=== PATIENT | female | born 1945 | race Caucasian/White ===

== ENCOUNTER → 2021-04-12 09:18 | Outpatient (ROUT) | payer OTHER, MEDICAID, SELFPAY ==
[2021-04-12 09:34] LABS: Add Manual Diff / Slide Review NO; Basophils Absolute Auto 0 /uL (0-100); Basophils Percent Auto 0.5 % (0-2); Eosinophils Absolute Auto 100 /uL (0-450); Eosinophils Percent Auto 0.8 % (2-4); Hematocrit 39.8 % (36-46); Hemoglobin 13.6 g/dL (12.0-16.0); Lymphocytes Absolute Auto 2600 /uL (1100-4500); Lymphocytes Percent Auto 31.7 % (25-40); Mean Corpuscular HGB Conc 34.3 % (30-36); Mean Corpuscular Hemoglobin 31.7 PG (26-34); Mean Corpuscular Volume 92.4 fL (80-100); Monocytes Absolute Auto 400 /uL (0-900); Monocytes Percent Auto 5.1 % (3-14); Neutrophils Absolute Auto 5200 /uL (1500-7000); Neutrophils Percent Auto 61.9 % (50-75); Platelet Count 275 X10^3/uL (150-400); Red Blood Cell Count 4.31 X10^6/uL (4.0-5.2); Red Cell Distribution Width 12.3 % (11.6-14.8); White Blood Cell Count 8.3 X10^3/uL (4.5-11.0)
[2021-04-12 09:45] LABS: Hemoglobin A1C% w Est Avg Glu 7.4 % (4.0-6.0)
[2021-04-12 09:50] LABS: Alanine Aminotransferase 14 IU/L (<35); Albumin 4.1 g/dL (3.5-5.0); Albumin Globulin Ratio 1.6 (1.0-2.8); Alkaline Phosphatase 66 U/L (38-126); Aspartate Aminotransferase 21 IU/L (14-36); BUN Creatinine Ratio 15.8 (6-22); Bilirubin Total 0.6 mg/dL (0.2-1.3); Blood Urea Nitrogen 9 mg/dL (7-17); Calcium 9.2 mg/dL (8.4-10.2); Carbon Dioxide 25 mmol/L (22-32); Chloride 98 mmol/L (98-107); Estimated Glomerular Filt Rate > 60.0 mL/min (>60); Globulin 2.6 g/dL (1.7-4.1); Glucose 235 mg/dL (80-110); HEMOLYSIS 49 (0-50); Potassium 4.3 mmol/L (3.4-5.1); Sodium 136 mmol/L (137-145); Total Protein 6.7 g/dL (6.3-8.2)
[2021-04-12 10:10] LABS: Vitamin D 25 Hydroxy (D3) 26.7 ng/mL (30.0-100.0)
[2021-04-12 10:38] LABS: Vitamin B12 221 pg/mL (239-931)
== END ==
PROVIDERS: Visit Provider Internal Medicine
DX: E11.9 Type 2 diabetes mellitus without complications (principal); D51.9 Vitamin B12 deficiency anemia, unspecified; E55.9 Vitamin D deficiency, unspecified
CPT/HCPCS: 36415; 80053; 82306; 82607; 83036; 85025

== ENCOUNTER → 2021-05-11 15:50 | Outpatient (ROUT) | payer OTHER, MEDICAID, SELFPAY ==
[2021-05-11 16:04] LABS: Appearance Urine UA CLEAR; Bilirubin Urine UA NEGATIVE (NEGATIVE); Color Urine UA YELLOW; Glucose Urine UA NEGATIVE (Negative); Ketones Urine UA NEGATIVE (NEGATIVE); Leukocyte Esterase Urine UA NEGATIVE (NEGATIVE); Nitrite Urine UA NEGATIVE (Negative); Occult Blood Urine UA NEGATIVE (Negative); Protein Urine UA NEGATIVE (Negative); Urobilinogen Urine UA 0.2 E.U./dL (0.2)
[2021-05-11 16:12] LABS: pH Urine UA 6.5 (4.5-8.0)
[2021-05-11 16:13] LABS: Bacteria Urine None Seen; Culture Indicated Urine Cult Not Indicated; RBC Urine None Seen (0-5/HPF); Squamous Epithelial Cell Urine 0-1 /HPF (0-5/HPF); WBC Urine 0-1/HPF (0-5/HPF)
== END ==
PROVIDERS: Visit Provider Nurse Practitioner Gerontology
DX: R11.0 Nausea (principal); R32 Unspecified urinary incontinence; R10.2 Pelvic and perineal pain
CPT/HCPCS: 81001

== ENCOUNTER → 2021-10-04 08:24 | Outpatient (ROUT) | payer OTHER, MEDICAID, SELFPAY ==
[2021-10-04 08:58] LABS: Add Manual Diff / Slide Review NO; Basophils Absolute Auto 0 /uL (0-100); Basophils Percent Auto 0.5 % (0-2); Eosinophils Absolute Auto 200 /uL (0-450); Eosinophils Percent Auto 1.8 % (2-4); Hematocrit 41.8 % (36-46); Hemoglobin 14.7 g/dL (12.0-16.0); Lymphocytes Absolute Auto 3800 /uL (1100-4500); Mean Corpuscular HGB Conc 35.2 % (30-36); Mean Corpuscular Hemoglobin 31.9 PG (26-34); Mean Corpuscular Volume 90.7 fL (80-100); Monocytes Absolute Auto 700 /uL (0-900); Monocytes Percent Auto 7.5 % (3-14); Neutrophils Absolute Auto 4400 /uL (1500-7000); Neutrophils Percent Auto 48.2 % (50-75); Platelet Count 256 X10^3/uL (150-400); Red Blood Cell Count 4.61 X10^6/uL (4.0-5.2); Red Cell Distribution Width 12.6 % (11.6-14.8); White Blood Cell Count 9.1 X10^3/uL (4.5-11.0)
[2021-10-04 09:05] LABS: Hemoglobin A1C% w Est Avg Glu 8.8 % (4.0-6.0)
[2021-10-04 09:11] LABS: BUN Creatinine Ratio 10.9 (6-22); Blood Urea Nitrogen 6 mg/dL (7-17); Calcium 9.1 mg/dL (8.4-10.2); Carbon Dioxide 26 mmol/L (22-32); Chloride 103 mmol/L (98-107); Cholesterol 180 mg/dL (140-199); Estimated Glomerular Filt Rate > 60 mL/min (>60); Glucose 175 mg/dL (80-110); HDL Cholesterol 50 mg/dL (40-60); HEMOLYSIS < 15 (0-50); LDL Cholesterol Calculated 90 mg/dL (<100); Potassium 4.2 mmol/L (3.4-5.1); Sodium 139 mmol/L (137-145); Triglycerides 201 mg/dL (35-150)
[2021-10-04 09:29] LABS: Vitamin D 25 Hydroxy (D3) 49.8 ng/mL (30.0-100.0)
[2021-10-04 09:59] LABS: Vitamin B12 882 pg/mL (239-931)
== END ==
PROVIDERS: Visit Provider Nurse Practitioner Family
DX: B37.3 Candidiasis of vulva and vagina (principal); D37.09 Neoplasm of uncertain behavior of other specified sites of the oral cavity; E11.9 Type 2 diabetes mellitus without complications; F17.210 Nicotine dependence, cigarettes, uncomplicated; F20.9 Schizophrenia, unspecified; G62.9 Polyneuropathy, unspecified
CPT/HCPCS: 36415; 80048; 80061; 82306; 82607; 83036; 85025

== ENCOUNTER 2021-11-12 11:50 | Emergency (ER) | payer OTHER, MEDICAID, SELFPAY ==
[2021-11-12 11:55] VITALS: BP 164/73; PULSE 123; RESP 20; TEMP 37.1; O2SAT 95; BMI 24.0
--- NOTE | 2021-11-12 13:01 | ED_ITS ---
HPI - Abdominal Pain <Edouard Echevarria PA-C - Last Filed: 11/12/21 19:37> General Chief Complaint: Abdominal Pain Stated Complaint: stomach issues shaky lightheaded Time Seen by Provider: 11/12/21 12:53 Source: patient Mode of arrival: Ambulatory History of Present Illness HPI narrative: Patient is a 76-year-old female who presents to the emergency department today for evaluation of abdominal pain. Patient states that she has been experiencing some ?stomach issues? with tremors. She states that she began to experience abdominal pain today after drinking ?[employer] cold brew coffee?. She does note that she has sensitivity to caffeine and it often causes her to have diarrhea. She states she has been experiencing nonbloody diarrhea for the past week and is concerned that she may be experiencing ?Parkinson's out of the blue?. She also explains that she may need something for anxiety a she has been experiencing symptoms of shortness of breath, lightheadedness, and dizziness. She denies any fever, chest pain, cough, shortness of breath, nausea, vomiting, constipation, dysuria, hematuria, or any other concerning symptoms. No further concerns were voiced at this time. Related Data Allergies Allergy/AdvReac Type Severity Reaction Status Date / Time No Known Drug Allergies Allergy Verified 11/12/21 11:54 Review of Systems <Edouard Echevarria PA-C - Last Filed: 11/12/21 19:37> Constitutional Constitutional: Denies chills, Denies fatigue, Denies fever(s), Denies frequent falls, Denies lethargy and Denies weakness ENT Ears, Nose, Mouth, and Throat: Denies neck pain Cardiovascular Cardiovascular: Denies chest pain, Denies irregular heart rhythm, Denies lightheadedness, Denies palpitations, Denies dyspnea, Denies dyspnea on exertion and Denies orthopnea Respiratory Respiratory: Denies dyspnea and Denies dyspnea on exertion Gastrointestinal Gastrointestinal: Reports abdominal pain, Denies change in bowel habits, Reports diarrhea, Denies nausea and Denies vomiting Genitourinary Genitourinary: Denies hematuria, Denies flank pain, Denies urinary incontinence and Denies urinary urgency Musculoskeletal Musculoskeletal: Denies back pain, Denies muscle weakness, Denies neck pain, Denies numbness and Denies tingling Integumentary/Breasts Skin/Breast: Denies pruritus, Denies erythema, Denies rash and Denies wounds Neurologic Neurologic: Denies frequent falls, Denies numbness, Denies tingling, Reports tremor(s) and Denies weakness Psychiatric Psychiatric: Reports anxiety Endocrine Endocrine: Denies fatigue and Denies palpitations Patient History <Edouard Echevarria PA-C - Last Filed: 11/12/21 19:37> Social History Smoking Status: Never smoker Smoking Status: Never smoker Substance Use Type: does not use Exam <Edouard Echevarria PA-C - Last Filed: 11/12/21 19:37> Narrative Exam Narrative: GENERAL: 76 year old patient appears stated age. Well-developed patient, in no acute distress. HEAD: Atraumatic. Normocephalic. EYES: Pupils equal round and reactive. Extraocular motions intact. No scleral icterus. No injection or drainage. ENT: Nose without bleeding, purulent drainage. Throat without erythema, tonsillar hypertrophy or exudate. Airway patent. NECK: Trachea midline. Non tender CARDIOVASCULAR: Regular rate and rhythm without murmurs, gallops, or rubs. RESPIRATORY: Clear to auscultation. Breath sounds equal bilaterally. No wheezes, rales, or rhonchi. GASTROINTESTINAL: Abdomen soft. Mild tenderness to palpation appreciated generally throughout all 4 quadrants of the abdomen. No significant rebound or guarding. Bowel sounds hyperactive to auscultation throughout all 4 quadrants of the abdomen. EXTREMITIES: No edema or joint tenderness. BACK: Nontender without deformity or crepitance. No flank tenderness. NEURO: AOx3. SKIN: No rash or erythema of visible areas Initial Vital Signs Initial Vital Signs: Vital Signs Temperature 98.8 F 11/12/21 11:55 Pulse Rate 123 H 11/12/21 11:55 Respiratory Rate 20 11/12/21 11:55 Blood Pressure 164/73 H 11/12/21 11:55 Pulse Oximetry 95 11/12/21 11:55 Oxygen Delivery Method 11/12/21 11:55 <Cliff Vázquez MD - Last Filed: 11/12/21 21:21> Initial Vital Signs Initial Vital Signs: Vital Signs Temperature 98.8 F 11/12/21 11:55 Pulse Rate 123 H 11/12/21 11:55 Respiratory Rate 20 11/12/21 11:55 Blood Pressure 164/73 H 11/12/21 11:55 Pulse Oximetry 95 11/12/21 11:55 Oxygen Delivery Method 11/12/21 11:55 Course <Edouard Echevarria PA-C - Last Filed: 11/12/21 19:37> Course Course Narrative: CBC, CMP, lipase, urine dip ordered. CT of the abdomen pelvis obtained. Discussed results of CT with Dr. Romero and he believes it is less likely the hugh campbell is experiencing small-bowel obstruction or ileus. Orders Ordered: ED Orders 11/12/21 14:00 CBC Auto Diff [Complete Blood Count AUTO DIFF] Stat CMP [Comprehensive Metabolic Panel] Stat Lipase Stat 11/12/21 14:49 CT abdomen pelvis w con Stat Discontinued Medications Dicyclomine HCl (Dicyclomine 10 Mg Capsule) 20 mg PO NOW ONE Stop: 11/12/21 16:48 Last Admin: 11/12/21 17:02 Dose: 20 mg Documented By: NILA Hydroxyzine Pamoate (Hydroxyzine Pamoate 25 Mg Capsule) 25 mg PO NOW ONE Stop: 11/12/21 13:13 Last Admin: 11/12/21 13:53 Dose: 25 mg Documented By: TUCKER Vital Signs Vital signs: Vital Signs - 8 hr 11/12/21 11:55 Temperature 98.8 F Pulse Rate 123 H Respiratory Rate 20 Blood Pressure 164/73 H Pulse Oximetry 95 Oxygen Delivery Method Room Air <Cliff Vázquez MD - Last Filed: 11/12/21 21:21> Orders Ordered: ED Orders 11/12/21 14:00 CBC Auto Diff [Complete Blood Count AUTO DIFF] Stat CMP [Comprehensive Metabolic Panel] Stat Lipase Stat 11/12/21 14:49 CT abdomen pelvis w con Stat Discontinued Medications Dicyclomine HCl (Dicyclomine 10 Mg Capsule) 20 mg PO NOW ONE Stop: 11/12/21 16:48 Last Admin: 11/12/21 17:02 Dose: 20 mg Documented By: NR Hydroxyzine Pamoate (Hydroxyzine Pamoate 25 Mg Capsule) 25 mg PO NOW ONE Stop: 11/12/21 13:13 Last Admin: 11/12/21 13:53 Dose: 25 mg Documented By: TUCKER Vital Signs Vital signs: Vital Signs - 8 hr 11/12/21 11:55 Temperature 98.8 F Pulse Rate 123 H Respiratory Rate 20 Blood Pressure 164/73 H Pulse Oximetry 95 Oxygen Delivery Method Room Air MDM - Abdominal Pain <Edouard Echevarria PA-C - Last Filed: 11/12/21 19:37> Lab Data Result diagrams: 11/12/21 14:00 11/12/21 14:00 Labs: Lab Results 11/12/21 11/12/21 Range/Units 14:00 14:00 WBC 11.6 H (4.5-11.0) X10^3/uL RBC 4.39 (4.0-5.2) X10^6/uL Hgb 13.6 (12.0-16.0) g/dL Hct 39.9 (36-46) % MCV 90.9 (80-100) fL MCH 31.0 (26-34) PG MCHC 34.1 (30-36) % RDW 12.8 (11.6-14.8) % Plt Count 271 (150-400) X10^3/uL Neut % (Auto) 68.2 (50-75) % Lymph % (Auto) 24.4 L (25-40) % Liberty % (Auto) 6.3 (3-14) % Eos % (Auto) 0.6 L (2-4) % Baso % (Auto) 0.5 (0-2) % Neut # (Auto) 7900 H (2788-5244) /uL Lymph # (Auto) 2800 (3856-5068) /uL Liberty # (Auto) 700 (0-900) /uL Eos # (Auto) 100 (0-450) /uL Baso # (Auto) 100 (0-100) /uL Sodium 138 (137-145) mmol/L Potassium 3.9 (3.4-5.1) mmol/L Chloride 102 (98-107) mmol/L Carbon Dioxide 29 (22-32) mmol/L BUN 7 (7-17) mg/dL Creatinine 0.54 (0.52-1.04) mg/dL Estimated GFR > 60 (>60) mL/min BUN/Creatinine Ratio 13.0 (6-22) Glucose 152 H (80-110) mg/dL Calcium 9.0 (8.4-10.2) mg/dL Total Bilirubin 0.5 (0.2-1.3) mg/dL AST 21 (14-36) IU/L ALT 15 (<35) IU/L Alkaline Phosphatase 72 (38-126) U/L Total Protein 7.3 (6.3-8.2) g/dL Albumin 4.2 (3.5-5.0) g/dL Globulin 3.1 (1.7-4.1) g/dL Albumin/Globulin Ratio 1.4 (1.0-2.8) Lipase 76 (23-300) U/L Imaging Data CT scan - abdomen/pelvis: Radiologist's Impression: PROCEDURE:? CT ABDOMEN PELVIS W CON ? INDICATIONS:? Abdominal pain, diarrhea ? TECHNIQUE:? After the administration of intravenous contrast, axial sections acquired from the lung bases to the pubic symphysis.? Coronal and sagittal reformats were performed.? For radiation dose reduction, the following was used:? automated exposure control, adjustment of mA and/or kV according to patient size.? ? COMPARISON:? None. ? FINDINGS:? Image quality:? Excellent.? ? Lung bases:? Bibasilar atelectasis.? Lung bases are otherwise clear. Heart:? No significant findings. ? ABDOMEN: Liver:? Unremarkable.? ? Gallbladder:? Large level aided gallstone.? No wall thickening or surrounding inflammation.? Six Biliary ducts:? Unremarkable.? ? Pancreas:? Unremarkable.? ? Spleen:? Unremarkable.? ? Adrenal Glands:? Unremarkable.? ? Kidneys and Ureters:? Unremarkable.? ? ? Stomach and Bowel:? Small hiatal hernia.? Stomach is otherwise unremarkable.? There are a few loops of prominent yet nondilated small bowel noted within the left hemiabdomen with gradual transition.? There is left colon diverticulosis.? No evidence of diverticulitis. Peritoneum:? No abnormal intraperitoneal fluid.? No free air.? ? Ventral Wall: ? No hernias.? Abdominal Nodes:? No retroperitoneal or mesenteric adenopathy by size criteria.? Vessels:? Aorta and inferior vena cava are normal in size.? ? PELVIS: Pelvic Organs:? Unremarkable.? ? Bladder:? Unremarkable.? ? Pelvic Nodes: No enlarged lymph nodes.? Miscellaneous: No hernias are seen. ? ? ? Bones:? Degenerative changes of the spine did hips.? Age-indeterminate shallow compression deformity of the superior endplate of T11. ? ? IMPRESSION:? ? Prominent yet nondilated loops of air-filled small bowel within the left mid abdomen did. ?This is nonspecific but may represent cycle of the dried is versus ileus.? Early small bowel obstruction not completely excluded although not favored. ? Diverticulosis.? No evidence of diverticulitis. ? Cholelithiasis with large level weighted gallstone.? No current CT evidence of cholecystitis. ? Age-indeterminate shallow compression deformity of the superior endplate of T11.? ? Dictated by: Kenn Romero D.O. on 11/12/2021 at 14:28 ? ? Approved by: Kenn Romero D.O. on 11/12/2021 at 14:36 ? MDM Narrative Medical decision making narrative: Differential diagnosis to consider but not limited to colitis versus constipation versus infectious diarrhea. Discussed results of CT with patient and informed her that lab studies were within normal limits. I encouraged patient to begin taking Bentyl to help alleviate discomfort and to follow up with primary care for further evaluation. She expresses understanding and agrees to plan. Urged the patient to return to the emergency department if she experiences worsening symptoms, such as persistent diarrhea, fever, worsening abdominal pain, or any other concerning symptoms. <Cliff Vázquez MD - Last Filed: 11/12/21 21:21> Lab Data Labs: Lab Results 11/12/21 11/12/21 Range/Units 14:00 14:00 WBC 11.6 H (4.5-11.0) X10^3/uL RBC 4.39 (4.0-5.2) X10^6/uL Hgb 13.6 (12.0-16.0) g/dL Hct 39.9 (36-46) % MCV 90.9 (80-100) fL MCH 31.0 (26-34) PG MCHC 34.1 (30-36) % RDW 12.8 (11.6-14.8) % Plt Count 271 (150-400) X10^3/uL Neut % (Auto) 68.2 (50-75) % Lymph % (Auto) 24.4 L (25-40) % Liberty % (Auto) 6.3 (3-14) % Eos % (Auto) 0.6 L (2-4) % Baso % (Auto) 0.5 (0-2) % Neut # (Auto) 7900 H (7540-0293) /uL Lymph # (Auto) 2800 (5188-3276) /uL Liberty # (Auto) 700 (0-900) /uL Eos # (Auto) 100 (0-450) /uL Baso # (Auto) 100 (0-100) /uL Sodium 138 (137-145) mmol/L Potassium 3.9 (3.4-5.1) mmol/L Chloride 102 (98-107) mmol/L Carbon Dioxide 29 (22-32) mmol/L BUN 7 (7-17) mg/dL Creatinine 0.54 (0.52-1.04) mg/dL Estimated GFR > 60 (>60) mL/min BUN/Creatinine Ratio 13.0 (6-22) Glucose 152 H (80-110) mg/dL Calcium 9.0 (8.4-10.2) mg/dL Total Bilirubin 0.5 (0.2-1.3) mg/dL AST 21 (14-36) IU/L ALT 15 (<35) IU/L Alkaline Phosphatase 72 (38-126) U/L Total Protein 7.3 (6.3-8.2) g/dL Albumin 4.2 (3.5-5.0) g/dL Globulin 3.1 (1.7-4.1) g/dL Albumin/Globulin Ratio 1.4 (1.0-2.8) Lipase 76 (23-300) U/L Discharge Plan Departure Patient Disposition: Home Clinical Impression: Abdominal pain, Diarrhea Instructions: DI for Abdominal Pain-Adult Activity Restrictions/Additional Instructions: *You have been diagnosed with abdominal pain, diarrhea *What to do: *Please continue to take your regular medications as directed. [X] New medication prescriptions sent to your pharmacy: [Bentyl] [ ] New medication written as a paper prescription [ ] No new medications given You were evaluated in the emergency department today for abdominal pain and diarrhea. CT imaging obtained in the emergency department today did not show signs of significant abnormality. I recommend staying well hydrated throughout the day. I have prescribed you a course of medications to help alleviate your abdominal discomfort. Please follow-up with primary care for further evaluation and management. Do not hesitate to return to the emergency department if you experience fever, worsening abdominal pain, blood in your stool, frequent episodes of diarrhea, or any other concerning symptoms. Recommended if that the patient take Bentyl 20 mg b.i.d. for 5 days for a total of 10 tablets. *Please follow up with your primary care provider in 2-3 days, call for an appointment. Let them know you were seen in the Emergency Department and that we ask that you be seen in follow up. We will electronically transmit a record of today's note if your PCP is in our system *If you do not have a primary care provider please contact the [facility] Resource line at [phone]. They will ask some questions about your medical history and help get you set up with a doctor in the community. *Return to Emergency Department if you should have any new, worsening or concerning symptoms, such as fever greater than 101 F, shaking chills, worsening pain, persistent vomiting or other bothersome symptoms. Visit Report Forms: Patient Portal/API <Cliff Vázquez MD - Last Filed: 11/12/21 21:21> Cosign ED Attending Lupillo Attestation: I was immediately available for consultation of this patient was seen and evaluated by the APC in the department.
[2021-11-12] MEDS: hydrOXYzine pamoate 25 MG CAPSULE PO (13:53)
[2021-11-12 14:12] LABS: Add Manual Diff / Slide Review NO; Basophils Absolute Auto 100 /uL (0-100); Basophils Percent Auto 0.5 % (0-2); Eosinophils Absolute Auto 100 /uL (0-450); Eosinophils Percent Auto 0.6 % (2-4); Hematocrit 39.9 % (36-46); Hemoglobin 13.6 g/dL (12.0-16.0); Lymphocytes Absolute Auto 2800 /uL (1100-4500); Lymphocytes Percent Auto 24.4 % (25-40); Mean Corpuscular HGB Conc 34.1 % (30-36); Mean Corpuscular Volume 90.9 fL (80-100); Monocytes Absolute Auto 700 /uL (0-900); Monocytes Percent Auto 6.3 % (3-14); Neutrophils Absolute Auto 7900 /uL (1500-7000); Neutrophils Percent Auto 68.2 % (50-75); Platelet Count 271 X10^3/uL (150-400); Red Blood Cell Count 4.39 X10^6/uL (4.0-5.2); Red Cell Distribution Width 12.8 % (11.6-14.8); White Blood Cell Count 11.6 X10^3/uL (4.5-11.0)
[2021-11-12 14:25] LABS: Alanine Aminotransferase 15 IU/L (<35); Albumin 4.2 g/dL (3.5-5.0); Albumin Globulin Ratio 1.4 (1.0-2.8); Alkaline Phosphatase 72 U/L (38-126); Aspartate Aminotransferase 21 IU/L (14-36); Bilirubin Total 0.5 mg/dL (0.2-1.3); Blood Urea Nitrogen 7 mg/dL (7-17); Carbon Dioxide 29 mmol/L (22-32); Chloride 102 mmol/L (98-107); Estimated Glomerular Filt Rate > 60 mL/min (>60); Globulin 3.1 g/dL (1.7-4.1); Glucose 152 mg/dL (80-110); HEMOLYSIS < 15 (0-50); Lipase 76 U/L (23-300); Potassium 3.9 mmol/L (3.4-5.1); Sodium 138 mmol/L (137-145); Total Protein 7.3 g/dL (6.3-8.2)
--- NOTE | 2021-11-12 14:49 | DI.CT.S_ITS ---
PROCEDURE: CT ABDOMEN PELVIS W CON INDICATIONS: Abdominal pain, diarrhea TECHNIQUE: After the administration of intravenous contrast, axial sections acquired from the lung bases to the pubic symphysis. Coronal and sagittal reformats were performed. For radiation dose reduction, the following was used: automated exposure control, adjustment of mA and/or kV according to patient size. COMPARISON: None. FINDINGS: Image quality: Excellent. Lung bases: Bibasilar atelectasis. Lung bases are otherwise clear. Heart: No significant findings. ABDOMEN: Liver: Unremarkable. Gallbladder: Large level aided gallstone. No wall thickening or surrounding inflammation. Six Biliary ducts: Unremarkable. Pancreas: Unremarkable. Spleen: Unremarkable. Adrenal Glands: Unremarkable. Kidneys and Ureters: Unremarkable. Stomach and Bowel: Small hiatal hernia. Stomach is otherwise unremarkable. There are a few loops of prominent yet nondilated small bowel noted within the left hemiabdomen with gradual transition. There is left colon diverticulosis. No evidence of diverticulitis. Peritoneum: No abnormal intraperitoneal fluid. No free air. Ventral Wall: No hernias. Abdominal Nodes: No retroperitoneal or mesenteric adenopathy by size criteria. Vessels: Aorta and inferior vena cava are normal in size. PELVIS: Pelvic Organs: Unremarkable. Bladder: Unremarkable. Pelvic Nodes: No enlarged lymph nodes. Miscellaneous: No hernias are seen. Bones: Degenerative changes of the spine did hips. Age-indeterminate shallow compression deformity of the superior endplate of T11. IMPRESSION: Prominent yet nondilated loops of air-filled small bowel within the left mid abdomen did. This is nonspecific but may represent cycle of the dried is versus ileus. Early small bowel obstruction not completely excluded although not favored. Diverticulosis. No evidence of diverticulitis. Cholelithiasis with large level weighted gallstone. No current CT evidence of cholecystitis. Age-indeterminate shallow compression deformity of the superior endplate of T11. Dictated by: Kenn Romero D.O. on 11/12/2021 at 14:28 Approved by: Kenn Romero D.O. on 11/12/2021 at 14:36
[2021-11-12] MEDS: DICYCLOMINE 10 MG CAPSULE 20 MG PO (17:02)
== END 2021-11-12 17:21 | disposition home or self-care (01) ==
PROVIDERS: Emergency Provider Physician Assistant
DX: R10.9 Unspecified abdominal pain (principal); R19.7 Diarrhea, unspecified
CPT/HCPCS: 36415; 74177; 80053; 83690; 85025; 99284; Q9967

== ENCOUNTER 2021-11-18 09:44 | Emergency (ER) | payer OTHER, MEDICAID, SELFPAY ==
[2021-11-18 10:10] VITALS: BP 142/76; PULSE 96; RESP 20; TEMP 36.1; O2SAT 99; BMI 23.3
--- NOTE | 2021-11-18 10:23 | ED.ABDPAIN ---
HPI - Abdominal Pain General Chief Complaint: Abdominal Pain Stated Complaint: Stomach issues again Time Seen by Provider: 11/18/21 10:22 History of Present Illness HPI narrative: Patient is a 76-year-old who presents with abdominal pain.? She was seen evaluated here on 11/12/2021 for the same.? She had blood work and CT.? CT showed possible early small-bowel obstruction.? Today she wandered off from [facility] assisted living for ongoing abdominal pain.? She is currently drinking a bottle of water.? She brings with her her remote for her TV and her portable telephone.? Staff did not know she was leaving.? She is not vomiting.? He just wanted to be evaluated.? She overall appears well.? She apparently is going into memory care sometime soon. Related Data Allergies Allergy/AdvReac Type Severity Reaction Status Date / Time No Known Drug Allergies Allergy Verified 11/12/21 11:54 Review of Systems Review of Systems Narrative: GENERAL: Denies chills, fatigue, malaise, fever, sweats, travel HEENT: Denies sinus pain, ear pain, sore throat, difficulty swallowing, neck pain RESPIRATORY: Denies dyspnea, cough, wheezing, hemoptysis, sputum. CARDIOVASCULAR: Denies chest pain, palpitations, orthopnea, edema GASTROINTESTINAL:? See HPI : Denies dysuria, frequency, incontinence, hematuria, urinary retention, flank pain. MUSCULOSKELETAL: Denies weakness, joint pain, or bony pain SKIN: No rash, no erythema, no pruritus NEUROLOGIC: Denies weakness, dizziness, headache, numbness, change in speech, confusion PSYCHIATRIC: No concerning psychosocial issues. 12 point review of systems is negative except for those stated above and HPI Patient History Social History Smoking Status: Never smoker Smoking Status: Never smoker Substance Use Type: does not use Exam Initial Vital Signs Initial Vital Signs: Vital Signs Temperature 97 F L 11/18/21 10:10 Pulse Rate 96 H 11/18/21 10:10 Respiratory Rate 20 11/18/21 10:10 Blood Pressure 142/76 H 11/18/21 10:10 Pulse Oximetry 99 11/18/21 10:10 Oxygen Delivery Method 11/18/21 10:10 GENERAL:? Alert pleasantly confused 76-year-old female and in no acute distress. HEENT: Head atraumatic,EOMI, pupils reactive, face symmetric, moist mucous membranes? CARDIOVASCULAR: Regular rate and rhythm without murmurs, rubs or gallops. RESPIRATORY: Breath sounds equal bilaterally, no wheezes rales or rhonchi. ABDOMEN: Soft, slightly distended but soft minimally tender no guarding no rebound EXTREMITIES: Normal range of motion, no clubbing or edema.? Neurovascularly intact NEUROLOGICAL: Alert and oriented x3.? No deficit SKIN: Warm, dry, no laceration, no petechiae, no rashes or lesions. Course Orders Ordered: ED Orders 11/18/21 10:25 XR acute abdomen series Stat Vital Signs Vital signs: Vital Signs - 8 hr 11/18/21 10:10 Temperature 97 F L Pulse Rate 96 H Respiratory Rate 20 Blood Pressure 142/76 H Pulse Oximetry 99 Oxygen Delivery Method Room Air MDM - Abdominal Pain Imaging Data Abdominal x-ray: Radiologist's Impression: MR#: [id number] : 1945 Acct:[id number] Age/Sex: 76 / F Date of Service: 11/18/21 Loc: ED Accession Number: [id number] ?? Procedure: XR acute abdomen series Ordering Provider: Yumiko Benavides D.O. PROCEDURE:? XR ACUTE ABDOMEN SERIES ? INDICATIONS:? pain ? TECHNIQUE:? One view chest and two views of the abdomen were acquired.? ? COMPARISON:? None. ? FINDINGS:? ? Surgical changes and devices:? None.? ? Chest:? Lungs are clear.? Heart size is normal.? No pleural effusions.? No pneumoperitoneum.? ? Abdomen:? There are prominent gas-filled loops of small bowel but no evidence of small-bowel obstruction.? Stool in the large bowel appears increased consistent with constipation.? No suspicious calcifications.? Visualized solid organ contours appear normal.? ? Bones:? No suspicious bony lesions.? ? IMPRESSION:? 1. No acute plain film abnormality of the abdomen. 2. Prominent gas-filled loops of small bowel with no evidence of small-bowel obstruction. 3. Stool in the small bowel is increased consistent with constipation.? ? ? Dictated by: William Fortune M.D. on 11/18/2021 at 10:31 ? ? Approved by: William Fortune M.D. on 11/18/2021 at 10:37 ? MDM Narrative Medical decision making narrative: The patient overall appears well. She is drinking water she is eating food. At this time no need for any further workup. She had complete workup just a few days ago with a CT. She easily walks herself over here and staff is here to return her. Discharge Plan Departure Patient Disposition: Home Clinical Impression: Abdominal pain Instructions: DI for Abdominal Pain-Adult Activity Restrictions/Additional Instructions: *You have been diagnosed with abdominal pain *What to do: At this time x-ray is negative no cause of abdominal pain. Continue to eat and drink *Continue to take medications as directed *Follow up with your primary care provider in 2-3 days or call [phone] *Return to ER if you should have increasing pain persistent vomiting or any new, worsening or concerning symptoms Referrals: Ivanna Samuel ARNP [Primary Care Provider] - Visit Report Forms: Patient Portal/API
--- NOTE | 2021-11-18 10:25 | DI.RAD.S_ITS ---
PROCEDURE: XR ACUTE ABDOMEN SERIES INDICATIONS: pain TECHNIQUE: One view chest and two views of the abdomen were acquired. COMPARISON: None. FINDINGS: Surgical changes and devices: None. Chest: Lungs are clear. Heart size is normal. No pleural effusions. No pneumoperitoneum. Abdomen: There are prominent gas-filled loops of small bowel but no evidence of small-bowel obstruction. Stool in the large bowel appears increased consistent with constipation. No suspicious calcifications. Visualized solid organ contours appear normal. Bones: No suspicious bony lesions. IMPRESSION: 1. No acute plain film abnormality of the abdomen. 2. Prominent gas-filled loops of small bowel with no evidence of small-bowel obstruction. 3. Stool in the small bowel is increased consistent with constipation. Dictated by: William Fortune M.D. on 11/18/2021 at 10:31 Approved by: William Fortune M.D. on 11/18/2021 at 10:37
--- NOTE | 2021-11-18 10:28 | ED_ITS ---
HPI - CPR General Chief Complaint: Abdominal Pain Stated Complaint: Stomach issues again Time Seen by Provider: 11/18/21 10:22 History of Present Illness HPI narrative: Patient is a 76-year-old who presents with abdominal pain. She was seen evaluated here on 11/12/2021 for the same. She had blood work and CT. CT showed possible early small-bowel obstruction. Today she wandered off from [facility] living for ongoing abdominal pain. She is currently drinking a bottle of water. She brings with her her remote for her TV and her portable telephone. Staff did not know she was leaving. She is not vomiting. He just wanted to be evaluated. She overall appears well. She apparently is going into memory care sometime soon Related Data Allergies Allergy/AdvReac Type Severity Reaction Status Date / Time No Known Drug Allergies Allergy Verified 11/12/21 11:54 Review of Systems Review of Systems Narrative: GENERAL: Denies chills, fatigue, malaise, fever, sweats, travel HEENT: Denies sinus pain, ear pain, sore throat, difficulty swallowing, neck pain RESPIRATORY: Denies dyspnea, cough, wheezing, hemoptysis, sputum. CARDIOVASCULAR: Denies chest pain, palpitations, orthopnea, edema GASTROINTESTINAL: See HPI : Denies dysuria, frequency, incontinence, hematuria, urinary retention, flank pain. MUSCULOSKELETAL: Denies weakness, joint pain, or bony pain SKIN: No rash, no erythema, no pruritus NEUROLOGIC: Denies weakness, dizziness, headache, numbness, change in speech, confusion PSYCHIATRIC: No concerning psychosocial issues. 12 point review of systems is negative except for those stated above and HPI Patient History Social History Smoking Status: Never smoker Smoking Status: Never smoker Substance Use Type: does not use Exam Initial Vital Signs Initial Vital Signs: Vital Signs Temperature 97 F L 11/18/21 10:10 Pulse Rate 96 H 11/18/21 10:10 Respiratory Rate 20 11/18/21 10:10 Blood Pressure 142/76 H 11/18/21 10:10 Pulse Oximetry 99 11/18/21 10:10 Oxygen Delivery Method 11/18/21 10:10 GENERAL: Alert pleasantly confused 76-year-old female and in no acute distress. HEENT: Head atraumatic,EOMI, pupils reactive, face symmetric, moist mucous membranes CARDIOVASCULAR: Regular rate and rhythm without murmurs, rubs or gallops. RESPIRATORY: Breath sounds equal bilaterally, no wheezes rales or rhonchi. ABDOMEN: Soft, slightly distended but soft minimally tender no guarding no rebound EXTREMITIES: Normal range of motion, no clubbing or edema. Neurovascularly intact NEUROLOGICAL: Alert and oriented x3. No deficit SKIN: Warm, dry, no laceration, no petechiae, no rashes or lesions. Course Orders Ordered: ED Orders 11/18/21 10:25 XR acute abdomen series Stat Vital Signs Vital signs: Vital Signs - 8 hr 11/18/21 10:10 Temperature 97 F L Pulse Rate 96 H Respiratory Rate 20 Blood Pressure 142/76 H Pulse Oximetry 99 Oxygen Delivery Method Room Air Discharge Plan Departure Patient Disposition: Home Clinical Impression: Abdominal pain Instructions: DI for Abdominal Pain-Adult Activity Restrictions/Additional Instructions: *You have been diagnosed with abdominal pain *What to do: At this time x-ray is negative no cause of abdominal pain. Continue to eat and drink *Continue to take medications as directed *Follow up with your primary care provider in 2-3 days or call [phone] *Return to ER if you should have increasing pain persistent vomiting or any new, worsening or concerning symptoms Referrals: Ivanna Samuel ARNP [Primary Care Provider] - Visit Report Forms: Patient Portal/API
== END 2021-11-18 12:00 | disposition home or self-care (01) ==
PROVIDERS: Emergency Provider Emergency Medicine; PCP Nurse Practitioner Family
DX: R10.9 Unspecified abdominal pain (principal)
CPT/HCPCS: 74022; 99283

== ENCOUNTER 2021-11-24 09:00 | Emergency (ER) | payer OTHER, MEDICAID, SELFPAY ==
[2021-11-24 09:13] VITALS: BP 149/74; PULSE 107; RESP 15; TEMP 35.9; O2SAT 95; BMI 22.4
--- NOTE | 2021-11-24 10:15 | ED_ITS ---
HPI - Eye Problem General Chief complaint: Eye Problems Stated complaint: both eyes: blurred visions and white light Time Seen by Provider: 11/24/21 09:56 Source: patient Mode of arrival: Ambulatory History of Present Illness HPI Narrative: Patient is a 76-year-old female who has escaped again from [facility] living. She was seen evaluated by myself a few days ago for some abdominal pain. Today she says she is having ongoing white light some blurry vision it has been like this for a number of months. She says she cannot get in eye appointment for another year because of her insurance. It is not any worse today. She does have a lazy eye on the left. She is worried she might have glaucoma. He has no other complaints. She denies any double vision. Related Data Allergies Allergy/AdvReac Type Severity Reaction Status Date / Time Penicillins Allergy Verified 11/24/21 09:13 procaine [From Novocain] Allergy Verified 11/24/21 10:08 Review of Systems Review of Systems Narrative: GENERAL: Denies chills,fever EYES: See HPI HEENT: Denies throat pain RESPIRATORY: Denies dyspnea, cough, wheezing CARDIOVASCULAR: Denies chest pain, palpitations GASTROINTESTINAL: Denies nausea, vomiting MUSCULOSKELETAL: Denies extremity pain, injury SKIN: No rash, no laceration, no pruritus NEUROLOGIC: Denies weakness, dizziness, headache, numbness 8 point review of systems is negative except for those stated above and HPI Patient History Social History Smoking Status: Never smoker Smoking Status: Never smoker tobacco type: cigarettes alcohol intake frequency: holidays/special occasions only Substance Use Type: does not use Exam Initial Vital Signs Initial Vital Signs: Vital Signs Temperature 96.7 F L 11/24/21 09:13 Pulse Rate 107 H 11/24/21 09:13 Respiratory Rate 15 11/24/21 09:13 Blood Pressure 149/74 H 11/24/21 09:13 Pulse Oximetry 95 11/24/21 09:13 Oxygen Delivery Method 11/24/21 09:13 GENERAL: Alert 76-year-old pain EYE: Please GI noted on left extraocular muscles intact no injected conjunctiva Right eye pressure 32mmHg, left eye pressure 27mmHg CARDIOVASCULAR: peripheral pulses in tact, cap refill <2 sec RESPIRATORY: No respiratory distress, speaks in full sentences without difficulty EXTREMITIES: Normal range of motion, no clubbing or edema. Neurovascularly intact NEUROLOGICAL: Cranial nerves II through XII grossly intact. Normal gait and speech. SKIN: Warm, dry, no petechiae, no rashes or lesions. Course Vital Signs Vital signs: Vital Signs - 8 hr 11/24/21 09:13 11/24/21 10:26 Temperature 96.7 F L 97.2 F L Pulse Rate 107 H 90 Respiratory Rate 15 18 Blood Pressure 149/74 H 144/96 H Pulse Oximetry 95 95 Oxygen Delivery Method Room Air Room Air MDM - Eye Problem MDM Narrative Medical decision making narrative: Patient is concerned that she may have glaucoma she actually is found to have elevated ocular pressures. It has been going on for a year or more. Patient so symptoms do not seem to be any worse today. She has absolutely no pain. Prior history of cataract Discussion with Dr. Rosie canada ophthalmology who states that she does not take patient's insurance, no recommendations were given for eye pressure Dr. 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 Discharge Plan Departure Patient Disposition: Home Clinical Impression: Glaucoma (increased eye pressure) Instructions: Glaucoma (Alternative Therapy) Activity Restrictions/Additional Instructions: *You have been diagnosed with probable glaucoma *What to do: It is very important that you get seen as soon as possible by the eye doctor *Continue to take medications as directed *Follow up with your primary care provider in 2-3 days or call [phone] *Return to ER if you should have loss of vision halos pain in eye or any new, worsening or concerning symptoms Referrals: Ivanna Samuel ARNP [Primary Care Provider] - Visit Report Forms: Patient Portal/API
[2021-11-24 10:26] VITALS: BP 144/96; PULSE 90; RESP 18; TEMP 36.2; O2SAT 95
--- NOTE | 2021-11-24 10:33 | PC.NURSE ---
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 Pt states this is normal. Pt states she has had bilateral cataract surgery. Just been harder to read lately. Concerned for glaucoma.
== END 2021-11-24 13:10 | disposition home or self-care (01) ==
PROVIDERS: Emergency Provider Emergency Medicine; PCP Nurse Practitioner Family
DX: H40.9 Unspecified glaucoma (principal)
CPT/HCPCS: 99281

== ENCOUNTER 2021-12-03 11:12 | Emergency (ER) | payer OTHER, MEDICAID, SELFPAY ==
[2021-12-03 11:39] VITALS: BP 138/64; PULSE 108; RESP 20; TEMP 37.3; O2SAT 100; BMI 22.3
--- NOTE | 2021-12-03 11:54 | ED_ITS ---
HPI - Ear Problem <GILMAR Childers - Last Filed: 12/03/21 12:25> General Chief complaint: Ear Stated complaint: LUMP UNDER RIGHT EAR Time Seen by Provider: 12/03/21 11:51 Source: patient Mode of arrival: Family Vehicle History of Present Illness HPI Narrative: 76 year old female, former smoker, presents to the emergency department with concerns over lump underneath her right ear that is painful with palpation. Patient is concerned this could be cancerous. Patient also endorses a dry spot on her scalp that is itchy, even though she uses prescription shampoo from her family doctor. Patient is very friendly and just wants to make sure she does not cancer, due to previous history cigarette smoking. Related Data Allergies Allergy/AdvReac Type Severity Reaction Status Date / Time Penicillins Allergy Verified 12/03/21 11:28 procaine [From Novocain] Allergy Verified 11/24/21 10:08 Review of Systems <GILMAR Childers - Last Filed: 12/03/21 12:25> Review of Systems Narrative: Narrative: GENERAL: Denies chills, fatigue, fever, sweats. See HPI HEENT: Denies sinus pain, ear pain, sore throat, difficulty swallowing, dizziness. RESPIRATORY: Denies dyspnea, cough, wheezing, sputum. CARDIOVASCULAR: Denies chest pain, palpitations, edema. GASTROINTESTINAL: Denies nausea, vomiting, abdominal pain, diarrhea, constipation. : Denies dysuria, frequency, incontinence, hematuria, urinary retention, flank pain. MSK: Denies weakness, joint pain, or bony pain. SKIN: Endorses painful lump under right ear and itchy patch on top of scalp. NEUROLOGIC: Denies weakness, dizziness, headache, numbness, confusion. PSYCHIATRIC: No concerning psychosocial issues. Patient History <GILMAR Childers - Last Filed: 12/03/21 12:25> Social History Smoking Status: Former smoker Smoking Status: Never smoker tobacco type: cigarettes alcohol intake frequency: holidays/special occasions only Substance Use Type: does not use Exam <GILMAR Childers - Last Filed: 12/03/21 12:25> Narrative Exam Narrative: Exam Narrative: GENERAL: This is a well-nourished, well-developed patient, in no acute distress HEAD: Atraumatic. Normocephalic. 0.5 cm dry patch on top of scalp. No active bleeding or signs of infection. EYES: Pupils equal round and reactive. Left eye with vertical strabismus. No scleral icterus, injection or drainage. ENT: Nose without bleeding, purulent drainage. Throat with mild erythema, but no tonsillar hypertrophy or exudate. Airway patent. NECK: Trachea midline. No JVD. Pea-sized swollen lymph node below right earlobe that is painful with palpation. CARDIOVASCULAR: Regular rate and rhythm without murmurs, peripheral pulses intact, cap refill <2 sec. RESPIRATORY: Breath sounds equal and clear bilaterally. No wheezes, rales, or rhonchi. No cough. No increased respiratory effort. No accessory muscle use. GASTROINTESTINAL: Abdomen soft, non-tender, nondistended without guarding or rebound. No suprapubic pain. MSK: Moves all extremities. Normal range of motion, no clubbing or edema. N eurovascularly intact. NEURO: A&O x 3. SKIN: Warm, dry, no rashes or lesions noted. Initial Vital Signs Initial Vital Signs: Vital Signs Temperature 99.2 F 12/03/21 11:39 Pulse Rate 108 H 12/03/21 11:39 Respiratory Rate 20 12/03/21 11:39 Blood Pressure 138/64 12/03/21 11:39 Pulse Oximetry 100 12/03/21 11:39 Oxygen Delivery Method High Flow Nasal Cannula 12/03/21 11:39 Reviewed <Isra Brumfield MD - Last Filed: 12/16/21 12:22> Initial Vital Signs Initial Vital Signs: Vital Signs Temperature 99.2 F 12/03/21 11:39 Pulse Rate 108 H 12/03/21 11:39 Respiratory Rate 20 12/03/21 11:39 Blood Pressure 138/64 12/03/21 11:39 Pulse Oximetry 100 12/03/21 11:39 Oxygen Delivery Method High Flow Nasal Cannula 12/03/21 11:39 Course <GILMAR Childers - Last Filed: 12/03/21 12:25> Vital Signs Vital signs: Vital Signs - 8 hr 12/03/21 11:39 Temperature 99.2 F Pulse Rate 108 H Respiratory Rate 20 Blood Pressure 138/64 Pulse Oximetry 100 Oxygen Delivery Method Room Air High Flow Nasal Cannula <Isra Brumfield MD - Last Filed: 12/16/21 12:22> Vital Signs Vital signs: Vital Signs - 8 hr 12/03/21 11:39 Temperature 99.2 F Pulse Rate 108 H Respiratory Rate 20 Blood Pressure 138/64 Pulse Oximetry 100 Oxygen Delivery Method Room Air High Flow Nasal Cannula Medical Decision Making <GILMAR Childers - Last Filed: 12/03/21 12:25> Differential Diagnosis Differential Diagnosis: Lymphadenopathy MDM Narrative Medical decision making narrative: 76-year-old female presents to the emergency department with lump under right ear and itchy scalp. Single swollen lymph node below right ear lobe that should resolve on its own. No signs throat or ear infection. Itchy scalp is being treated with prescription shampoo by her family doctor. Recommended petroleum based ointment for the single flaky lesion on her scalp. Discussed return precautions and plan of care with patient, who was agreeable with course of action. Recheck of heart rate was 94 bpm. Discharge Plan Departure Patient Disposition: Home Clinical Impression: Lymphadenopathy Activity Restrictions/Additional Instructions: *You have been diagnosed with a single swollen lymph node underneath the right ear. This should resolve on its own, so please stop poking at it. The dry spot on your scalp should resolve with the ointment I provided you. Please apply that once daily for the next 2 days. If either of these conditions worsen, please follow-up with your family doctor. *What to do: *Please continue to take your regular medications as directed. [ ] New medication prescriptions sent to your pharmacy: [ ] [ ] New medication written as a paper prescription [ x] No new medications given *Please follow up with your primary care provider in 2-3 days, call for an appointment. Let them know you were seen in the Emergency Department and that we ask that you be seen in follow up. We will electronically transmit a record of today's note if your PCP is in our system *If you do not have a primary care provider please contact the [facility] Resource line at [phone]. They will ask some questions about your medical history and help get you set up with a doctor in the community. ? Return to ER if you should have any new, worsening or concerning symptoms, such as worsening pain, severe headache, confusion, chest pain, difficulty breathing, fever greater than 101 F, shaking chills, persistent vomiting to the point that you cannot drink fluids, or other new or worsening symptoms. Referrals: Ivanna Samuel ARNP [Primary Care Provider] - Visit Report Forms: Patient Portal/API <Isra Brumfield MD - Last Filed: 12/16/21 12:22> Cosign ED Attending Cosjohnature Attestation: I was immediately available in the department for consultation. This documentation has been reviewed and I agree with assessment and plan. Supervised by Isra Brumfield MD
--- NOTE | 2021-12-03 12:34 | PC.NURSE ---
small lymph adenopathy behind right ear.
[2021-12-03 12:35] VITALS: BP 136/73; PULSE 94; RESP 16; O2SAT 97
== END 2021-12-03 12:36 | disposition home or self-care (01) ==
PROVIDERS: Emergency Provider Registered Nurse; PCP Nurse Practitioner Family
DX: R59.1 Generalized enlarged lymph nodes (principal)
CPT/HCPCS: 99281; 99284

== ENCOUNTER 2021-12-10 11:21 | Emergency (ER) | payer OTHER, MEDICAID, SELFPAY ==
[2021-12-10 11:35] VITALS: BP 148/70; PULSE 104; RESP 18; TEMP 36.6; O2SAT 95
[2021-12-10] MEDS: ACETAMINOPHEN 325 MG TABLET 650 MG PO (13:47)
--- NOTE | 2021-12-10 14:02 | ED_ITS ---
HPI - Medical Clearance <GILMAR Almaraz - Last Filed: 12/10/21 16:48> General Chief complaint: Medical Clearance Stated complaint: shaking lt hand for days Time Seen by Provider: 12/10/21 13:14 Source: patient Mode of arrival: Ambulatory History of Present Illness HPI Narrative: This is a 76-year-old female who presents to the emergency department after she eloped from [facility] complaining of intermittent tremor in her bilateral upper extremities over the last five days. Patient reports that she does not know what it is from, she denies any dizziness, neck pain, back pain, headaches, altered mental status, weakness, changes to her balance, chest pain, shortness of breath, falls, or other. She denies any vision changes, denies any fever or other changes. She states that she is eating and drinking per her normal. Patient states she has a eye appointment coming up, denies any eye pain with eye movement, headache, lightheadedness, nausea, vomiting abdominal pain, or pain anywhere. Related Information Allergies Allergy/AdvReac Type Severity Reaction Status Date / Time Penicillins Allergy Verified 12/03/21 11:28 procaine [From Novocain] Allergy Verified 11/24/21 10:08 Review of Systems <GILMAR Almaraz - Last Filed: 12/10/21 16:48> Review of Systems Narrative: General: denies fever, chills, states intermittent tremor in her bilateral upper extremities without any pain or sensation changes Head/Neck: denies headache, neck pain Eyes: denies visual changes, eye pain Cardio: denies chest pain, palpitations Respiratory: denies shortness of breath, cough GI: denies abdominal pain, nausea, vomiting, or diarrhea : denies dysuria, hematuria or flank pain MSK: denies new joint pain, muscle weakness or swelling Skin: denies rash, itching or wound Neuro: denies numbness, tingling, dizziness Patient History <GILMAR Almaraz - Last Filed: 12/10/21 16:48> Social History Smoking Status: Former smoker Smoking Status: Former smoker tobacco type: cigarettes alcohol intake frequency: holidays/special occasions only Substance Use Type: does not use Exam <GILMAR Almaraz - Last Filed: 12/10/21 16:48> Narrative Exam Narrative: Independently reviewed vitals signs and nursing notes. General: cooperative, comfortable, in no acute distress, well groomed, elderly, Head: atraumatic, symmetrical facial expressions Neck: supple Eyes: Corrective lenses, left eye abnormality/blind, no vision changes on right, EOMI on left, conjunctiva normal Nose: nares patent, no rhinorrhea Mouth/Throat: moist mucus membranes Cardiovascular: regular rate and rhythm, no peripheral edema, warm extremities Respiratory: normal effort, able to speak in complete sentences, no audible whee zing, stridor, or rales. No retractions or tachypnea. GI: abdomen soft, nontender to palpation, nondistended, no masses, no exquisite tenderness with exam, without guarding or rebound. MSK: moves all extremities, neurovascularly intact, no weakness, normal tone Skin: brisk capillary refill, no rash, no erythema Neuro: normal speech and cognition, A&O x3 Psych: mental status is grossly normal, congruent mood, normal affect, pleasant and cooperative Initial Vital Signs Initial Vital Signs: Vital Signs Temperature 98 F 12/10/21 11:35 Pulse Rate 104 H 12/10/21 11:35 Respiratory Rate 18 12/10/21 11:35 Blood Pressure 148/70 H 12/10/21 11:35 Pulse Oximetry 95 12/10/21 11:35 Oxygen Delivery Method 12/10/21 11:35 <Yumiko Benavides DO - Last Filed: 12/11/21 08:34> Initial Vital Signs Initial Vital Signs: Vital Signs Temperature 98 F 12/10/21 11:35 Pulse Rate 104 H 12/10/21 11:35 Respiratory Rate 18 12/10/21 11:35 Blood Pressure 148/70 H 12/10/21 11:35 Pulse Oximetry 95 12/10/21 11:35 Oxygen Delivery Method 12/10/21 11:35 [facility] - Medical Clearance <GILMAR Almaraz - Last Filed: 12/10/21 16:48> Lab Data Result diagrams: 12/10/21 13:56 12/10/21 13:56 Labs: Lab Results 12/10/21 12/10/21 12/10/21 Range/Units 13:56 13:56 13:56 WBC 11.3 H (4.5-11.0) X10^3/uL RBC 4.71 (4.0-5.2) X10^6/uL Hgb 14.8 (12.0-16.0) g/dL Hct 42.4 (36-46) % MCV 90.0 (80-100) fL MCH 31.4 (26-34) PG MCHC 34.9 (30-36) % RDW 12.3 (11.6-14.8) % Plt Count 252 (150-400) X10^3/uL Neut % (Auto) 58.6 (50-75) % Lymph % (Auto) 33.5 (25-40) % [place] % (Auto) 5.9 (3-14) % Eos % (Auto) 1.1 L (2-4) % Baso % (Auto) 0.9 (0-2) % Neut # (Auto) 6600 (2239-8474) /uL Lymph # (Auto) 3800 (9740-1297) /uL [place] # (Auto) 700 (0-900) /uL Eos # (Auto) 100 (0-450) /uL Baso # (Auto) 100 (0-100) /uL Sodium 138 (137-145) mmol/L Potassium 4.0 (3.4-5.1) mmol/L Chloride 101 (98-107) mmol/L Carbon Dioxide 30 (22-32) mmol/L BUN 9 (7-17) mg/dL Creatinine 0.63 (0.52-1.04) mg/dL Estimated GFR > 60 (>60) mL/min BUN/Creatinine Ratio 14.3 (6-22) Glucose 180 H (80-110) mg/dL Lactate 1.2 (0.7-2.1) mmol/L Calcium 8.9 (8.4-10.2) mg/dL Magnesium 1.5 L (1.6-2.3) mg/dL Total Bilirubin 0.7 (0.2-1.3) mg/dL AST 30 (14-36) IU/L ALT 19 (<35) IU/L Alkaline Phosphatase 82 (38-126) U/L Total Creatine Kinase (30-135) U/L CK-MB (CK-2) CK-MB (CK-2) Rel Index Troponin I (0.01-0.034) ng/mL Total Protein 7.6 (6.3-8.2) g/dL Albumin 4.4 (3.5-5.0) g/dL Globulin 3.2 (1.7-4.1) g/dL Albumin/Globulin Ratio 1.4 (1.0-2.8) Lipase 59 (23-300) U/L Procalcitonin 0.06 (<0.5) ng/mL 12/10/21 Range/Units 13:56 WBC (4.5-11.0) X10^3/uL RBC (4.0-5.2) X10^6/uL Hgb (12.0-16.0) g/dL Hct (36-46) % MCV (80-100) fL MCH (26-34) PG MCHC (30-36) % RDW (11.6-14.8) % Plt Count (150-400) X10^3/uL Neut % (Auto) (50-75) % Lymph % (Auto) (25-40) % [place] % (Auto) (3-14) % Eos % (Auto) (2-4) % Baso % (Auto) (0-2) % Neut # (Auto) (7922-5372) /uL Lymph # (Auto) (5192-5959) /uL [place] # (Auto) (0-900) /uL Eos # (Auto) (0-450) /uL Baso # (Auto) (0-100) /uL Sodium (137-145) mmol/L Potassium (3.4-5.1) mmol/L Chloride (98-107) mmol/L Carbon Dioxide (22-32) mmol/L BUN (7-17) mg/dL Creatinine (0.52-1.04) mg/dL Estimated GFR (>60) mL/min BUN/Creatinine Ratio (6-22) Glucose (80-110) mg/dL Lactate (0.7-2.1) mmol/L Calcium (8.4-10.2) mg/dL Magnesium (1.6-2.3) mg/dL Total Bilirubin (0.2-1.3) mg/dL AST (14-36) IU/L ALT (<35) IU/L Alkaline Phosphatase (38-126) U/L Total Creatine Kinase 49 (30-135) U/L CK-MB (CK-2) TNP CK-MB (CK-2) Rel Index TNP Troponin I < 0.012 (0.01-0.034) ng/mL Total Protein (6.3-8.2) g/dL Albumin (3.5-5.0) g/dL Globulin (1.7-4.1) g/dL Albumin/Globulin Ratio (1.0-2.8) Lipase (23-300) U/L Procalcitonin (<0.5) ng/mL Urine Dip Bedside Urine Glucose Negative Bedside Urine Bilirubin - Negative Bedside Urine Ketone - Negative Urine Specific [place] 1.005 Bedside Urine Occult Blood - Negative Bedside Urine pH 6.0 Bedside Urine Protein - Negative Bedside Urine Urobilinogen - Negative Bedside Urine Nitrite - Negative Bedside Urine Leukocytes - Negative Esterase ECG Data Interpretation: EKG independently reviewed by Dr. Benavides and reveals normal sinus rhythm at 93 bpm with regular axis and intervals. No STEMI, ST segment changes, arrhythmia, or acute ischemic changes. MDM Narrative Medical decision making narrative: This is a 76-year-old female who presents to the emergency department today after she eloped from [facility] without their knowledge and came to the emergency department for reported tremor in her hands intermittently over the last five days. Patient reports that she has not had any changes to her health, she does feel unwell, she feels the same as baseline but states that occasionally she has this tremor and is concerned about Parkinson's disease. On chart review, it appears the patient has not had lab work for at least one month and has had four ER visits for various complaints. She was quite anxious, talkative, concerned about multiple various things without any red flag symptoms. Lab work was completed and shows a mild leukocytosis which is similar to her priors of 11.3, no anemia, hypomagnesemia at 1.5, troponin is negative, no elevation in liver enzymes or lipase, procalcitonin was 0.06, urine was negative for WBCs, bacteria, rbc's, leukocyte esterase. Patient appears to be in a good state of health without any concerning signs or symptoms of emergent basis. Her EKG is normal sinus rhythm without ST changes, ectopy, or arrhythmia. Patient was fed lunch because she was here without a meal and was complaining of hunger. Recommend patient eat a well-balanced diet, take a multivitamin, follow-up with her primary doctor if she is having concerns about this tremor and if it is persistent. On my exam today there was no tremor, tongue fasciculations, patient was anxious, and was easily reassured and calm afterwards. She was given Tylenol in the emergency department and stated that she was comfortable going back home. Patient is appropriate and amenable to discharge home. Vital signs are stable on repeat examination is unremarkable. Patient has been informed of results. Patient has been given strict return to ER precautions for any new or worsening symptoms. Patient understands to follow up closely with outpatient providers as instructed. Patient understands plan and agrees to discharge home. All questions and concerns answered at this time. <Yumiko Benavides, - Last Filed: 12/11/21 08:34> Lab Data Labs: Lab Results 12/10/21 12/10/21 12/10/21 Range/Units 13:56 13:56 13:56 WBC 11.3 H (4.5-11.0) X10^3/uL RBC 4.71 (4.0-5.2) X10^6/uL Hgb 14.8 (12.0-16.0) g/dL Hct 42.4 (36-46) % MCV 90.0 (80-100) fL MCH 31.4 (26-34) PG MCHC 34.9 (30-36) % RDW 12.3 (11.6-14.8) % Plt Count 252 (150-400) X10^3/uL Neut % (Auto) 58.6 (50-75) % Lymph % (Auto) 33.5 (25-40) % [place] % (Auto) 5.9 (3-14) % Eos % (Auto) 1.1 L (2-4) % Baso % (Auto) 0.9 (0-2) % Neut # (Auto) 6600 (7394-3356) /uL Lymph # (Auto) 3800 (1270-9578) /uL [place] # (Auto) 700 (0-900) /uL Eos # (Auto) 100 (0-450) /uL Baso # (Auto) 100 (0-100) /uL Sodium 138 (137-145) mmol/L Potassium 4.0 (3.4-5.1) mmol/L Chloride 101 (98-107) mmol/L Carbon Dioxide 30 (22-32) mmol/L BUN 9 (7-17) mg/dL Creatinine 0.63 (0.52-1.04) mg/dL Estimated GFR > 60 (>60) mL/min BUN/Creatinine Ratio 14.3 (6-22) Glucose 180 H (80-110) mg/dL Lactate 1.2 (0.7-2.1) mmol/L Calcium 8.9 (8.4-10.2) mg/dL Magnesium 1.5 L (1.6-2.3) mg/dL Total Bilirubin 0.7 (0.2-1.3) mg/dL AST 30 (14-36) IU/L ALT 19 (<35) IU/L Alkaline Phosphatase 82 (38-126) U/L Total Creatine Kinase (30-135) U/L CK-MB (CK-2) CK-MB (CK-2) Rel Index Troponin I (0.01-0.034) ng/mL Total Protein 7.6 (6.3-8.2) g/dL Albumin 4.4 (3.5-5.0) g/dL Globulin 3.2 (1.7-4.1) g/dL Albumin/Globulin Ratio 1.4 (1.0-2.8) Lipase 59 (23-300) U/L Procalcitonin 0.06 (<0.5) ng/mL 12/10/21 Range/Units 13:56 WBC (4.5-11.0) X10^3/uL RBC (4.0-5.2) X10^6/uL Hgb (12.0-16.0) g/dL Hct (36-46) % MCV (80-100) fL MCH (26-34) PG MCHC (30-36) % RDW (11.6-14.8) % Plt Count (150-400) X10^3/uL Neut % (Auto) (50-75) % Lymph % (Auto) (25-40) % [place] % (Auto) (3-14) % Eos % (Auto) (2-4) % Baso % (Auto) (0-2) % Neut # (Auto) (5939-6504) /uL Lymph # (Auto) (2727-1351) /uL [place] # (Auto) (0-900) /uL Eos # (Auto) (0-450) /uL Baso # (Auto) (0-100) /uL Sodium (137-145) mmol/L Potassium (3.4-5.1) mmol/L Chloride (98-107) mmol/L Carbon Dioxide (22-32) mmol/L BUN (7-17) mg/dL Creatinine (0.52-1.04) mg/dL Estimated GFR (>60) mL/min BUN/Creatinine Ratio (6-22) Glucose (80-110) mg/dL Lactate (0.7-2.1) mmol/L Calcium (8.4-10.2) mg/dL Magnesium (1.6-2.3) mg/dL Total Bilirubin (0.2-1.3) mg/dL AST (14-36) IU/L ALT (<35) IU/L Alkaline Phosphatase (38-126) U/L Total Creatine Kinase 49 (30-135) U/L CK-MB (CK-2) TNP CK-MB (CK-2) Rel Index TNP Troponin I < 0.012 (0.01-0.034) ng/mL Total Protein (6.3-8.2) g/dL Albumin (3.5-5.0) g/dL Globulin (1.7-4.1) g/dL Albumin/Globulin Ratio (1.0-2.8) Lipase (23-300) U/L Procalcitonin (<0.5) ng/mL Urine Dip Bedside Urine Glucose Negative Bedside Urine Bilirubin - Negative Bedside Urine Ketone - Negative Urine Specific [place] 1.005 Bedside Urine Occult Blood - Negative Bedside Urine pH 6.0 Bedside Urine Protein - Negative Bedside Urine Urobilinogen - Negative Bedside Urine Nitrite - Negative Bedside Urine Leukocytes - Negative Esterase ECG Data Interpretation: EKG independently reviewed by Dr. Benavides and reveals normal sinus rhythm at 93 bpm with regular axis and intervals. No STEMI, ST segment changes, arrhythmia, or acute ischemic changes. Kennedy: Normal sinus rhythm rate 93 ME interval 156 QRS 78 QTC 444 acute noted in lead [address] elevation but no other ST elevation no ST depression no T- wave inversions no priors to compare Discharge Plan Departure Patient Disposition: Home Clinical Impression: Tremor Instructions: Benign Essential Tremor Activity Restrictions/Additional Instructions: *You have been diagnosed with a hand tremor. Please ensure that you are well hydrated, your blood sugar is within normal range, you do not feel dizzy or lightheaded, and your symptoms seem to subside with rest. If this is bothersome to you or getting worse, please follow-up with your primary care physician about it. A tremor is normal for a lot of people as they get older, and this could be related to your peripheral neuropathy. Please keep your blood trigger under tight control, stay active, be safe, try not to move too quickly and I hope you feel better soon. *What to do: *Please continue to take your regular medications as directed. [ ] New medication prescriptions sent to your pharmacy: [ ] [ ] New medication written as a paper prescription [ x] No new medications given *Please follow up with your primary care provider in 2-3 days, call for an appointment. Let them know you were seen in the Emergency Department and that we asked that you be seen for follow-up. We will electronically transmit a record of today's note if your PCP is in our system *If you do not have a primary care provider please contact [phone] to establish care with one of [facility] primary care providers. *Return to Emergency Department if you should have any new, worsening or concerning symptoms, such as [fever greater than 101F, chills, worsening pain, persistent vomiting or other bothersome symptoms] Referrals: Ivanna Samuel ARNP [Primary Care Provider] - Visit Report Forms: Patient Portal/API <Yumiko Benavides DO - Last Filed: 12/11/21 08:34> [facility] [place] Attestation: I was immediately available in the department for consultation. Documentation has been reviewed. I agree with assessment and plan.
[2021-12-10 14:08] LABS: Add Manual Diff / Slide Review NO; Basophils Absolute Auto 100 /uL (0-100); Basophils Percent Auto 0.9 % (0-2); Eosinophils Absolute Auto 100 /uL (0-450); Eosinophils Percent Auto 1.1 % (2-4); Hematocrit 42.4 % (36-46); Hemoglobin 14.8 g/dL (12.0-16.0); Lymphocytes Absolute Auto 3800 /uL (1100-4500); Lymphocytes Percent Auto 33.5 % (25-40); Mean Corpuscular HGB Conc 34.9 % (30-36); Mean Corpuscular Hemoglobin 31.4 PG (26-34); Monocytes Absolute Auto 700 /uL (0-900); Monocytes Percent Auto 5.9 % (3-14); Neutrophils Absolute Auto 6600 /uL (1500-7000); Neutrophils Percent Auto 58.6 % (50-75); Platelet Count 252 X10^3/uL (150-400); Red Blood Cell Count 4.71 X10^6/uL (4.0-5.2); Red Cell Distribution Width 12.3 % (11.6-14.8); White Blood Cell Count 11.3 X10^3/uL (4.5-11.0)
[2021-12-10 14:15] VITALS: PULSE 98; RESP 16; O2SAT 99
[2021-12-10 14:19] LABS: Lactate (Lactic Acid) 1.2 mmol/L (0.7-2.1)
[2021-12-10 14:20] LABS: Alanine Aminotransferase 19 IU/L (<35); Albumin 4.4 g/dL (3.5-5.0); Albumin Globulin Ratio 1.4 (1.0-2.8); Alkaline Phosphatase 82 U/L (38-126); Aspartate Aminotransferase 30 IU/L (14-36); BUN Creatinine Ratio 14.3 (6-22); Bilirubin Total 0.7 mg/dL (0.2-1.3); Blood Urea Nitrogen 9 mg/dL (7-17); Calcium 8.9 mg/dL (8.4-10.2); Carbon Dioxide 30 mmol/L (22-32); Chloride 101 mmol/L (98-107); Estimated Glomerular Filt Rate > 60 mL/min (>60); Globulin 3.2 g/dL (1.7-4.1); Glucose 180 mg/dL (80-110); Lipase 59 U/L (23-300); Magnesium 1.5 mg/dL (1.6-2.3); Sodium 138 mmol/L (137-145); Total Protein 7.6 g/dL (6.3-8.2)
[2021-12-10 14:21] LABS: HEMOLYSIS 93 (0-50)
[2021-12-10 14:23] LABS: Creatine Kinase 49 U/L (30-135)
[2021-12-10 14:35] LABS: Procalcitonin 0.06 ng/mL (<0.5)
[2021-12-10 14:36] LABS: Troponin I < 0.012 ng/mL (0.01-0.034)
[2021-12-10 14:42] VITALS: BP 133/69
== END 2021-12-10 14:47 | disposition home or self-care (01) ==
PROVIDERS: Emergency Provider Nurse Practitioner Critical Care Medicine; PCP Nurse Practitioner Family
DX: R25.1 Tremor, unspecified (principal); R00.0 Tachycardia, unspecified
CPT/HCPCS: 36415; 80053; 81003; 82550; 83605; 83690; 83735; 84145; 84484; 85025; 93005; 99283; 99284

== ENCOUNTER → 2021-12-28 10:40 | Outpatient (CLI) | payer OTHER, MEDICAID, SELFPAY ==
--- NOTE | 2021-12-28 | DI.MG.S_ITS ---
BILATERAL DIGITAL SCREENING MAMMOGRAM 3D/2D WITH CAD: 12/28/2021 CLINICAL: Routine screening. Comparison is made to exams dated: 06/11/2018 mammogram and 11/01/2014 mammogram - out side. The tissue of both breasts is predominantly fatty. Current study was also evaluated with a Computer Aided Detection (CAD) system. There is architectural distortion in the left breast anterior depth central to the nipple seen on the craniocaudal view only. Benign-appearing calcifications are present in both breasts. No other significant masses, calcifications, or other findings are seen in either breast. IMPRESSION: INCOMPLETE: NEEDS ADDITIONAL IMAGING EVALUATION The architectural distortion in the left breast is indeterminate. Additional views with possible ultrasound are recommended. Based on the Tyrer Cuzick model (a risk assessment model) the patient's lifetime risk is 3.3% and her 10 year risk is 3.3%. According to the ACR, ACS, and NCCN guidelines, an annual breast MRI exam along with mammogram is recommended if the patient's lifetime risk is 20% or greater. This exam was interpreted at Station ID: [id number]. NOTE: For mammograms, a report in lay terms will be sent to the patient. Approximately 15% of breast malignancies will not be visualized mammographically. In the management of a palpable breast mass, a negative mammogram must not discourage biopsy of a clinically suspicious lesion. Electronically Signed By: William Fortune acr/:12/28/2021 13:26:02 letter sent: Normal Exam ACR BI-RADS Category 0: Incomplete [id number]
== END ==
PROVIDERS: PCP Nurse Practitioner Family; Referring Provider Nurse Practitioner Family; Visit Provider Nurse Practitioner Family
DX: Z12.31 Encounter for screening mammogram for malignant neoplasm of breast (principal)
CPT/HCPCS: 77063; 77067

== ENCOUNTER → 2022-01-08 11:55 | Outpatient (CLI) | payer OTHER, MEDICAID, SELFPAY ==
--- NOTE | 2022-01-08 11:57 | DI.MG.S_ITS ---
UNILATERAL LEFT DIGITAL DIAGNOSTIC MAMMOGRAM 3D/2D WITH ADDITIONAL VIEWS: 01/08/2022 CLINICAL: Additional evaluation requested from prior study. Comparison is made to exams dated: 12/28/2021 mammogram - [facility], 11/01/2014 mammogram, and 06/11/2018 mammogram - out side. The tissue of left breast is predominantly fatty. The previously seen architectural distortion in the left breast is no longer visualized, presumably secondary to superimposed fibroglandular breast tissue on the prior exam. No significant masses, calcifications, or other findings are seen in the breast. IMPRESSION: NEGATIVE There is no mammographic evidence of malignancy. Return to annual mammogram screening schedule is recommended. Based on the Tyrer Cuzick model (a risk assessment model) the patient's lifetime risk is 1.9% and her 10 year risk is 1.9%. According to the ACR, ACS, and NCCN guidelines, an annual breast MRI exam along with mammogram is recommended if the patient's lifetime risk is 20% or greater. This exam was interpreted at Station ID: [id number]. NOTE: For mammograms, a report in lay terms will be sent to the patient. Approximately 15% of breast malignancies will not be visualized mammographically. In the management of a palpable breast mass, a negative mammogram must not discourage biopsy of a clinically suspicious lesion. Electronically Signed By: Nilesh parikh/felipe:01/08/2022 13:35:53 letter sent: Normal Exam ACR BI-RADS Category 1: Negative [id number]
== END ==
PROVIDERS: PCP Nurse Practitioner Family; Referring Provider Registered Nurse; Visit Provider Registered Nurse
DX: R92.8 Other abnormal and inconclusive findings on diagnostic imaging of breast (principal)
CPT/HCPCS: 77065; G0279

== ENCOUNTER → 2022-01-25 12:54 | Outpatient (CLI) | payer OTHER, MEDICAID, SELFPAY ==
--- NOTE | 2022-01-25 | DI.RAD.S_ITS ---
PROCEDURE: FL BARIUM SWALLOW W SPEECH INDICATIONS: Dysphagia, unspecified COMPARISON: TECHNIQUE: Examination was conducted in conjunction with speech pathology per standard protocol. In the lateral projection, filming was performed of the patient swallowing. AP projection filming may also be performed with patient swallowing. COMPARISON: [facility], , MM SPECIAL VIEW LT, 01/08/2022, 12:18. None. FINDINGS: Function: The oral preparatory phase appears normal, with proper containment. The subsequent oral propulsive phase, pharyngeal phase, and esophageal phase of swallowing also appear normal with all proffered substances. No laryngotracheal penetration or aspiration. No pathologic vallecular pooling. Morphology: No cricopharyngeal bar is identified. No cervical esophageal webs. No Zenker's diverticulum. No strictures. At the end of the exam, and AP view of the esophagus was obtained. Node is made of severe esophageal dysmotility. There is no obstruction of the calibrated barium pill. IMPRESSION: 1. No laryngeal penetration or aspiration. Please see separate speech pathologist's report. 2. Severe esophageal dysmotility. Dictated by: Stephanie Sandoval M.D. on 01/25/2022 at 21:31 Approved by: Stephanie Sandoval M.D. on 01/25/2022 at 21:34
--- NOTE | 2022-01-25 15:12 | ST.SWALLOW ---
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 She was seen for a Modified Barium Swallow Study secondary to c/o pain when she swallows foods such as breads, and meats. She reported that she does not have difficulty with liquids or pills. Patient Positioning Position View Lat-A/P Imaging Lateral View Textures Administered Trials Presented Thin Liquid via Spoon,Thin Liquid via Cup,Pudding Thick Liquid via Spoon,Regular Textures,Barium Tablet Oral Phase Source: MBSIMP (TM) (C) Bolus Specific Scoring Grid Lip Closure Minimal Impairment Tongue Control During Bolus Hold WFL Bolus Prep/Mastication WFL Bolus Transport/Lingual Motion Minimal Impairment A/P Lingual Propulsion Delay Yes: Only for pudding thick trial - sticky Oral Residue No Impairment (WNL) Nasal Regurgitation No Additional Oral Phase Observations Pt's OME was WFL for form and function. Pt has many teeth that were missing, broken or decayed. DKS was WNL Pharyngeal Phase Source: MBSIMP (TM) (C) Bolus Specific Scoring Grid Delayed Initiation of Pharyngeal Swallow No Soft Palate Elevation No Impairment (WNL) Tongue Base Strength/Range of Motion Minimal Impairment Residue Along the Tongue Base trace to minimal dependent on texture Clearance of Residue Along Tongue Base WFL Laryngeal Elevation Minimal Impairment Anterior Hyoid Movement Minimal Impairment Epiglottic Range of Motion No Impairment (WNL) Vallecular Residue No Clearance of Vallecular Residue No Impairment (WNL) Laryngeal Vestibular Closure No Impairment (WNL) Pharyngeal Stripping Wave No Impairment (WNL) Posterior Pharyngeal Wall Residue No Clearance of Posterior Pharyngeal Wall No Impairment (WNL) Residue Upper Esophageal Sphincter Opening No Impairment (WNL) Residue in the Pyriform Sinuses No Esophageal Clearance Upright Position Severe Impairment Pharyngoesophageal Backflow Observed No Additional Pharyngeal Phase Observations Pt's oral and pharyngeal swallow phases were observed to be WFL. A minimal decrease in laryngeal elevation and hyolaryngeal movement was noted; however, there was no impact on the epiglottal inversion or the laryngeal seal. A/P View Textures Administered Trials Presented Barium Tablet A/P View Observations Pharyngeal Contraction Severe Impairment Vocal Fold Function Good Esophageal Function Slowed Clearing,Poor Motility, Stasis,Narrowing Esophageal Clearance Upright Position Severe Impairment Esophageal Observations Esophageal Function Esophageal screen of the pt's swallow noted a tortuous esophagus/esophageal spam that negatively affected esophageal motility. Likely the pt's pain with swallowing. The esophagus does eventually clear with minimal retention of bolus. Clinical Impressions Dysphagia Type esophageal Patient Appropriate for Therapy No Recommendations Diet Liquids Order Thin Diet Order Mechanical Soft Medication Recommendation As Tolerated Aspiration Precautions Recommended Precautions Upright at 90 Degrees,Small Bites/Sips Additional Precautions eat slowly, remain upright following meals ~30 minutes Treatment Plan Recommended Referrals GI Consult Compensatory Strategies Recommendations Small Bites and Sips,Alternate Liquids/Solids Placement Recommendation After Discharge [facility]
== END ==
PROVIDERS: PCP Nurse Practitioner Family; Referring Provider Nurse Practitioner Family; Visit Provider Nurse Practitioner Family
DX: R13.10 Dysphagia, unspecified (principal); K22.89 Other specified disease of esophagus
CPT/HCPCS: 74230; 92611

== ENCOUNTER 2022-02-18 09:52 | Emergency (ER) | payer OTHER, MEDICAID, SELFPAY ==
[2022-02-18 09:55] VITALS: BP 188/81; PULSE 90; RESP 18; TEMP 36.6; O2SAT 97; BMI 26.6
--- NOTE | 2022-02-18 10:12 | ED.MEDCLEAR ---
HPI - Medical Clearance General Chief complaint: Medical Clearance Stated complaint: feeling off x7days Time Seen by Provider: 02/18/22 10:07 Source: patient Mode of arrival: Ambulatory History of Present Illness HPI Narrative: 76-year-old woman who lives at [facility] was out for a walk this morning, unknown to [facility] staff, history of anxiety, hyperlipidemia, diabetes recently started on risperidone presents to the emergency department complaining that she has been ?messed up for a week?. She notes that she ?has a feeling every where I go?. She notes that she is slightly off balance and needs something to hold onto which is a chronic problem for her and she has a walker which she is appropriately and correctly using. She is unable to be more specific than that with her complaints but continues to repeat that she has ?never had any of this before ?, although prior ER notes indicate that this seems to be a common complaint for her. She is wondering if there is a ?long-term house that she might move into. She states she is also looking to move into her own apartment in [place]. She notes that she does have a mental health counselor that she sees via telemedicine. She states that she talked to him last week and she has an appointment on Saturday but typically sees him monthly. She does not complain of fevers or myalgias. She states that she has the mild intermittent cough that has not changed recently. She describes no headaches and is not describing overt audio or visual hallucinations. She describes intermittent diarrhea that is unchanged, no dysuria and no lower extremity edema. She has experienced no recent episodes of chest pain, shortness a breath or heart palpitations. Related Information Allergies Allergy/AdvReac Type Severity Reaction Status Date / Time Penicillins Allergy Verified 12/03/21 11:28 procaine [From Novocain] Allergy Verified 11/24/21 10:08 Review of Systems Review of Systems Narrative: Remainder of complete review of systems is otherwise unremarkable except for that included in the HPI. Patient History Medical History Anxiety Diabetes Hyperlipidemia Social History Smoking Status: Former smoker Smoking Status: Former smoker tobacco type: cigarettes alcohol intake frequency: holidays/special occasions only Substance Use Type: does not use Exam Initial Vital Signs Initial Vital Signs: Vital Signs Temperature 97.8 F 02/18/22 09:55 Pulse Rate 90 02/18/22 09:55 Respiratory Rate 18 02/18/22 09:55 Blood Pressure 188/81 H 02/18/22 09:55 Pulse Oximetry 97 02/18/22 09:55 Oxygen Delivery Method 02/18/22 09:55 General: Somewhat disheveled woman in no acute distress. Well-nourished well-developed HEENT: Moist mucous membranes, normal sclera with reactive pupils, Neck: No JVD, supple Respiratory: Lungs with minor rhonchi in the left axilla that cleared nicely with deep breathing. Full and symmetrical air movement Cardiac: Regular rate and rhythm no murmurs no bruits Abdomen: Soft, nontender, good bowel tones, no flank pain Skin: Warm and dry, no rashes Neurologic: Grossly neurologically intact with no obvious asymmetries or abnormalities. She is using a walker for gait stability. Extremities: No trauma, well perfused Psych: Tangential and perseverating with fluent speech otherwise. No response to internal stimuli is appreciated MDM - Medical Clearance Lab Data Labs: Urine Dip Bedside Urine Glucose 100 mg/dl Bedside Urine Ketone - Negative Urine Specific [place] 1.010 Bedside Urine Occult Blood - Negative Bedside Urine pH 6 Bedside Urine Protein - Negative Bedside Urine Urobilinogen - Negative Bedside Urine Nitrite - Negative Bedside Urine Leukocytes - Negative Esterase [facility] Narrative Medical decision making narrative: 76-year-old woman presents with vague complaints. In calling her assisted living facility at seems that there was a disagreement over breakfast this morning, she was outside for a walk and was noted to be relatively stable and doing well. She came into the hospital and noted that the cafeteria was not yet open and decided that an emergency room visit for her ?feeling everywhere was appropriate. Urine is unremarkable. There is no acute findings on clinical exam to suggest acute medical issues or acute psychiatric distress. More than anything she seems to be at her baseline and simply looking for reassurance and does not want to go back to her residence. At this time there are no acute medical findings and she is safe for discharge home. Discharge Plan Departure Patient Disposition: Home Clinical Impression: Acute situational disturbance, Anxiety Activity Restrictions/Additional Instructions: Thank you for coming in today Fortunately you do not have any acute or life-threatening emergency issues today. I am not able to fix the ?feeling everywhere, that you have. I would recommend you talk to your counselor as well as your primary care physician about this. Referrals: Ivanna Samuel ARNP [Primary Care Provider] -
--- NOTE | 2022-02-18 10:53 | PC.NURSE ---
ron rn notified pt came to visit and being dc back home. [phone]
[2022-02-18 11:07] LABS: Bacteria Urine Few (2-10); Culture Indicated Urine Specimen Cultured; RBC Urine 0-1/HPF (0-5/HPF); Squamous Epithelial Cell Urine 1-5 /HPF (0-5/HPF); WBC Urine 0-1/HPF (0-5/HPF)
== END 2022-02-18 10:25 | disposition home or self-care (01) ==
PROVIDERS: Emergency Provider Emergency Medicine; PCP Nurse Practitioner Family
DX: F43.0 Acute stress reaction (principal); F41.9 Anxiety disorder, unspecified
CPT/HCPCS: 81003; 81015; 87086; 99281; 99282

== ENCOUNTER → 2022-03-07 14:39 | Outpatient (CLI) | payer OTHER, MEDICAID, SELFPAY ==
[2022-03-07 15:33] LABS: INR 1.1 (0.9-1.3); Prothrombin Time 12.3 SECONDS (10.1-12.7)
== END ==
PROVIDERS: PCP Nurse Practitioner Family; Referring Provider Nurse Practitioner Family; Visit Provider Nurse Practitioner Family
DX: E11.9 Type 2 diabetes mellitus without complications (principal)
CPT/HCPCS: 36415; 85610

== ENCOUNTER → 2022-03-12 13:40 | Outpatient (CLI) | payer OTHER, MEDICAID, SELFPAY ==
[2022-03-12 16:12] LABS: Hemoglobin A1C% w Est Avg Glu 9.5 % (4.0-6.0)
== END ==
PROVIDERS: PCP Nurse Practitioner Family; Referring Provider Nurse Practitioner Family; Visit Provider Nurse Practitioner Family
DX: E11.311 Type 2 diabetes mellitus with unspecified diabetic retinopathy with macular edema (principal)
CPT/HCPCS: 36415; 83036

== ENCOUNTER 2022-03-13 23:41 | Observation (INO) | payer OTHER, MEDICAID, SELFPAY ==
[2022-03-13 23:47] VITALS: BP 166/75; PULSE 98; O2SAT 93
[2022-03-13 23:57] VITALS: BP 166/75; PULSE 100; RESP 30; O2SAT 95; BMI 24.0
[2022-03-14] VITALS (20 sets, daily range): BP systolic 116–177; BP diastolic 63–92; PULSE 68–99; RESP 11–37; TEMP 36.2–36.5; O2SAT 92–98; BMI 24.0
--- NOTE | 2022-03-14 00:02 | DI.RAD.S_ITS ---
PROCEDURE: XR CHEST 1V INDICATIONS: chest pain TECHNIQUE: One view of the chest was acquired. COMPARISON: [facility], CR, XR ACUTE ABDOMEN SERIES, 11/18/2021, 10:18. FINDINGS: Surgical changes and devices: None. Lungs and pleura: Lungs are clear. There is hyperinflation of the lungs with flattening of the hemidiaphragms compatible with COPD. No pleural effusions or pneumothorax. Mediastinum: Mediastinal contours appear normal. Heart size is normal. Bones and chest wall: No suspicious bony lesions. Overlying soft tissues appear unremarkable. IMPRESSION: 1. No acute cardiopulmonary disease. Dictated by: Donis Longoria M.D. on 03/14/2022 at 0:42 Approved by: Donis Longoria M.D. on 03/14/2022 at 0:43
--- NOTE | 2022-03-14 00:05 | ED.CHESTPAIN ---
HPI - Chest Pain General Chief Complaint: Chest Pain Stated Complaint: NECK AND CHEST PAIN Time Seen by Provider: 03/13/22 23:56 Source: patient Mode of arrival: Wheelchair Limitations: no limitations History of Present Illness HPI narrative: Patient here from [facility], was wheelchair over by staff. Complains of left-sided chest discomfort since 8:00 a.m. this morning, 16 hours ago has been persistent. It is sharp burning achy pressure. Does not radiate anywhere. Her neck pain is not related. She says she pops her neck all the time, that is not new. No recent illness. No cough cold congestion fever chills. No injury or fall. Patient states she has stress test many many years ago. Over 10 years ago. No history of heart attack. Related Data Home Medications Medication Instructions Recorded Confirmed acetaminophen 325 mg tablet 325 mg PO Q6HR PRN Pain (Scale 02/18/22 02/18/22 Score 1-3) aspirin 81 mg chewable tablet 81 mg PO DAILY 02/18/22 02/18/22 atorvastatin 40 mg tablet 40 mg PO DAILY 02/18/22 02/18/22 clonazepam 0.5 mg tablet 0.5 mg PO DAILY 02/18/22 02/18/22 cyanocobalamin (vitamin B-12) 1,000 mcg PO DAILY 02/18/22 02/18/22 1,000 mcg tablet insulin glargine 100 unit/mL (3 See Rx Instructions .Route .COMPLEX 02/18/22 02/18/22 mL) subcutaneous pen (Lantus Solostar U-100 Insulin) ketoconazole 2 % shampoo See Rx Instructions .Route .COMPLEX 02/18/22 02/18/22 loperamide 2 mg capsule 2 mg PO BID PRN Diarrhea 02/18/22 02/18/22 loratadine 10 mg tablet 10 mg PO DAILY 02/18/22 02/18/22 metformin 1,000 mg tablet 100 mg PO BID 02/18/22 02/18/22 risperidone 2 mg tablet 2 mg PO DAILY 02/18/22 02/18/22 Allergies Allergy/AdvReac Type Severity Reaction Status Date / Time influenza virus vaccine qs Allergy Verified 03/13/22 23:57 [id number] (65 years up) [From Fluad Quad 2021-(65y up)(PF)] Penicillins Allergy Verified 12/03/21 11:28 pollen extracts Allergy Verified 03/13/22 23:57 procaine [From Novocain] Allergy Verified 11/24/21 10:08 vaccine adjuvant emulsion Allergy Verified 03/13/22 23:57 [id number] [From Fluad Quad (65y up)(PF)] Review of Systems Review of Systems Narrative: GENERAL: Denies chills, fatigue, malaise, fever, sweats. HEENT: Denies sinus pain, ear pain, sore throat RESPIRATORY: Denies dyspnea, cough CARDIOVASCULAR: Positive chest pain, negative palpitations GASTROINTESTINAL: Denies nausea, vomiting, abdominal pain : Denies dysuria, frequency, hematuria MUSCULOSKELETAL: denies muscle or bony pain SKIN: Denies rash, skin lesions NEUROLOGIC: Denies weakness, numbness ROS Unobtainable: All systems reviewed & are unremarkable except as noted in HPI and below Patient History Medical History Anxiety Diabetes Hyperlipidemia Social History Smoking Status: Former smoker Smoking Status: Former smoker tobacco type: cigarettes alcohol intake frequency: holidays/special occasions only Substance Use Type: does not use Exam Narrative Exam Narrative: GENERAL: in no distress, not toxic not dyspneic HEAD: Normocephalic. EYES: Pupils equal round No scleral icterus. ENT: Mucous membranes moist. NECK: Trachea midline. CARDIOVASCULAR: Regular rate and rhythm without murmurs nontender chest wall. RESPIRATORY: Clear to auscultation. Breath sounds equal bilaterally. No wheezes, rales, or rhonchi. GASTROINTESTINAL: Abdomen soft, non-tender EXTREMITIES: No gross deformities. BACK: No flank tenderness. NEURO: AOx4. SKIN: Warm and dry PSYCH: Not anxious, is cooperative Initial Vital Signs Initial Vital Signs: Vital Signs Pulse Rate 98 H 03/13/22 23:47 Blood Pressure 166/75 H 03/13/22 23:47 Pulse Oximetry 93 03/13/22 23:47 Course Course Course Narrative: No new issues during course of stay Decision to Admit Date: 03/14/22 Decision to Admit time: 00:08 Orders Ordered: ED Orders 03/14/22 00:02 XR chest 1V Stat 03/14/22 00:15 Complete Blood Count AUTO DIFF Stat Comprehensive Metabolic Panel Stat Partial Thromboplastin Time Stat Prothrombin Time INR Stat Troponin & CK Cardiac Panel Stat 03/14/22 02:05 Troponin & CK Cardiac Panel Stat 03/14/22 03:30 COVID19 -Nasal RAPID/Pre-Proc Stat 03/14/22 23:49 EKG-12 Lead Routine Acetaminophen (Acetaminophen 325 Mg Tablet) 650 mg PO Q6H PRN PRN Reason: Fever/Mild Pain (1-3) Aspirin (Aspirin Ec 81 Mg Tablet) 81 mg PO DAILY TREVOR Dextrose (Dextrose 50 % In Water 25 Gm/50 Ml Syringe) 25 gm IV PRN PRN PRN Reason: Hypoglycemia Enoxaparin Sodium (Enoxaparin 40 Mg/0.4 Ml Syringe) 40 mg SUBCUT DAILY TREVOR Insulin Human Lispro (Insulin Lispro 100 Unit/Ml 3ml Vial) 0 unit SUBCUT ACHS TREVOR; Protocol Morphine Sulfate (Morphine 2 Mg/Ml Inj) 2 mg IV Q5MIN PRN PRN Reason: Chest Pain Naloxone HCl (Naloxone 0.4 Mg/Ml Vial) 0.2 mg IV Q2MIN PRN PRN Reason: Opiate Reversal Nitroglycerin (Nitroglycerin 0.4 Mg Sl Tab) 0.4 mg SL [id number] PRN PRN Reason: Chest Pain Ondansetron HCl (Ondansetron 4 Mg/2 Ml Inj) 4 mg IV Q8HR PRN PRN Reason: Nausea And Vomiting Discontinued Medications Aspirin (Aspirin 81 Mg Chew Tab) 324 mg PO NOW ONE Stop: 03/14/22 00:03 Last Admin: 03/14/22 00:24 Dose: 324 mg Documented By: NR Nitroglycerin (Nitroglycerin Oint 1 Inch/Gm Oint...G.) 0.5 inch TOP NOW ONE Stop: 03/14/22 00:03 Last Admin: 03/14/22 00:24 Dose: 0.5 inch Documented By: NR Reevaluation(s) Reevaluation #1: Patient chest pain-free after nitro paste. She does agree and understand for admission. Time: 03:00 Consultations Consultation #1: Spoke with hospitalist, Debra Guadalupe, will admit for chest pain Time: 03:25 Vital Signs Vital signs: Vital Signs - 8 hr 03/13/22 23:57 03/13/22 23:47 03/13/22 23:47 Pulse Rate 100 H 98 H Respiratory Rate 30 H Blood Pressure 166/75 H 166/75 H Pulse Oximetry 95 93 Oxygen Delivery Method Room Air 03/14/22 00:24 03/14/22 00:00 03/14/22 00:00 Pulse Rate 90 99 H Respiratory Rate 33 H Blood Pressure 177/86 H 176/78 H Pulse Oximetry 95 Oxygen Delivery Method 03/14/22 00:30 03/14/22 00:30 03/14/22 01:00 Pulse Rate 78 Respiratory Rate 33 H Blood Pressure 160/73 H 159/70 H Pulse Oximetry 97 Oxygen Delivery Method 03/14/22 01:00 03/14/22 01:30 03/14/22 01:30 Pulse Rate 68 71 Respiratory Rate 37 H 11 L Blood Pressure 161/77 H Pulse Oximetry 97 98 Oxygen Delivery Method 03/14/22 02:00 03/14/22 02:00 03/14/22 02:30 Pulse Rate 81 Respiratory Rate 30 H Blood Pressure 173/92 H 148/71 H Pulse Oximetry 96 Oxygen Delivery Method 03/14/22 02:30 03/14/22 03:00 03/14/22 03:00 Pulse Rate 72 76 Respiratory Rate 31 H 26 H Blood Pressure 147/69 H Pulse Oximetry 98 97 Oxygen Delivery Method MDM - Chest Pain Differential Diagnosis Differential diagnosis: Likely stable angina, unstable angina pectoris, atypical chest pain, st elevation myocardial infarction and chest pain Lab Data Result diagrams: 03/14/22 00:15 03/14/22 00:15 Labs: Lab Results 03/14/22 03/14/22 03/14/22 Range/Units 00:15 00:15 00:15 WBC 8.5 (4.5-11.0) X10^3/uL RBC 4.61 (4.0-5.2) X10^6/uL Hgb 14.4 (12.0-16.0) g/dL Hct 41.9 (36-46) % MCV 90.8 (80-100) fL MCH 31.2 (26-34) PG MCHC 34.3 (30-36) % RDW 12.5 (11.6-14.8) % Plt Count 257 (150-400) X10^3/uL Neut % (Auto) 42.5 L (50-75) % Lymph % (Auto) 46.3 H (25-40) % Stanton % (Auto) 7.5 (3-14) % Eos % (Auto) 2.6 (2-4) % Baso % (Auto) 1.1 (0-2) % Neut # (Auto) 3600 (1125-4872) /uL Lymph # (Auto) 3900 (3298-8669) /uL Stanton # (Auto) 600 (0-900) /uL Eos # (Auto) 200 (0-450) /uL Baso # (Auto) 100 (0-100) /uL PT 11.3 (10.1-12.7) SECONDS INR 1.0 (0.9-1.3) APTT 33 (26-36) SECONDS Sodium 138 (137-145) mmol/L Potassium 3.4 (3.4-5.1) mmol/L Chloride 100 (98-107) mmol/L Carbon Dioxide 30 (22-32) mmol/L BUN 6 L (7-17) mg/dL Creatinine 0.59 (0.52-1.04) mg/dL Estimated GFR > 60 (>60) mL/min BUN/Creatinine Ratio 10.2 (6-22) Glucose 216 H (80-110) mg/dL Calcium 8.8 (8.4-10.2) mg/dL Total Bilirubin 0.5 (0.2-1.3) mg/dL AST 24 (14-36) IU/L ALT 28 (<35) IU/L Alkaline Phosphatase 112 (38-126) U/L Total Creatine Kinase 96 (30-135) U/L CK-MB (CK-2) TNP CK-MB (CK-2) Rel Index TNP Troponin I < 0.012 (0.01-0.034) ng/mL Total Protein 7.4 (6.3-8.2) g/dL Albumin 4.3 (3.5-5.0) g/dL Globulin 3.1 (1.7-4.1) g/dL Albumin/Globulin Ratio 1.4 (1.0-2.8) 03/14/22 Range/Units 02:05 WBC (4.5-11.0) X10^3/uL RBC (4.0-5.2) X10^6/uL Hgb (12.0-16.0) g/dL Hct (36-46) % MCV (80-100) fL MCH (26-34) PG MCHC (30-36) % RDW (11.6-14.8) % Plt Count (150-400) X10^3/uL Neut % (Auto) (50-75) % Lymph % (Auto) (25-40) % Stanton % (Auto) (3-14) % Eos % (Auto) (2-4) % Baso % (Auto) (0-2) % Neut # (Auto) (1824-2080) /uL Lymph # (Auto) (6705-8399) /uL Stanton # (Auto) (0-900) /uL Eos # (Auto) (0-450) /uL Baso # (Auto) (0-100) /uL PT (10.1-12.7) SECONDS INR (0.9-1.3) APTT (26-36) SECONDS Sodium (137-145) mmol/L Potassium (3.4-5.1) mmol/L Chloride (98-107) mmol/L Carbon Dioxide (22-32) mmol/L BUN (7-17) mg/dL Creatinine (0.52-1.04) mg/dL Estimated GFR (>60) mL/min BUN/Creatinine Ratio (6-22) Glucose (80-110) mg/dL Calcium (8.4-10.2) mg/dL Total Bilirubin (0.2-1.3) mg/dL AST (14-36) IU/L ALT (<35) IU/L Alkaline Phosphatase (38-126) U/L Total Creatine Kinase 85 (30-135) U/L CK-MB (CK-2) TNP CK-MB (CK-2) Rel Index TNP Troponin I < 0.012 (0.01-0.034) ng/mL Total Protein (6.3-8.2) g/dL Albumin (3.5-5.0) g/dL Globulin (1.7-4.1) g/dL Albumin/Globulin Ratio (1.0-2.8) Imaging Data Chest x-ray: Radiologist's Impression: [address] [address] XRay Report Signed Patient: Marcie Diggs MR#: [id number] : 1945 Acct:[id number] Age/Sex: 76 / F Date of Service: 03/14/22 Loc: ED Accession Number: [id number] ?? Procedure: XR chest 1V Ordering Provider: Isra Brumfield MD PROCEDURE:? XR CHEST 1V ? INDICATIONS:? chest pain ? TECHNIQUE:? One view of the chest was acquired.? ? COMPARISON:? [facility], CR, XR ACUTE ABDOMEN SERIES, 11/18/2021, 10:18. ? FINDINGS:? ? Surgical changes and devices:? None.? ? Lungs and pleura:? Lungs are clear. There is hyperinflation of the lungs with flattening of the hemidiaphragms compatible with COPD. ? No pleural effusions or pneumothorax.? ? Mediastinum:? Mediastinal contours appear normal.? Heart size is normal.? ? Bones and chest wall:? No suspicious bony lesions.? Overlying soft tissues appear unremarkable.? ? IMPRESSION:? ? 1.? No acute cardiopulmonary disease. ? ? ? Dictated by: Donis Longoria M.D. on 03/14/2022 at 0:42 ? ? Approved by: Donis Longoria M.D. on 03/14/2022 at 0:43 ? ECG Data Interpretation: Normal sinus rhythm normal EKG rate 94 MDM Narrative Medical decision making narrative: Appropriate for admission. Will need stress test echocardiogram. Relief with nitro paste. Had aspirin here. Reviewed with hospitalist and agrees for admit. Patient desires admission. Discharge Plan Departure Patient Disposition: Admitted as Observation Clinical Impression: Chest pain Admit Date/Time: 03/14/22 03:25 Admit Provider: Nohelia Guadalupe
[2022-03-14] MEDS: NITROGLYCERIN OINT 1 INCH/GM OINT...G. 0.5 INCH TOP (00:24)
[2022-03-14] MEDS: ASPIRIN 81 MG CHEW TAB 324 MG PO (00:24)
[2022-03-14 00:27] LABS: Add Manual Diff / Slide Review NO; Basophils Absolute Auto 100 /uL (0-100); Basophils Percent Auto 1.1 % (0-2); Eosinophils Absolute Auto 200 /uL (0-450); Eosinophils Percent Auto 2.6 % (2-4); Hematocrit 41.9 % (36-46); Hemoglobin 14.4 g/dL (12.0-16.0); Lymphocytes Absolute Auto 3900 /uL (1100-4500); Lymphocytes Percent Auto 46.3 % (25-40); Mean Corpuscular HGB Conc 34.3 % (30-36); Mean Corpuscular Hemoglobin 31.2 PG (26-34); Mean Corpuscular Volume 90.8 fL (80-100); Monocytes Absolute Auto 600 /uL (0-900); Monocytes Percent Auto 7.5 % (3-14); Neutrophils Absolute Auto 3600 /uL (1500-7000); Neutrophils Percent Auto 42.5 % (50-75); Platelet Count 257 X10^3/uL (150-400); Red Blood Cell Count 4.61 X10^6/uL (4.0-5.2); Red Cell Distribution Width 12.5 % (11.6-14.8); White Blood Cell Count 8.5 X10^3/uL (4.5-11.0)
[2022-03-14 00:33] LABS: Prothrombin Time 11.3 SECONDS (10.1-12.7)
[2022-03-14 00:36] LABS: PTT Partial Thromboplastin Tim 33 SECONDS (26-36)
[2022-03-14 00:38] LABS: Alanine Aminotransferase 28 IU/L (<35); Albumin 4.3 g/dL (3.5-5.0); Albumin Globulin Ratio 1.4 (1.0-2.8); Alkaline Phosphatase 112 U/L (38-126); Aspartate Aminotransferase 24 IU/L (14-36); BUN Creatinine Ratio 10.2 (6-22); Bilirubin Total 0.5 mg/dL (0.2-1.3); Blood Urea Nitrogen 6 mg/dL (7-17); Calcium 8.8 mg/dL (8.4-10.2); Carbon Dioxide 30 mmol/L (22-32); Chloride 100 mmol/L (98-107); Creatine Kinase 96 U/L (30-135); Estimated Glomerular Filt Rate > 60 mL/min (>60); Globulin 3.1 g/dL (1.7-4.1); Glucose 216 mg/dL (80-110); HEMOLYSIS < 15 (0-50); Potassium 3.4 mmol/L (3.4-5.1); Sodium 138 mmol/L (137-145); Total Protein 7.4 g/dL (6.3-8.2)
[2022-03-14 00:49] LABS: Troponin I < 0.012 ng/mL (0.01-0.034)
[2022-03-14 02:18] LABS: Creatine Kinase 85 U/L (30-135)
[2022-03-14 02:31] LABS: Troponin I < 0.012 ng/mL (0.01-0.034)
--- NOTE | 2022-03-14 03:57 | DI.ECHO.S_ITS ---
[facility]---------+ [facility] +---------+ : : [address] : : : : [phone] : : : : Phone: [phone] Echocardiogram Report + + :Name: WES MATA Study Date: 03/15/2022 Height: 64 in : :[facility] ReadingLocation: Weight: 140 lb : : Gender: Female BSA: 1.7 m2 : :: 1945 Age: 76 yrs BP: 133/70 mmHg: :Reason For Study: Chest pain : :Ordering Physician: JORGE, : :CORINE Performed By: Andrea Hogan : :Referring: CORINE PATEL : + + Interpretation Summary The ejection fraction is estimated to be 60-65%. There are no focal wall motion abnormalities. Diastolic parameters suggest probable normal left ventricular diastolic function and normal filling pressures. The right ventricle is normal in size and function. Pulmonary artery pressures cannot be estimated because of the lack of a measurable TR jet velocity. No significant valvular disease. Procedure: A two-dimensional transthoracic echocardiogram with color flow and Doppler was performed. The study quality was technically adequate. There is no prior echocardiogram noted for this patient. The patient was in normal sinus rhythm during the exam. Left Ventricle: The left ventricle is normal in size and wall thickness. Left ventricular systolic function is normal. The ejection fraction is estimated to be 60-65%. There are no focal wall motion abnormalities. Diastolic parameters suggest probable normal left ventricular diastolic function and normal filling pressures. Right Ventricle: The right ventricle is normal in size and function. Atria: Both atria are normal in size. The interatrial septum grossly appears intact with no obvious evidence for an atrial septal defect. Mitral Valve: The mitral valve leaflets are slightly calcified. There is mild mitral annular calcification. There is trace mitral regurgitation. Aortic Valve: The aortic valve is normal in structure and function. There is no hemodynamically significant valvular aortic stenosis. No aortic regurgitation is present. Tricuspid Valve: The tricuspid valve is normal in structure and function. There is a trace or physiologic amount of tricuspid regurgitation. Pulmonary artery pressures cannot be estimated because of the lack of a measurable TR jet velocity. Pulmonic Valve: The pulmonic valve is normal in structure and function. There is no pulmonic valvular regurgitation. Great Vessels: The aortic root is normal size. The dimensions of the ascending aorta are normal. The IVC is of normal diameter and collapses greater than 50% with a sniff. This suggests a low right atrial pressure of 3 mm Hg. Pericardium/ Pleura There is no pericardial effusion. There is no pleural effusion. MMode/2D Measurements & Calculations LVIDd: 4.5 cm LVOT diam: 2.0 cm LVIDs: 3.0 cm Ao root diam: 2.6 cm FS: 33.3 % asc Aorta Diam: 2.7 cm IVSd: 0.70 cm LVPWd: 0.80 cm LV grant. diameter/BSA (cm/m^2): 2.7 LV sys. diameter/BSA (cm/m^2): 1.8 LA dimension: 2.8 cm RA long axis: 3.6 cm LA A2 area: 10.9 cm2 RA area: 9.1 cm2 LA A4 area: 11.1 cm2 RA vol: 19.9 ml LA length (vol): 4.1 cm RA : 11.8 ml/m2 LA vol: 25.2 ml LA vol index: 15.0 ml/m2 TAPSE_phl: 2.5 cm Doppler Measurements & Calculations Ao V2 max: 119.0 cm/sec LVOT Max Nitesh: 114.0 cm/sec Ao V2 mean: 84.4 cm/sec LV V1 max P.2 mmHg Ao max P.0 mmHg LV V1 VTI: 22.9 cm Ao mean P.0 mmHg JANICE(I,D): 3.1 cm2 Ao V2 VTI: 23.0 cm JANICE(V,D): 3.0 cm2 sev ratio: 1.00 JANICE indexed to BSA (cm^2/m^2): 1.9 MV E max nitesh: 94.3 cm/sec SV(LVOT): 71.9 ml MV A max nitesh: 125.0 cm/sec MV E/A: 0.75 Med Peak E' Nitesh: 8.7 cm/sec E/E' med: 10.8 Lat Peak E' Nitesh: 10.5 cm/sec E/E' lat: 9.0 E/e' average: 9.9 MV dec time: 0.24 sec AV VR_phl: 0.96 MV P1/2t-pr_phl: 71.0 msec JANICE(MANI)/BSA_phl: 1.9 Reading Physician:JARON
[2022-03-14 04:05] LABS: COVID19 -Nasal RAPID Negative (Negative)
--- NOTE | 2022-03-14 04:52 | P.HP_ITS ---
History of Present Illness History of Present Illness Date Patient Seen: 03/14/22 Time Patient Seen: 04:52 Chief complaint: NECK AND CHEST PAIN Narrative: I don't have a heart attack, a stroke or congestive heart failure. Ms. Diggs is a 76 y.o. female resident of [facility] living with diabetes type 2, dyslipidemia and anxiety with a history of walking across the street and visiting the hospital and ER with various complaints. She was wheeled over by staff with a one day history of pain above her left breast and her chest cavity on the right. States it has been going all day long. She does endorses nausea, but denies vomiting, shortness of breath, abdominal pain, dysuria, diarrhea or constipation, denies numbing or tingling of her upper or lower extremities. She does endorse having swelling of her right foot. Chest xray ordered in the ED was within normal limits. She is afebrile, blood pressure 131/81, heart rate 94, ox respiratory rate 17, oxygen saturation 97% on room air she weighs 63.5 kg with a BMI of 24. CBC is unremarkable, glucose is elevated at 216, A1c is pending the rest of her chemistries are unremarkable, troponin was negative, COVID 19 PCR is negative. Patient History Medical History (Updated 03/14/22 @ 04:56 by GILMAR Lopez) Anxiety Diabetes Diabetes type 2, controlled Dyslipidemia Essential hypertension Hyperlipidemia Surgical History (Updated 03/14/22 @ 04:53 by GILMAR Lopez) Hx of section Family & Social History Safety & Behavioral: Feels Safe in Current Yes Environment Been Physically Hurt or No Threatened By a Person Tobacco & Substance use: Smoking Status Former smoker alcohol intake frequency holiday/special occasion Substance Use Type does not use Meds Home Medications and Allergies Home Medications Medication Instructions Recorded Confirmed Type acetaminophen 325 mg tablet 325 mg PO Q6HR PRN Pain (Scale 02/18/22 02/18/22 History Score 1-3) aspirin 81 mg chewable tablet 81 mg PO DAILY 02/18/22 02/18/22 History atorvastatin 40 mg tablet 40 mg PO DAILY 02/18/22 02/18/22 History clonazepam 0.5 mg tablet 0.5 mg PO DAILY 02/18/22 02/18/22 History cyanocobalamin (vitamin B-12) 1,000 mcg PO DAILY 02/18/22 02/18/22 History 1,000 mcg tablet insulin glargine 100 unit/mL (3 See Rx Instructions .Route .COMPLEX 02/18/22 02/18/22 History mL) subcutaneous pen (Lantus Solostar U-100 Insulin) ketoconazole 2 % shampoo See Rx Instructions .Route .COMPLEX 02/18/22 02/18/22 History loperamide 2 mg capsule 2 mg PO BID PRN Diarrhea 02/18/22 02/18/22 History loratadine 10 mg tablet 10 mg PO DAILY 02/18/22 02/18/22 History metformin 1,000 mg tablet 100 mg PO BID 02/18/22 02/18/22 History risperidone 2 mg tablet 2 mg PO DAILY 02/18/22 02/18/22 History Allergies Allergy/AdvReac Type Severity Reaction Status Date / Time influenza virus vaccine qs Allergy Verified 03/13/22 23:57 [id number] (65 years up) [From [employer] (65y up)(PF)] Penicillins Allergy Verified 12/03/21 11:28 pollen extracts Allergy Verified 03/13/22 23:57 procaine [From Novocain] Allergy Verified 11/24/21 10:08 vaccine adjuvant emulsion Allergy Verified 03/13/22 23:57 [id number] [From Fluad HOTELbeat (65y up)(PF)] Review of Systems Review of Systems ROS: Yes All systems reviewed with the patient and are negative except as otherwise documented Exam Vital Signs (past 8 hours): - 03/13/22 23:57 03/13/22 23:47 03/13/22 23:47 Temperature Pulse Rate 100 H 98 H Respiratory Rate 30 H Blood Pressure 166/75 H 166/75 H Pulse Oximetry 95 93 Oxygen Delivery Method Room Air Oxygen Flow Rate 03/14/22 00:24 03/14/22 00:00 03/14/22 00:00 Temperature Pulse Rate 90 99 H Respiratory Rate 33 H Blood Pressure 177/86 H 176/78 H Pulse Oximetry 95 Oxygen Delivery Method Oxygen Flow Rate 03/14/22 00:30 03/14/22 00:30 03/14/22 01:00 Temperature Pulse Rate 78 Respiratory Rate 33 H Blood Pressure 160/73 H 159/70 H Pulse Oximetry 97 Oxygen Delivery Method Oxygen Flow Rate 03/14/22 01:00 03/14/22 01:30 03/14/22 01:30 Temperature Pulse Rate 68 71 Respiratory Rate 37 H 11 L Blood Pressure 161/77 H Pulse Oximetry 97 98 Oxygen Delivery Method Oxygen Flow Rate 03/14/22 02:00 03/14/22 02:00 03/14/22 02:30 Temperature Pulse Rate 81 Respiratory Rate 30 H Blood Pressure 173/92 H 148/71 H Pulse Oximetry 96 Oxygen Delivery Method Oxygen Flow Rate 03/14/22 02:30 03/14/22 03:00 03/14/22 03:00 Temperature Pulse Rate 72 76 Respiratory Rate 31 H 26 H Blood Pressure 147/69 H Pulse Oximetry 98 97 Oxygen Delivery Method Oxygen Flow Rate 03/14/22 03:30 03/14/22 03:30 03/14/22 04:10 Temperature 97.2 F L Pulse Rate 83 94 H Respiratory Rate 30 H 17 Blood Pressure 135/63 131/81 Pulse Oximetry 96 97 Oxygen Delivery Method Oxygen Flow Rate 0 03/14/22 03:43 Temperature Pulse Rate Respiratory Rate Blood Pressure Pulse Oximetry 94 Oxygen Delivery Method Room Air Oxygen Flow Rate 0 Oxygen Delivery Method Room Air Oxygen Flow Rate 0 Narrative Exam Narrative: Gen: Alert, oriented, disheveled appearing 76 y.o. female, NAD HEENT: normocephalic, atraumatic, left eyelid persistently closed, conjunctiva clear, sclera non-icteric, very poor dentition, oral mucosa pink and dry Neck: supple, full ROM, no JVD, trachea is midline Resp: Lungs CTA, non-labored breathing CV: RRR, no murmur or rubs Abd: soft, non-tender, normoactive BTs Skin: no lesions or rashes, dry and intact Neuro: Alert and oriented X 4 w/no focal deficits. Speech clear and coherent. Extremities: No edema appreciated on her lower extremities, moves all 4 extremities, is ambulatory, negative Muriel?s sign Psyche: normal mood and affect. Objective Labs Result Diagrams: 03/14/22 00:15 03/14/22 00:15 Labs: Laboratory Results - last 24 hr 03/14/22 03/14/22 03/14/22 00:15 00:15 00:15 WBC 8.5 RBC 4.61 Hgb 14.4 Hct 41.9 MCV 90.8 MCH 31.2 MCHC 34.3 RDW 12.5 Plt Count 257 Neut % (Auto) 42.5 L Lymph % (Auto) 46.3 H [place] % (Auto) 7.5 Eos % (Auto) 2.6 Baso % (Auto) 1.1 Neut # (Auto) 3600 Lymph # (Auto) 3900 [place] # (Auto) 600 Eos # (Auto) 200 Baso # (Auto) 100 PT 11.3 INR 1.0 APTT 33 Sodium 138 Potassium 3.4 Chloride 100 Carbon Dioxide 30 BUN 6 L Creatinine 0.59 Estimated GFR > 60 BUN/Creatinine Ratio 10.2 Glucose 216 H Calcium 8.8 Total Bilirubin 0.5 AST 24 ALT 28 Alkaline Phosphatase 112 Total Creatine Kinase 96 CK-MB (CK-2) TNP CK-MB (CK-2) Rel Index TNP Troponin I < 0.012 Total Protein 7.4 Albumin 4.3 Globulin 3.1 Albumin/Globulin Ratio 1.4 SARS-CoV-2 (PCR) 03/14/22 03/14/22 02:05 03:30 WBC RBC Hgb Hct MCV MCH MCHC RDW Plt Count Neut % (Auto) Lymph % (Auto) [place] % (Auto) Eos % (Auto) Baso % (Auto) Neut # (Auto) Lymph # (Auto) [place] # (Auto) Eos # (Auto) Baso # (Auto) PT INR APTT Sodium Potassium Chloride Carbon Dioxide BUN Creatinine Estimated GFR BUN/Creatinine Ratio Glucose Calcium Total Bilirubin AST ALT Alkaline Phosphatase Total Creatine Kinase 85 CK-MB (CK-2) TNP CK-MB (CK-2) Rel Index TNP Troponin I < 0.012 Total Protein Albumin Globulin Albumin/Globulin Ratio SARS-CoV-2 (PCR) Negative Assessment & Plan Assessment & Plan narrative: Marcie Diggs is placed into observation further evaluation and workup of chest pain Chest pain r/o ACS, acute, present on admission ? Echo in am ? Pharmacological stress test ? Start ASA 81 mg ? Received nitro X 1 in the ED with good effect ? EKG shows no ischemic changes ? Trend troponin X 3, first two are negative ? She is normotensive and is not currently taking medications for hypertension HLD ? Lipid panel, pending ? Start/continue atorvastatin 40 mg po at bedtime Risk stratification ? Fasting lipid panel scheduled for 0500 labs ? A1c is pending VTE Prophylaxis: Wells risk score 0 X Enoxaparin 40 mg subQ once daily Bilateral SCDs Patient is placed into observation as her stay is not expected to exceed 2 midnights. FEN: IV fluids: saline lock, diet: carb controlled diet, labs: CBC, C/BMP, liver enzymes, Mag, PT/INR Consultants None Dispo: d/c back to [facility], understand from previous ED note she may be placed into their memory unit. Code status: Full Code as discussed with the patient who identifies Young Lopes, her son-in-law as her surrogate and POA. [X] I have utilized all available immediate resources to obtain, update, or review of the patient's current medications VTE Deep Vein Thrombosis/Pulmonary Embolism Present on Admission: No MIPS - Admit I confirm the patient?s Advance Care Plan is present, Code status is documented, Surrogate decision maker is in patient?s record: Yes MIPS - DC The patient has current or prior documentation of left ventricular ejection fraction (LVEF) less than 40%, or moderate or severely depressed left ventricular systolic function.: No COVID-19 COVID-19 status: Negative Result date/Date tested (Pos, Neg/Pending): 03/14/22
[2022-03-14] MEDS: ACETAMINOPHEN 325 MG TABLET 650 MG PO ×3 (05:33→17:35)
[2022-03-14 05:37] LABS: Hemoglobin A1C% w Est Avg Glu 9.6 % (4.0-6.0)
--- NOTE | 2022-03-14 05:48 | PC.NURSE ---
Pt is AxOx4, very pleasant old lady and cooperative. Pt needs only STA assistance to the bathroom. VSS, pt c/o headache 3/ and recieved PRN Tylenol around 0530. Otherwise, no problem identified. Pt is on Tele and it shows SR. BG-216 in ED. pt has Aspirin and Nitropaste in ED. No other changes. Will continue monitor.
[2022-03-14 07:58] LABS: Cholesterol 90 mg/dL (140-199); HDL Cholesterol 43 mg/dL (40-60); LDL Cholesterol Calculated 30 mg/dL (<100); Triglycerides 84 mg/dL (35-150)
[2022-03-14] MEDS: ENOXAPARIN 40 MG/0.4 ML SYRINGE SUBCUT (09:24)
[2022-03-14] MEDS: INSULIN LISPRO 100 UNIT/ML 3ML VIAL SUBCUT ×4 (09:33→20:44)
[2022-03-14] MEDS: ASPIRIN EC 81 MG TABLET PO (09:37)
--- NOTE | 2022-03-14 10:52 | DIET.CONS ---
Dietary Consultation Note Admission Date: 03/14/2022 03:25 Assessment: 76y F admitted for neck and chest pain awaiting stress test referred to nutrition for A1c of 9.6. Pt resides at [facility]. She endorses DM2 with 30U insulin injection daily before breakfast which is performed by RN on staff. Pt recently told by her THRESHING OPERATOR this to be increased to 35U. Pt reports no special diet assignment at [facility]. Pt tries to drink SF juices/beverages, however, they often don't have them so she drinks regular orange juice, black coffee, and water. Pt meals all supplied by [facility] except her midnight snack of potato chips which she has in her room. Pt states her BG was good this morning before breakfast, it was under 200. FBG reccs are 90-130 c DM2, pt was 174. Ht: 162.56 cm Wt: 63.503 kg BMI: 24.0 Last BM: 03/13/22 (03/14/22 03:49) MNA: Carlos A Score: 19 Diet: 03/14/22 08:38 NPO Diet Diet Modifications: NPO Type: NPO except for Meds Labs: RBC 4.61 X10^6/uL (4.0-5.2) 03/14/22 00:15 Hgb 14.4 g/dL (12.0-16.0) 03/14/22 00:15 Hct 41.9 % (36-46) 03/14/22 00:15 Creatinine 0.59 mg/dL (0.52-1.04) 03/14/22 00:15 Hemoglobin A1c 9.6 % (4.0-6.0) H 03/14/22 00:15 Nutrition Diagnosis: altered nutrition related laboratory values (a1c) r/t endocrine dysfunction and excessive intake fruit juice aeb A1c 9.6, pt reports drinking OJ because facility is often out of SF juice options. Interventions: 1. Educated pt on reccs to limit juice to no more than 1/2 cup daily, preferably not at all. Reinforced intake SF beverages. 2. RD called [facility] to request pt be placed on carbohydrate consistent diet. 3. DM2 reccs for FBG 80-130, recc pt work with PCP to adjust medication for optimal FBG. EER: 30-45g carb restriction at meals, 15-30g at snacks, limit juice to no more than 4oz daily or eliminate. Electronically Signed by: Harmony Brambila 03/14/22 10:52 Clinical Dietitian [address] [address]
--- NOTE | 2022-03-14 11:32 | CM.DANOTE ---
DCP: Case received, EMR reviewed and met with patient. Introduced self and role. Was able to obtain information regarding patient's baseline activity status at her facility prior to hospitalization. DCP assessment completed with information currently available. Patient is a 76 year old female who admitted early this morning to the care of the hospitalist team. PCP: GILMAR Landrum. Payer: confirmed: [employer]age/Medicaid. Patient came to the hospital via wheel-chair, sent over from [facility] with staff member. Patient had been complaining of left-sided chest discomfort, and had persisted. Patient is admitted for chest pain, will be getting echo. May not be able to get today, so patient will likely stay another day. Met with patient in her room. She is alert and oriented, and confirmed that she resides at [facility], in the [facility]. Stated, she has a front wheel walker there, and gets help with showers. She stated that she has been at the facility for about a year, likes it there. Confirmed that her nurse at the facility is Александр. Called Александр, he is the main nurse at the facility. His cell number is: [phone]. After discussion at team rounds, it is determined that patient may not be able to get her echo until tomorrow, so most likely will be an avoidable day, and patient will have to stay another day. Updated Александр on this, and let him know that she chuck be ready to discharge back to her facility tomorrow, as long as echo is ok. He is prepared to take her back, does not need to come and see her. Let him know that if by chance, she is able to get echo today, may be able to discharge today, but is unlikely. He is prepared to take her back regardless. P: DCP to continue to follow. Plan is back to [facility] depending upon echo, most likely tomorrow. Santa Rodriguez RN/Heading Maker Discharge Planning/Care Management Advanced directive, confirm from FAMILY Start: 03/14/22 05:12 Freq: Q24H Status: Active Protocol: Document 03/14/22 05:12 OW (Rec: 03/14/22 05:21 OW [id number]) Advance Directive, confirm on record Time 05:00 Person contacted none Copy received No CM Discharge Assessment Start: 03/14/22 11:26 Freq: Status: Active Protocol: Document 03/14/22 11:26 (Rec: 03/14/22 11:31 [id number]) Discharge Planning Assessment Assigned Multiple Pressure Riveter Operator Santa Rodriguez RN/Heading Maker Advance Directives? Yes Advance Directives on File No History Provided By Patient,Medical Record Prior Living Arrangements Assisted Living Household Members children Type of transporation used prior to Relies on Others admit Facility Name Admitted From: [facility] Willing to Return to Facility? Yes Independent with ADL's Yes Is patient alert and oriented? Yes Needs Assistance With Bathing,Meal Prep,Toileting, Managing Medications,Home Chores / Shopping Caregiver for Another No DME Already Rented / Owned Wheelchair Barriers to Discharge No Transportation Arrangement Facility Referrals Initiated None needed Whiteboard Updated in Patient Room with Yes name and ext. # of Multiple Pressure Riveter Operator Review Status In Process Next Review Type Continued Stay Review
[2022-03-14] MEDS: ONDANSETRON 4 MG/2 ML INJ IV (20:37)
[2022-03-14] MEDS: INSULIN GLARGINE 100 UNIT/ML 3ML PEN 10 UNIT SUBCUT (20:40)
[2022-03-15] VITALS: BP 121/57; PULSE 75; RESP 16; O2SAT 95
[2022-03-15 04:20] VITALS: O2SAT 93
[2022-03-15] MEDS: ACETAMINOPHEN 325 MG TABLET 650 MG PO ×2 (04:22→11:02)
[2022-03-15 04:30] VITALS: BP 133/70; PULSE 79; RESP 16; O2SAT 92
[2022-03-15 05:59] LABS: Add Manual Diff / Slide Review NO; Basophils Absolute Auto 100 /uL (0-100); Basophils Percent Auto 0.6 % (0-2); Eosinophils Absolute Auto 100 /uL (0-450); Eosinophils Percent Auto 1.7 % (2-4); Hematocrit 40.4 % (36-46); Hemoglobin 14.3 g/dL (12.0-16.0); Lymphocytes Absolute Auto 2500 /uL (1100-4500); Mean Corpuscular HGB Conc 35.4 % (30-36); Mean Corpuscular Volume 90.4 fL (80-100); Monocytes Absolute Auto 500 /uL (0-900); Monocytes Percent Auto 6.3 % (3-14); Neutrophils Absolute Auto 5300 /uL (1500-7000); Neutrophils Percent Auto 62.4 % (50-75); Platelet Count 232 X10^3/uL (150-400); Red Blood Cell Count 4.47 X10^6/uL (4.0-5.2); Red Cell Distribution Width 12.3 % (11.6-14.8); White Blood Cell Count 8.5 X10^3/uL (4.5-11.0)
[2022-03-15 06:12] LABS: Alanine Aminotransferase 25 IU/L (<35); Albumin Globulin Ratio 1.3 (1.0-2.8); Alkaline Phosphatase 97 U/L (38-126); Aspartate Aminotransferase 21 IU/L (14-36); BUN Creatinine Ratio 12.7 (6-22); Bilirubin Total 0.7 mg/dL (0.2-1.3); Blood Urea Nitrogen 8 mg/dL (7-17); Calcium 8.7 mg/dL (8.4-10.2); Carbon Dioxide 28 mmol/L (22-32); Chloride 102 mmol/L (98-107); Estimated Glomerular Filt Rate > 60 mL/min (>60); Globulin 3.1 g/dL (1.7-4.1); Glucose 188 mg/dL (80-110); HEMOLYSIS < 15 (0-50); Magnesium 1.6 mg/dL (1.6-2.3); Sodium 139 mmol/L (137-145); Total Protein 7.1 g/dL (6.3-8.2)
--- NOTE | 2022-03-15 07:03 | P.DS_ITS ---
History of Present Illness History of Present Illness Date Patient Seen: 03/15/22 Time Patient Seen: 10:27 Chief complaint: NECK AND CHEST PAIN Narrative: Ms. Diggs is a 76 y.o. female resident of [facility] with diabetes type 2, dyslipidemia and anxiety with a history of walking across the street and visiting the hospital and ER with various complaints. She was wheeled over by staff with a one day history of pain above her left breast and her chest cavity on the right. States it has been going all day long. She does endorses nausea, but denies vomiting, shortness of breath, abdominal pain, dysuria, diarrhea or constipation, denies numbing or tingling of her upper or lower extremities. She does endorse having swelling of her right foot. Chest xray ordered in the ED was within normal limits.? She is afebrile, blood pressure 131/81, heart rate 94, ox respiratory rate 17, oxygen saturation 97% on room air she weighs 63.5 kg with a BMI of 24.? CBC is unremarkable, glucose is elevated at 216, A1c is pending the rest of her chemistries are unremarkable, troponin was negative, COVID 19 PCR is negative. Discharge Providers Provider Date of admission: 03/14/22 03:25 Discharge Date: 03/15/22 Primary care physician: GILMAR Landrum Consults: 03/14/22 07:37 Consult to Dietitian, Adult Routine Comment: Reason For Exam: A1c 9.6% Discharge provider: Abrahan Yeung, Summary Hospital Course Discharge Diagnosis: Chest pain r/o ACS, acute, present on admission ? Echo showed normal EF 60-65% with no focal wall motion abnormalities ? Pharmacological stress test ordered but patient refused ? EKG shows no ischemic changes ? Troponin negative x3 HLD ? LDL 30 ? Start/continue atorvastatin 40 mg po at bedtime Hospital Course: Admitted for chest pain which was worse with position and palpation. Echo was normal without any focal WMA's. She refused stress test. Her chest pain is likely MSK and not cardiac so she was discharged back to [facility]. Time Spent with Patient Time spent: Greater than 30 minutes Exam Vital Signs (past 8 hours): - 03/15/22 00:00 03/15/22 04:30 03/15/22 04:20 Pulse Rate 75 79 Respiratory Rate 16 16 Blood Pressure 121/57 L 133/70 Pulse Oximetry 95 92 93 Oxygen Delivery Method Room Air Oxygen Flow Rate 0 0 Oxygen Delivery Method Room Air Oxygen Flow Rate 0 Narrative Exam Narrative: Gen: Alert, oriented, disheveled appearing 76 y.o. female, NAD HEENT: normocephalic, atraumatic, left eyelid persistently closed, conjunctiva clear, sclera non-icteric, very poor dentition, oral mucosa pink and dry Neck: supple, full ROM, no JVD, trachea is midline Resp: Lungs CTA, non-labored breathing CV: RRR, no murmur or rubs Abd: soft, non-tender, normoactive BTs Skin: no lesions or rashes, dry and intact Neuro: Alert and oriented X 4 w/no focal deficits. Speech clear and coherent. Extremities: No edema appreciated on her lower extremities, moves all 4 extremities, is ambulatory, negative Muriel?s sign Psyche: normal mood and affect. Objective Labs Result Diagrams: 03/15/22 05:40 03/15/22 05:40 Labs: Laboratory Results - last 24 hr 03/14/22 03/15/22 03/15/22 07:06 05:40 05:40 WBC 8.5 RBC 4.47 Hgb 14.3 Hct 40.4 MCV 90.4 MCH 32.0 MCHC 35.4 RDW 12.3 Plt Count 232 Neut % (Auto) 62.4 Lymph % (Auto) 29.0 [place] % (Auto) 6.3 Eos % (Auto) 1.7 L Baso % (Auto) 0.6 Neut # (Auto) 5300 Lymph # (Auto) 2500 [place] # (Auto) 500 Eos # (Auto) 100 Baso # (Auto) 100 Sodium 139 Potassium 4.0 Chloride 102 Carbon Dioxide 28 BUN 8 Creatinine 0.63 Estimated GFR > 60 BUN/Creatinine Ratio 12.7 Glucose 188 H Calcium 8.7 Magnesium 1.6 Total Bilirubin 0.7 AST 21 ALT 25 Alkaline Phosphatase 97 Total Protein 7.1 Albumin 4.0 Globulin 3.1 Albumin/Globulin Ratio 1.3 Triglycerides 84 Cholesterol 90 L LDL Cholesterol, Calc 30 HDL Cholesterol 43 TSH 03/15/22 05:40 WBC RBC Hgb Hct MCV MCH MCHC RDW Plt Count Neut % (Auto) Lymph % (Auto) [place] % (Auto) Eos % (Auto) Baso % (Auto) Neut # (Auto) Lymph # (Auto) [place] # (Auto) Eos # (Auto) Baso # (Auto) Sodium Potassium Chloride Carbon Dioxide BUN Creatinine Estimated GFR BUN/Creatinine Ratio Glucose Calcium Magnesium Total Bilirubin AST ALT Alkaline Phosphatase Total Protein Albumin Globulin Albumin/Globulin Ratio Triglycerides Cholesterol LDL Cholesterol, Calc HDL Cholesterol TSH 0.460 L [facility] Medical History (Updated 03/14/22 @ 04:56 by GILMAR Lopez) Anxiety Diabetes Diabetes type 2, controlled Dyslipidemia Essential hypertension Hyperlipidemia Surgical History (Updated 03/14/22 @ 04:53 by GILMAR Lopez) Hx of section Social History household members: children Smoking Status: Former smoker alcohol intake: never Discharge Plan Discharge Plan Patient Disposition: Home Provider Discharge Comment: You were admitted for chest pain and all workup was negative for heart disease. This pain was not heart related. Discharge orders & Medications Prescriptions: Continued acetaminophen 325 mg tablet 325 mg PO Q4HR aspirin 81 mg tablet,chewable 81 mg PO DAILY atorvastatin 40 mg tablet 40 mg PO DAILY ketoconazole 2 % shampoo See Rx Instructions .ROUTE .COMPLEX Rx Instructions: daily loperamide 2 mg capsule 2 mg PO BID PRN (Reason: Diarrhea) Rx Instructions: not to exceed 3 capsules a day clonazepam 0.5 mg tablet 0.5 mg PO 12XD PRN (Reason: Anxiety) Rx Instructions: breakthrough anxiety cyanocobalamin (vitamin B-12) 1,000 mcg tablet 1,000 mcg PO DAILY risperidone 2 mg tablet 2 mg PO DAILY metformin 1,000 mg tablet 1,000 mg PO BID loratadine 10 mg tablet 10 mg PO DAILY insulin glargine [Lantus Solostar U-100 Insulin] 100 unit/mL (3 mL) insulin pen 30 unit SUBCUT QAM Rx Instructions: see rx Follow up/Referrals: Ivanna Samuel ARNP [Primary Care Provider] - 2 Weeks Discharge Data Primary Care Provider: Ivanna Samuel Attending Provider: Nohelia Guaadlupe
[2022-03-15 08:21] LABS: Free T4, Direct Thyroxine 1.17 ng/dL (0.78-2.19)
[2022-03-15] MEDS: ENOXAPARIN 40 MG/0.4 ML SYRINGE SUBCUT (08:26)
[2022-03-15] MEDS: ASPIRIN EC 81 MG TABLET PO (08:27)
[2022-03-15] MEDS: INSULIN LISPRO 100 UNIT/ML 3ML VIAL SUBCUT (08:34)
[2022-03-15 08:39] VITALS: BP 133/63; PULSE 84; RESP 18; TEMP 36.7; O2SAT 95
[2022-03-15 10:00] VITALS: O2SAT 93
--- NOTE | 2022-03-15 10:31 | CM.DPC ---
DCP Cont: Patient had echo this morning, was negative, according to hospitalist during rounds, and patient has refused stress test. Plan is to discharge today. Called Александр at [facility], they are prepared to pickle processor patient. Set a time for 1130, have updated nurse and white board, and hospitalist is working on orders. Александр also gave his fax of: [phone], in addition to faxing to their regular fax number. P: Patient is discharging back to [facility] today. Santa Rodriguez RN/Dental Insurance Coordinator
--- NOTE | 2022-03-15 11:42 | PC.NURSE ---
0837: No c/o chest pain or SOB. Refused stress test. MD aware. Awaiting echo results. Diet order placed.
--- NOTE | 2022-03-15 11:44 | PC.NURSE ---
Discharge order: No c/o chest pain and VSS. Tylenol given for mild headache 07/27. Report given to Александр at [facility]. Patient awake, alert, and oriented, dressed with minimal assistance. VOiding adequately, good PO intake, no nausea. Discharge instructions given to patient, discussed importance of medication adherence, fall safety precautions, and s/sx of worsening chest pain. Verbalized understanding of instructions. Discharged to [facility] via WC by staff.
== END 2022-03-15 11:54 | disposition home or self-care (01) ==
LOC: ED 03-14 01:48 → AC 03-14 03:25
PROVIDERS: Student in an Organized Health Care Education/Training Program; Admitting Provider Nurse Practitioner Family; Emergency Provider Emergency Medicine; PCP Nurse Practitioner Family; Visit Provider Nurse Practitioner Family
DX: R07.9 Chest pain, unspecified (principal); E78.5 Hyperlipidemia, unspecified; E11.9 Type 2 diabetes mellitus without complications; Z79.84 Long term (current) use of oral hypoglycemic drugs; Z79.4 Long term (current) use of insulin; Z20.822 Contact with and (suspected) exposure to COVID-19
CPT/HCPCS: 36415; 71045; 80053; 80061; 82550; 82962; 83036; 83735; 84439; 84443; 84484; 85025; 85610; 85730; 87635; 93005; 93306; 96372; 96374; 99284; C9803; G0378; J1650; J1815; J2405

== ENCOUNTER 2022-06-11 16:18 | Emergency (ER) | payer OTHER, MEDICAID, SELFPAY ==
[2022-03-14 03:49] VITALS: BMI 24.0
[2022-06-11] VITALS (10 sets, daily range): BP systolic 107–158; BP diastolic 53–77; PULSE 75–92; RESP 17–25; TEMP 36.9; O2SAT 93–95
--- NOTE | 2022-06-11 16:48 | DI.RAD.S_ITS ---
PROCEDURE: XR CHEST 2V INDICATIONS: shortness of breath TECHNIQUE: 2 views of the chest were acquired. COMPARISON: [facility], , XR CHEST 1V, 03/14/2022, 0:13. FINDINGS: Surgical changes and devices: None. Lungs and pleura: Lungs are clear. No pleural effusions or pneumothorax. Mediastinum: Mediastinal contours are normal. Heart size is normal. Bones and chest wall: No suspicious bony abnormalities. Soft tissues appear unremarkable. IMPRESSION: No acute process. Dictated by: Shyla Wright M.D. on 06/11/2022 at 19:13 Approved by: Shyla Wright M.D. on 06/11/2022 at 19:13
[2022-06-11 17:23] LABS: Appearance Urine UA CLEAR; Bilirubin Urine UA NEGATIVE (NEGATIVE); Color Urine UA LT. YELLOW; Glucose Urine UA NEGATIVE (Negative); Ketones Urine UA NEGATIVE (NEGATIVE); Leukocyte Esterase Urine UA NEGATIVE (NEGATIVE); Nitrite Urine UA NEGATIVE (Negative); Occult Blood Urine UA NEGATIVE (Negative); Protein Urine UA NEGATIVE (Negative); Specific Gravity Urine UA <=1.005 (1.000-1.035); Urobilinogen Urine UA 0.2 E.U./dL (0.2); pH Urine UA 7.5 (4.5-8.0)
[2022-06-11 17:44] LABS: Prothrombin Time 11.9 SECONDS (10.1-12.7)
[2022-06-11 17:47] LABS: Bacteria Urine Occasional (0-1); Culture Indicated Urine Cult Not Indicated; RBC Urine None Seen (0-5/HPF); Squamous Epithelial Cell Urine 0-1 /HPF (0-5/HPF); WBC Urine 0-1/HPF (0-5/HPF)
[2022-06-11 17:51] LABS: Alanine Aminotransferase 25 IU/L (<35); Albumin 4.3 g/dL (3.5-5.0); Albumin Globulin Ratio 1.3 (1.0-2.8); Alkaline Phosphatase 85 U/L (38-126); Aspartate Aminotransferase 23 IU/L (14-36); BUN Creatinine Ratio 17.2 (6-22); Bilirubin Total 0.6 mg/dL (0.2-1.3); Blood Urea Nitrogen 10 mg/dL (7-17); Calcium 8.9 mg/dL (8.4-10.2); Carbon Dioxide 32 mmol/L (22-32); Chloride 99 mmol/L (98-107); Estimated Glomerular Filt Rate > 60 mL/min (>60); Globulin 3.4 g/dL (1.7-4.1); Glucose 133 mg/dL (80-110); HEMOLYSIS < 15 (0-50); Lactate (Lactic Acid) 0.8 mmol/L (0.7-2.1); Potassium 3.6 mmol/L (3.4-5.1); Sodium 139 mmol/L (137-145); Total Protein 7.7 g/dL (6.3-8.2)
[2022-06-11 17:54] LABS: Add Manual Diff / Slide Review NO; Basophils Absolute Auto 100 /uL (0-100); Basophils Percent Auto 0.6 % (0-2); Eosinophils Absolute Auto 200 /uL (0-450); Eosinophils Percent Auto 1.6 % (2-4); Hematocrit 39.5 % (36-46); Hemoglobin 13.5 g/dL (12.0-16.0); Lymphocytes Absolute Auto 3800 /uL (1100-4500); Lymphocytes Percent Auto 39.7 % (25-40); Mean Corpuscular HGB Conc 34.3 % (30-36); Mean Corpuscular Hemoglobin 31.6 PG (26-34); Mean Corpuscular Volume 92.1 fL (80-100); Monocytes Absolute Auto 800 /uL (0-900); Monocytes Percent Auto 8.2 % (3-14); Neutrophils Absolute Auto 4800 /uL (1500-7000); Neutrophils Percent Auto 49.9 % (50-75); Platelet Count 241 X10^3/uL (150-400); Red Blood Cell Count 4.28 X10^6/uL (4.0-5.2); Red Cell Distribution Width 12.4 % (11.6-14.8); White Blood Cell Count 9.6 X10^3/uL (4.5-11.0)
[2022-06-11 18:02] LABS: NT-proBNP (BNP-Adult 18+) 32 pg/mL (<450); Troponin I < 0.012 ng/mL (0.01-0.034)
[2022-06-11 18:17] LABS: Influenza A - CEPHEID Flu A NEGATIVE (NEGATIVE); Influenza B - CEPHEID Flu B NEGATIVE (NEGATIVE); Respiratory Syncytial Virus Negative (Negative)
[2022-06-11 18:37] LABS: COVID-19 CEPHEID 4-PLEX PCR Negative (Negative)
--- NOTE | 2022-06-11 20:18 | PC.NURSE ---
Pt is poor historian and is not sure about her medical history. Came in today because she feels SOB and thinks she has COVID. Pt is talking in full sentences, 94% on RA and RR is 20. Pt reports hx of smoking. Call light within reach encouraged to use for needs.
--- NOTE | 2022-06-11 22:31 | ED.GENADULT ---
HPI - General Adult General Chief complaint: Shortness of Breath/Dyspnea Stated complaint: Wants to be checked out, COVID test Time Seen by Provider: 06/11/22 22:28 Source: patient Mode of arrival: Ambulatory History of Present Illness HPI narrative: 76-year-old woman who lives in [facility], history of hyperlipidemia, anxiety, diabetes, concerned with cough mild dyspnea and possibility of COVID. She states that she had some nausea today that did not seem to be controlled by her usual nausea medication, complains of an occasional skipped beat with her heart, sense of just feeling ?off?, notes that her balance seems to be off today with occasional lightheadedness and headache. She has not had diarrhea. She does not describe abdominal pain diarrhea, chest pain or any acute neurologic abnormalities today Related Data Home Medications Medication Instructions Recorded Confirmed acetaminophen 325 mg tablet 325 mg PO Q4HR 02/18/22 03/14/22 aspirin 81 mg chewable tablet 81 mg PO DAILY 02/18/22 03/14/22 atorvastatin 40 mg tablet 40 mg PO DAILY 02/18/22 03/14/22 clonazepam 0.5 mg tablet 0.5 mg PO 12XD PRN Anxiety 02/18/22 03/14/22 cyanocobalamin (vitamin B-12) 1,000 mcg PO DAILY 02/18/22 03/14/22 1,000 mcg tablet insulin glargine 100 unit/mL (3 30 unit SUBCUT QAM 02/18/22 03/14/22 mL) subcutaneous pen (Lantus Solostar U-100 Insulin) ketoconazole 2 % shampoo See Rx Instructions .Route .COMPLEX 02/18/22 03/14/22 loperamide 2 mg capsule 2 mg PO BID PRN Diarrhea 02/18/22 03/14/22 loratadine 10 mg tablet 10 mg PO DAILY 02/18/22 03/14/22 metformin 1,000 mg tablet 1,000 mg PO BID 02/18/22 03/14/22 risperidone 2 mg tablet 2 mg PO DAILY 02/18/22 03/14/22 Allergies Allergy/AdvReac Type Severity Reaction Status Date / Time Penicillins Allergy Intermediate unknown Verified 03/14/22 14:43 but states not anaphylaxis, never stopped breathing influenza virus vaccine qs Allergy Verified 03/13/22 23:57 [id number] (65 years up) [From Fluad Quad (65y up)(PF)] pollen extracts Allergy Verified 03/13/22 23:57 procaine [From Novocain] Allergy Verified 11/24/21 10:08 vaccine adjuvant emulsion Allergy Verified 03/13/22 23:57 [id number] [From Fluad Quad (65y up)(PF)] Review of Systems Review of Systems Narrative: Remainder of complete review of systems is otherwise unremarkable except for that included in the HPI. Patient History Medical History Anxiety Diabetes Diabetes type 2, controlled Dyslipidemia Essential hypertension Hyperlipidemia Surgical History Hx of section Social History household members: children Smoking Status: Former smoker alcohol intake: never Smoking Status: Former smoker tobacco type: cigarettes alcohol intake frequency: holidays/special occasions only Substance Use Type: does not use Exam Initial Vital Signs Initial Vital Signs: Vital Signs Temperature 98.4 F 06/11/22 16:45 Pulse Rate 92 H 06/11/22 16:45 Respiratory Rate 17 06/11/22 16:45 Blood Pressure 158/71 H 06/11/22 16:45 Pulse Oximetry 95 06/11/22 16:45 Oxygen Delivery Method 06/11/22 16:45 General: Chronically ill-appearing, somewhat disheveled, no acute distress and able to speak in complete sentences HEENT: Moist mucous membranes, normal sclera with reactive pupils, 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 She can see only to the very left out of this I. Neck: No JVD, supple Respiratory: Lungs are clear to auscultation, no wheezing no rales no rhonchi. Full and symmetrical air movement Cardiac: Regular rate and rhythm no murmurs no bruits Abdomen: Soft, nontender, good bowel tones, no flank pain Skin: Warm and dry, no rashes Neurologic: Grossly neurologically intact with no obvious asymmetries or abnormalities Extremities: No trauma, well perfused Psych: Cooperative, somewhat anxious but able to be reassured with fluent speech patterns Course Orders Ordered: ED Orders 06/11/22 16:48 XR chest 2V Stat EKG-12 Lead Stat Measure peak expiratory flow ONCE RT Consult Eval and Treat NOW 06/11/22 17:00 Complete Blood Count AUTO DIFF Stat Comprehensive Metabolic Panel Stat Covid-19 + FLU A/B + RSV - PCR Stat Lactate (Lactic Acid) Stat NT-proBNP (BNP-Adult 18+) Stat Prothrombin Time INR Stat Troponin I Stat Urinalysis and Microscopic Stat Vital Signs Vital signs: Vital Signs - 8 hr 06/11/22 16:45 06/11/22 20:15 06/11/22 20:15 Temperature 98.4 F Pulse Rate 92 H 81 Respiratory Rate 17 Blood Pressure 158/71 H 107/53 L Pulse Oximetry 95 93 Oxygen Delivery Method Room Air 06/11/22 20:30 06/11/22 21:00 06/11/22 21:30 Temperature Pulse Rate 81 78 75 Respiratory Rate 20 25 H 20 Blood Pressure Pulse Oximetry 94 93 94 Oxygen Delivery Method 06/11/22 22:00 Temperature Pulse Rate 80 Respiratory Rate 23 Blood Pressure Pulse Oximetry 95 Oxygen Delivery Method Medical Decision Making Lab Data 06/11/22 17:00 06/11/22 17:00 Labs: Lab Results 06/11/22 06/11/22 06/11/22 Range/Units 17:00 17:00 17:00 WBC 9.6 (4.5-11.0) X10^3/uL RBC 4.28 (4.0-5.2) X10^6/uL Hgb 13.5 (12.0-16.0) g/dL Hct 39.5 (36-46) % MCV 92.1 (80-100) fL MCH 31.6 (26-34) PG MCHC 34.3 (30-36) % RDW 12.4 (11.6-14.8) % Plt Count 241 (150-400) X10^3/uL Neut % (Auto) 49.9 L (50-75) % Lymph % (Auto) 39.7 (25-40) % [place] % (Auto) 8.2 (3-14) % Eos % (Auto) 1.6 L (2-4) % Baso % (Auto) 0.6 (0-2) % Neut # (Auto) 4800 (8470-5351) /uL Lymph # (Auto) 3800 (4694-4211) /uL [place] # (Auto) 800 (0-900) /uL Eos # (Auto) 200 (0-450) /uL Baso # (Auto) 100 (0-100) /uL PT 11.9 (10.1-12.7) SECONDS INR 1.0 (0.9-1.3) Sodium 139 (137-145) mmol/L Potassium 3.6 (3.4-5.1) mmol/L Chloride 99 (98-107) mmol/L Carbon Dioxide 32 (22-32) mmol/L BUN 10 (7-17) mg/dL Creatinine 0.58 (0.52-1.04) mg/dL Estimated GFR > 60 (>60) mL/min BUN/Creatinine Ratio 17.2 (6-22) Glucose 133 H (80-110) mg/dL Lactate (0.7-2.1) mmol/L Calcium 8.9 (8.4-10.2) mg/dL Total Bilirubin 0.6 (0.2-1.3) mg/dL AST 23 (14-36) IU/L ALT 25 (<35) IU/L Alkaline Phosphatase 85 (38-126) U/L Troponin I < 0.012 (0.01-0.034) ng/mL NT-Pro-B Natriuret Pep 32 (<450) pg/mL Total Protein 7.7 (6.3-8.2) g/dL Albumin 4.3 (3.5-5.0) g/dL Globulin 3.4 (1.7-4.1) g/dL Albumin/Globulin Ratio 1.3 (1.0-2.8) Urine Color Urine Appearance Urine pH (4.5-8.0) Ur Specific [place] (1.000-1.035) Urine Protein (Negative) Urine Glucose (UA) (Negative) g/dL Urine Ketones (NEGATIVE) Urine Occult Blood (Negative) Urine Nitrate (Negative) Urine Bilirubin (NEGATIVE) Urine Urobilinogen (0.2) E.U./dL Ur Leukocyte Esterase (NEGATIVE) Urine RBC (0-5/HPF) Urine WBC (0-5/HPF) Ur Squamous Epith Cells (0-5/HPF) Urine Bacteria (None) Ur Culture Indicated? SARS-CoV-2 (PCR) (Negative) Influenza A (RT-PCR) (NEGATIVE) Influenza B (RT-PCR) (NEGATIVE) RSV (PCR) (Negative) 06/11/22 06/11/22 06/11/22 Range/Units 17:00 17:00 17:00 WBC (4.5-11.0) X10^3/uL RBC (4.0-5.2) X10^6/uL Hgb (12.0-16.0) g/dL Hct (36-46) % MCV (80-100) fL MCH (26-34) PG MCHC (30-36) % RDW (11.6-14.8) % Plt Count (150-400) X10^3/uL Neut % (Auto) (50-75) % Lymph % (Auto) (25-40) % [place] % (Auto) (3-14) % Eos % (Auto) (2-4) % Baso % (Auto) (0-2) % Neut # (Auto) (9148-6418) /uL Lymph # (Auto) (9458-5544) /uL [place] # (Auto) (0-900) /uL Eos # (Auto) (0-450) /uL Baso # (Auto) (0-100) /uL PT (10.1-12.7) SECONDS INR (0.9-1.3) Sodium (137-145) mmol/L Potassium (3.4-5.1) mmol/L Chloride (98-107) mmol/L Carbon Dioxide (22-32) mmol/L BUN (7-17) mg/dL Creatinine (0.52-1.04) mg/dL Estimated GFR (>60) mL/min BUN/Creatinine Ratio (6-22) Glucose (80-110) mg/dL Lactate 0.8 (0.7-2.1) mmol/L Calcium (8.4-10.2) mg/dL Total Bilirubin (0.2-1.3) mg/dL AST (14-36) IU/L ALT (<35) IU/L Alkaline Phosphatase (38-126) U/L Troponin I (0.01-0.034) ng/mL NT-Pro-B Natriuret Pep (<450) pg/mL Total Protein (6.3-8.2) g/dL Albumin (3.5-5.0) g/dL Globulin (1.7-4.1) g/dL Albumin/Globulin Ratio (1.0-2.8) Urine Color Lt. yellow Urine Appearance Clear Urine pH 7.5 (4.5-8.0) Ur Specific Jackson <=1.005 (1.000-1.035) Urine Protein Negative (Negative) Urine Glucose (UA) Negative (Negative) g/dL Urine Ketones Negative (NEGATIVE) Urine Occult Blood Negative (Negative) Urine Nitrate Negative (Negative) Urine Bilirubin Negative (NEGATIVE) Urine Urobilinogen 0.2 (0.2) E.U./dL Ur Leukocyte Esterase Negative (NEGATIVE) Urine RBC None seen (0-5/HPF) Urine WBC 0-1/hpf (0-5/HPF) Ur Squamous Epith Cells 0-1 /hpf (0-5/HPF) Urine Bacteria Occasional (0-1) (None) Ur Culture Indicated? Cult not indicated SARS-CoV-2 (PCR) Negative (Negative) Influenza A (RT-PCR) Flu a negative (NEGATIVE) Influenza B (RT-PCR) Flu b negative (NEGATIVE) RSV (PCR) Negative (Negative) ECG Data Interpretation: Sinus rhythm at a rate of 90 Normal intervals, normal axis No acute ischemic changes MDM Narrative Medical decision making narrative: CC: Cough, mild nausea, dizziness and a sense of being off. This is a new problem, uncertain prognosis and potentially life-threatening Complicating co-morbidities: Diabetes, psychiatric difficulties that often have her ending up in the emergency department with vague complaints Corroborating data: Data collected from: patient, Social determinants of health that may influence the patients condition: Psychiatric abnormalities, Assisted Care living Medical records reviewed: Prior admissions and ER visits are reviewed Differential considered: Viral syndrome, stroke, other infectious etiology, anxiety, cardiac dysrhythmia, acute coronary syndrome Exam documented above, pertinent findings include: Chatty 76-year-old woman in no acute distress with benign exam Lab Test results independently reviewed as above. Pertinent findings: CBC is unremarkable Chemistries are unremarkable Normal troponin Independently reviewed EKG as above Imaging studies independently reviewed: Chest x-ray is within normal limits Re-evaluations: Findings reviewed with patient, her exam or means quite benign. Questions are answered and explained to her that she is safe for discharge home with no significant life-threatening abnormalities appreciated today. Discussion: 76-year-old woman seen occasionally in the emergency department after she decides that she does not feel ?well?. She lives across the street at [facility] and will frequently come over to the emergency room for further evaluation when nursing staff is not paying attention to her where about. Today she has no specific findings, is nontoxic is alert and oriented. Respiratory panel is unremarkable and I find no indication for hospitalization or further workup at this time. All of this is reviewed with the patient and she is discharged home Disposition: see below, along with detailed discharge instructions that have been reviewed with patient as well as indications for ED re-evaluation and additional outpatient follow up Discharge Plan Departure Patient Disposition: Home Clinical Impression: Cough Qualifiers: Cough type: acute Qualified Code(s): R05.1 - Acute cough Instructions: DI for Cough -- Adult Activity Restrictions/Additional Instructions: Thank you for coming in today I do not have a full explanation for your cough. I suspect that it is mild viral syndrome. It is not COVID, influenza or respiratory syncytial virus. Your chest x-ray and blood work were quite reassuring in the emergency department. There is no need for additional workup or hospitalization. I hope you are able to get a good sleep tonight. I wish you the best Prescriptions: No Action acetaminophen 325 mg tablet 325 mg PO Q4HR aspirin 81 mg tablet,chewable 81 mg PO DAILY atorvastatin 40 mg tablet 40 mg PO DAILY ketoconazole 2 % shampoo See Rx Instructions .ROUTE .COMPLEX Rx Instructions: daily loperamide 2 mg capsule 2 mg PO BID PRN (Reason: Diarrhea) Rx Instructions: not to exceed 3 capsules a day clonazepam 0.5 mg tablet 0.5 mg PO 12XD PRN (Reason: Anxiety) Rx Instructions: breakthrough anxiety cyanocobalamin (vitamin B-12) 1,000 mcg tablet 1,000 mcg PO DAILY risperidone 2 mg tablet 2 mg PO DAILY metformin 1,000 mg tablet 1,000 mg PO BID loratadine 10 mg tablet 10 mg PO DAILY insulin glargine [Lantus Solostar U-100 Insulin] 100 unit/mL (3 mL) insulin pen 30 unit SUBCUT QAM Rx Instructions: see rx Referrals: Ivanna Samuel ARNP [Primary Care Provider] - Stand Alone Forms: Patient Portal/API
[2022-06-11] MEDS: ACETAMINOPHEN 325 MG TABLET 975 MG PO (23:18)
== END 2022-06-11 23:28 | disposition home or self-care (01) ==
PROVIDERS: Emergency Medicine; Emergency Provider Emergency Medicine; PCP Nurse Practitioner Family
DX: R05.1 Acute cough (principal); R11.0 Nausea; R07.9 Chest pain, unspecified; Z20.822 Contact with and (suspected) exposure to COVID-19
CPT/HCPCS: 0241U; 36415; 71046; 80053; 81001; 81003; 83605; 83880; 84484; 85025; 85610; 93005; 99284

== ENCOUNTER → 2022-07-04 06:30 | Outpatient (ROUT) | payer OTHER, MEDICAID, SELFPAY ==
[2022-03-14 03:49] VITALS: BMI 24.0
== END ==
PROVIDERS: PCP Nurse Practitioner Family; Visit Provider Nurse Practitioner Family
DX: E11.9 Type 2 diabetes mellitus without complications (principal)
CPT/HCPCS: 36415; 83036

== ENCOUNTER → 2022-07-18 18:59 | Outpatient (ROUT) | payer OTHER, MEDICAID, SELFPAY ==
[2022-03-14 03:49] VITALS: BMI 24.0
[2022-07-18 19:44] LABS: Appearance Urine UA CLEAR; Bilirubin Urine UA NEGATIVE (NEGATIVE); Color Urine UA YELLOW; Glucose Urine UA NEGATIVE (Negative); Ketones Urine UA NEGATIVE (NEGATIVE); Leukocyte Esterase Urine UA NEGATIVE (NEGATIVE); Nitrite Urine UA NEGATIVE (Negative); Occult Blood Urine UA NEGATIVE (Negative); Protein Urine UA NEGATIVE (Negative); Specific Gravity Urine UA <=1.005 (1.000-1.035); Urobilinogen Urine UA 0.2 E.U./dL (0.2)
[2022-07-18 19:51] LABS: pH Urine UA 6.5 (4.5-8.0)
[2022-07-18 20:23] LABS: Bacteria Urine None Seen; Culture Indicated Urine Cult Not Indicated; RBC Urine None Seen (0-5/HPF); Squamous Epithelial Cell Urine 1-5 /HPF (0-5/HPF); WBC Urine 0-1/HPF (0-5/HPF)
== END ==
PROVIDERS: PCP Nurse Practitioner Family; Visit Provider Registered Nurse
DX: R35.0 Frequency of micturition (principal)
CPT/HCPCS: 81001

== ENCOUNTER 2022-07-24 14:55 | Emergency (ER) | payer OTHER, MEDICAID, SELFPAY ==
[2022-03-14 03:49] VITALS: BMI 24.0
[2022-07-24 15:07] VITALS: BP 173/79; PULSE 92; RESP 18; TEMP 36.8; O2SAT 96; BMI 24.0
[2022-07-24 17:01] LABS: Adenovirus Not Detected (Not Detect); B. parapertussis Not Detected (Not Detecte); Bordetella pertussis Not Detected (Not Detecte); Chlamydophila pneumoniae Not Detected (Not Detect); Coronavirus 229E Not Detected (Not Detect); Coronavirus HKU1 Not Detected (Not Detect); Coronavirus NL 63 Not Detected (Not Detect); Coronavirus OC43 Not Detected (Not Detect); Human Metapneumovirus Not Detected (Not Detect); Human Rhinovirus/Enterovirus Detected (Not Detect); Influenza A Not Detected (Not Detect); Influenza B Not Detected (Not Detect); Mycoplasma pneumoniae Not Detected (Not Detect); Parainfluenza Virus 1 Not Detected (Not Detect); Parainfluenza Virus 2 Not Detected (Not Detect); Parainfluenza Virus 3 Not Detected (Not Detect); Parainfluenza Virus 4 Not Detected (Not Detect); Respiratory Syncytial Virus Not Detected (Not Detect); SARS- CoV-2 Not Detected (Not Detecte)
[2022-07-24 18:16] VITALS: BP 153/69; PULSE 91; O2SAT 95
--- NOTE | 2022-07-24 19:28 | ED_ITS ---
HPI - URI/Sore Throat <Eusebio Powell PA-C - Last Filed: 07/24/22 19:34> General Chief Complaint: Upper Respiratory Symptoms Stated Complaint: Nose/throat/resp issues x2days Time Seen by Provider: 07/24/22 19:07 Source: patient Mode of arrival: Ambulatory History of Present Illness HPI Narrative: 76-year-old female presents to the ED with 2 days of URI symptoms including nasal congestion, chest congestion, cough. Patient denies fever, chills, nausea, vomiting, chest pain, shortness of breath, abdominal pain, lightheadedness, dizziness, syncope. Related Data Home Medications Medication Instructions Recorded Confirmed acetaminophen 325 mg tablet 325 mg PO Q4HR 02/18/22 03/14/22 aspirin 81 mg chewable tablet 81 mg PO DAILY 02/18/22 03/14/22 atorvastatin 40 mg tablet 40 mg PO DAILY 02/18/22 03/14/22 clonazepam 0.5 mg tablet 0.5 mg PO 12XD PRN Anxiety 02/18/22 03/14/22 cyanocobalamin (vitamin B-12) 1,000 mcg PO DAILY 02/18/22 03/14/22 1,000 mcg tablet insulin glargine 100 unit/mL (3 30 unit SUBCUT QAM 02/18/22 03/14/22 mL) subcutaneous pen (Lantus Solostar U-100 Insulin) ketoconazole 2 % shampoo See Rx Instructions .Route .COMPLEX 02/18/22 03/14/22 loperamide 2 mg capsule 2 mg PO BID PRN Diarrhea 02/18/22 03/14/22 loratadine 10 mg tablet 10 mg PO DAILY 02/18/22 03/14/22 metformin 1,000 mg tablet 1,000 mg PO BID 02/18/22 03/14/22 risperidone 2 mg tablet 2 mg PO DAILY 02/18/22 03/14/22 Allergies Allergy/AdvReac Type Severity Reaction Status Date / Time Penicillins Allergy Intermediate unknown Verified 03/14/22 14:43 but states not anaphylaxis, never stopped breathing influenza virus vaccine qs Allergy Verified 03/13/22 23:57 [id number] (65 years up) [From Fluad Quad (65y up)(PF)] pollen extracts Allergy Verified 03/13/22 23:57 procaine [From Novocain] Allergy Verified 11/24/21 10:08 vaccine adjuvant emulsion Allergy Verified 03/13/22 23:57 [id number] [From Fluad Quad (65y up)(PF)] Review of Systems <Eusebio Powell PA-C - Last Filed: 07/24/22 19:34> Review of Systems ROS Unobtainable: All systems reviewed & are unremarkable except as noted in HPI and below Constitutional Constitutional: Denies chills, Denies fatigue, Denies fever(s), Denies frequent falls, Denies lethargy and Denies weakness Eyes Eyes: Denies change in vision, Denies eye discharge, Denies irritation and Denies loss of vision ENT Ears, Nose, Mouth, and Throat: Denies change in voice, Denies dizziness, Reports nasal congestion, Denies neck pain, Denies sore throat and Denies throat swelling Cardiovascular Cardiovascular: Denies chest pain, Denies irregular heart rhythm, Denies lightheadedness, Denies palpitations, Denies dyspnea, Denies dyspnea on exertion and Denies orthopnea Respiratory Respiratory: Reports chest congestion, Reports cough, Denies dyspnea, Denies dyspnea on exertion and Denies wheezing Gastrointestinal Gastrointestinal: Denies abdominal pain, Denies change in bowel habits, Denies diarrhea, Denies nausea and Denies vomiting Genitourinary Genitourinary: Denies hematuria, Denies flank pain, Denies urinary incontinence and Denies urinary urgency Musculoskeletal Musculoskeletal: Denies back pain, Denies muscle weakness, Denies neck pain, Denies numbness and Denies tingling Integumentary/Breasts Skin/Breast: Denies pruritus, Denies erythema, Denies rash and Denies wounds Neurologic Neurologic: Denies behavioral changes, Denies confusion, Denies dizziness, Denie s frequent falls, Denies loss of vision, Denies numbness, Denies tingling and Denies weakness Psychiatric Psychiatric: Denies anxiety, Denies behavioral changes, Denies confusion, Denies depression, Denies homicidal ideation and Denies suicidal ideation Endocrine Endocrine: Denies fatigue, Denies flushing and Denies palpitations Hematologic/Lymphatic Hematologic/Lymphatic: Denies easy bruising Allergic/Immunologic Allergic/Immunologic: Denies urticaria, Denies throat swelling and Denies wheezing Patient History <Eusebio Powell PA-C - Last Filed: 07/24/22 19:34> Medical History Anxiety Diabetes Diabetes type 2, controlled Dyslipidemia Essential hypertension Hyperlipidemia Surgical History Hx of section Social History household members: children Smoking Status: Former smoker alcohol intake: never Smoking Status: Former smoker tobacco type: cigarettes alcohol intake frequency: holidays/special occasions only Substance Use Type: does not use Exam <Eusebio Powell PA-C - Last Filed: 07/24/22 19:34> Narrative Exam Narrative: Const General:?cooperative, healthy appearing and comfortable HENMT Head:?normal to inspection Ears:?hearing grossly normal bilaterally Nose:?external nose normal Face and sinus:?normal facial exam and sinuses nontender Mouth:?oral mucosae normal Throat:?posterior oropharynx normal Eyes General:?appearance normal, both eyes and all related structures Neck Neck:?normal visual inspection and no lymphadenopathy noted Resp Effort & Inspection:?normal respiratory effort Auscultation:?clear to auscultation bilaterally Cardio Rate:?regular rate Rhythm:?regular rhythm Neuro General:?patient alert, patient awake and patient oriented x3 Initial Vital Signs Initial Vital Signs: Vital Signs Temperature 98.3 F 07/24/22 15:07 Pulse Rate 92 H 07/24/22 15:07 Respiratory Rate 18 07/24/22 15:07 Blood Pressure 173/79 H 07/24/22 15:07 Pulse Oximetry 96 07/24/22 15:07 Oxygen Delivery Method Room Air 07/24/22 15:07 <Benjamin Colindres DO - Last Filed: 07/25/22 01:44> Initial Vital Signs Initial Vital Signs: Vital Signs Temperature 98.3 F 07/24/22 15:07 Pulse Rate 92 H 07/24/22 15:07 Respiratory Rate 18 07/24/22 15:07 Blood Pressure 173/79 H 07/24/22 15:07 Pulse Oximetry 96 07/24/22 15:07 Oxygen Delivery Method Room Air 07/24/22 15:07 Course <Eusebio Powell PA-C - Last Filed: 07/24/22 19:34> Orders Ordered: ED Orders 07/24/22 15:10 Respiratory Panel (Film Array) Stat Vital Signs Vital signs: Vital Signs - 8 hr 07/24/22 18:16 07/24/22 19:50 07/24/22 20:00 Pulse Rate 91 H 88 83 Respiratory Rate 20 22 Blood Pressure 153/69 H 149/66 H 219/113 H Pulse Oximetry 95 96 96 Oxygen Delivery Method Room Air Room Air <Benjamin Colindres DO - Last Filed: 07/25/22 01:44> Orders Ordered: ED Orders 07/24/22 15:10 Respiratory Panel (Film Array) Stat Vital Signs Vital signs: Vital Signs - 8 hr 07/24/22 18:16 07/24/22 19:50 07/24/22 20:00 Pulse Rate 91 H 88 83 Respiratory Rate 20 22 Blood Pressure 153/69 H 149/66 H 219/113 H Pulse Oximetry 95 96 96 Oxygen Delivery Method Room Air Room Air MDM - URI/Sore Throat <Eusebio Powell PA-C - Last Filed: 07/24/22 19:34> Lab Data Labs: Lab Results 07/24/22 Range/Units 15:10 Chlamy pneumoniae PCR Not detected (Not Detect) Adenovirus (PCR) Not detected (Not Detect) B. pertussis DNA (PCR) Not detected (Not Detecte) B.parapertussis DNA PCR Not detected (Not Detecte) Coronavirus OC43 (PCR) Not detected (Not Detect) Coronavirus HKU1 (PCR) Not detected (Not Detect) Coronavirus 229E (PCR) Not detected (Not Detect) SARS-CoV-2 (PCR) Not detected (Not Detecte) Coronavirus NL63 (PCR) Not detected (Not Detect) Human Metapneumovir PCR Not detected (Not Detect) Influenza Type A (PCR) Not detected (Not Detect) Influenza Type B (PCR) Not detected (Not Detect) M. pneumoniae (PCR) Not detected (Not Detect) Parainfluenza 1 (PCR) Not detected (Not Detect) Parainfluenza 2 (PCR) Not detected (Not Detect) Parainfluenza 3 (PCR) Not detected (Not Detect) Parainfluenza 4 (PCR) Not detected (Not Detect) RSV (PCR) Not detected (Not Detect) Entero/Rhino (PCR) Detected H (Not Detect) MDM Narrative Medical decision making narrative: 76-year-old female presents to the ED with 2 days of URI symptoms including nasal congestion, chest congestion, cough. Respiratory panel was positive for enterovirus/rhino virus.? Patient's vitals are stable, physical exam is reassuring.? Supportive care discussed with patient with Tylenol, [id number] cough or cold medicines.? Recommend good hydration.? ED return precautions were discussed with patient.? Patient verbalized understanding. <Benjamin Colindres, DO - Last Filed: 07/25/22 01:44> Lab Data Labs: Lab Results 07/24/22 Range/Units 15:10 Chlamy pneumoniae PCR Not detected (Not Detect) Adenovirus (PCR) Not detected (Not Detect) B. pertussis DNA (PCR) Not detected (Not Detecte) B.parapertussis DNA PCR Not detected (Not Detecte) Coronavirus OC43 (PCR) Not detected (Not Detect) Coronavirus HKU1 (PCR) Not detected (Not Detect) Coronavirus 229E (PCR) Not detected (Not Detect) SARS-CoV-2 (PCR) Not detected (Not Detecte) Coronavirus NL63 (PCR) Not detected (Not Detect) Human Metapneumovir PCR Not detected (Not Detect) Influenza Type A (PCR) Not detected (Not Detect) Influenza Type B (PCR) Not detected (Not Detect) M. pneumoniae (PCR) Not detected (Not Detect) Parainfluenza 1 (PCR) Not detected (Not Detect) Parainfluenza 2 (PCR) Not detected (Not Detect) Parainfluenza 3 (PCR) Not detected (Not Detect) Parainfluenza 4 (PCR) Not detected (Not Detect) RSV (PCR) Not detected (Not Detect) Entero/Rhino (PCR) Detected H (Not Detect) Discharge Plan Departure Patient Disposition: Home Clinical Impression: Viral URI Instructions: DI for Viral Upper Respiratory Infection -- Adult Activity Restrictions/Additional Instructions: You were evaluated in the ED today for a cough, nasal congestion. Your respiratory panel shows that you are positive for entero/rhino virus, which is essentially the cold virus. Your vitals are normal. Your physical exam was denisse ssuring. You may take Tylenol for aches and pains and fevers, [id number] cough and cold medicines. Return to the ED if you have any chest pain or experience trouble breathing. Prescriptions: No Action acetaminophen 325 mg tablet 325 mg PO Q4HR aspirin 81 mg tablet,chewable 81 mg PO DAILY atorvastatin 40 mg tablet 40 mg PO DAILY ketoconazole 2 % shampoo See Rx Instructions .ROUTE .COMPLEX Rx Instructions: daily loperamide 2 mg capsule 2 mg PO BID PRN (Reason: Diarrhea) Rx Instructions: not to exceed 3 capsules a day clonazepam 0.5 mg tablet 0.5 mg PO 12XD PRN (Reason: Anxiety) Rx Instructions: breakthrough anxiety cyanocobalamin (vitamin B-12) 1,000 mcg tablet 1,000 mcg PO DAILY risperidone 2 mg tablet 2 mg PO DAILY metformin 1,000 mg tablet 1,000 mg PO BID loratadine 10 mg tablet 10 mg PO DAILY insulin glargine [Lantus Solostar U-100 Insulin] 100 unit/mL (3 mL) insulin pen 30 unit SUBCUT QAM Rx Instructions: see rx Referrals: Ivanna Samuel ARNP [Primary Care Provider] - Stand Alone Forms: Patient Portal/API <Benjamin Colindres, DO - Last Filed: 07/25/22 01:44> [facility] Dr Colindres Co-Sign Statement: I was available for consultation during this patient's emergency department visit. This chart is signed by myself for administrative purposes only. I did not have direct contact with this patient during this visit. They were seen independently by the APC.
[2022-07-24 19:50] VITALS: BP 149/66; PULSE 88; RESP 20; O2SAT 96
[2022-07-24 20:00] VITALS: BP 219/113; PULSE 83; RESP 22; O2SAT 96
--- NOTE | 2022-07-24 20:01 | PC.NURSE ---
pt just completed breathing treatment
== END 2022-07-24 19:50 | disposition home or self-care (01) ==
PROVIDERS: Emergency Medicine; Emergency Provider Student in an Organized Health Care Education/Training Program; PCP Nurse Practitioner Family
DX: J06.9 Acute upper respiratory infection, unspecified (principal); Z20.822 Contact with and (suspected) exposure to COVID-19
CPT/HCPCS: 87633; 99281; 99282

== ENCOUNTER 2022-08-13 14:41 | Emergency (ER) | payer OTHER, MEDICAID, SELFPAY ==
[2022-03-14 03:49] VITALS: BMI 24.0
[2022-08-13 14:44] VITALS: BP 131/60; PULSE 105; RESP 18; TEMP 36.6; O2SAT 95; BMI 26.6
--- NOTE | 2022-08-13 14:50 | DI.RAD.S_ITS ---
PROCEDURE: XR CHEST 1V INDICATIONS: Shortness of breath TECHNIQUE: One view of the chest was acquired. COMPARISON: [facility], , XR CHEST 2V, 06/11/2022, 19:00. FINDINGS: Surgical changes and devices: None. Lungs and pleura: Lungs are clear. No pleural effusions or pneumothorax. Mediastinum: Mediastinal contours appear normal. Heart size is normal. Bones and chest wall: No suspicious bony lesions. Overlying soft tissues appear unremarkable. IMPRESSION: No acute cardiopulmonary pathology. Dictated by: Jose Angel Cates M.D. on 08/13/2022 at 15:40 Approved by: Jose Angel Cates M.D. on 08/13/2022 at 15:41
--- NOTE | 2022-08-13 15:10 | PC.NURSE ---
Pt advised to not wander back to [facility] and to stay in the waiting area until we have a space ready for her. Pt agreeable.
[2022-08-13 15:16] LABS: Add Manual Diff / Slide Review NO; Basophils Absolute Auto 100 /uL (0-100); Eosinophils Absolute Auto 100 /uL (0-450); Hematocrit 38.6 % (36-46); Hemoglobin 13.7 g/dL (12.0-16.0); Lymphocytes Absolute Auto 3400 /uL (1100-4500); Lymphocytes Percent Auto 27.7 % (25-40); Mean Corpuscular HGB Conc 35.5 % (30-36); Mean Corpuscular Hemoglobin 32.1 PG (26-34); Mean Corpuscular Volume 90.3 fL (80-100); Monocytes Absolute Auto 700 /uL (0-900); Neutrophils Absolute Auto 7800 /uL (1500-7000); Neutrophils Percent Auto 64.3 % (50-75); Platelet Count 272 X10^3/uL (150-400); Red Blood Cell Count 4.28 X10^6/uL (4.0-5.2); Red Cell Distribution Width 12.2 % (11.6-14.8); White Blood Cell Count 12.2 X10^3/uL (4.5-11.0)
[2022-08-13 15:23] LABS: Prothrombin Time 11.4 SECONDS (10.1-12.7)
[2022-08-13 15:29] LABS: Alanine Aminotransferase 34 IU/L (<35); Albumin 3.9 g/dL (3.5-5.0); Albumin Globulin Ratio 1.3 (1.0-2.8); Alkaline Phosphatase 100 U/L (38-126); Aspartate Aminotransferase 33 IU/L (14-36); Bilirubin Total 0.7 mg/dL (0.2-1.3); Blood Urea Nitrogen 12 mg/dL (7-17); Calcium 8.7 mg/dL (8.4-10.2); Carbon Dioxide 29 mmol/L (22-32); Chloride 95 mmol/L (98-107); Estimated Glomerular Filt Rate > 60 mL/min (>60); Globulin 3.1 g/dL (1.7-4.1); Glucose 214 mg/dL (80-110); HEMOLYSIS 38 (0-50); Lactate (Lactic Acid) 1.2 mmol/L (0.7-2.1); Potassium 3.8 mmol/L (3.4-5.1); Sodium 131 mmol/L (137-145)
[2022-08-13 15:33] LABS: COVID19 -Nasal RAPID Negative (Negative)
[2022-08-13 15:41] LABS: NT-proBNP (BNP-Adult 18+) 36 pg/mL (<450); Troponin I < 0.012 ng/mL (0.01-0.034)
--- NOTE | 2022-08-13 16:14 | ED_ITS ---
HPI - URI/Sore Throat <Zev Cisneros PA-C - Last Filed: 08/13/22 18:12> General Chief Complaint: Upper Respiratory Symptoms Stated Complaint: throat/chest/hard to breathe Time Seen by Provider: 08/13/22 16:09 Source: patient Mode of arrival: Ambulatory History of Present Illness HPI Narrative: This is a 76-year-old female presents to the emergency department due to shortness of breath, as well as a mild cough and ?feeling crummy? for the last couple of days. States that she thinks she got? the virus?. Denies any significant fevers, nausea, chest pain, vomiting, abdominal pain, or any other concerning signs or symptoms. Concerned that she is the virus that she had previously. Related Data Home Medications Medication Instructions Recorded Confirmed acetaminophen 325 mg tablet 325 mg PO Q4HR 02/18/22 03/14/22 aspirin 81 mg chewable tablet 81 mg PO DAILY 02/18/22 03/14/22 atorvastatin 40 mg tablet 40 mg PO DAILY 02/18/22 03/14/22 clonazepam 0.5 mg tablet 0.5 mg PO 12XD PRN Anxiety 02/18/22 03/14/22 cyanocobalamin (vitamin B-12) 1,000 mcg PO DAILY 02/18/22 03/14/22 1,000 mcg tablet insulin glargine 100 unit/mL (3 30 unit SUBCUT QAM 02/18/22 03/14/22 mL) subcutaneous pen (Lantus Solostar U-100 Insulin) ketoconazole 2 % shampoo See Rx Instructions .Route .COMPLEX 02/18/22 03/14/22 loperamide 2 mg capsule 2 mg PO BID PRN Diarrhea 02/18/22 03/14/22 loratadine 10 mg tablet 10 mg PO DAILY 02/18/22 03/14/22 metformin 1,000 mg tablet 1,000 mg PO BID 02/18/22 03/14/22 risperidone 2 mg tablet 2 mg PO DAILY 02/18/22 03/14/22 Previous Rx's Medication Instructions Recorded albuterol sulfate 90 mcg/actuation 2 puff inhalation Q6H PRN 08/13/22 aerosol inhaler shortness of breath or wheezing #6.7 grams Allergies Allergy/AdvReac Type Severity Reaction Status Date / Time Penicillins Allergy Intermediate unknown Verified 08/13/22 14:50 but states not anaphylaxis, never stopped breathing influenza virus vaccine qs Allergy Verified 08/13/22 14:50 [id number] (65 years up) [From Fluad Quad (65y up)(PF)] pollen extracts Allergy Verified 08/13/22 14:50 procaine [From Novocain] Allergy Verified 08/13/22 14:50 vaccine adjuvant emulsion Allergy Verified 08/13/22 14:50 [id number] [From Fluad Quad (65y up)(PF)] Review of Systems <Zev Cisneros PA-C - Last Filed: 08/13/22 18:12> Review of Systems Narrative: GENERAL: Denies chills, fatigue, malaise, fever, sweats. HEENT: Denies sinus pain, ear pain, sore throat, difficulty swallowing, dizziness. RESPIRATORY: Reports shortness of breath and a cough CARDIOVASCULAR: Denies chest pain, palpitations, orthopnea, edema, GASTROINTESTINAL: Denies nausea, vomiting, abdominal pain, diarrhea, constipation, melena. : Denies dysuria, frequency, incontinence, hematuria, urinary retention. MUSCULOSKELETAL: denies weakness, joint pain, or bony pain SKIN: Denies rash, skin lesions, or other NEUROLOGIC: Denies weakness, headache, numbness, change in speech, confusion, seizures, incoordination. PSYCHIATRIC: No concerning psychosocial issues. 12 point review of systems is negative except for those stated above Patient History <Zev Cisneros PA-C - Last Filed: 08/13/22 18:12> Medical History Anxiety Diabetes Diabetes type 2, controlled Dyslipidemia Essential hypertension Hyperlipidemia Surgical History Hx of section Social History household members: children Smoking Status: Former smoker alcohol intake: never Smoking Status: Former smoker tobacco type: cigarettes alcohol intake frequency: holidays/special occasions only Substance Use Type: does not use Exam <Zev Cisneros PA-C - Last Filed: 08/13/22 18:12> Narrative Exam Narrative: GENERAL: Well-developed patient, in mild distress. HEAD: Atraumatic. Normocephalic. EYES: Pupils equal round and reactive. Extraocular motions intact. No scleral icterus. No injection or drainage. ENT: Nose without bleeding, purulent drainage. Throat without erythema, tonsillar hypertrophy or exudate. Airway patent. NECK: Trachea midline. Non tender CARDIOVASCULAR: Regular rate and rhythm without murmurs, gallops, or rubs. RESPIRATORY: Clear to auscultation. Breath sounds equal bilaterally. No wheezes, rales, or rhonchi. GASTROINTESTINAL: Abdomen soft, non-tender, nondistended. EXTREMITIES: No edema or joint tenderness. BACK: Nontender without deformity or crepitance. No flank tenderness. NEURO: AOx3. SKIN: No rash or erythema of visible areas Initial Vital Signs Initial Vital Signs: Vital Signs Temperature 97.9 F 08/13/22 14:44 Pulse Rate 105 H 08/13/22 14:44 Respiratory Rate 18 08/13/22 14:44 Blood Pressure 131/60 08/13/22 14:44 Pulse Oximetry 95 08/13/22 14:44 Oxygen Delivery Method Room Air 08/13/22 14:44 <Jayne Lynn DO - Last Filed: 08/13/22 19:06> Initial Vital Signs Initial Vital Signs: Vital Signs Temperature 97.9 F 08/13/22 14:44 Pulse Rate 105 H 08/13/22 14:44 Respiratory Rate 18 08/13/22 14:44 Blood Pressure 131/60 08/13/22 14:44 Pulse Oximetry 95 08/13/22 14:44 Oxygen Delivery Method Room Air 08/13/22 14:44 Course <Zev Cisneros PA-C - Last Filed: 08/13/22 18:12> Orders Ordered: ED Orders 08/13/22 14:50 XR chest 1V Stat EKG-12 Lead Stat Measure peak expiratory flow ONCE RT Consult Eval and Treat NOW 08/13/22 15:06 Complete Blood Count AUTO DIFF Stat Comprehensive Metabolic Panel Stat Lactate (Lactic Acid) Stat NT-proBNP (BNP-Adult 18+) Stat Prothrombin Time INR Stat Troponin I Stat 08/13/22 15:12 COVID19 -Nasal RAPID Stat 08/13/22 16:25 Respiratory Panel (Film Array) Stat Vital Signs Vital signs: Vital Signs - 8 hr 08/13/22 14:44 08/13/22 16:25 Temperature 97.9 F Pulse Rate 105 H 95 H Respiratory Rate 18 Blood Pressure 131/60 118/71 Pulse Oximetry 95 95 Oxygen Delivery Method Room Air Room Air <Jayne Lynn DO - Last Filed: 08/13/22 19:06> Orders Ordered: ED Orders 08/13/22 14:50 XR chest 1V Stat EKG-12 Lead Stat Measure peak expiratory flow ONCE RT Consult Eval and Treat NOW 08/13/22 15:06 Complete Blood Count AUTO DIFF Stat Comprehensive Metabolic Panel Stat Lactate (Lactic Acid) Stat NT-proBNP (BNP-Adult 18+) Stat Prothrombin Time INR Stat Troponin I Stat 08/13/22 15:12 COVID19 -Nasal RAPID Stat 08/13/22 16:25 Respiratory Panel (Film Array) Stat Vital Signs Vital signs: Vital Signs - 8 hr 08/13/22 14:44 08/13/22 16:25 Temperature 97.9 F Pulse Rate 105 H 95 H Respiratory Rate 18 Blood Pressure 131/60 118/71 Pulse Oximetry 95 95 Oxygen Delivery Method Room Air Room Air MDM - URI/Sore Throat <Zev Cisneros PA-C - Last Filed: 08/13/22 18:12> Lab Data 08/13/22 15:06 08/13/22 15:06 Labs: Lab Results 08/13/22 08/13/22 08/13/22 Range/Units 15:06 15:06 15:06 WBC 12.2 H (4.5-11.0) X10^3/uL RBC 4.28 (4.0-5.2) X10^6/uL Hgb 13.7 (12.0-16.0) g/dL Hct 38.6 (36-46) % MCV 90.3 (80-100) fL MCH 32.1 (26-34) PG MCHC 35.5 (30-36) % RDW 12.2 (11.6-14.8) % Plt Count 272 (150-400) X10^3/uL Neut % (Auto) 64.3 (50-75) % Lymph % (Auto) 27.7 (25-40) % [place]land % (Auto) 6.0 (3-14) % Eos % (Auto) 1.0 L (2-4) % Baso % (Auto) 1.0 (0-2) % Neut # (Auto) 7800 H (2098-6942) /uL Lymph # (Auto) 3400 (1632-1829) /uL [place] # (Auto) 700 (0-900) /uL Eos # (Auto) 100 (0-450) /uL Baso # (Auto) 100 (0-100) /uL PT 11.4 (10.1-12.7) SECONDS INR 1.0 (0.9-1.3) Sodium 131 L (137-145) mmol/L Potassium 3.8 (3.4-5.1) mmol/L Chloride 95 L (98-107) mmol/L Carbon Dioxide 29 (22-32) mmol/L BUN 12 (7-17) mg/dL Creatinine 0.63 (0.52-1.04) mg/dL Estimated GFR > 60 (>60) mL/min BUN/Creatinine Ratio 19.0 (6-22) Glucose 214 H (80-110) mg/dL Lactate (0.7-2.1) mmol/L Calcium 8.7 (8.4-10.2) mg/dL Total Bilirubin 0.7 (0.2-1.3) mg/dL AST 33 (14-36) IU/L ALT 34 (<35) IU/L Alkaline Phosphatase 100 (38-126) U/L Troponin I < 0.012 (0.01-0.034) ng/mL NT-Pro-B Natriuret Pep 36 (<450) pg/mL Total Protein 7.0 (6.3-8.2) g/dL Albumin 3.9 (3.5-5.0) g/dL Globulin 3.1 (1.7-4.1) g/dL Albumin/Globulin Ratio 1.3 (1.0-2.8) Chlamy pneumoniae PCR (Not Detect) Adenovirus (PCR) (Not Detect) B. pertussis DNA (PCR) (Not Detecte) B.parapertussis DNA PCR (Not Detecte) Coronavirus OC43 (PCR) (Not Detect) Coronavirus HKU1 (PCR) (Not Detect) Coronavirus 229E (PCR) (Not Detect) SARS-CoV-2 (PCR) (Negative) Coronavirus NL63 (PCR) (Not Detect) Human Metapneumovir PCR (Not Detect) Influenza Type A (PCR) (Not Detect) Influenza Type B (PCR) (Not Detect) M. pneumoniae (PCR) (Not Detect) Parainfluenza 1 (PCR) (Not Detect) Parainfluenza 2 (PCR) (Not Detect) Parainfluenza 3 (PCR) (Not Detect) Parainfluenza 4 (PCR) (Not Detect) RSV (PCR) (Not Detect) Entero/Rhino (PCR) (Not Detect) 08/13/22 08/13/22 08/13/22 Range/Units 15:06 15:12 16:25 WBC (4.5-11.0) X10^3/uL RBC (4.0-5.2) X10^6/uL Hgb (12.0-16.0) g/dL Hct (36-46) % MCV (80-100) fL MCH (26-34) PG MCHC (30-36) % RDW (11.6-14.8) % Plt Count (150-400) X10^3/uL Neut % (Auto) (50-75) % Lymph % (Auto) (25-40) % [place]land % (Auto) (3-14) % Eos % (Auto) (2-4) % Baso % (Auto) (0-2) % Neut # (Auto) (2161-7663) /uL Lymph # (Auto) (5775-9121) /uL [place]land # (Auto) (0-900) /uL Eos # (Auto) (0-450) /uL Baso # (Auto) (0-100) /uL PT (10.1-12.7) SECONDS INR (0.9-1.3) Sodium (137-145) mmol/L Potassium (3.4-5.1) mmol/L Chloride (98-107) mmol/L Carbon Dioxide (22-32) mmol/L BUN (7-17) mg/dL Creatinine (0.52-1.04) mg/dL Estimated GFR (>60) mL/min BUN/Creatinine Ratio (6-22) Glucose (80-110) mg/dL Lactate 1.2 (0.7-2.1) mmol/L Calcium (8.4-10.2) mg/dL Total Bilirubin (0.2-1.3) mg/dL AST (14-36) IU/L ALT (<35) IU/L Alkaline Phosphatase (38-126) U/L Troponin I (0.01-0.034) ng/mL NT-Pro-B Natriuret Pep (<450) pg/mL Total Protein (6.3-8.2) g/dL Albumin (3.5-5.0) g/dL Globulin (1.7-4.1) g/dL Albumin/Globulin Ratio (1.0-2.8) Chlamy pneumoniae PCR Not detected (Not Detect) Adenovirus (PCR) Not detected (Not Detect) B. pertussis DNA (PCR) Not detected (Not Detecte) B.parapertussis DNA PCR Not detected (Not Detecte) Coronavirus OC43 (PCR) Not detected (Not Detect) Coronavirus HKU1 (PCR) Not detected (Not Detect) Coronavirus 229E (PCR) Not detected (Not Detect) SARS-CoV-2 (PCR) Negative Not detected (Negative) Coronavirus NL63 (PCR) Not detected (Not Detect) Human Metapneumovir PCR Not detected (Not Detect) Influenza Type A (PCR) Not detected (Not Detect) Influenza Type B (PCR) Not detected (Not Detect) M. pneumoniae (PCR) Not detected (Not Detect) Parainfluenza 1 (PCR) Not detected (Not Detect) Parainfluenza 2 (PCR) Not detected (Not Detect) Parainfluenza 3 (PCR) Not detected (Not Detect) Parainfluenza 4 (PCR) Not detected (Not Detect) RSV (PCR) Not detected (Not Detect) Entero/Rhino (PCR) Not detected (Not Detect) Imaging Data Chest x-ray: Radiologist's Impression: [address] [address] XRay Report Signed Patient: Marcie Diggs MR#: [id number] : 1945 Acct:[id number] Age/Sex: 76 / F Date of Service: 08/13/22 Loc: ED Accession Number: [id number] ?? Procedure: XR chest 1V Ordering Provider: Jayne Lynn D.O. PROCEDURE:? XR CHEST 1V ? INDICATIONS:? Shortness of breath ? TECHNIQUE:? One view of the chest was acquired.? ? COMPARISON:? [facility], CR, XR CHEST 2V, 06/11/2022, 19:00. ? FINDINGS:? ? Surgical changes and devices:? None.? ? Lungs and pleura:? Lungs are clear.? No pleural effusions or pneumothorax.? ? Mediastinum:? Mediastinal contours appear normal.? Heart size is normal.? ? Bones and chest wall:? No suspicious bony lesions.? Overlying soft tissues appear unremarkable.? ? IMPRESSION:? No acute cardiopulmonary pathology. ? ? Dictated by: Jose Angel Cates M.D. on 08/13/2022 at 15:40 ? ? Approved by: Jose Angel Cates M.D. on 08/13/2022 at 15:41 ? MDM Narrative Medical decision making narrative: MDM * differential diagnosis includes but not limited to asthma exacerbation, COPD, pneumonia, pulmonary embolism, URI * Prior records reviewed: Patient was seen here 3 weeks ago due to a URI. Respiratory panel positive for entero/rhinovirus. * My lab interpretation: Patient has mild white count 12.2, mildly hyponatremic at 131, glucose of 214 * My imgaing interpretation: Chest x-ray unremarkable * Clinical Decision Rules/Scores evaluated: Wells criteria - 0 * Independent discussions with: None ED Course: This is a 76-year-old female that is a relatively poor historian presenting with vague symptoms of shortness of breath. Patient was not hypoxic and lung exam was unremarkable. No wheezing or crackles noted. Chest x-ray also unremarkable. Complete set of labs ordered which was only remarkable for a white count of 12.2 which may be reactive to a possible viral illness. Patient's COVID test was negative and she will be swabbed with a respiratory panel prior to discharge. We will call her home unit to inform of results. Albuterol inhaler prescribed to use as needed. Patient also prescribe any chest pain and not tachycardic and low concern for pulmonary embolism. Shared Decision Making: Discussed plan the patient is comfortable with the plan Social Considerations: None Disposition: Discharged to home <Jayne Lynn, - Last Filed: 08/13/22 19:06> Lab Data Labs: Lab Results 08/13/22 08/13/22 08/13/22 Range/Units 15:06 15:06 15:06 WBC 12.2 H (4.5-11.0) X10^3/uL RBC 4.28 (4.0-5.2) X10^6/uL Hgb 13.7 (12.0-16.0) g/dL Hct 38.6 (36-46) % MCV 90.3 (80-100) fL MCH 32.1 (26-34) PG MCHC 35.5 (30-36) % RDW 12.2 (11.6-14.8) % Plt Count 272 (150-400) X10^3/uL Neut % (Auto) 64.3 (50-75) % Lymph % (Auto) 27.7 (25-40) % [place] % (Auto) 6.0 (3-14) % Eos % (Auto) 1.0 L (2-4) % Baso % (Auto) 1.0 (0-2) % Neut # (Auto) 7800 H (7788-0545) /uL Lymph # (Auto) 3400 (1785-8314) /uL [place] # (Auto) 700 (0-900) /uL Eos # (Auto) 100 (0-450) /uL Baso # (Auto) 100 (0-100) /uL PT 11.4 (10.1-12.7) SECONDS INR 1.0 (0.9-1.3) Sodium 131 L (137-145) mmol/L Potassium 3.8 (3.4-5.1) mmol/L Chloride 95 L (98-107) mmol/L Carbon Dioxide 29 (22-32) mmol/L BUN 12 (7-17) mg/dL Creatinine 0.63 (0.52-1.04) mg/dL Estimated GFR > 60 (>60) mL/min BUN/Creatinine Ratio 19.0 (6-22) Glucose 214 H (80-110) mg/dL Lactate (0.7-2.1) mmol/L Calcium 8.7 (8.4-10.2) mg/dL Total Bilirubin 0.7 (0.2-1.3) mg/dL AST 33 (14-36) IU/L ALT 34 (<35) IU/L Alkaline Phosphatase 100 (38-126) U/L Troponin I < 0.012 (0.01-0.034) ng/mL NT-Pro-B Natriuret Pep 36 (<450) pg/mL Total Protein 7.0 (6.3-8.2) g/dL Albumin 3.9 (3.5-5.0) g/dL Globulin 3.1 (1.7-4.1) g/dL Albumin/Globulin Ratio 1.3 (1.0-2.8) Chlamy pneumoniae PCR (Not Detect) Adenovirus (PCR) (Not Detect) B. pertussis DNA (PCR) (Not Detecte) B.parapertussis DNA PCR (Not Detecte) Coronavirus OC43 (PCR) (Not Detect) Coronavirus HKU1 (PCR) (Not Detect) Coronavirus 229E (PCR) (Not Detect) SARS-CoV-2 (PCR) (Negative) Coronavirus NL63 (PCR) (Not Detect) Human Metapneumovir PCR (Not Detect) Influenza Type A (PCR) (Not Detect) Influenza Type B (PCR) (Not Detect) M. pneumoniae (PCR) (Not Detect) Parainfluenza 1 (PCR) (Not Detect) Parainfluenza 2 (PCR) (Not Detect) Parainfluenza 3 (PCR) (Not Detect) Parainfluenza 4 (PCR) (Not Detect) RSV (PCR) (Not Detect) Entero/Rhino (PCR) (Not Detect) 08/13/22 08/13/22 08/13/22 Range/Units 15:06 15:12 16:25 WBC (4.5-11.0) X10^3/uL RBC (4.0-5.2) X10^6/uL Hgb (12.0-16.0) g/dL Hct (36-46) % MCV (80-100) fL MCH (26-34) PG MCHC (30-36) % RDW (11.6-14.8) % Plt Count (150-400) X10^3/uL Neut % (Auto) (50-75) % Lymph % (Auto) (25-40) % [place]land % (Auto) (3-14) % Eos % (Auto) (2-4) % Baso % (Auto) (0-2) % Neut # (Auto) (9044-0335) /uL Lymph # (Auto) (8522-3701) /uL [place]land # (Auto) (0-900) /uL Eos # (Auto) (0-450) /uL Baso # (Auto) (0-100) /uL PT (10.1-12.7) SECONDS INR (0.9-1.3) Sodium (137-145) mmol/L Potassium (3.4-5.1) mmol/L Chloride (98-107) mmol/L Carbon Dioxide (22-32) mmol/L BUN (7-17) mg/dL Creatinine (0.52-1.04) mg/dL Estimated GFR (>60) mL/min BUN/Creatinine Ratio (6-22) Glucose (80-110) mg/dL Lactate 1.2 (0.7-2.1) mmol/L Calcium (8.4-10.2) mg/dL Total Bilirubin (0.2-1.3) mg/dL AST (14-36) IU/L ALT (<35) IU/L Alkaline Phosphatase (38-126) U/L Troponin I (0.01-0.034) ng/mL NT-Pro-B Natriuret Pep (<450) pg/mL Total Protein (6.3-8.2) g/dL Albumin (3.5-5.0) g/dL Globulin (1.7-4.1) g/dL Albumin/Globulin Ratio (1.0-2.8) Chlamy pneumoniae PCR Not detected (Not Detect) Adenovirus (PCR) Not detected (Not Detect) B. pertussis DNA (PCR) Not detected (Not Detecte) B.parapertussis DNA PCR Not detected (Not Detecte) Coronavirus OC43 (PCR) Not detected (Not Detect) Coronavirus HKU1 (PCR) Not detected (Not Detect) Coronavirus 229E (PCR) Not detected (Not Detect) SARS-CoV-2 (PCR) Negative Not detected (Negative) Coronavirus NL63 (PCR) Not detected (Not Detect) Human Metapneumovir PCR Not detected (Not Detect) Influenza Type A (PCR) Not detected (Not Detect) Influenza Type B (PCR) Not detected (Not Detect) M. pneumoniae (PCR) Not detected (Not Detect) Parainfluenza 1 (PCR) Not detected (Not Detect) Parainfluenza 2 (PCR) Not detected (Not Detect) Parainfluenza 3 (PCR) Not detected (Not Detect) Parainfluenza 4 (PCR) Not detected (Not Detect) RSV (PCR) Not detected (Not Detect) Entero/Rhino (PCR) Not detected (Not Detect) ECG Data Attestation: I personally reviewed and interpreted this ECG as follows: Interpretation: Sinus tachycardia rate of 101 NV 134 QRS is 76 and QTC 435. No acute ST changes noted. Discharge Plan Departure Patient Disposition: Home Clinical Impression: Mild shortness of breath Instructions: DI for Shortness of Breath Activity Restrictions/Additional Instructions: Thank you for coming to the [facility] Emergency Department today. Your workup today was very reassuring. Your chest x-ray showed no evidence of any kind pneumonia or other lung abnormality. All your lab work was non concerning as well. Your COVID test was negative. I will call your home facility to advise you on the results of the viral panel. This may be similar to the virus he had previously. Please use the albuterol inhaler as needed for any shortness of breath. I sent the inhaler prescription to [facility] in our [place]. I hope you feel better soon. Prescriptions: New albuterol sulfate 90 mcg/actuation HFA aerosol inhaler 2 puff inhalation Q6H PRN (Reason: shortness of breath or wheezing) Qty: 6.7 0RF No Action acetaminophen 325 mg tablet 325 mg PO Q4HR aspirin 81 mg tablet,chewable 81 mg PO DAILY atorvastatin 40 mg tablet 40 mg PO DAILY ketoconazole 2 % shampoo See Rx Instructions .ROUTE .COMPLEX Rx Instructions: daily loperamide 2 mg capsule 2 mg PO BID PRN (Reason: Diarrhea) Rx Instructions: not to exceed 3 capsules a day clonazepam 0.5 mg tablet 0.5 mg PO 12XD PRN (Reason: Anxiety) Rx Instructions: breakthrough anxiety cyanocobalamin (vitamin B-12) 1,000 mcg tablet 1,000 mcg PO DAILY risperidone 2 mg tablet 2 mg PO DAILY metformin 1,000 mg tablet 1,000 mg PO BID loratadine 10 mg tablet 10 mg PO DAILY insulin glargine [Lantus Solostar U-100 Insulin] 100 unit/mL (3 mL) insulin pen 30 unit SUBCUT QAM Rx Instructions: see rx Referrals: Ivanna Samuel ARNP [Primary Care Provider] - Stand Alone Forms: Patient Portal/API <Jayne Lynn DO - Last Filed: 08/13/22 19:06> Cosign ED Attending Cosignature Attestation: I was immediately available in the department for consultation.
[2022-08-13 16:25] VITALS: BP 118/71; PULSE 95; O2SAT 95
[2022-08-13 17:29] LABS: Adenovirus Not Detected (Not Detect); Coronavirus 229E Not Detected (Not Detect); Coronavirus HKU1 Not Detected (Not Detect); Coronavirus NL 63 Not Detected (Not Detect); Coronavirus OC43 Not Detected (Not Detect); Human Metapneumovirus Not Detected (Not Detect); Human Rhinovirus/Enterovirus Not Detected (Not Detect); Influenza A Not Detected (Not Detect); Influenza B Not Detected (Not Detect); Parainfluenza Virus 1 Not Detected (Not Detect); Parainfluenza Virus 2 Not Detected (Not Detect); Parainfluenza Virus 3 Not Detected (Not Detect); SARS- CoV-2 Not Detected (Not Detecte)
[2022-08-13 17:30] LABS: B. parapertussis Not Detected (Not Detecte); Bordetella pertussis Not Detected (Not Detecte); Chlamydophila pneumoniae Not Detected (Not Detect); Mycoplasma pneumoniae Not Detected (Not Detect); Parainfluenza Virus 4 Not Detected (Not Detect); Respiratory Syncytial Virus Not Detected (Not Detect)
== END 2022-08-13 17:28 | disposition home or self-care (01) ==
PROVIDERS: Emergency Medicine; Emergency Provider Physician Assistant Medical; PCP Nurse Practitioner Family
DX: R06.02 Shortness of breath (principal); R79.89 Other specified abnormal findings of blood chemistry; Z20.822 Contact with and (suspected) exposure to COVID-19
CPT/HCPCS: 36415; 71045; 80053; 83605; 83880; 84484; 85025; 85610; 87633; 87635; 93005; 99284; C9803

== ENCOUNTER 2022-08-27 17:43 | Emergency (ER) | payer OTHER, MEDICAID, SELFPAY ==
[2022-03-14 03:49] VITALS: BMI 24.0
[2022-08-27 18:00] VITALS: BP 145/66; PULSE 107; RESP 22; O2SAT 95; BMI 25.7
[2022-08-27 18:46] LABS: Influenza A - CEPHEID Flu A NEGATIVE (NEGATIVE); Influenza B - CEPHEID Flu B NEGATIVE (NEGATIVE); Respiratory Syncytial Virus Negative (Negative)
[2022-08-27 19:18] LABS: COVID-19 CEPHEID 4-PLEX PCR Negative (Negative)
--- NOTE | 2022-08-27 19:44 | DI.RAD.S_ITS ---
PROCEDURE: XR CHEST 1V INDICATIONS: eval for PNA TECHNIQUE: One view of the chest was acquired. COMPARISON: [facility], CR, XR CHEST 1V, 03/14/2022, 0:13. [facility], CR, XR CHEST 1V, 08/13/2022, 15:12. [facility], CR, XR CHEST 2V, 06/11/2022, 19:00. FINDINGS: Surgical changes and devices: None. Lungs and pleura: Lungs are clear. No pleural effusions or pneumothorax. Mediastinum: Mediastinal contours appear unchanged. Calcification at the aortic arch. Heart size is normal. Bones and chest wall: Sclerotic focus at the right humeral head is unchanged. Overlying soft tissues appear unremarkable. IMPRESSION: No acute cardiopulmonary abnormality. Sclerotic focus at the right humeral head is unchanged. This could represent a enchondroma. Dictated by: Chapincito Warren M.D. on 08/27/2022 at 20:22 Approved by: Chapincito Warren M.D. on 08/27/2022 at 20:24
[2022-08-27 19:54] VITALS: PULSE 98; O2SAT 93
[2022-08-27 19:55] VITALS: BP 128/58; PULSE 97; TEMP 36.7; O2SAT 93
[2022-08-27 20:00] VITALS: PULSE 94; O2SAT 95
[2022-08-27 20:30] VITALS: PULSE 88; O2SAT 94
--- NOTE | 2022-08-27 20:51 | ED_ITS ---
HPI - General Adult General Chief complaint: Upper Respiratory Symptoms Stated complaint: bad cold/cough Time Seen by Provider: 08/27/22 19:43 Source: patient Mode of arrival: Ambulatory History of Present Illness HPI narrative: Patient is a 76-year-old female who is here for evaluation of a cough, sinus congestion, sore throat and runny nose. The symptoms been going on for the past couple days. States that the medicine tacks had the place where she is living will not give her any cough medication. She denies any problems breathing. She is here for evaluation the above symptoms. Related Data Home Medications Medication Instructions Recorded Confirmed acetaminophen 325 mg tablet 325 mg PO Q4HR 02/18/22 03/14/22 aspirin 81 mg chewable tablet 81 mg PO DAILY 02/18/22 03/14/22 atorvastatin 40 mg tablet 40 mg PO DAILY 02/18/22 03/14/22 clonazepam 0.5 mg tablet 0.5 mg PO 12XD PRN Anxiety 02/18/22 03/14/22 cyanocobalamin (vitamin B-12) 1,000 mcg PO DAILY 02/18/22 03/14/22 1,000 mcg tablet insulin glargine 100 unit/mL (3 30 unit SUBCUT QAM 02/18/22 03/14/22 mL) subcutaneous pen (Lantus Solostar U-100 Insulin) ketoconazole 2 % shampoo See Rx Instructions .Route .COMPLEX 02/18/22 03/14/22 loperamide 2 mg capsule 2 mg PO BID PRN Diarrhea 02/18/22 03/14/22 loratadine 10 mg tablet 10 mg PO DAILY 02/18/22 03/14/22 metformin 1,000 mg tablet 1,000 mg PO BID 02/18/22 03/14/22 risperidone 2 mg tablet 2 mg PO DAILY 02/18/22 03/14/22 Previous Rx's Medication Instructions Recorded albuterol sulfate 90 mcg/actuation 2 puff inhalation Q6H PRN 08/13/22 aerosol inhaler shortness of breath or wheezing #6.7 grams benzonatate 100 mg capsule 100 mg PO TID PRN cough #21 caps 08/27/22 Allergies Allergy/AdvReac Type Severity Reaction Status Date / Time Penicillins Allergy Intermediate unknown Verified 08/13/22 14:50 but states not anaphylaxis, never stopped breathing influenza virus vaccine qs Allergy Verified 08/13/22 14:50 [id number] (65 years up) [From Fluad Quad (65y up)(PF)] pollen extracts Allergy Verified 08/13/22 14:50 procaine [From Novocain] Allergy Verified 08/13/22 14:50 vaccine adjuvant emulsion Allergy Verified 08/13/22 14:50 [id number] [From Fluad Quad (65y up)(PF)] Review of Systems Constitutional Constitutional: Reports system reviewed and no additional complaints, except as documented ENT Ears, Nose, Mouth, and Throat: Reports system reviewed and no additional complaints, except as documented Respiratory Respiratory: Reports system reviewed and no additional complaints, except as documented Integumentary/Breasts Skin/Breast: Reports system reviewed and no additional complaints, except as documented Patient History Medical History Anxiety Diabetes Diabetes type 2, controlled Dyslipidemia Essential hypertension Hyperlipidemia Surgical History Hx of section Social History household members: children Smoking Status: Former smoker alcohol intake: never Smoking Status: Former smoker tobacco type: cigarettes alcohol intake frequency: holidays/special occasions only Substance Use Type: does not use Exam Initial Vital Signs Initial Vital Signs: Vital Signs Pulse Rate 107 H 08/27/22 18:00 Respiratory Rate 22 08/27/22 18:00 Blood Pressure 145/66 H 08/27/22 18:00 Pulse Oximetry 95 08/27/22 18:00 Oxygen Delivery Method Room Air 08/27/22 18:00 HENMT Head: normal to inspection and normocephalic Mouth: oral mucosae normal Throat: posterior oropharynx normal Resp Effort & Inspection: normal respiratory effort Auscultation: clear to auscultation bilaterally Cardio Rate: regular rate Skin General: no rashes or lesions noted Neuro General: patient alert and moves all extremities Extrem General: capillary refill normal Course Orders Ordered: ED Orders 08/27/22 18:03 Covid-19 + FLU A/B + RSV - PCR Stat 08/27/22 19:44 XR chest 1V Stat Discontinued Medications Benzonatate (Benzonatate 100 Mg Capsule) 100 mg PO NOW ONE Stop: 08/27/22 20:54 Last Admin: 08/27/22 21:06 Dose: 100 mg Documented By: SANTOS Loratadine (Loratadine 10 Mg Tablet) 10 mg PO NOW ONE Stop: 08/27/22 20:54 Last Admin: 08/27/22 21:13 Dose: 10 mg Documented By: SANTOS Vital Signs Vital signs: Vital Signs - 8 hr 08/27/22 19:54 08/27/22 19:55 08/27/22 19:55 Temperature 98.0 F Pulse Rate 98 H 97 H Blood Pressure 128/58 L Pulse Oximetry 93 93 08/27/22 20:00 08/27/22 20:30 08/27/22 21:00 Temperature Pulse Rate 94 H 88 88 Blood Pressure Pulse Oximetry 95 94 93 Medical Decision Making Lab Data Lab results reviewed: Yes I reviewed the patient's lab results. Labs: Lab Results 08/27/22 Range/Units 18:03 SARS-CoV-2 (PCR) Negative (Negative) Influenza A (RT-PCR) Flu a negative (NEGATIVE) Influenza B (RT-PCR) Flu b negative (NEGATIVE) RSV (PCR) Negative (Negative) Imaging Data Chest x-ray: Radiologist's Impression: PROCEDURE:? XR CHEST 1V ? INDICATIONS:? eval for PNA ? TECHNIQUE:? One view of the chest was acquired.? ? COMPARISON:? [facility], , XR CHEST 1V, 03/14/2022, 0:13.? [facility], , XR CHEST 1V, 08/13/2022, 15:12.? [facility], , XR CHEST 2V, 06/11/2022, 19:00. ? FINDINGS:? ? Surgical changes and devices:? None.? ? Lungs and pleura:? Lungs are clear.? No pleural effusions or pneumothorax.? ? Mediastinum:? Mediastinal contours appear unchanged.? Calcification at the aortic arch.? Heart size is normal.? ? Bones and chest wall:? Sclerotic focus at the right humeral head is unchanged.? Overlying soft tissues appear unremarkable.? ? IMPRESSION:? No acute cardiopulmonary abnormality. ? Sclerotic focus at the right humeral head is unchanged.? This could represent a enchondroma. MDM Narrative Medical decision making narrative: Patient is nontoxic. Lungs are clear. Chest x-ray is unremarkable. Low suspicion for strep. No indication for antibiotics. Suspect viral upper respiratory. We did discuss the use of decongestants and antihistamines. Will send her home with a prescription for Antony Kavonniurka. No indication for admis mark to the hospital. She was given return precautions. Discharge Plan Departure Patient Disposition: Home Clinical Impression: Upper respiratory infection Instructions: DI for Viral Upper Respiratory Infection -- Adult Activity Restrictions/Additional Instructions: I recommend that you continue to take all of your medications as directed. You can try lsdw-ejp-kfwjxky medications such as Claritin/loratadine. This is a daily medicine that can help with the congestion. You can also try other flru-wux-occcowv medicines such as Robitussin and also throat lozenges. I did prescribe you a medicine called benzoate/Tessalon. This is a as-needed medicine that can help with the cough. Contact your primary doctor for a follow-up. Prescriptions: New benzonatate 100 mg capsule 100 mg PO TID PRN (Reason: cough) Qty: 21 0RF No Action acetaminophen 325 mg tablet 325 mg PO Q4HR aspirin 81 mg tablet,chewable 81 mg PO DAILY atorvastatin 40 mg tablet 40 mg PO DAILY ketoconazole 2 % shampoo See Rx Instructions .ROUTE .COMPLEX Rx Instructions: daily loperamide 2 mg capsule 2 mg PO BID PRN (Reason: Diarrhea) Rx Instructions: not to exceed 3 capsules a day clonazepam 0.5 mg tablet 0.5 mg PO 12XD PRN (Reason: Anxiety) Rx Instructions: breakthrough anxiety cyanocobalamin (vitamin B-12) 1,000 mcg tablet 1,000 mcg PO DAILY risperidone 2 mg tablet 2 mg PO DAILY metformin 1,000 mg tablet 1,000 mg PO BID loratadine 10 mg tablet 10 mg PO DAILY insulin glargine [Lantus Solostar U-100 Insulin] 100 unit/mL (3 mL) insulin pen 30 unit SUBCUT QAM Rx Instructions: see rx albuterol sulfate 90 mcg/actuation HFA aerosol inhaler 2 puff inhalation Q6H PRN (Reason: shortness of breath or wheezing) Qty: 6.7 0RF Referrals: Ivanna Samuel ARNP [Primary Care Provider] - Stand Alone Forms: Patient Portal/API
[2022-08-27 21:00] VITALS: PULSE 88; O2SAT 93
[2022-08-27] MEDS: BENZONATATE 100 MG CAPSULE PO (21:06)
[2022-08-27] MEDS: LORATADINE 10 MG TABLET PO (21:13)
== END 2022-08-27 21:18 | disposition home or self-care (01) ==
PROVIDERS: Emergency Provider Emergency Medicine; PCP Nurse Practitioner Family
DX: J06.9 Acute upper respiratory infection, unspecified (principal); R05.9 Cough, unspecified; Z20.822 Contact with and (suspected) exposure to COVID-19
CPT/HCPCS: 0241U; 71045; 99283

== ENCOUNTER 2022-09-14 16:05 | Emergency (ER) | payer OTHER, MEDICAID, SELFPAY ==
[2022-03-14 03:49] VITALS: BMI 24.0
[2022-09-14 17:25] VITALS: BP 129/64; PULSE 92; RESP 20; TEMP 36.8; O2SAT 94; BMI 25.7
[2022-09-14 18:01] LABS: Strep Grp A by PCR Rapid Negative (Negative)
[2022-09-14 18:32] LABS: Influenza A - CEPHEID Flu A NEGATIVE (NEGATIVE); Influenza B - CEPHEID Flu B NEGATIVE (NEGATIVE); Respiratory Syncytial Virus Negative (Negative)
[2022-09-14 18:36] LABS: COVID-19 CEPHEID 4-PLEX PCR Negative (Negative)
[2022-09-14 18:41] VITALS: BP 129/62; PULSE 91; O2SAT 96
[2022-09-14 21:26] VITALS: BP 116/71; PULSE 85; RESP 20; O2SAT 99
--- NOTE | 2022-09-14 23:23 | ED_ITS ---
HPI - URI/Sore Throat General Chief Complaint: Dental/Oral Stated Complaint: Sore throat Time Seen by Provider: 09/14/22 23:13 Source: patient Mode of arrival: Ambulatory History of Present Illness HPI Narrative: Patient is a 76-year-old female history of diabetes hyperlipidemia hypertension presents today with a sore throat. She is frequently in the emergency department. She thinks that she maybe has a sinus infection she feels little congested maybe a little sore throat. She reports that she might have a virus. She denies any fever chills chest pain or cough. She was last here August 27 for something similar she would a negative x-ray. Today she has negative strep and negative and covid She is been ambulatory to the restroom with her walker without any sort of. She is no abdominal pain nausea vomiting. She reports glenny t she does have some dysphagia but she is able to eat and she is requesting a tuna fish sandwich. Related Data Home Medications Medication Instructions Recorded Confirmed acetaminophen 325 mg tablet 325 mg PO Q4HR 02/18/22 03/14/22 aspirin 81 mg chewable tablet 81 mg PO DAILY 02/18/22 03/14/22 atorvastatin 40 mg tablet 40 mg PO DAILY 02/18/22 03/14/22 clonazepam 0.5 mg tablet 0.5 mg PO 12XD PRN Anxiety 02/18/22 03/14/22 cyanocobalamin (vitamin B-12) 1,000 mcg PO DAILY 02/18/22 03/14/22 1,000 mcg tablet insulin glargine 100 unit/mL (3 30 unit SUBCUT QAM 02/18/22 03/14/22 mL) subcutaneous pen (Lantus Solostar U-100 Insulin) ketoconazole 2 % shampoo See Rx Instructions .Route .COMPLEX 02/18/22 03/14/22 loperamide 2 mg capsule 2 mg PO BID PRN Diarrhea 02/18/22 03/14/22 loratadine 10 mg tablet 10 mg PO DAILY 02/18/22 03/14/22 metformin 1,000 mg tablet 1,000 mg PO BID 02/18/22 03/14/22 risperidone 2 mg tablet 2 mg PO DAILY 02/18/22 03/14/22 Previous Rx's Medication Instructions Recorded albuterol sulfate 90 mcg/actuation 2 puff inhalation Q6H PRN 08/13/22 aerosol inhaler shortness of breath or wheezing #6.7 grams benzonatate 100 mg capsule 100 mg PO TID PRN cough #21 caps 08/27/22 Allergies Allergy/AdvReac Type Severity Reaction Status Date / Time Penicillins Allergy Intermediate unknown Verified 08/13/22 14:50 but states not anaphylaxis, never stopped breathing influenza virus vaccine qs Allergy Verified 08/13/22 14:50 [id number] (65 years up) [From Fluad Quad (65y up)(PF)] pollen extracts Allergy Verified 08/13/22 14:50 procaine [From Novocain] Allergy Verified 08/13/22 14:50 vaccine adjuvant emulsion Allergy Verified 08/13/22 14:50 [id number].1 [From Fluad Quad (65y up)(PF)] Review of Systems Review of Systems ROS Unobtainable: All systems reviewed & are unremarkable except as noted in HPI and below Patient History Medical History Anxiety Diabetes Diabetes type 2, controlled Dyslipidemia Essential hypertension Hyperlipidemia Surgical History Hx of section Social History household members: children Smoking Status: Former smoker alcohol intake: never Smoking Status: Former smoker tobacco type: cigarettes alcohol intake frequency: holidays/special occasions only Substance Use Type: does not use Exam Initial Vital Signs Initial Vital Signs: Vital Signs Temperature 98.2 F 09/14/22 17:25 Pulse Rate 92 H 09/14/22 17:25 Respiratory Rate 20 09/14/22 17:25 Blood Pressure 129/64 09/14/22 17:25 Pulse Oximetry 94 09/14/22 17:25 Oxygen Delivery Method Room Air 09/14/22 17:25 GENERAL: Alert 76-year-old female and in no acute distress. HEENT: Head atraumatic,EOMI, pupils reactive, face symmetric, moist mucous membranes PHARYNX: No erythema, no tonsillar exudate, no cervical lymphadenopathy CARDIOVASCULAR: Regular rate and rhythm without murmurs, rubs or gallops. RESPIRATORY: Breath sounds equal bilaterally, no wheezes rales or rhonchi. EXTREMITIES: Normal range of motion, no clubbing or edema. Neurovascularly intact NEUROLOGICAL: Alert and oriented x4. SKIN: Warm, dry, no laceration, no petechiae, no rashes or lesions. Course Orders Ordered: ED Orders 09/14/22 17:45 Covid-19 + FLU A/B + RSV - PCR Stat Strep Grp A by PCR Rapid Stat Vital Signs Vital signs: Vital Signs - 8 hr 09/14/22 23:36 Pulse Rate 82 Respiratory Rate 18 Blood Pressure 122/78 Pulse Oximetry 99 Oxygen Delivery Method Room Air MDM - URI/Sore Throat Lab Data Labs: Lab Results 09/14/22 09/14/22 Range/Units 17:45 17:45 SARS-CoV-2 (PCR) Negative (Negative) Influenza A (RT-PCR) Flu a negative (NEGATIVE) Influenza B (RT-PCR) Flu b negative (NEGATIVE) RSV (PCR) Negative (Negative) Group A Strep (PCR) Negative (Negative) MDM Narrative Medical decision making narrative: Patient is 76-year-old female who presents with sore throat nasal congestion. Waiting in the emergency department numerous hours she is been ambulatory with her walker to the restroom no difficulty or hypoxia. Her lungs are clear she is no evidence of respiratory distress. Negative flu COVID and RSV today. Previously July 24 she was diagnosed with entero/rhinovirus. She would a negative chest x-ray August 27 but no indication for x-ray today. She is requesting to to fish sandwich currently. She is afebrile there is no evidence of sepsis or severe infection. There is really no need for any further workup Discharge Plan Departure Patient Disposition: Home Clinical Impression: Acute upper respiratory infection Instructions: DI for Viral Upper Respiratory Infection -- Adult Activity Restrictions/Additional Instructions: *You have been diagnosed with upper respiratory infection *What to do: At this time you likely have another virus. However lungs are clear. You do not have COVID influenza or RSV. Continue to drink fluids stay hydrated and rest *Continue to take medications as directed *Follow up with your primary care provider in 2-3 days or call [phone] *Return to ER if you should have any new, worsening or concerning symptoms Prescriptions: No Action benzonatate 100 mg capsule 100 mg PO TID PRN (Reason: cough) Qty: 21 0RF acetaminophen 325 mg tablet 325 mg PO Q4HR aspirin 81 mg tablet,chewable 81 mg PO DAILY atorvastatin 40 mg tablet 40 mg PO DAILY ketoconazole 2 % shampoo See Rx Instructions .ROUTE .COMPLEX Rx Instructions: daily loperamide 2 mg capsule 2 mg PO BID PRN (Reason: Diarrhea) Rx Instructions: not to exceed 3 capsules a day clonazepam 0.5 mg tablet 0.5 mg PO 12XD PRN (Reason: Anxiety) Rx Instructions: breakthrough anxiety cyanocobalamin (vitamin B-12) 1,000 mcg tablet 1,000 mcg PO DAILY risperidone 2 mg tablet 2 mg PO DAILY metformin 1,000 mg tablet 1,000 mg PO BID loratadine 10 mg tablet 10 mg PO DAILY insulin glargine [Lantus Solostar U-100 Insulin] 100 unit/mL (3 mL) insulin pen 30 unit SUBCUT QAM Rx Instructions: see rx albuterol sulfate 90 mcg/actuation HFA aerosol inhaler 2 puff inhalation Q6H PRN (Reason: shortness of breath or wheezing) Qty: 6.7 0RF Referrals: Ivanna Samuel ARNP [Primary Care Provider] - Stand Alone Forms: Patient Portal/API
[2022-09-14 23:36] VITALS: BP 122/78; PULSE 82; RESP 18; O2SAT 99
== END 2022-09-14 23:36 | disposition home or self-care (01) ==
PROVIDERS: Emergency Medicine; Emergency Provider Emergency Medicine; PCP Nurse Practitioner Family
DX: J06.9 Acute upper respiratory infection, unspecified (principal); Z20.822 Contact with and (suspected) exposure to COVID-19
CPT/HCPCS: 0241U; 87651; 99282

== ENCOUNTER 2022-09-19 16:51 | Emergency (ER) | payer OTHER, MEDICAID, SELFPAY ==
[2022-03-14 03:49] VITALS: BMI 24.0
[2022-09-19 17:26] VITALS: BP 138/63; PULSE 92; RESP 18; TEMP 36.8; O2SAT 93; BMI 25.0
[2022-09-19 18:40] LABS: Add Manual Diff / Slide Review NO; Basophils Absolute Auto 100 /uL (0-100); Eosinophils Absolute Auto 200 /uL (0-450); Eosinophils Percent Auto 2.3 % (2-4); Hematocrit 38.7 % (36-46); Hemoglobin 13.5 g/dL (12.0-16.0); Lymphocytes Absolute Auto 3400 /uL (1100-4500); Lymphocytes Percent Auto 34.9 % (25-40); Mean Corpuscular Hemoglobin 31.7 PG (26-34); Mean Corpuscular Volume 90.6 fL (80-100); Monocytes Absolute Auto 700 /uL (0-900); Monocytes Percent Auto 7.1 % (3-14); Neutrophils Absolute Auto 5300 /uL (1500-7000); Neutrophils Percent Auto 54.7 % (50-75); Platelet Count 251 X10^3/uL (150-400); Red Blood Cell Count 4.27 X10^6/uL (4.0-5.2); Red Cell Distribution Width 12.5 % (11.6-14.8); White Blood Cell Count 9.7 X10^3/uL (4.5-11.0)
[2022-09-19 18:50] LABS: Alanine Aminotransferase 32 IU/L (<35); Albumin Globulin Ratio 1.3 (1.0-2.8); Alkaline Phosphatase 92 U/L (38-126); Aspartate Aminotransferase 29 IU/L (14-36); BUN Creatinine Ratio 11.1 (6-22); Bilirubin Total 0.5 mg/dL (0.2-1.3); Blood Urea Nitrogen 9 mg/dL (7-17); Calcium 8.9 mg/dL (8.4-10.2); Carbon Dioxide 32 mmol/L (22-32); Chloride 100 mmol/L (98-107); Estimated Glomerular Filt Rate > 60 mL/min (>60); Glucose 203 mg/dL (80-110); HEMOLYSIS < 15 (0-50); Lipase 50 U/L (23-300); Potassium 4.2 mmol/L (3.4-5.1); Sodium 138 mmol/L (137-145)
[2022-09-19] MEDS: ONDANSETRON 4 MG/2 ML INJ IV (19:08)
[2022-09-19 19:14] LABS: COVID19 -Nasal RAPID Negative (Negative)
--- NOTE | 2022-09-19 19:58 | ED_ITS ---
HPI - Nausea/Vomiting/Diarrhea General Chief complaint: Nausea/Vomiting/Diarrhea Stated complaint: D/N/V, several days, worsening Time Seen by Provider: 09/19/22 18:04 Source: patient Mode of arrival: Ambulatory History of Present Illness HPI Narrative: This is a 76-year-old female with history of diabetes, hypertension and dyslipidemia who presents with cough, some mild nausea and intermittent diarrhea and constipation. Patient states she is had a cough that has been persistent she does take seasonal allergy medications. She denies fevers or chills. She states she was diagnosed with an upper respiratory infection some time ago. Her cough has persisted but has not been constant. She states no productive sputum. She denies chest pain, pressure or shortness of breath. She states she occasionally has nausea. She states she has prescription medications for nausea at her assisted living facility. She denies vomiting she states she will have intermittent diarrhea and constipation she states yesterday she had quite a bit of liquidy stool but also some solid stool. She states she is had some smaller but solid stools today. She states no distention of her abdomen. She states no active abdominal pain. Patient denies dysuria, urgency or frequency. She has noted a little bit of whitish discharge and thinks she may have a yeast infection. Patient denies any major surgeries. She states she has seasonal allergies and has allergy to penicillin. No tobacco, alcohol or illicit. Patient lives at [facility]. Ivanna CormierRiya is her primary care. Patient states she walked herself over to be evaluated. Related Data Home Medications Medication Instructions Recorded Confirmed acetaminophen 325 mg tablet 325 mg PO Q4HR 02/18/22 03/14/22 aspirin 81 mg chewable tablet 81 mg PO DAILY 02/18/22 03/14/22 atorvastatin 40 mg tablet 40 mg PO DAILY 02/18/22 03/14/22 clonazepam 0.5 mg tablet 0.5 mg PO 12XD PRN Anxiety 02/18/22 03/14/22 cyanocobalamin (vitamin B-12) 1,000 mcg PO DAILY 02/18/22 03/14/22 1,000 mcg tablet insulin glargine 100 unit/mL (3 30 unit SUBCUT QAM 02/18/22 03/14/22 mL) subcutaneous pen (Lantus Solostar U-100 Insulin) ketoconazole 2 % shampoo See Rx Instructions .Route .COMPLEX 02/18/22 03/14/22 loperamide 2 mg capsule 2 mg PO BID PRN Diarrhea 02/18/22 03/14/22 loratadine 10 mg tablet 10 mg PO DAILY 02/18/22 03/14/22 metformin 1,000 mg tablet 1,000 mg PO BID 02/18/22 03/14/22 risperidone 2 mg tablet 2 mg PO DAILY 02/18/22 03/14/22 Previous Rx's Medication Instructions Recorded albuterol sulfate 90 mcg/actuation 2 puff inhalation Q6H PRN 08/13/22 aerosol inhaler shortness of breath or wheezing #6.7 grams benzonatate 100 mg capsule 100 mg PO TID PRN cough #21 caps 08/27/22 fluconazole 150 mg tablet 150 mg PO Q3D 2 doses #2 tabs 09/19/22 (Diflucan) Allergies Allergy/AdvReac Type Severity Reaction Status Date / Time Penicillins Allergy Intermediate unknown Verified 08/13/22 14:50 but states not anaphylaxis, never stopped breathing influenza virus vaccine qs Allergy Verified 08/13/22 14:50 [id number] (65 years up) [From Fluad Quad (65y up)(PF)] pollen extracts Allergy Verified 08/13/22 14:50 procaine [From Novocain] Allergy Verified 08/13/22 14:50 vaccine adjuvant emulsion Allergy Verified 08/13/22 14:50 [id number] [From Fluad Quad (65y up)(PF)] Review of Systems Review of Systems ROS Unobtainable: All systems reviewed & are unremarkable except as noted in HPI and below Patient History Medical History Anxiety Diabetes Diabetes type 2, controlled Dyslipidemia Essential hypertension Hyperlipidemia Surgical History Hx of section Social History household members: children Smoking Status: Former smoker alcohol intake: never Smoking Status: Former smoker tobacco type: cigarettes alcohol intake frequency: holidays/special occasions only Substance Use Type: does not use Exam Narrative Exam Narrative: GEN: well nourished, well appearing female, alert and oriented x 3, patient appears to be in mild distress. HEENT: Atraumatic, pupils are equal round reactive to light, patient has palsy on the left, nares are clear, there is no conjunctival pallor. Throat is clear without any exudates, erythema, tonsillar enlargement or uvular deviation HEART: Regular rate and rhythm without murmur, clicks, rubs. Pulses are equal in upper and lower extremities LUNGS:Lungs clear to auscultation, no wheezes, rales, crackles, chest moves symmetrically, no tachypnea or accessory muscle use. ABD:bowel sounds normal, soft, non-tender, no guarding, rebound, rigidity, no masses noted, no hepatosplenomegaly, nondistended. :No CVA tenderness MSCL: Non-tender, no muscle atrophy, muscles strength 5/5 upper and lower e xtremities, full range of motion, normal gait NEURO:CN 2-12 intact, sensation normal. SKIN: No rash, erythema or other skin changes Initial Vital Signs Initial Vital Signs: Vital Signs Temperature 98.2 F 09/19/22 17:26 Pulse Rate 92 H 09/19/22 17:26 Respiratory Rate 18 09/19/22 17:26 Blood Pressure 138/63 09/19/22 17:26 Pulse Oximetry 93 09/19/22 17:26 Oxygen Delivery Method Room Air 09/19/22 17:26 Course Orders Ordered: Discontinued Medications Acetaminophen (Acetaminophen 325 Mg Tablet) 975 mg PO NOW ONE Stop: 09/19/22 20:35 Last Admin: 09/19/22 20:39 Dose: 975 mg Documented By: MARCIO Ondansetron HCl (Ondansetron 4 Mg/2 Ml Inj) 4 mg IV NOW ONE Stop: 09/19/22 19:02 Last Admin: 09/19/22 19:08 Dose: 4 mg Documented By: MARCIO Vital Signs Vital signs: Vital Signs - 8 hr 09/19/22 17:26 Temperature 98.2 F Pulse Rate 92 H Respiratory Rate 18 Blood Pressure 138/63 Pulse Oximetry 93 Oxygen Delivery Method Room Air MDM - Nausea/Vomiting/Diarrhea Lab Data 09/19/22 18:30 09/19/22 18:30 Labs: Lab Results 09/19/22 09/19/22 09/19/22 Range/Units 18:30 18:30 18:53 WBC 9.7 (4.5-11.0) X10^3/uL RBC 4.27 (4.0-5.2) X10^6/uL Hgb 13.5 (12.0-16.0) g/dL Hct 38.7 (36-46) % MCV 90.6 (80-100) fL MCH 31.7 (26-34) PG MCHC 35.0 (30-36) % RDW 12.5 (11.6-14.8) % Plt Count 251 (150-400) X10^3/uL Neut % (Auto) 54.7 (50-75) % Lymph % (Auto) 34.9 (25-40) % [place] % (Auto) 7.1 (3-14) % Eos % (Auto) 2.3 (2-4) % Baso % (Auto) 1.0 (0-2) % Neut # (Auto) 5300 (3572-3092) /uL Lymph # (Auto) 3400 (4037-5682) /uL [place] # (Auto) 700 (0-900) /uL Eos # (Auto) 200 (0-450) /uL Baso # (Auto) 100 (0-100) /uL Sodium 138 (137-145) mmol/L Potassium 4.2 (3.4-5.1) mmol/L Chloride 100 (98-107) mmol/L Carbon Dioxide 32 (22-32) mmol/L BUN 9 (7-17) mg/dL Creatinine 0.81 (0.52-1.04) mg/dL Estimated GFR > 60 (>60) mL/min BUN/Creatinine Ratio 11.1 (6-22) Glucose 203 H (80-110) mg/dL Calcium 8.9 (8.4-10.2) mg/dL Total Bilirubin 0.5 (0.2-1.3) mg/dL AST 29 (14-36) IU/L ALT 32 (<35) IU/L Alkaline Phosphatase 92 (38-126) U/L Total Protein 7.0 (6.3-8.2) g/dL Albumin 4.0 (3.5-5.0) g/dL Globulin 3.0 (1.7-4.1) g/dL Albumin/Globulin Ratio 1.3 (1.0-2.8) Lipase 50 (23-300) U/L SARS-CoV-2 (PCR) Negative (Negative) Urine Dip Bedside Urine Glucose Negative Bedside Urine Bilirubin - Negative Bedside Urine Ketone - Negative Urine Specific [place] 1.005 Bedside Urine Occult Blood - Negative Bedside Urine pH 7.5 Bedside Urine Protein - Negative Bedside Urine Urobilinogen - Negative Bedside Urine Nitrite - Negative Bedside Urine Leukocytes - Negative Esterase Imaging Data Chest x-ray: Radiologist's Impression: [address] [address] XRay Report Signed Patient: Marcie Diggs MR#: [id number] : 1945 Acct:[id number] Age/Sex: 76 / F Date of Service: 09/19/22 Loc: ED Accession Number: [id number] ?? Procedure: XR acute abdomen series Ordering Provider: Jayne Lynn D.O. PROCEDURE:? XR ACUTE ABDOMEN SERIES ? INDICATIONS:? cough, n/diarrhea/sometimes constipation ? TECHNIQUE:? One view chest and two views of the abdomen were acquired.? ? COMPARISON:? [facility], CR, XR CHEST 1V, 08/27/2022, 19:51. ? FINDINGS:? ? Surgical changes and devices:? None.? ? Chest:? Lungs are clear.? Heart size is normal.? No pleural effusions.? No pneumoperitoneum.? ? Abdomen:? Bowel gas pattern appears within normal limits.? No suspicious calcifications.? ? ? Bones:? There is a sclerotic lesion within the right humeral head suggestive of an enchondroma redemonstrate. ? IMPRESSION:? ? 1. No acute intra-abdominal radiographic abnormality.? ? ? Dictated by: Donis Longoria M.D. on 09/19/2022 at 21:30 ? ? Approved by: Donis Longoria M.D. on 09/19/2022 at 21:33?? MDM Narrative Medical decision making narrative: This is a 76-year-old female who presents with complaint of cough that has been intermittent. No chest pain or shortness of breath, she is had intermittent nausea as well as intermittent diarrhea constipation. Workup shows normal CBC, CMP shows a glucose of 203 patient has a known type 2 diabetic with no other electrolyte or renal changes, negative LFTs. Urine shows urine is negative. COVID swab is negative which patient did request. X-ray shows no acute change. Discharge Plan Departure Patient Disposition: Home Clinical Impression: Cough Instructions: DI for Cough -- Adult Activity Restrictions/Additional Instructions: Your workup today does not show any clear signs of infection. Please follow-up with your physician for recheck. Please continue your home medications as needed. You can take Diflucan 1 tablet and repeat 2 days later for possible yeast infection. [facility] Please return for new or worsening symptoms, fevers, new chest pain, shortness of breath, passing, new swelling in your extremities, persistent vomiting or other new or concerning changes Prescriptions: New fluconazole [Diflucan] 150 mg tablet 150 mg PO Q3D Qty: 2 0RF No Action benzonatate 100 mg capsule 100 mg PO TID PRN (Reason: cough) Qty: 21 0RF acetaminophen 325 mg tablet 325 mg PO Q4HR aspirin 81 mg tablet,chewable 81 mg PO DAILY atorvastatin 40 mg tablet 40 mg PO DAILY ketoconazole 2 % shampoo See Rx Instructions .ROUTE .COMPLEX Rx Instructions: daily loperamide 2 mg capsule 2 mg PO BID PRN (Reason: Diarrhea) Rx Instructions: not to exceed 3 capsules a day clonazepam 0.5 mg tablet 0.5 mg PO 12XD PRN (Reason: Anxiety) Rx Instructions: breakthrough anxiety cyanocobalamin (vitamin B-12) 1,000 mcg tablet 1,000 mcg PO DAILY risperidone 2 mg tablet 2 mg PO DAILY metformin 1,000 mg tablet 1,000 mg PO BID loratadine 10 mg tablet 10 mg PO DAILY insulin glargine [Lantus Solostar U-100 Insulin] 100 unit/mL (3 mL) insulin pen 30 unit SUBCUT QAM Rx Instructions: see rx albuterol sulfate 90 mcg/actuation HFA aerosol inhaler 2 puff inhalation Q6H PRN (Reason: shortness of breath or wheezing) Qty: 6.7 0RF Referrals: Ivanna Samuel ARNP [Primary Care Provider] - Stand Alone Forms: Patient Portal/API
--- NOTE | 2022-09-19 20:17 | DI.RAD.S_ITS ---
PROCEDURE: XR ACUTE ABDOMEN SERIES INDICATIONS: cough, n/diarrhea/sometimes constipation TECHNIQUE: One view chest and two views of the abdomen were acquired. COMPARISON: [facility], CR, XR CHEST 1V, 08/27/2022, 19:51. FINDINGS: Surgical changes and devices: None. Chest: Lungs are clear. Heart size is normal. No pleural effusions. No pneumoperitoneum. Abdomen: Bowel gas pattern appears within normal limits. No suspicious calcifications. Bones: There is a sclerotic lesion within the right humeral head suggestive of an enchondroma redemonstrate. IMPRESSION: 1. No acute intra-abdominal radiographic abnormality. Dictated by: Donis Longoria M.D. on 09/19/2022 at 21:30 Approved by: Donis Longoria M.D. on 09/19/2022 at 21:33
[2022-09-19] MEDS: ACETAMINOPHEN 325 MG TABLET 975 MG PO (20:39)
[2022-09-19 21:56] VITALS: BP 130/85; PULSE 81; RESP 20; O2SAT 97
== END 2022-09-19 21:58 | disposition home or self-care (01) ==
PROVIDERS: Emergency Provider Emergency Medicine; PCP Nurse Practitioner Family
DX: R05.9 Cough, unspecified (principal); R11.0 Nausea; R19.7 Diarrhea, unspecified; Z20.822 Contact with and (suspected) exposure to COVID-19
CPT/HCPCS: 36415; 74022; 80053; 81003; 83690; 85025; 87635; 96374; 99284; C9803; J2405

== ENCOUNTER 2022-09-29 12:28 | Emergency (ER) | payer OTHER, MEDICAID, SELFPAY ==
[2022-03-14 03:49] VITALS: BMI 24.0
[2022-09-29 12:38] VITALS: BP 141/71; PULSE 63; RESP 20; TEMP 37.1; O2SAT 92; BMI 25.0
--- NOTE | 2022-09-29 13:27 | ED.NECK ---
HPI - Neck Pain/Injury <Kayla Casey PA-C - Last Filed: 09/29/22 15:08> General Chief Complaint: Neck Pain/Injury Stated Complaint: neck and jaw pain Time Seen by Provider: 09/29/22 12:53 Mode of arrival: Ambulatory History of Present Illness HPI Narrative: A 76-year-old woman with a history of hypertension, type 2 diabetes and dyslipidemia presents with multiple complaints. Patient states that she is had a chronic issue with her jaw she feels like it is not well aligned but she feels that recently she is been having some more discomfort with it particularly in the back on the lower left it has been painful last few days. She states she has not seen a dentist recently for this thinks she saw a dentist about 1 year ago. Patient also states that she feels that her bones are ?out of alignment in my neck and in my chest? she states that she gets a popping sensation in her chest sometimes with movement that is in center at her sternum and it is uncomfortable--she notes that they give her Tylenol for this at her assisted living facility. She acknowledges that this has been going on for months. She also endorses a popping sensation sometimes in her neck when she moves her neck which has also been going on for months. Patient states she is been eating and drinking normally, she denies any recent falls or injury, fevers, chills, nausea, vomiting, shortness of breath, chest pain or other symptoms. Related Data Home Medications Medication Instructions Recorded Confirmed acetaminophen 325 mg tablet 325 mg PO Q4HR 02/18/22 03/14/22 aspirin 81 mg chewable tablet 81 mg PO DAILY 02/18/22 03/14/22 atorvastatin 40 mg tablet 40 mg PO DAILY 02/18/22 03/14/22 clonazepam 0.5 mg tablet 0.5 mg PO 12XD PRN Anxiety 02/18/22 03/14/22 cyanocobalamin (vitamin B-12) 1,000 mcg PO DAILY 02/18/22 03/14/22 1,000 mcg tablet insulin glargine 100 unit/mL (3 30 unit SUBCUT QAM 02/18/22 03/14/22 mL) subcutaneous pen (Lantus Solostar U-100 Insulin) ketoconazole 2 % shampoo See Rx Instructions .Route .COMPLEX 02/18/22 03/14/22 loperamide 2 mg capsule 2 mg PO BID PRN Diarrhea 02/18/22 03/14/22 loratadine 10 mg tablet 10 mg PO DAILY 02/18/22 03/14/22 metformin 1,000 mg tablet 1,000 mg PO BID 02/18/22 03/14/22 risperidone 2 mg tablet 2 mg PO DAILY 02/18/22 03/14/22 Previous Rx's Medication Instructions Recorded albuterol sulfate 90 mcg/actuation 2 puff inhalation Q6H PRN 08/13/22 aerosol inhaler shortness of breath or wheezing #6.7 grams benzonatate 100 mg capsule 100 mg PO TID PRN cough #21 caps 08/27/22 fluconazole 150 mg tablet 150 mg PO Q3D 2 doses #2 tabs 09/19/22 (Diflucan) cefdinir 300 mg capsule 300 mg PO BID 10 days #20 caps 09/29/22 Allergies Allergy/AdvReac Type Severity Reaction Status Date / Time Penicillins Allergy Intermediate unknown Verified 09/29/22 12:41 but states not anaphylaxis, never stopped breathing influenza virus vaccine qs Allergy Verified 09/29/22 12:41 [id number] (65 years up) [From Fluad Quad (65y up)(PF)] pollen extracts Allergy Verified 09/29/22 12:41 procaine [From Novocain] Allergy Verified 09/29/22 12:41 vaccine adjuvant emulsion Allergy Verified 09/29/22 12:41 [id number] [From Fluad Quad (65y up)(PF)] Review of Systems <Kayla Casey PA-C - Last Filed: 09/29/22 15:08> Review of Systems Narrative: See HPI Patient History <Kayla Casey PA-C - Last Filed: 09/29/22 15:08> Medical History Anxiety Diabetes Diabetes type 2, controlled Dyslipidemia Essential hypertension Hyperlipidemia Surgical History Hx of section Social History household members: children Smoking Status: Former smoker alcohol intake: never Smoking Status: Former smoker tobacco type: cigarettes alcohol intake frequency: holidays/special occasions only Substance Use Type: does not use Exam <Kayla Casey PA-C - Last Filed: 09/29/22 15:08> Narrative Exam Narrative: GENERAL: [76] year old patient appears stated age. Well-developed patient, in mild distress, walks with walker. HEAD: Atraumatic. Normocephalic. EYES: Pupils equal round and reactive. Extraocular motions intact. No scleral icterus. No injection or drainage. ENT: Patient has multiple missing teeth, multiple teeth broken off at the gumline, in the area of pain on the left lower posterior jaw she has a molar which is broken in half and is very tender at the gumline and with pressure on the broken tooth. Patient opens and closes her jaw the TMJ feels aligned however do note her left teeth do not line up well when she bites down they do line up well on the right. There is no fluctuance noted or appreciable swelling. Nose without bleeding, purulent drainage. Throat without erythema, tonsillar hypertrophy or exudate. Airway patent. NECK: Trachea midline. Non tender CARDIOVASCULAR/chest wall: Patient has some tenderness with palpation directly over the sternum in the middle/low. Regular rate and rhythm without murmurs, gallops, or rubs. RESPIRATORY: Clear to auscultation. Breath sounds equal bilaterally. No wheezes, rales, or rhonchi. GASTROINTESTINAL: Abdomen soft, non-tender, nondistended. EXTREMITIES: No edema or joint tenderness. BACK: Kyphosis, Nontender without deformity or crepitance. No flank tenderness. NEURO: AOx3. SKIN: No rash or erythema of visible areas Initial Vital Signs Initial Vital Signs: Vital Signs Temperature 98.8 F 09/29/22 12:38 Pulse Rate 63 09/29/22 12:38 Respiratory Rate 20 09/29/22 12:38 Blood Pressure 141/71 H 09/29/22 12:38 Pulse Oximetry 92 09/29/22 12:38 Oxygen Delivery Method Room Air 09/29/22 12:38 <Jayne Lynn DO - Last Filed: 10/05/22 19:42> Initial Vital Signs Initial Vital Signs: Vital Signs Temperature 98.8 F 09/29/22 12:38 Pulse Rate 63 09/29/22 12:38 Respiratory Rate 20 09/29/22 12:38 Blood Pressure 141/71 H 09/29/22 12:38 Pulse Oximetry 92 09/29/22 12:38 Oxygen Delivery Method Room Air 09/29/22 12:38 Course <Kayla Casey PA-C - Last Filed: 09/29/22 15:08> Vital Signs Vital signs: Vital Signs - 8 hr 09/29/22 12:38 09/29/22 14:45 Temperature 98.8 F Pulse Rate 63 89 Respiratory Rate 20 Blood Pressure 141/71 H 145/74 H Pulse Oximetry 92 96 Oxygen Delivery Method Room Air Room Air <Jayne Lynn DO - Last Filed: 10/05/22 19:42> Vital Signs Vital signs: Vital Signs - 8 hr 09/29/22 12:38 09/29/22 14:45 Temperature 98.8 F Pulse Rate 63 89 Respiratory Rate 20 Blood Pressure 141/71 H 145/74 H Pulse Oximetry 92 96 Oxygen Delivery Method Room Air Room Air MDM - Neck Pain/Injury <Kayla Casey PA-C - Last Filed: 09/29/22 15:08> Differential Diagnosis Differential diagnosis: Likely other (dental infection, poor dentition, chronic rib /sternum pain with movement, chronic jaw misalignment, costochondritis) Medical Records Attestation: I reviewed the patient's medical records. Treatment and disposition Shared decision making:: Shared decision-making was used in determining this patient's plan of care in the emergency department and plan for outpatient follow-up. [facility] Narrative Medical decision making narrative: This is a well-appearing 76-year-old female who walks with a walker, who presents today with vague chronic complaints of popping sensation in her neck and in her chest/sternum when she rotates as well as chronic left sided jaw misalignment and more recent pain in the back of her jaw. I am not suspicious for cardiac etiology in this patient, she does have a broken tooth and tenderness present in the area of her pain in her jaw. I suspect that she has a dental infection. Discussed with her that she did have a recent chest x-ray with nothing specific showing and that her pain and discomfort with movement that is present in her ribs and chest may be due to inflammation from costochondritis or chronic arthritis changes--she denies recent falls or injury and repeat imaging is not obtained today. did discuss this pt with attending physician Dr Lynn after initial evaluation and she agrees with plan. Advised pt to follow-up with orthopedics regarding this if she desires, follow-up closely with dentistry. Return precautions provided, follow-up plan discussed, all questions answered. Discharge Plan Departure Patient Disposition: Home Clinical Impression: Dental infection, Costochondritis Activity Restrictions/Additional Instructions: *You have been diagnosed with [dental infection,chronic rib/sternum pain (costochondritis] *What to do: *Please continue to take your regular medications as directed. [ 1] New medication prescriptions sent to your pharmacy: [ Cefdinir] [ ] New medication written as a paper prescription [ ] No new medications given *Please follow up with your primary care provider in 2-3 days, call for an appointment. Let them know you were seen in the Emergency Department and that we ask that you be seen in follow up. We will electronically transmit a record of today's note if your PCP is in our system. As we discussed you should get into see your dentist soon. You can consider seeing orthopedics for further evaluation of your chronic rib and sternal discomfort/popping sensation. You can continue taking Tylenol for this as needed. *If you do not have a primary care provider please contact the [facility] Resource line at [phone]. They will ask some questions about your medical history and help get you set up with a doctor in the community. *Return to Emergency Department if you should have any new, worsening or concerning symptoms, such as [fever greater than 101 F, shaking chills, worsening pain, persistent vomiting or other bothersome symptoms] Prescriptions: New cefdinir 300 mg capsule 300 mg PO BID 10 Days Qty: 20 0RF No Action benzonatate 100 mg capsule 100 mg PO TID PRN (Reason: cough) Qty: 21 0RF fluconazole [Diflucan] 150 mg tablet 150 mg PO Q3D Qty: 2 0RF acetaminophen 325 mg tablet 325 mg PO Q4HR aspirin 81 mg tablet,chewable 81 mg PO DAILY atorvastatin 40 mg tablet 40 mg PO DAILY ketoconazole 2 % shampoo See Rx Instructions .ROUTE .COMPLEX Rx Instructions: daily loperamide 2 mg capsule 2 mg PO BID PRN (Reason: Diarrhea) Rx Instructions: not to exceed 3 capsules a day clonazepam 0.5 mg tablet 0.5 mg PO 12XD PRN (Reason: Anxiety) Rx Instructions: breakthrough anxiety cyanocobalamin (vitamin B-12) 1,000 mcg tablet 1,000 mcg PO DAILY risperidone 2 mg tablet 2 mg PO DAILY metformin 1,000 mg tablet 1,000 mg PO BID loratadine 10 mg tablet 10 mg PO DAILY insulin glargine [Lantus Solostar U-100 Insulin] 100 unit/mL (3 mL) insulin pen 30 unit SUBCUT QAM Rx Instructions: see rx albuterol sulfate 90 mcg/actuation HFA aerosol inhaler 2 puff inhalation Q6H PRN (Reason: shortness of breath or wheezing) Qty: 6.7 0RF Referrals: Ivanna Samuel ARNP [Primary Care Provider] - Stand Alone Forms: Patient Portal/API <Jayne Lynn DO - Last Filed: 10/05/22 19:42> Cosign ED Attending [place] Attestation: I was immediately available in the department for consultation. Documentation has been reviewed.
[2022-09-29 14:45] VITALS: BP 145/74; PULSE 89; O2SAT 96
== END 2022-09-29 14:51 | disposition home or self-care (01) ==
PROVIDERS: Emergency Provider Student in an Organized Health Care Education/Training Program; PCP Nurse Practitioner Family
DX: K04.7 Periapical abscess without sinus (principal); M94.0 Chondrocostal junction syndrome [Tietze]
CPT/HCPCS: 99281

== ENCOUNTER → 2022-11-23 12:30 | Outpatient (CLI) | payer MEDICARE, MEDICAID, SELFPAY ==
[2022-03-14 03:49] VITALS: BMI 24.0
--- NOTE | 2022-11-23 | DI.CT.S_ITS ---
PROCEDURE: CT ABDOMEN PELVIS WO CON INDICATIONS: Generalized abdominal pain TECHNIQUE: After the administration of oral contrast, 5 mm thick sections acquired from the diaphragms to the symphysis. 5 mm coronal and sagittal reformats were performed. For radiation dose reduction, the following was used: automated exposure control, adjustment of mA and/or kV according to patient size. COMPARISON: [facility], CT, CT ABDOMEN PELVIS W CON, 11/12/2021, 14:58. [facility], CR, XR ACUTE ABDOMEN SERIES, 09/19/2022, 20:35. FINDINGS: Image quality: Excellent. ABDOMEN: Lung bases: Mild dependent atelectasis in posterior aspect of right lung base is seen. Heart size is normal. Solid organs: Liver is normal in size. Gallbladder contains a large calcified stone in its dependent portion near fundus. No gallbladder wall thickening . Pancreas is normal in size. Spleen is normal in size. No adrenal nodules. Both kidneys are normal in size, without hydronephrosis or nephrolithiasis. Peritoneum and bowel: Oral contrast is seen in distal small bowel loops and colon. No evidence of bowel obstruction. Small hiatal hernia is seen. No gross gastric or small bowel wall thickening. Appendix is visualized and is within normal limits. Questionable mild colonic wall thickening is seen involving ascending colon, transverse colon and descending colon concerning for low-grade colitis versus under distension. Mild fecal stasis in the colon is also seen. No significant pericolonic fat stranding. No abscess collection. No free fluid or free air. Nodes and vessels: No retroperitoneal or mesenteric adenopathy by size criteria. Aorta and inferior vena cava are normal in size. Miscellaneous: No ventral hernias. PELVIS: Genitourinary: Bladder wall thickness is normal. Miscellaneous: No inguinal hernias or adenopathy. Bones: No suspicious bony lesions. Chronic appearing mild superior endplate compression deformity at L2 and L4 levels are seen. Chronic appearing superior endplate compression deformity at T11 level is also noted. No gross acute vertebral body compression fracture. IMPRESSION: 1. No evidence of bowel obstruction. Questionable mild colonic wall thickening which may indicate low-grade infectious inflammatory colitis. Appendix is within normal limits. No abscess collection. No free fluid or free air. 2. Cholelithiasis without CT evidence of acute cholecystitis. 3. Chronic appearing mild superior endplate compression deformity at T11, L2 and L4 levels. No gross acute vertebral body compression fracture. Dictated by: Jose Angel Cates M.D. on 11/23/2022 at 22:41 Approved by: Jose Angel Cates M.D. on 11/23/2022 at 22:54
== END ==
PROVIDERS: PCP Nurse Practitioner Family; Referring Provider Nurse Practitioner Family; Visit Provider Nurse Practitioner Family
DX: R19.7 Diarrhea, unspecified (principal); R10.84 Generalized abdominal pain; K80.20 Calculus of gallbladder without cholecystitis without obstruction; M43.8X5 Other specified deforming dorsopathies, thoracolumbar region
CPT/HCPCS: 74176

== ENCOUNTER 2022-12-12 17:42 | Emergency (ER) | payer MEDICARE, MEDICAID, SELFPAY ==
[2022-03-14 03:49] VITALS: BMI 24.0
[2022-12-12] VITALS (10 sets, daily range): BP systolic 108–135; BP diastolic 53–72; PULSE 72–94; RESP 15–23; TEMP 36; O2SAT 95–97; BMI 24.9
[2022-12-12 22:35] LABS: Prothrombin Time 11.9 SECONDS (10.1-12.7)
[2022-12-12 22:37] LABS: PTT Partial Thromboplastin Tim 33 SECONDS (26-36)
[2022-12-12 22:40] LABS: Alanine Aminotransferase 26 IU/L (<35); Albumin 4.1 g/dL (3.5-5.0); Albumin Globulin Ratio 1.3 (1.0-2.8); Alkaline Phosphatase 93 U/L (38-126); Aspartate Aminotransferase 23 IU/L (14-36); BUN Creatinine Ratio 11.1 (6-22); Bilirubin Total 0.6 mg/dL (0.2-1.3); Blood Urea Nitrogen 7 mg/dL (7-17); Calcium 8.9 mg/dL (8.4-10.2); Carbon Dioxide 34 mmol/L (22-32); Chloride 100 mmol/L (98-107); Creatine Kinase 81 U/L (30-135); Estimated Glomerular Filt Rate > 60 mL/min (>60); Globulin 3.2 g/dL (1.7-4.1); Glucose 135 mg/dL (80-110); HEMOLYSIS < 15 (0-50); Lipase 246 U/L (23-300); Magnesium 1.7 mg/dL (1.6-2.3); Potassium 3.9 mmol/L (3.4-5.1); Sodium 139 mmol/L (137-145); Total Protein 7.3 g/dL (6.3-8.2)
[2022-12-12 22:45] LABS: Add Manual Diff / Slide Review NO; Basophils Absolute Auto 100 /uL (0-100); Eosinophils Absolute Auto 200 /uL (0-450); Eosinophils Percent Auto 1.8 % (2-4); Hematocrit 39.8 % (36-46); Hemoglobin 13.8 g/dL (12.0-16.0); Lymphocytes Absolute Auto 3700 /uL (1100-4500); Lymphocytes Percent Auto 43.5 % (25-40); Mean Corpuscular HGB Conc 34.8 % (30-36); Mean Corpuscular Hemoglobin 31.8 PG (26-34); Mean Corpuscular Volume 91.4 fL (80-100); Monocytes Absolute Auto 600 /uL (0-900); Neutrophils Absolute Auto 4000 /uL (1500-7000); Neutrophils Percent Auto 46.7 % (50-75); Platelet Count 214 X10^3/uL (150-400); Red Blood Cell Count 4.35 X10^6/uL (4.0-5.2); Red Cell Distribution Width 12.4 % (11.6-14.8); White Blood Cell Count 8.5 X10^3/uL (4.5-11.0)
[2022-12-12 22:51] LABS: Troponin I < 0.012 ng/mL (0.01-0.034)
--- NOTE | 2022-12-12 22:54 | ED_ITS ---
HPI - Dizziness General Chief Complaint: Dizziness Stated Complaint: light headded Time Seen by Provider: 12/12/22 22:54 Source: patient Mode of arrival: Ambulatory History of Present Illness HPI Narrative: Patient is a 77-year-old female here frequently presenting today with week of some dizziness. does not seem to be positional or constant. She denies any numbness tingling or weakness. She has not fallen.She reports that she is not out she does not have any chest pain or shortness breath. She has had a runny nose. She reports that she has not slept well she thinks his environmental. She says that her nose keeps running. She is no abdominal pain nausea or vomiting she is afebrile here. He is awake alert and oriented. Related Data Home Medications Medication Instructions Recorded Confirmed acetaminophen 325 mg tablet 325 mg PO Q4HR 02/18/22 03/14/22 aspirin 81 mg chewable tablet 81 mg PO DAILY 02/18/22 03/14/22 atorvastatin 40 mg tablet 40 mg PO DAILY 02/18/22 03/14/22 clonazepam 0.5 mg tablet 0.5 mg PO 12XD PRN Anxiety 02/18/22 03/14/22 cyanocobalamin (vitamin B-12) 1,000 mcg PO DAILY 02/18/22 03/14/22 1,000 mcg tablet insulin glargine 100 unit/mL (3 30 unit SUBCUT QAM 02/18/22 03/14/22 mL) subcutaneous pen (Lantus Solostar U-100 Insulin) ketoconazole 2 % shampoo See Rx Instructions .Route .COMPLEX 02/18/22 03/14/22 loperamide 2 mg capsule 2 mg PO BID PRN Diarrhea 02/18/22 03/14/22 loratadine 10 mg tablet 10 mg PO DAILY 02/18/22 03/14/22 metformin 1,000 mg tablet 1,000 mg PO BID 02/18/22 03/14/22 risperidone 2 mg tablet 2 mg PO DAILY 02/18/22 03/14/22 Previous Rx's Medication Instructions Recorded albuterol sulfate 90 mcg/actuation 2 puff inhalation Q6H PRN 08/13/22 aerosol inhaler shortness of breath or wheezing #6.7 grams benzonatate 100 mg capsule 100 mg PO TID PRN cough #21 caps 08/27/22 fluconazole 150 mg tablet 150 mg PO Q3D 2 doses #2 tabs 09/19/22 (Diflucan) Allergies Allergy/AdvReac Type Severity Reaction Status Date / Time Penicillins Allergy Intermediate unknown Verified 12/12/22 17:51 but states not anaphylaxis, never stopped breathing influenza virus vaccine qs Allergy Verified 12/12/22 17:51 [id number] (65 years up) [From Fluad Quad (65y up)(PF)] pollen extracts Allergy Verified 12/12/22 17:51 procaine [From Novocain] Allergy Verified 12/12/22 17:51 vaccine adjuvant emulsion Allergy Verified 12/12/22 17:51 [id number] [From Fluad Quad (65y up)(PF)] Review of Systems Review of Systems ROS Unobtainable: All systems reviewed & are unremarkable except as noted in HPI and below Patient History Medical History Anxiety Diabetes Diabetes type 2, controlled Dyslipidemia Essential hypertension Hyperlipidemia Surgical History Hx of section Social History household members: children Smoking Status: Former smoker alcohol intake: never Smoking Status: Former smoker tobacco type: cigarettes alcohol intake frequency: holidays/special occasions only Substance Use Type: does not use Exam Initial Vital Signs Initial Vital Signs: Vital Signs Temperature 96.8 F L 12/12/22 17:51 Pulse Rate 94 H 12/12/22 17:51 Respiratory Rate 15 12/12/22 17:51 Blood Pressure 128/60 12/12/22 17:51 Pulse Oximetry 95 12/12/22 17:51 Oxygen Delivery Method Room Air 12/12/22 17:51 GENERAL: Pleasant well-appearing 77-year-old female HEENT: Head atraumatic,EOMI, pupils reactive, face symmetric, moist mucous membranes CARDIOVASCULAR: Regular rate and rhythm without murmurs, rubs or gallops. RESPIRATORY: Breath sounds equal bilaterally, no wheezes rales or rhonchi. ABDOMEN: Soft, nontender. Normoactive bowel sounds all 4 quadrants. No guarding or rebound. EXTREMITIES: Normal range of motion, no clubbing or edema. Neurovascularly intact NEUROLOGICAL: Alert and oriented x2.Normal gait and speech. Cranial nerves II through XII grossly intact. SKIN: Warm, dry, no laceration, no petechiae, no rashes or lesions. Course Orders Ordered: ED Orders 12/12/22 22:22 Complete Blood Count AUTO DIFF Stat Comprehensive Metabolic Panel Stat Lipase Stat Magnesium Stat PTT Partial Thromboplastin Saturnino Stat Prothrombin Time INR Stat Troponin & CK Cardiac Panel Stat Vital Signs Vital signs: Vital Signs - 8 hr 12/12/22 22:00 12/12/22 22:01 12/12/22 22:01 Pulse Rate 75 74 Respiratory Rate 22 Blood Pressure 131/62 Pulse Oximetry 96 97 12/12/22 22:30 12/12/22 22:30 12/12/22 23:00 Pulse Rate 72 Respiratory Rate Blood Pressure 108/53 L 124/57 L Pulse Oximetry 96 12/12/22 23:00 Pulse Rate 74 Respiratory Rate Blood Pressure Pulse Oximetry 96 MDM - Dizziness Lab Data 12/12/22 22:22 12/12/22 22:22 Labs: Lab Results 12/12/22 12/12/22 12/12/22 Range/Units 22:22 22:22 22:22 WBC 8.5 (4.5-11.0) X10^3/uL RBC 4.35 (4.0-5.2) X10^6/uL Hgb 13.8 (12.0-16.0) g/dL Hct 39.8 (36-46) % MCV 91.4 (80-100) fL MCH 31.8 (26-34) PG MCHC 34.8 (30-36) % RDW 12.4 (11.6-14.8) % Plt Count 214 (150-400) X10^3/uL Neut % (Auto) 46.7 L (50-75) % Lymph % (Auto) 43.5 H (25-40) % Walker % (Auto) 7.0 (3-14) % Eos % (Auto) 1.8 L (2-4) % Baso % (Auto) 1.0 (0-2) % Neut # (Auto) 4000 (3587-1051) /uL Lymph # (Auto) 3700 (6008-0787) /uL Walker # (Auto) 600 (0-900) /uL Eos # (Auto) 200 (0-450) /uL Baso # (Auto) 100 (0-100) /uL PT 11.9 (10.1-12.7) SECONDS INR 1.0 (0.9-1.3) APTT 33 (26-36) SECONDS Sodium 139 (137-145) mmol/L Potassium 3.9 (3.4-5.1) mmol/L Chloride 100 (98-107) mmol/L Carbon Dioxide 34 H (22-32) mmol/L BUN 7 (7-17) mg/dL Creatinine 0.63 (0.52-1.04) mg/dL Estimated GFR > 60 (>60) mL/min BUN/Creatinine Ratio 11.1 (6-22) Glucose 135 H (80-110) mg/dL Calcium 8.9 (8.4-10.2) mg/dL Magnesium 1.7 (1.6-2.3) mg/dL Total Bilirubin 0.6 (0.2-1.3) mg/dL AST 23 (14-36) IU/L ALT 26 (<35) IU/L Alkaline Phosphatase 93 (38-126) U/L Total Creatine Kinase 81 (30-135) U/L Troponin I < 0.012 (0.01-0.034) ng/mL Total Protein 7.3 (6.3-8.2) g/dL Albumin 4.1 (3.5-5.0) g/dL Globulin 3.2 (1.7-4.1) g/dL Albumin/Globulin Ratio 1.3 (1.0-2.8) Lipase 246 (23-300) U/L Urine Dip Bedside Urine Glucose Negative Bedside Urine Bilirubin - Negative Bedside Urine Ketone - Negative Urine Specific [place] 1.005 Bedside Urine Occult Blood - Negative Bedside Urine pH 6.0 Bedside Urine Protein - Negative Bedside Urine Urobilinogen 0.2 mg/dl Bedside Urine Nitrite - Negative Bedside Urine Leukocytes - Negative Esterase ECG Data Interpretation: Normal sinus rhythm rate 92 MS interval 136 QRS [address] changes no T-w ave inversions similar to previous EKGs [facility] Narrative Medical decision making narrative: Patient 77-year-old female here frequently presenting today with ongoing dizziness for 1 week. She really has no complaints except for runny nose. she is not passed out no syncopal episodes. She is no injury no focal deficits Septra for her baseline confusion. She is not septic blood work is reassuring no evidence of a UTI. No need for head CT. She keeps reporting that she would like to change the environment she thinks the environment is causing all of her problems. She is able to ambulate and get around with her walker as usual. At this time there certainly no admission criteria met. Blood work EKG have all and records have been reviewed Discharge Plan Departure Patient Disposition: Home Clinical Impression: Dizziness of unknown cause Instructions: DI for Dizziness-Nonvertigo Activity Restrictions/Additional Instructions: *You have been diagnosed with dizziness *What to do: At this time no need for antibiotics unclear what is causing her dizziness. Please sleep and stay hydrated *Continue to take medications as directed May try Benadryl 25 mg at nighttime to help you sleep *Follow up with your primary care provider in 2-3 days or call [phone] *Return to ER if you should have passing out chest pain palpitations or any new, worsening or concerning symptoms Prescriptions: No Action benzonatate 100 mg capsule 100 mg PO TID PRN (Reason: cough) Qty: 21 0RF fluconazole [Diflucan] 150 mg tablet 150 mg PO Q3D Qty: 2 0RF acetaminophen 325 mg tablet 325 mg PO Q4HR aspirin 81 mg tablet,chewable 81 mg PO DAILY atorvastatin 40 mg tablet 40 mg PO DAILY ketoconazole 2 % shampoo See Rx Instructions .ROUTE .COMPLEX Rx Instructions: daily loperamide 2 mg capsule 2 mg PO BID PRN (Reason: Diarrhea) Rx Instructions: not to exceed 3 capsules a day clonazepam 0.5 mg tablet 0.5 mg PO 12XD PRN (Reason: Anxiety) Rx Instructions: breakthrough anxiety cyanocobalamin (vitamin B-12) 1,000 mcg tablet 1,000 mcg PO DAILY risperidone 2 mg tablet 2 mg PO DAILY metformin 1,000 mg tablet 1,000 mg PO BID loratadine 10 mg tablet 10 mg PO DAILY insulin glargine [Lantus Solostar U-100 Insulin] 100 unit/mL (3 mL) insulin pen 30 unit SUBCUT QAM Rx Instructions: see rx albuterol sulfate 90 mcg/actuation HFA aerosol inhaler 2 puff inhalation Q6H PRN (Reason: shortness of breath or wheezing) Qty: 6.7 0RF Referrals: Ivanna Samuel ARNP [Primary Care Provider] - Stand Alone Forms: Patient Portal/API
== END 2022-12-12 23:18 | disposition home or self-care (01) ==
PROVIDERS: Emergency Provider Emergency Medicine; PCP Nurse Practitioner Family
DX: R42 Dizziness and giddiness (principal); R07.9 Chest pain, unspecified
CPT/HCPCS: 36415; 80053; 81003; 82550; 83690; 83735; 84484; 85025; 85610; 85730; 93005; 99283; 99284

== ENCOUNTER 2022-12-21 14:45 | Emergency (ER) | payer MEDICARE, MEDICAID, SELFPAY ==
[2022-03-14 03:49] VITALS: BMI 24.0
[2022-12-21 14:51] VITALS: BP 130/60; PULSE 68; RESP 18; TEMP 36.8; O2SAT 99; BMI 24.0
--- NOTE | 2022-12-21 15:22 | ED.ARRPALP ---
HPI - Arrhythmia/Palpitations <Kayla Bland PA-C - Last Filed: 12/21/22 16:54> General Chief Complaint: Arrhythmia/Palpitations Stated Complaint: dizzy,light headed, feels like passing out Time Seen by Provider: 12/21/22 15:02 History of Present Illness HPI narrative: Patient is a 77-year-old female who presents with complaints of dizziness, lightheadedness, and feeling like she is going to pass out. She reports no recent fever or chills, she is eating and drinking adequately. She was seen in the emergency department 1 week ago for similar concerns, at which time she had normal labs negative UA urine, and stable EKG. She today she denies headache, chest pain, nausea, vomiting, shortness of breath, or palpitations. She endorses bilateral lower abdominal pain for many years, reports someone at her long-term care is helping her with a referral to work this up. She also endorses urinary frequency and urgency and occasional incontinence. Related Data Home Medications Medication Instructions Recorded Confirmed acetaminophen 325 mg tablet 325 mg PO Q4HR 02/18/22 03/14/22 aspirin 81 mg chewable tablet 81 mg PO DAILY 02/18/22 03/14/22 atorvastatin 40 mg tablet 40 mg PO DAILY 02/18/22 03/14/22 clonazepam 0.5 mg tablet 0.5 mg PO 12XD PRN Anxiety 02/18/22 03/14/22 cyanocobalamin (vitamin B-12) 1,000 mcg PO DAILY 02/18/22 03/14/22 1,000 mcg tablet insulin glargine 100 unit/mL (3 30 unit SUBCUT QAM 02/18/22 03/14/22 mL) subcutaneous pen (Lantus Solostar U-100 Insulin) ketoconazole 2 % shampoo See Rx Instructions .Route .COMPLEX 02/18/22 03/14/22 loperamide 2 mg capsule 2 mg PO BID PRN Diarrhea 02/18/22 03/14/22 loratadine 10 mg tablet 10 mg PO DAILY 02/18/22 03/14/22 metformin 1,000 mg tablet 1,000 mg PO BID 02/18/22 03/14/22 risperidone 2 mg tablet 2 mg PO DAILY 02/18/22 03/14/22 Previous Rx's Medication Instructions Recorded albuterol sulfate 90 mcg/actuation 2 puff inhalation Q6H PRN 08/13/22 aerosol inhaler shortness of breath or wheezing #6.7 grams benzonatate 100 mg capsule 100 mg PO TID PRN cough #21 caps 08/27/22 fluconazole 150 mg tablet 150 mg PO Q3D 2 doses #2 tabs 09/19/22 (Diflucan) Allergies Allergy/AdvReac Type Severity Reaction Status Date / Time Penicillins Allergy Intermediate unknown Verified 12/21/22 14:55 but states not anaphylaxis, never stopped breathing influenza virus vaccine qs Allergy Verified 12/21/22 14:55 [id number] (65 years up) [From Fluad Quad (65y up)(PF)] pollen extracts Allergy Verified 12/21/22 14:55 procaine [From Novocain] Allergy Verified 12/21/22 14:55 vaccine adjuvant emulsion Allergy Verified 12/21/22 14:55 [id number].[id number] [From Fluad Quad (65y up)(PF)] Review of Systems <Kayla Bland PA-C - Last Filed: 12/21/22 16:54> Review of Systems ROS Unobtainable: All systems reviewed & are unremarkable except as noted in HPI and below Patient History <Kayla Blnad PA-C - Last Filed: 12/21/22 16:54> Medical History Anxiety Diabetes Diabetes type 2, controlled Dyslipidemia Essential hypertension Hyperlipidemia Surgical History Hx of section Social History household members: children Smoking Status: Former smoker alcohol intake: never Smoking Status: Former smoker tobacco type: cigarettes alcohol intake frequency: holidays/special occasions only Substance Use Type: does not use Exam <Kayla Bland PA-C - Last Filed: 12/21/22 16:54> Narrative Exam Narrative: GENERAL: 77 year old patient appears stated age. Well-developed patient, alert and oriented x3. CARDIOVASCULAR: Regular rate and rhythm without murmurs, gallops, or rubs. RESPIRATORY: Clear to auscultation. Breath sounds equal bilaterally. No wheezes, rales, or rhonchi. GASTROINTESTINAL: Abdomen soft, non-tender, round. EXTREMITIES: No edema or joint tenderness. BACK: No flank tenderness. NEURO: ?Cranial nerves II through XII grossly intact.? No focal neuro deficits. Baseline unsteady gait, she walks with walker. SKIN: No rash or erythema of visible areas Initial Vital Signs Initial Vital Signs: Vital Signs Temperature 98.2 F 12/21/22 14:51 Pulse Rate 68 12/21/22 14:51 Respiratory Rate 18 12/21/22 14:51 Blood Pressure 130/60 12/21/22 14:51 Pulse Oximetry 99 12/21/22 14:51 Oxygen Delivery Method Room Air 12/21/22 14:51 <Benjamin Colindres DO - Last Filed: 12/21/22 17:32> Initial Vital Signs Initial Vital Signs: Vital Signs Temperature 98.2 F 12/21/22 14:51 Pulse Rate 68 12/21/22 14:51 Respiratory Rate 18 12/21/22 14:51 Blood Pressure 130/60 12/21/22 14:51 Pulse Oximetry 99 12/21/22 14:51 Oxygen Delivery Method Room Air 12/21/22 14:51 Course <Kayla Bland PA-C - Last Filed: 12/21/22 16:54> Orders Ordered: ED Orders 12/21/22 14:55 EKG-12 Lead Stat 12/21/22 15:44 Urinalysis and Microscopic Stat Vital Signs Vital signs: Vital Signs - 8 hr 12/21/22 14:51 12/21/22 15:48 Temperature 98.2 F Pulse Rate 68 88 Respiratory Rate 18 16 Blood Pressure 130/60 138/62 Pulse Oximetry 99 98 Oxygen Delivery Method Room Air Room Air <DO Malik Anne Last Filed: 12/21/22 17:32> Orders Ordered: ED Orders 12/21/22 14:55 EKG-12 Lead Stat 12/21/22 15:44 Urinalysis and Microscopic Stat Vital Signs Vital signs: Vital Signs - 8 hr 12/21/22 14:51 12/21/22 15:48 Temperature 98.2 F Pulse Rate 68 88 Respiratory Rate 18 16 Blood Pressure 130/60 138/62 Pulse Oximetry 99 98 Oxygen Delivery Method Room Air Room Air MDM - Arrhythmia/Palpitations <Kayla Bland PA-C - Last Filed: 12/21/22 16:54> Lab Data Labs: Lab Results 12/21/22 Range/Units 15:44 Urine Color Yellow Urine Appearance Clear Urine pH 6.5 (4.5-8.0) Ur Specific [place] <=1.005 (1.000-1.035) Urine Protein Negative (Negative) Urine Glucose (UA) 1+ H (Negative) g/dL Urine Ketones Negative (NEGATIVE) Urine Occult Blood Negative (Negative) Urine Nitrate Negative (Negative) Urine Bilirubin Negative (NEGATIVE) Urine Urobilinogen 0.2 (0.2) E.U./dL Ur Leukocyte Esterase Negative (NEGATIVE) Urine RBC None seen (0-5/HPF) Urine WBC None seen (0-5/HPF) Ur Squamous Epith Cells None seen (0-5/HPF) Urine Bacteria None seen (None) Ur Culture Indicated? Cult not indicated Point of Care Testing Glucose POC 215 ECG Data Interpretation: EKG shows normal sinus rhythm, rate 88, CO interval 152, no ST-T changes. MDM Narrative Medical decision making narrative: Multiple etiologies for patient's symptoms considered including, but not limited to: Hypoglycemia, stroke, [place], PE, electrolyte abnormalities and infection. Based on the information before me these causes seem less likely. Patient does complain of some urinary symptoms including frequency and incontinence, unclear of the chronicity of the symptoms. We will check urinalysis today. Labs done 1 week ago, no clinically significant abnormality noted. No focal neurologic deficit noted today, no indication for head CT. Urinalysis not consistent with urinary tract infection. Blood sugar slightly elevated. Vital signs remained stable throughout ER stay. I believe that her current symptoms are consistent with her chronic vertigo. Patient very concerned about her urinary incontinence, advised to chat with PCP about referral to Gynecology for pessary fitting if this may be appropriate. Patient has prescription for meclizine at her assisted living facility, she may use this for dizziness as needed. Patient's symptoms improved over duration of stay with above-stated therapies. Findings and discharge diagnosis discussed with patient/family followed by verbalization of understanding Return precautions discussed with patient/family whom verbalize understanding of diagnosis and plan <Benjamin Colindres DO - Last Filed: 12/21/22 17:32> Lab Data Labs: Lab Results 12/21/22 Range/Units 15:44 Urine Color Yellow Urine Appearance Clear Urine pH 6.5 (4.5-8.0) Ur Specific [place] <=1.005 (1.000-1.035) Urine Protein Negative (Negative) Urine Glucose (UA) 1+ H (Negative) g/dL Urine Ketones Negative (NEGATIVE) Urine Occult Blood Negative (Negative) Urine Nitrate Negative (Negative) Urine Bilirubin Negative (NEGATIVE) Urine Urobilinogen 0.2 (0.2) E.U./dL Ur Leukocyte Esterase Negative (NEGATIVE) Urine RBC None seen (0-5/HPF) Urine WBC None seen (0-5/HPF) Ur Squamous Epith Cells None seen (0-5/HPF) Urine Bacteria None seen (None) Ur Culture Indicated? Cult not indicated Point of Care Testing Glucose POC 215 Discharge Plan Departure Patient Disposition: Assisted Living Clinical Impression: Dizziness of unknown cause Instructions: DI for Urinary Incontinence Activity Restrictions/Additional Instructions: *You have been diagnosed with chronic dizziness. You can ask your primary care provider about following up with a registered nurse ambulatory who may be able to fit you for a pessary, which may help with your urinary incontinence. *What to do: *Please continue to take your regular medications as directed. [ ] New medication prescriptions sent to your pharmacy: [ ] [ ] New medication written as a paper prescription [ X] No new medications given. You have a prescription for meclizine at your assisted living that you can ask for, as needed for dizziness. *Please follow up with your primary care provider in 2-3 days, call for an appointment. Let them know you were seen in the Emergency Department and that we ask that you be seen in follow up. We will electronically transmit a record of today's note if your PCP is in our system *If you do not have a primary care provider please contact the [facility] Resource line at [phone]. They will ask some questions about your medical history and help get you set up with a doctor in the community. *Return to Emergency Department if you should have any new, worsening or concerning symptoms, such as [fever greater than 101 F, shaking chills, worsening pain, persistent vomiting or other bothersome symptoms] Prescriptions: No Action benzonatate 100 mg capsule 100 mg PO TID PRN (Reason: cough) Qty: 21 0RF fluconazole [Diflucan] 150 mg tablet 150 mg PO Q3D Qty: 2 0RF acetaminophen 325 mg tablet 325 mg PO Q4HR aspirin 81 mg tablet,chewable 81 mg PO DAILY atorvastatin 40 mg tablet 40 mg PO DAILY ketoconazole 2 % shampoo See Rx Instructions .ROUTE .COMPLEX Rx Instructions: daily loperamide 2 mg capsule 2 mg PO BID PRN (Reason: Diarrhea) Rx Instructions: not to exceed 3 capsules a day clonazepam 0.5 mg tablet 0.5 mg PO 12XD PRN (Reason: Anxiety) Rx Instructions: breakthrough anxiety cyanocobalamin (vitamin B-12) 1,000 mcg tablet 1,000 mcg PO DAILY risperidone 2 mg tablet 2 mg PO DAILY metformin 1,000 mg tablet 1,000 mg PO BID loratadine 10 mg tablet 10 mg PO DAILY insulin glargine [Lantus Solostar U-100 Insulin] 100 unit/mL (3 mL) insulin pen 30 unit SUBCUT QAM Rx Instructions: see rx albuterol sulfate 90 mcg/actuation HFA aerosol inhaler 2 puff inhalation Q6H PRN (Reason: shortness of breath or wheezing) Qty: 6.7 0RF Medication counseling provided by Pharmacist: No Referrals: Ivanna Samuel ARNP [Primary Care Provider] - SNF Discharge Plan Transfer to: [facility] Discharge Health Status Precautions: [place] Diet/Activity/Treatments Diet: Carb-consistent/Diabetic Skin/Wound/Dressing Care Report to your healthcare provider any signs of infection, such as: chills, fever, night sweats, increased pain and unusual drainage <Benjamin Colindres, DO - Last Filed: 12/21/22 17:32> [facility]: Dr Colindres Co-Sign Statement: I was available for consultation during this patient's emergency department visit. This chart is signed by myself for administrative purposes only. I did not have direct contact with this patient during this visit. They were seen independently by the APC.
[2022-12-21 15:48] VITALS: BP 138/62; PULSE 88; RESP 16; O2SAT 98
[2022-12-21 16:14] LABS: Appearance Urine UA CLEAR; Bilirubin Urine UA NEGATIVE (NEGATIVE); Color Urine UA YELLOW; Glucose Urine UA 1+ g/dL (Negative); Ketones Urine UA NEGATIVE (NEGATIVE); Leukocyte Esterase Urine UA NEGATIVE (NEGATIVE); Nitrite Urine UA NEGATIVE (Negative); Occult Blood Urine UA NEGATIVE (Negative); Protein Urine UA NEGATIVE (Negative); Specific Gravity Urine UA <=1.005 (1.000-1.035); Urobilinogen Urine UA 0.2 E.U./dL (0.2)
[2022-12-21 16:31] LABS: pH Urine UA 6.5 (4.5-8.0)
[2022-12-21 16:39] LABS: Bacteria Urine None Seen; Culture Indicated Urine Cult Not Indicated; RBC Urine None Seen (0-5/HPF); Squamous Epithelial Cell Urine None Seen (0-5/HPF); WBC Urine None Seen (0-5/HPF)
== END 2022-12-21 17:09 ==
PROVIDERS: Emergency Provider Physician Assistant; PCP Nurse Practitioner Family
DX: R42 Dizziness and giddiness (principal)
CPT/HCPCS: 81001; 82962; 93005; 99282

== ENCOUNTER → 2022-12-26 09:57 | Outpatient (ROUT) | payer MEDICARE, MEDICAID, SELFPAY ==
[2022-03-14 03:49] VITALS: BMI 24.0
[2022-12-26 13:36] LABS: Adenovirus F 40/41 Not Detected (Not Detect); Astrovirus Not Detected (Not Detect); Campylobacter Not Detected (Not Detect); Clostridium difficile toxin AB Not Detected (Not Detect); Cryptosporidium Not Detected (Not Detect); Cyclospora cayetanensis Not Detected (Not Detect); Entamoeba histolytica Not Detected (Not Detect); Enteroaggregative E.coli Not Detected (Not Detect); Enteropathogenic E.coli Not Detected (Not Detect); Enterotoxigenic E.coli It/st Not Detected (Not Detect); Giardia lamblia Not Detected (Not Detect); Norovirus GI/GII Not Detected (Not Detect); Plesiomonsa shigelloides Not Detected (Not Detect); Rotavirus A Not Detected (Not Detect); Salmonella Not Detected (Not Detect); Sapovirus Not Detected (Not Detect); Shiga-like toxin-prod E.coli Not Detected (Not Detect); Shigella/Enteroinvasive E.coli Not Detected (Not Detect); Vibrio Not Detected (Not Detect); Vibrio cholerae Not Detected (Not Detect); Yersinia enterocolitica Not Detected (Not Detect)
== END ==
PROVIDERS: PCP Nurse Practitioner Family; Visit Provider Nurse Practitioner Family
DX: K52.9 Noninfective gastroenteritis and colitis, unspecified (principal); R19.7 Diarrhea, unspecified; D84.9 Immunodeficiency, unspecified
CPT/HCPCS: 87507

== ENCOUNTER 2022-12-29 13:07 | Emergency (ER) | payer MEDICARE, MEDICAID, SELFPAY ==
[2022-03-14 03:49] VITALS: BMI 24.0
[2022-12-29] VITALS (10 sets, daily range): BP systolic 103–131; BP diastolic 55–62; PULSE 73–99; RESP 17; TEMP 36.9; O2SAT 94–97; BMI 24.0
[2022-12-29 14:01] LABS: Add Manual Diff / Slide Review NO; Basophils Absolute Auto 100 /uL (0-100); Basophils Percent Auto 0.9 % (0-2); Eosinophils Absolute Auto 100 /uL (0-450); Eosinophils Percent Auto 1.5 % (2-4); Hemoglobin 13.9 g/dL (12.0-16.0); Lymphocytes Absolute Auto 3400 /uL (1100-4500); Lymphocytes Percent Auto 35.5 % (25-40); Mean Corpuscular HGB Conc 34.7 % (30-36); Mean Corpuscular Hemoglobin 31.9 PG (26-34); Mean Corpuscular Volume 91.8 fL (80-100); Monocytes Absolute Auto 600 /uL (0-900); Monocytes Percent Auto 6.4 % (3-14); Neutrophils Absolute Auto 5400 /uL (1500-7000); Neutrophils Percent Auto 55.7 % (50-75); Platelet Count 227 X10^3/uL (150-400); Red Blood Cell Count 4.36 X10^6/uL (4.0-5.2); Red Cell Distribution Width 12.5 % (11.6-14.8); White Blood Cell Count 9.7 X10^3/uL (4.5-11.0)
[2022-12-29 14:08] LABS: Alanine Aminotransferase 29 IU/L (<35); Albumin 4.2 g/dL (3.5-5.0); Albumin Globulin Ratio 1.4 (1.0-2.8); Alkaline Phosphatase 109 U/L (38-126); Aspartate Aminotransferase 28 IU/L (14-36); BUN Creatinine Ratio 12.5 (6-22); Bilirubin Total 0.5 mg/dL (0.2-1.3); Blood Urea Nitrogen 7 mg/dL (7-17); Calcium 8.8 mg/dL (8.4-10.2); Carbon Dioxide 30 mmol/L (22-32); Chloride 99 mmol/L (98-107); Estimated Glomerular Filt Rate > 60 mL/min (>60); Globulin 3.1 g/dL (1.7-4.1); Glucose 229 mg/dL (80-110); HEMOLYSIS < 15 (0-50); Lipase 469 U/L (23-300); Potassium 3.9 mmol/L (3.4-5.1); Sodium 135 mmol/L (137-145); Total Protein 7.3 g/dL (6.3-8.2)
--- NOTE | 2022-12-29 15:55 | ED.ABDPAIN ---
HPI - Abdominal Pain General Chief Complaint: Abdominal Pain Stated Complaint: stomach pain Time Seen by Provider: 12/29/22 15:54 Source: patient Mode of arrival: Ambulatory Limitations: no limitations History of Present Illness HPI narrative: 76-year-old female with history of diabetes, hypertension, dyslipidemia on insulin daily who presents with complaint of periumbilical abdominal pain that is spreads out on each side. Patient states it has been going on for about 4 weeks. She states it is only in the anterior abdomen she does not have any back or flank pain. She states presents today because it is not going away. She states it has been slowly getting a little bit worse. She states she will have a large soft formed bowel movement each morning which is atypical. She is not had any black or bloody stool she does not have any pain with bowel movements. She states no abdominal distention. She denies fevers or chills. She is had some mild nausea but no vomiting. She notes she would a recent COVID swab and this was negative. She states she is chronic dysuria, urgency and frequency as well as incontinence. She states this has not changed. She denies any chest pain or shortness of breath. She denies any vaginal bleeding or discharge. She states she has had similar problems in the past. Patient states seasonal allergies and allergic to penicillin. No tobacco alcohol or illicit. She lives at [facility]. Ivanna Boswell is her primary care. Related Data Home Medications Medication Instructions Recorded Confirmed acetaminophen 325 mg tablet 325 mg PO Q4HR 02/18/22 03/14/22 aspirin 81 mg chewable tablet 81 mg PO DAILY 02/18/22 03/14/22 atorvastatin 40 mg tablet 40 mg PO DAILY 02/18/22 03/14/22 clonazepam 0.5 mg tablet 0.5 mg PO 12XD PRN Anxiety 02/18/22 03/14/22 cyanocobalamin (vitamin B-12) 1,000 mcg PO DAILY 02/18/22 03/14/22 1,000 mcg tablet insulin glargine 100 unit/mL (3 30 unit SUBCUT QAM 02/18/22 03/14/22 mL) subcutaneous pen (Lantus Solostar U-100 Insulin) ketoconazole 2 % shampoo See Rx Instructions .Route .COMPLEX 02/18/22 03/14/22 loperamide 2 mg capsule 2 mg PO BID PRN Diarrhea 02/18/22 03/14/22 loratadine 10 mg tablet 10 mg PO DAILY 02/18/22 03/14/22 metformin 1,000 mg tablet 1,000 mg PO BID 02/18/22 03/14/22 risperidone 2 mg tablet 2 mg PO DAILY 02/18/22 03/14/22 Previous Rx's Medication Instructions Recorded albuterol sulfate 90 mcg/actuation 2 puff inhalation Q6H PRN 08/13/22 aerosol inhaler shortness of breath or wheezing #6.7 grams benzonatate 100 mg capsule 100 mg PO TID PRN cough #21 caps 08/27/22 fluconazole 150 mg tablet 150 mg PO Q3D 2 doses #2 tabs 09/19/22 (Diflucan) Allergies Allergy/AdvReac Type Severity Reaction Status Date / Time Penicillins Allergy Intermediate unknown Verified 12/29/22 13:12 but states not anaphylaxis, never stopped breathing influenza virus vaccine qs Allergy Verified 12/29/22 13:12 [id number] (65 years up) [From Fluad RiverOne (65y up)(PF)] pollen extracts Allergy Verified 12/29/22 13:12 procaine [From Novocain] Allergy Verified 12/29/22 13:12 vaccine adjuvant emulsion Allergy Verified 12/29/22 13:12 MF59C.1 [From Fluad RiverOne (65y up)(PF)] Review of Systems Review of Systems ROS Unobtainable: All systems reviewed & are unremarkable except as noted in HPI and below Patient History Medical History Anxiety Diabetes Diabetes type 2, controlled Dyslipidemia Essential hypertension Hyperlipidemia Surgical History Hx of section Social History household members: children Smoking Status: Former smoker alcohol intake: never Smoking Status: Former smoker tobacco type: cigarettes alcohol intake frequency: holidays/special occasions only Substance Use Type: does not use Exam Narrative Exam Narrative: GENERAL: Alert and oriented x three, female in mild distress. HEENT: Head normocephalic, atraumatic, EOMI, patient does have ectropion on the left pupils reactive, face symmetric, moist mucous membranes NECK: Supple, full range of motion CARDIOVASCULAR: Regular rate and rhythm without murmurs, rubs or gallops. RESPIRATORY: Breath sounds equal bilaterally, no wheezes rales or rhonchi. ABDOMEN: Soft, mild generalized tenderness. Slightly distended. Normoactive bowel sounds all 4 quadrants. No guarding or rebound, rigidity, no mass : No CVA tenderness EXTREMITIES: Normal range of motion, no clubbing or edema. Neurovascularly intact NEUROLOGICAL: Cranial nerves II through XII grossly intact. Moving all extremities SKIN: Warm, dry, no petechiae, no rashes or lesions. Initial Vital Signs Initial Vital Signs: Vital Signs Temperature 98.4 F 12/29/22 13:12 Pulse Rate 99 H 12/29/22 13:12 Respiratory Rate 17 12/29/22 13:12 Blood Pressure 131/60 12/29/22 13:12 Pulse Oximetry 96 12/29/22 13:12 Oxygen Delivery Method Room Air 12/29/22 13:12 Course Orders Ordered: ED Orders 12/29/22 13:39 Complete Blood Count AUTO DIFF Stat Comprehensive Metabolic Panel Stat Lipase Stat 12/29/22 13:41 EKG-12 Lead Stat 12/29/22 16:07 CT abdomen pelvis w con Stat Discontinued Medications Acetaminophen (Acetaminophen 325 Mg Tablet) 650 mg PO NOW ONE Stop: 12/29/22 18:08 Last Admin: 12/29/22 18:23 Dose: 650 mg Documented By: LUZ MARIA Vital Signs Vital signs: Vital Signs - 8 hr 12/29/22 13:12 12/29/22 13:50 12/29/22 13:51 Temperature 98.4 F Pulse Rate 99 H 95 H 91 H Respiratory Rate 17 Blood Pressure 131/60 Pulse Oximetry 96 96 95 Oxygen Delivery Method Room Air 12/29/22 13:51 12/29/22 14:00 12/29/22 14:00 Temperature Pulse Rate 91 H Respiratory Rate Blood Pressure 123/57 L 112/58 L Pulse Oximetry 94 Oxygen Delivery Method Room Air 12/29/22 14:30 12/29/22 14:30 12/29/22 15:00 Temperature Pulse Rate 89 Respiratory Rate Blood Pressure 113/55 L 103/59 L Pulse Oximetry 94 Oxygen Delivery Method 12/29/22 15:00 12/29/22 15:30 12/29/22 15:30 Temperature Pulse Rate 88 86 Respiratory Rate Blood Pressure 113/55 L Pulse Oximetry 96 96 Oxygen Delivery Method 12/29/22 16:00 12/29/22 16:00 12/29/22 18:18 Temperature Pulse Rate 82 77 Respiratory Rate Blood Pressure 113/59 L Pulse Oximetry 95 95 Oxygen Delivery Method 12/29/22 18:19 12/29/22 18:19 Temperature Pulse Rate 73 Respiratory Rate Blood Pressure 128/62 Pulse Oximetry 97 Oxygen Delivery Method MDM - Abdominal Pain Lab Data 12/29/22 13:39 12/29/22 13:39 Labs: Lab Results 12/29/22 12/29/22 Range/Units 13:39 13:39 WBC 9.7 (4.5-11.0) X10^3/uL RBC 4.36 (4.0-5.2) X10^6/uL Hgb 13.9 (12.0-16.0) g/dL Hct 40.0 (36-46) % MCV 91.8 (80-100) fL MCH 31.9 (26-34) PG MCHC 34.7 (30-36) % RDW 12.5 (11.6-14.8) % Plt Count 227 (150-400) X10^3/uL Neut % (Auto) 55.7 (50-75) % Lymph % (Auto) 35.5 (25-40) % [place] % (Auto) 6.4 (3-14) % Eos % (Auto) 1.5 L (2-4) % Baso % (Auto) 0.9 (0-2) % Neut # (Auto) 5400 (0901-1769) /uL Lymph # (Auto) 3400 (8097-5659) /uL [place] # (Auto) 600 (0-900) /uL Eos # (Auto) 100 (0-450) /uL Baso # (Auto) 100 (0-100) /uL Sodium 135 L (137-145) mmol/L Potassium 3.9 (3.4-5.1) mmol/L Chloride 99 (98-107) mmol/L Carbon Dioxide 30 (22-32) mmol/L BUN 7 (7-17) mg/dL Creatinine 0.56 (0.52-1.04) mg/dL Estimated GFR > 60 (>60) mL/min BUN/Creatinine Ratio 12.5 (6-22) Glucose 229 H (80-110) mg/dL Calcium 8.8 (8.4-10.2) mg/dL Total Bilirubin 0.5 (0.2-1.3) mg/dL AST 28 (14-36) IU/L ALT 29 (<35) IU/L Alkaline Phosphatase 109 (38-126) U/L Total Protein 7.3 (6.3-8.2) g/dL Albumin 4.2 (3.5-5.0) g/dL Globulin 3.1 (1.7-4.1) g/dL Albumin/Globulin Ratio 1.4 (1.0-2.8) Lipase 469 H (23-300) U/L Point of care testing: Urine Dip Bedside Urine Glucose 250 mg/dl Bedside Urine Bilirubin - Negative Bedside Urine Ketone - Negative Urine Specific [place] 1.005 Bedside Urine Occult Blood - Negative Bedside Urine pH 6.0 Bedside Urine Protein - Negative Bedside Urine Urobilinogen - Negative Bedside Urine Nitrite - Negative Bedside Urine Leukocytes - Negative Esterase ECG Data Attestation: I personally reviewed and interpreted this ECG as follows: Prior ECG tracings: available for review Interpretation: Sinus rhythm rate of 92 KS 136 QRS [address] QTC [address] No acute ST elevation depression noted. Patient has prior from 12/21/2022 which appears similar. [facility] Narrative Medical decision making narrative: This is a 77-year-old female with complaint of abdominal pain who presents with about a month of abdominal discomfort. Patient states she has had soft formed bowel movements no black or bloody stools some nausea but no vomiting no fevers. She describes it periumbilical sort of spreading outwards. No back or flank pain associated. CBC CMP with LFTs and lipase show an lipase level 469, glucose of 229 but otherwise fairly normal labs. UA from 814th showed glucose and today is negative. Patient did have a CT on November 23, 2022 with some wall thickening, cholelithiasis and T11 L2-L4 degenerative changes. Discussed with patient's symptoms been slightly worsening abdomen pelvis for further evaluation make sure she is not developing colitis. Patient has no acute findings and abdomen or pelvis has cholelithiasis without evidence of cholecystitis. Inflammatory changes in the colon are resolved on today's CT imaging. Unchanged compression fracture of T11. Reviewed patient's findings she is nontender in the right upper quadrant on examination. She is otherwise well-appearing. We reviewed all of her labs she prefers to continue with Tylenol for pain management. Did refer her to General surgery she asked about medications to dissolve the gallstone and discussed they can see if that would be helpful as well. We did discuss return precautions all questions answered. Discharge Plan Departure Patient Disposition: Home Clinical Impression: Abdominal pain, Gallstone, Elevated lipase Instructions: DI for Abdominal Pain-Adult Activity Restrictions/Additional Instructions: Follow up with general surgery regarding your gallstone. Call for an appointment. Your workup today shows a very mildly elevated lipase, this maybe causing some of your pain. You do have a gallstone on imaging but no signs of inflammation or infection in your gallbladder. I would recommend a clear liquid diet for the next 24 hours to see if this improves your symptoms, if you are improving you can advance your diet as tolerated. Avoid a high fat diet. Please return for new or worsening symptoms, rapidly worsening abdominal back or flank pain, persistent vomiting, black or bloody stools, new changes to urination or other new or concerning changes. Prescriptions: No Action benzonatate 100 mg capsule 100 mg PO TID PRN (Reason: cough) Qty: 21 0RF fluconazole [Diflucan] 150 mg tablet 150 mg PO Q3D Qty: 2 0RF acetaminophen 325 mg tablet 325 mg PO Q4HR aspirin 81 mg tablet,chewable 81 mg PO DAILY atorvastatin 40 mg tablet 40 mg PO DAILY ketoconazole 2 % shampoo See Rx Instructions .ROUTE .COMPLEX Rx Instructions: daily loperamide 2 mg capsule 2 mg PO BID PRN (Reason: Diarrhea) Rx Instructions: not to exceed 3 capsules a day clonazepam 0.5 mg tablet 0.5 mg PO 12XD PRN (Reason: Anxiety) Rx Instructions: breakthrough anxiety cyanocobalamin (vitamin B-12) 1,000 mcg tablet 1,000 mcg PO DAILY risperidone 2 mg tablet 2 mg PO DAILY metformin 1,000 mg tablet 1,000 mg PO BID loratadine 10 mg tablet 10 mg PO DAILY insulin glargine [Lantus Solostar U-100 Insulin] 100 unit/mL (3 mL) insulin pen 30 unit SUBCUT QAM Rx Instructions: see rx albuterol sulfate 90 mcg/actuation HFA aerosol inhaler 2 puff inhalation Q6H PRN (Reason: shortness of breath or wheezing) Qty: 6.7 0RF Referrals: Ivanna Samuel ARNP [Primary Care Provider] - Joshua Gregory MD [Physician] - Stand Alone Forms: Patient Portal/API
--- NOTE | 2022-12-29 16:07 | DI.CT.S_ITS ---
PROCEDURE: CT ABDOMEN PELVIS W CON INDICATIONS: abd pain, periumbicilical, x weeks, had ct changes 11/23/22 TECHNIQUE: After the administration of intravenous contrast, axial sections acquired from the lung bases to the pubic symphysis. Coronal and sagittal reformats were performed. For radiation dose reduction, the following was used: automated exposure control, adjustment of mA and/or kV according to patient size. COMPARISON: [facility], CT, CT ABDOMEN PELVIS WO CON, 11/23/2022, 14:44. [facility], CT, CT ABDOMEN PELVIS W CON, 11/12/2021, 14:58. FINDINGS: Image quality: Excellent. Lung bases: Unremarkable. Heart: No significant findings. ABDOMEN: Liver: Unremarkable. Gallbladder: Large calcified gallstone within the gallbladder fundus. No gallbladder wall thickening. No pericholecystic fluid Biliary ducts: Unremarkable. Pancreas: Unremarkable. Spleen: Unremarkable. Adrenal Glands: No pericholecystic fluid Kidneys and Ureters: Unremarkable. Stomach and Bowel: Stomach, small bowel loops, and colon are unremarkable. A few scattered colonic diverticula without evidence of acute diverticulitis. Peritoneum: No abnormal intraperitoneal fluid. No free air. Ventral Wall: No hernias. Abdominal Nodes: No retroperitoneal or mesenteric adenopathy by size criteria. Vessels: Aorta and inferior vena cava are normal in size. PELVIS: Pelvic Organs: Unremarkable. Bladder: Unremarkable. Pelvic Nodes: No enlarged lymph nodes. Miscellaneous: No hernias are seen. Bones: Unchanged compression fracture of T11. IMPRESSION: No acute findings in the abdomen or pelvis. Stable appearance of calcific cholelithiasis without evidence of acute cholecystitis. Previously seen inflammatory changes of the colon are not appreciated today's exam. Diverticulosis the evidence of acute diverticulitis. Dictated by: Isra Garzon M.D. on 12/29/2022 at 15:40 Approved by: Isra Garzon M.D. on 12/29/2022 at 15:49
[2022-12-29] MEDS: ACETAMINOPHEN 325 MG TABLET 650 MG PO (18:23)
== END 2022-12-29 18:46 | disposition home or self-care (01) ==
PROVIDERS: Emergency Provider Emergency Medicine; PCP Nurse Practitioner Family
DX: K80.20 Calculus of gallbladder without cholecystitis without obstruction (principal); R74.8 Abnormal levels of other serum enzymes; R10.9 Unspecified abdominal pain; Z79.899 Other long term (current) drug therapy
CPT/HCPCS: 36415; 74177; 80053; 81003; 83690; 85025; 93005; 93010; 99283; 99284; Q9967

== ENCOUNTER 2023-01-16 13:46 | Emergency (ER) | payer MEDICARE, MEDICAID, SELFPAY ==
[2022-03-14 03:49] VITALS: BMI 24.0
[2023-01-16 13:50] VITALS: BP 141/65; PULSE 99; RESP 16; TEMP 36.5; O2SAT 96; BMI 23.1
--- NOTE | 2023-01-16 13:57 | DI.RAD.S_ITS ---
PROCEDURE: XR FOOT RT MIN 3V INDICATIONS: pain TECHNIQUE: 3 views of the foot were acquired. COMPARISON: None. FINDINGS: Bones: No fractures or dislocations. No suspicious bony lesions. Soft tissues: No tibiotalar joint effusion. Achilles tendon appears normal. IMPRESSION: No evidence acute bony abnormality. If clinical suspicion and/or symptoms persist, further assessment with repeat plain films, or advanced imaging (e.g., CT, MRI, or bone scan) may be helpful for further assessment. Dictated by: Buck Roy M.D. on 01/16/2023 at 15:04 Approved by: Buck Roy M.D. on 01/16/2023 at 15:05
[2023-01-16 15:49] VITALS: BP 110/55; PULSE 95; RESP 16; TEMP 36.9; O2SAT 95
--- NOTE | 2023-01-16 15:52 | ED_ITS ---
HPI - Extremity Problem <Kayla Bland PA-C - Last Filed: 01/16/23 15:59> General Chief complaint: Extremity Problem,Nontraumatic Stated complaint: RT foot hurts Time Seen by Provider: 01/16/23 15:20 Source: patient Mode of arrival: Ambulatory History of Present Illness HPI Narrative: Patient is a 77-year-old female who presents with right heel pain and right toe pain in toes 4 and 5. She reports swelling of her right foot. She reports recently taking a shower and her caregiver put her socks on rather roughly, with her toes extended. She ambulates wearing slippers using her walker. She does not recall any significant trauma, twisting her ankle, fall. No fever. She takes Tylenol for pain. She is a diabetic and is worried about wounds on her feet. Related Data Home Medications Medication Instructions Recorded Confirmed acetaminophen 325 mg tablet 325 mg PO Q4HR 02/18/22 03/14/22 aspirin 81 mg chewable tablet 81 mg PO DAILY 02/18/22 03/14/22 atorvastatin 40 mg tablet 40 mg PO DAILY 02/18/22 03/14/22 clonazepam 0.5 mg tablet 0.5 mg PO 12XD PRN Anxiety 02/18/22 03/14/22 cyanocobalamin (vitamin B-12) 1,000 mcg PO DAILY 02/18/22 03/14/22 1,000 mcg tablet insulin glargine 100 unit/mL (3 30 unit SUBCUT QAM 02/18/22 03/14/22 mL) subcutaneous pen (Lantus Solostar U-100 Insulin) ketoconazole 2 % shampoo See Rx Instructions .Route .COMPLEX 02/18/22 03/14/22 loperamide 2 mg capsule 2 mg PO BID PRN Diarrhea 02/18/22 03/14/22 loratadine 10 mg tablet 10 mg PO DAILY 02/18/22 03/14/22 metformin 1,000 mg tablet 1,000 mg PO BID 02/18/22 03/14/22 risperidone 2 mg tablet 2 mg PO DAILY 02/18/22 03/14/22 Previous Rx's Medication Instructions Recorded albuterol sulfate 90 mcg/actuation 2 puff inhalation Q6H PRN 08/13/22 aerosol inhaler shortness of breath or wheezing #6.7 grams benzonatate 100 mg capsule 100 mg PO TID PRN cough #21 caps 08/27/22 fluconazole 150 mg tablet 150 mg PO Q3D 2 doses #2 tabs 09/19/22 (Diflucan) Allergies Allergy/AdvReac Type Severity Reaction Status Date / Time Penicillins Allergy Intermediate unknown Verified 12/29/22 13:12 but states not anaphylaxis, never stopped breathing influenza virus vaccine qs Allergy Verified 12/29/22 13:12 [id number] (65 years up) [From Fluad Quad (65y up)(PF)] pollen extracts Allergy Verified 12/29/22 13:12 procaine [From Novocain] Allergy Verified 12/29/22 13:12 vaccine adjuvant emulsion Allergy Verified 12/29/22 13:12 [id number].1 [From Fluad Quad (65y up)(PF)] Review of Systems <Kayla Bland PA-C - Last Filed: 01/16/23 15:59> Review of Systems ROS Unobtainable: All systems reviewed & are unremarkable except as noted in HPI and below Patient History <Kayla Bland PA-C - Last Filed: 01/16/23 15:59> Medical History Anxiety Diabetes Diabetes type 2, controlled Dyslipidemia Essential hypertension Hyperlipidemia Surgical History Hx of section Social History household members: children Smoking Status: Former smoker alcohol intake: never Smoking Status: Former smoker tobacco type: cigarettes alcohol intake frequency: holidays/special occasions only Substance Use Type: does not use Exam <Kayla Bland PA-C - Last Filed: 01/16/23 15:59> Narrative Exam Narrative: GENERAL: 77 year old patient appears stated age. Well-developed patient, in no distress. NEURO: AOx3. HEAD: Atraumatic. Normocephalic. RESPIRATORY: No distress EXTREMITIES: Mild diffuse edema of right foot from the ankle. No tenderness over the ankle. Tender to deep palpation of the plantar surface of the heel. No visible skin wounds, discoloration. No pain with palpation of the toes or the metatarsal bones. Foot is pink and warm, no signs of cellulitis. DP and PT pulses palpable. Bilateral calves supple, nontender. SKIN: No rash or erythema of visible areas Initial Vital Signs Initial Vital Signs: Vital Signs Temperature 97.7 F 01/16/23 13:50 Pulse Rate 99 H 01/16/23 13:50 Respiratory Rate 16 01/16/23 13:50 Blood Pressure 141/65 H 01/16/23 13:50 Pulse Oximetry 96 01/16/23 13:50 Oxygen Delivery Method Room Air 01/16/23 13:50 <Benjamin Colindres DO - Last Filed: 01/16/23 16:06> Initial Vital Signs Initial Vital Signs: Vital Signs Temperature 97.7 F 01/16/23 13:50 Pulse Rate 99 H 01/16/23 13:50 Respiratory Rate 16 01/16/23 13:50 Blood Pressure 141/65 H 01/16/23 13:50 Pulse Oximetry 96 01/16/23 13:50 Oxygen Delivery Method Room Air 01/16/23 13:50 Course <Kayla Bland PA-C - Last Filed: 01/16/23 15:59> Orders Ordered: ED Orders 01/16/23 13:57 XR foot RT min 3V Stat Vital Signs Vital signs: Vital Signs - 8 hr 01/16/23 13:50 01/16/23 15:49 Temperature 97.7 F 98.4 F Pulse Rate 99 H 95 H Respiratory Rate 16 16 Blood Pressure 141/65 H 110/55 L Pulse Oximetry 96 95 Oxygen Delivery Method Room Air Room Air <DO Malik Anne Last Filed: 01/16/23 16:06> Orders Ordered: ED Orders 01/16/23 13:57 XR foot RT min 3V Stat Vital Signs Vital signs: Vital Signs - 8 hr 01/16/23 13:50 01/16/23 15:49 Temperature 97.7 F 98.4 F Pulse Rate 99 H 95 H Respiratory Rate 16 16 Blood Pressure 141/65 H 110/55 L Pulse Oximetry 96 95 Oxygen Delivery Method Room Air Room Air MDM - Extremity (Nontraumatic) <RANDELL Dennis Last Filed: 01/16/23 15:59> Imaging Data Extremity x-ray #1: Radiologist's Impression: No evidence of acute bony abnormality per Dr. Roy radiology review. MDM Narrative Medical decision making narrative: Multiple etiologies for patient's symptoms considered including, but not limited to: Fracture, sprain, DVT, cellulitis, gout. X-ray without evidence of fracture. Patient reports history of having her sock put on with her toes bend, suspect toe pain is a mild sprain related to this. Her slipper show extensive wear, especially in the heels, and I suspect her heel pain is secondary to her worn footwear. Advised RICE and compression applied in ER to right foot. Advised to she has new slippers with better support. Patient's symptoms improved over duration of stay with above-stated therapies. Findings and discharge diagnosis discussed with patient/family followed by verbalization of understanding Return precautions discussed with patient/family whom verbalize understanding of diagnosis and plan Discharge Plan Departure Patient Disposition: Home Clinical Impression: Edema of right foot, Heel pain Instructions: How To Perform RICE (Rest, Ice, Compress, Elevate) Activity Restrictions/Additional Instructions: *You have been diagnosed with pain in your right heel and swelling of your foot. There is no fracture on your x-ray today. I do not think you have an infection in your foot. I do not think you have a blood clot in your leg. I suspect the pain in your heel is from your worn out slippers, I would suggest getting a new pair with more support. I suspect the pain in your toes is from when the caregiver was put in your soccer back on and bent her toes. You can wrap your foot with the Bayron bandage to provide some compression and support, elevate it whenever possible, and take Tylenol for pain. You have been diagnosed with a musculoskeletal injury. You are advised to use R: rest. take it easy and listen to your body! I: ice. apply ice for 20 minutes every 2 hours while awake. Do not put ice directly on the skin. C: compression. Gentle compression with bayron wrap or splint will decrease pain and swelling. E: elevation. Keep extremity elevated above the heart whenever possible. *What to do: *Please continue to take your regular medications as directed. [ ] New medication prescriptions sent to your pharmacy: [ ] [ ] New medication written as a paper prescription [x ] No new medications given *Please follow up with your primary care provider in 2-3 days, call for an appointment. Let them know you were seen in the Emergency Department and that we ask that you be seen in follow up. We will electronically transmit a record of today's note if your PCP is in our system *If you do not have a primary care provider please contact the [facility] Resource line at [phone]. They will ask some questions about your medical history and help get you set up with a doctor in the community. *Return to Emergency Department if you should have any new, worsening or concerning symptoms, such as [fever greater than 101 F, shaking chills, worsening pain, persistent vomiting or other concerning symptoms]. Prescriptions: No Action benzonatate 100 mg capsule 100 mg PO TID PRN (Reason: cough) Qty: 21 0RF fluconazole [Diflucan] 150 mg tablet 150 mg PO Q3D Qty: 2 0RF acetaminophen 325 mg tablet 325 mg PO Q4HR aspirin 81 mg tablet,chewable 81 mg PO DAILY atorvastatin 40 mg tablet 40 mg PO DAILY ketoconazole 2 % shampoo See Rx Instructions .ROUTE .COMPLEX Rx Instructions: daily loperamide 2 mg capsule 2 mg PO BID PRN (Reason: Diarrhea) Rx Instructions: not to exceed 3 capsules a day clonazepam 0.5 mg tablet 0.5 mg PO 12XD PRN (Reason: Anxiety) Rx Instructions: breakthrough anxiety cyanocobalamin (vitamin B-12) 1,000 mcg tablet 1,000 mcg PO DAILY risperidone 2 mg tablet 2 mg PO DAILY metformin 1,000 mg tablet 1,000 mg PO BID loratadine 10 mg tablet 10 mg PO DAILY insulin glargine [Lantus Solostar U-100 Insulin] 100 unit/mL (3 mL) insulin pen 30 unit SUBCUT QAM Rx Instructions: see rx albuterol sulfate 90 mcg/actuation HFA aerosol inhaler 2 puff inhalation Q6H PRN (Reason: shortness of breath or wheezing) Qty: 6.7 0RF Referrals: Ivanna Samuel ARNP [Primary Care Provider] - Stand Alone Forms: Patient Portal/API <Benjamin Colindres, DO - Last Filed: 01/16/23 16:06> [facility] Dr Colindres Co-Sign Statement: I was available for consultation during this patient's emergency department visit. This chart is signed by myself for administrative purposes only. I did not have direct contact with this patient during this visit. They were seen independently by the APC.
== END 2023-01-16 15:53 | disposition home or self-care (01) ==
PROVIDERS: Emergency Provider Physician Assistant; PCP Nurse Practitioner Family
DX: R60.0 Localized edema (principal); M79.671 Pain in right foot
CPT/HCPCS: 73630; 99283

== ENCOUNTER 2023-01-18 17:15 | Emergency (ER) | payer MEDICARE, MEDICAID, SELFPAY ==
[2022-03-14 03:49] VITALS: BMI 24.0
[2023-01-18 17:37] VITALS: BP 122/59; PULSE 97; RESP 16; TEMP 36.7; O2SAT 92; BMI 23.1
[2023-01-18 21:16] VITALS: BP 132/66; PULSE 88; RESP 16; O2SAT 96
[2023-01-18] MEDS: PROPARACAINE 0.5% OPHTH SOL 1 DROPS EYE-LEFT (21:30)
[2023-01-18] MEDS: FLUORESCEIN 1 MG STRIP EYE-LEFT (21:30)
--- NOTE | 2023-01-18 21:35 | ED_ITS ---
HPI - Eye Problem General Chief complaint: Eye Problems Stated complaint: Wants to be seen for foot and eye Time Seen by Provider: 01/18/23 21:15 Source: patient, RN notes reviewed and old records reviewed Mode of arrival: Ambulatory Limitations: no limitations History of Present Illness HPI Narrative: 77-year-old female with history diabetes, hypertension, dyslipidemia insulin daily who presents with complaint of foreign body sensation in her right eye. She states she would walked over the hospital to eat a cafeteria, she washed her hands afterwards and felt like something was in her eye. She does not feel like she splashed her eye but feels like something like a foreign body. This started yesterday afternoon. Patient states it is just been irritated. She has not had drainage, no redness or swelling. She denies any acute vision changes. She does wear glasses. She states she is supposed to go back to get her prescription updated. She had a scratch to her eye before such as an abrasion. Patient states she follows with [facility] in [place]. She denies other issues or concerns currently. Related Data Home Medications Medication Instructions Recorded Confirmed acetaminophen 325 mg tablet 325 mg PO Q4HR 02/18/22 03/14/22 aspirin 81 mg chewable tablet 81 mg PO DAILY 02/18/22 03/14/22 atorvastatin 40 mg tablet 40 mg PO DAILY 02/18/22 03/14/22 clonazepam 0.5 mg tablet 0.5 mg PO 12XD PRN Anxiety 02/18/22 03/14/22 cyanocobalamin (vitamin B-12) 1,000 mcg PO DAILY 02/18/22 03/14/22 1,000 mcg tablet insulin glargine 100 unit/mL (3 30 unit SUBCUT QAM 02/18/22 03/14/22 mL) subcutaneous pen (Lantus Solostar U-100 Insulin) ketoconazole 2 % shampoo See Rx Instructions .Route .COMPLEX 02/18/22 03/14/22 loperamide 2 mg capsule 2 mg PO BID PRN Diarrhea 02/18/22 03/14/22 loratadine 10 mg tablet 10 mg PO DAILY 02/18/22 03/14/22 metformin 1,000 mg tablet 1,000 mg PO BID 02/18/22 03/14/22 risperidone 2 mg tablet 2 mg PO DAILY 02/18/22 03/14/22 Previous Rx's Medication Instructions Recorded albuterol sulfate 90 mcg/actuation 2 puff inhalation Q6H PRN 08/13/22 aerosol inhaler shortness of breath or wheezing #6.7 grams benzonatate 100 mg capsule 100 mg PO TID PRN cough #21 caps 08/27/22 fluconazole 150 mg tablet 150 mg PO Q3D 2 doses #2 tabs 09/19/22 (Diflucan) Allergies Allergy/AdvReac Type Severity Reaction Status Date / Time Penicillins Allergy Intermediate unknown Verified 12/29/22 13:12 but states not anaphylaxis, never stopped breathing influenza virus vaccine qs Allergy Verified 12/29/22 13:12 [id number] (65 years up) [From Fluad Quad (65y up)(PF)] pollen extracts Allergy Verified 12/29/22 13:12 procaine [From Novocain] Allergy Verified 12/29/22 13:12 vaccine adjuvant emulsion Allergy Verified 12/29/22 13:12 [id number].[id number] [From Fluad Quad (65y up)(PF)] Review of Systems Review of Systems ROS Unobtainable: All systems reviewed & are unremarkable except as noted in HPI and below Patient History Medical History Anxiety Diabetes Diabetes type 2, controlled Dyslipidemia Essential hypertension Hyperlipidemia Surgical History Hx of section Social History household members: children Smoking Status: Former smoker alcohol intake: never Smoking Status: Former smoker tobacco type: cigarettes alcohol intake frequency: holidays/special occasions only Substance Use Type: does not use Exam Narrative Exam Narrative: GEN: well nourished, well appearing female, alert and oriented x 3, patient appears to be in mild distress. HEENT: Atraumatic, pupils are equal round reactive to light, extraocular movements are intact on right, patient has amblyopia of the left which is not new compared to prior visits for I have seen patient nares are clear, there is no conjunctival pallor. Throat is clear without any exudates, erythema, tonsillar enlargement or uvular deviation Visual acuity: right [20/40], left [20/40] without correction. General: no globe trauma Eyelids: normal inspection, eyelids everted for exam on right. Conjunctiva/Sclera: normal inspection Corneas: normal inspection, examined with fluroscein on right no uptake. EOM: intact, no palsy/entrapment, patient does have known amblyopia. Pupils: PERRL, normal accomadation, pupil normal Anterior Chambers: normal inspection, no hypema Posterior: normal fundoscopic HEART: Regular rate and rhythm without murmur, clicks, rubs. LUNGS:Lungs clear to auscultation, no wheezes, rales, crackles, chest moves symmetrically ABD:bowel sounds normal, soft, non-tender, no guarding, rebound, rigidity, no masses noted, no hepatosplenomegaly MSCL: Non-tender, no muscle atrophy, muscles strength 5/5 upper and lower extremities, full range of motion, normal gait uses walker in department. Patient does not have any bony tenderness no obvious swelling, erythema or skin changes. No palpable bony tenderness on examination. Normal plantar and dorsiflexion. NEURO:CN 2-12 intact, sensation normal SKIN: No rash, erythema or other skin changes. Patient does have some hyperkeratotic skin changes bilateral feet. Initial Vital Signs Initial Vital Signs: Vital Signs Temperature 98.1 F 01/18/23 17:37 Pulse Rate 97 H 01/18/23 17:37 Respiratory Rate 16 01/18/23 17:37 Blood Pressure 122/59 L 01/18/23 17:37 Pulse Oximetry 92 01/18/23 17:37 Oxygen Delivery Method Room Air 01/18/23 17:37 Course Orders Ordered: Discontinued Medications Fluorescein Sodium (Fluorescein 1 Mg Strip) 1 mg EYE-LEFT NOW ONE Stop: 01/18/23 21:12 Last Admin: 01/18/23 21:30 Dose: 1 mg Documented By: Ofloxacin (Ofloxacin 0.3% Ophth Prepack) 1 bottle MISC SEEINSTR ONE Stop: 01/18/23 21:40 Last Admin: 01/18/23 22:00 Dose: 2 drop Documented By: Proparacaine HCl (Proparacaine 0.5% Ophth Carmen) 1 drops EYE-LEFT NOW ONE Stop: 01/18/23 21:11 Last Admin: 01/18/23 21:30 Dose: 1 drop Documented By: Vital Signs Vital signs: Vital Signs - 8 hr 01/18/23 21:16 01/18/23 22:01 Temperature 97.9 F Pulse Rate 88 83 Respiratory Rate 16 16 Blood Pressure 132/66 120/60 Pulse Oximetry 96 97 Oxygen Delivery Method Room Air Room Air MDM - Eye Problem MDM Narrative Medical decision making narrative: This is a 77-year-old female concern for foreign body in her right eye. Patient's eye exam is overall reassuring. No signs of conjunctivitis or infection that are clearly seen but was covered with antibiotic drops. Patient asked to follow up with Ophthalmology if persistent return here for further e valuation. She is had some chronic foot discomfort. She has been seen for this before she does have known diabetes and has a suspected neuropathy. No pain with palpation, normal movement, no new swelling or skin changes otherwise. Discussed with patient she is ambulating without issue and appropriate for discharge home. Discharge Plan Departure Patient Disposition: Home Clinical Impression: Irritation of right eye Activity Restrictions/Additional Instructions: You do not have an obvious sign of infection today your eye but I would cover with an eye drop. No foreign body was found on your examination, no abrasions or lacerations were noted. Please follow-up with your ophthalmology team this week if your symptoms have not resolved. You can use antibiotic eye drops 2 drops to the right eye 4 times daily x5 days. Please return for new or worsening symptoms, sudden vision changes, redness, swelling, new drainage, severe headaches or pain in the eye or other new or concerning changes. Prescriptions: No Action benzonatate 100 mg capsule 100 mg PO TID PRN (Reason: cough) Qty: 21 0RF fluconazole [Diflucan] 150 mg tablet 150 mg PO Q3D Qty: 2 0RF acetaminophen 325 mg tablet 325 mg PO Q4HR aspirin 81 mg tablet,chewable 81 mg PO DAILY atorvastatin 40 mg tablet 40 mg PO DAILY ketoconazole 2 % shampoo See Rx Instructions .ROUTE .COMPLEX Rx Instructions: daily loperamide 2 mg capsule 2 mg PO BID PRN (Reason: Diarrhea) Rx Instructions: not to exceed 3 capsules a day clonazepam 0.5 mg tablet 0.5 mg PO 12XD PRN (Reason: Anxiety) Rx Instructions: breakthrough anxiety cyanocobalamin (vitamin B-12) 1,000 mcg tablet 1,000 mcg PO DAILY risperidone 2 mg tablet 2 mg PO DAILY metformin 1,000 mg tablet 1,000 mg PO BID loratadine 10 mg tablet 10 mg PO DAILY insulin glargine [Lantus Solostar U-100 Insulin] 100 unit/mL (3 mL) insulin pen 30 unit SUBCUT QAM Rx Instructions: see rx albuterol sulfate 90 mcg/actuation HFA aerosol inhaler 2 puff inhalation Q6H PRN (Reason: shortness of breath or wheezing) Qty: 6.7 0RF Referrals: Ivanna Samuel ARNP [Primary Care Provider] - Stand Alone Forms: Patient Portal/API
[2023-01-18] MEDS: OFLOXACIN 0.3% OPHTH PREPACK 1 BOTTLE MISC (22:00)
[2023-01-18 22:01] VITALS: BP 120/60; PULSE 83; RESP 16; TEMP 36.6; O2SAT 97
== END 2023-01-18 22:01 | disposition home or self-care (01) ==
PROVIDERS: Emergency Provider Emergency Medicine; PCP Nurse Practitioner Family
DX: H57.11 Ocular pain, right eye (principal)
CPT/HCPCS: 99282; 99283

== ENCOUNTER 2023-01-25 13:15 | Emergency (ER) | payer MEDICARE, MEDICAID, SELFPAY ==
[2022-03-14 03:49] VITALS: BMI 24.0
[2023-01-25 13:20] VITALS: BP 129/63; PULSE 108; RESP 18; TEMP 36.6; O2SAT 95; BMI 24.0
--- NOTE | 2023-01-25 13:55 | CM.SWNOTE ---
ED BULK PALLET BUILDER Note Patient is 77 y/o female who presents to ED due to concern for SOB, fast pulse and requesting covid test. This is patient's 2nd presentation to ED in a week, 5th ED presentation in a month. Patient has hx of wandering to ED from [facility] facility. Typically RNs call facility and inform staff of patient's presentation to ED, and often they state that they did not know she left. Patient's PCP is Dr. Samuel, Patient has Medicaid and [employer] Medicare Advantage. RN informs BULK PALLET BUILDER of patient's hx of confusion, wandering and possible Dementia. BULK PALLET BUILDER receives consult to contact [facility] and inform them of patient's presentation to ED and frequency of ED presentations. BULK PALLET BUILDER calls [facility], it is reported that they did not know patient was at the ED. BULK PALLET BUILDER is transferred to Gregoria-patient's Human Performance Technologist. Gregoria reports that patient is there on Medicaid and it is unlikely patient will be receiving higher level of care, patient is typically independent. It is reported that patient does not typically inform staff of her leaving facility to go to ED. BULK PALLET BUILDER informs clinical administrator of patient's frequency to ED, they report they appreciate the information. conductor freight informs BULK PALLET BUILDER that patient is positive for Covid, ED team to call [facility] back regarding patient's dx. LUPE Palomino
[2023-01-25 14:00] LABS: COVID19 -Nasal RAPID POSITIVE (Negative)
--- NOTE | 2023-01-25 14:01 | DI.RAD.S_ITS ---
PROCEDURE: XR CHEST 2V INDICATIONS: w/c or ambulatory, + Covid, sob TECHNIQUE: 2 views of the chest were acquired. COMPARISON: [facility], CR, XR CHEST 1V, 03/14/2022, 0:13. [facility], CR, XR CHEST 1V, 08/27/2022, 19:51. [facility], CR, XR CHEST 1V, 08/13/2022, 15:12. FINDINGS: Surgical changes and devices: None. Lungs and pleura: Lungs are clear. No pleural effusions or pneumothorax. Mediastinum: Mediastinal contours are normal. Heart size is normal. Bones and chest wall: No new suspicious bony abnormalities. Again noted is a area of chondroid matrix calcification within the medullary space of the proximal right humeral metadiaphyseal junction. Soft tissues appear unremarkable. IMPRESSION: No acute cardiopulmonary abnormality is seen. Focal pneumonia is not seen. 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 Continued attention to this site on a yearly basis is recommended for at least 3 years to ensure absence of exchange administrator time. If unusual tenderness is present or develops in that area contrast-enhanced MR scanning would be recommended. 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 Dictated by: Gonzalo Luna M.D. on 01/25/2023 at 14:21 Approved by: Gonzalo Luna M.D. on 01/25/2023 at 14:24
[2023-01-25 14:36] VITALS: PULSE 102; O2SAT 96
[2023-01-25 15:05] VITALS: PULSE 98; RESP 14; O2SAT 99
--- NOTE | 2023-01-25 16:58 | ED_ITS ---
HPI - URI/Sore Throat General Chief Complaint: Upper Respiratory Symptoms Stated Complaint: hard time breathing/fast pulse/wants Covid-19 test Time Seen by Provider: 01/25/23 16:50 Source: patient Mode of arrival: Ambulatory History of Present Illness HPI Narrative: Patient here for cough congestion for the past 1 week. Patient in no distress. Speaking with ease. Not toxic. Not requiring supplemental oxygen. Patient lives at [facility]. Related Data Home Medications Medication Instructions Recorded Confirmed acetaminophen 325 mg tablet 325 mg PO Q4HR 02/18/22 03/14/22 aspirin 81 mg chewable tablet 81 mg PO DAILY 02/18/22 03/14/22 atorvastatin 40 mg tablet 40 mg PO DAILY 02/18/22 03/14/22 clonazepam 0.5 mg tablet 0.5 mg PO 12XD PRN Anxiety 02/18/22 03/14/22 cyanocobalamin (vitamin B-12) 1,000 mcg PO DAILY 02/18/22 03/14/22 1,000 mcg tablet insulin glargine 100 unit/mL (3 30 unit SUBCUT QAM 02/18/22 03/14/22 mL) subcutaneous pen (Lantus Solostar U-100 Insulin) ketoconazole 2 % shampoo See Rx Instructions .Route .COMPLEX 02/18/22 03/14/22 loperamide 2 mg capsule 2 mg PO BID PRN Diarrhea 02/18/22 03/14/22 loratadine 10 mg tablet 10 mg PO DAILY 02/18/22 03/14/22 metformin 1,000 mg tablet 1,000 mg PO BID 02/18/22 03/14/22 risperidone 2 mg tablet 2 mg PO DAILY 02/18/22 03/14/22 Previous Rx's Medication Instructions Recorded albuterol sulfate 90 mcg/actuation 2 puff inhalation Q6H PRN 08/13/22 aerosol inhaler shortness of breath or wheezing #6.7 grams benzonatate 100 mg capsule 100 mg PO TID PRN cough #21 caps 08/27/22 fluconazole 150 mg tablet 150 mg PO Q3D 2 doses #2 tabs 09/19/22 (Diflucan) Allergies Allergy/AdvReac Type Severity Reaction Status Date / Time Penicillins Allergy Intermediate unknown Verified 01/25/23 13:20 but states not anaphylaxis, never stopped breathing influenza virus vaccine qs Allergy Verified 01/25/23 13:20 [id number] (65 years up) [From Fluad Quad (65y up)(PF)] pollen extracts Allergy Verified 01/25/23 13:20 procaine [From Novocain] Allergy Verified 01/25/23 13:20 vaccine adjuvant emulsion Allergy Verified 01/25/23 13:20 [id number].1 [From Fluad Quad (65y up)(PF)] Review of Systems Review of Systems Narrative: GENERAL: negative chills, fatigue, malaise, fever, sweats. HEENT: negative sinus pain, ear pain, sore throat RESPIRATORY: negative dyspnea, positive cough CARDIOVASCULAR: negative chest pain, palpitations GASTROINTESTINAL: negative nausea, vomiting, abdominal pain : negative dysuria, frequency, hematuria MUSCULOSKELETAL: negative muscle or bony pain SKIN: negative rash, skin lesions NEUROLOGIC: negative weakness, numbness ROS Unobtainable: All systems reviewed & are unremarkable except as noted in HPI and below Patient History Medical History Anxiety Diabetes Diabetes type 2, controlled Dyslipidemia Essential hypertension Hyperlipidemia Surgical History Hx of section Social History household members: children Smoking Status: Former smoker alcohol intake: never Smoking Status: Former smoker tobacco type: cigarettes alcohol intake frequency: holidays/special occasions only Substance Use Type: does not use Exam Narrative Exam Narrative: GENERAL: in no distress, not toxic not dyspneic HEAD: Normocephalic. ENT: Mucous membranes moist. NECK: Trachea midline. CARDIOVASCULAR: Regular rate and rhythm RESPIRATORY: Clear to auscultation. Breath sounds equal bilaterally. No wheezes, rales, or rhonchi. Speaking full sentences. No respiratory distress. EXTREMITIES: No gross deformities. BACK: No flank tenderness. NEURO: AOx4. SKIN: Warm and dry PSYCH: Not anxious, is cooperative Initial Vital Signs Initial Vital Signs: Vital Signs Temperature 97.8 F 01/25/23 13:20 Pulse Rate 108 H 01/25/23 13:20 Respiratory Rate 18 01/25/23 13:20 Blood Pressure 129/63 01/25/23 13:20 Pulse Oximetry 95 01/25/23 13:20 Oxygen Delivery Method Room Air 01/25/23 13:20 Course Orders Ordered: ED Orders 01/25/23 13:24 Consult to STENCIL CUTTER MACHINE - Expander Stat 01/25/23 13:26 COVID19 -Nasal RAPID Stat 01/25/23 14:01 XR chest 2V Stat Vital Signs Vital signs: Vital Signs - 8 hr 01/25/23 13:20 01/25/23 14:36 01/25/23 15:05 Temperature 97.8 F Pulse Rate 108 H 102 H 98 H Respiratory Rate 18 14 Blood Pressure 129/63 Pulse Oximetry 95 96 99 Oxygen Delivery Method Room Air Room Air Room Air MDM - URI/Sore Throat Lab Data Labs: Lab Results 01/25/23 Range/Units 13:26 SARS-CoV-2 (PCR) Positive H (Negative) [facility] Narrative Medical decision making narrative: Patient here for cough congestion for the past 1 week. Patient in no distress. Speaking with ease. Not toxic. Not requiring supplemental oxygen. Patient lives at [facility]. After history and exam respiratory past/chest x-ray [facility] CC: Cough congestion Complicating co-morbidities: None Data collected from: Patient Medical records reviewed: No recent visit for this complaint Differential considered: Includes but not limited to pneumonia bronchitis viral infection Exam documented above, pertinent findings include: Clear lung sounds no respiratory distress speaking full sentences Lab Test results independently reviewed as above. Pertinent findings: Positive COVID Imaging studies independently reviewed: Chest x-ray no acute process Treatments: None required Re-evaluations: Reviewed exam and results with patient. At this time they are reassuring. She states she is hungry and would like something to eat. We did provide sandwich for patient. Not toxic at discharge. Return precautions reviewed with her. She desires discharge home Discussion: Appropriate for discharge home. Exam and imaging and laboratory studies are reassuring. Patient not requiring supplemental oxygen. No prescriptions required for COVID bronchitis. Chest x-ray is reassuring. Patient desires discharge home. Return precautions reviewed. Not toxic at discharge Diagnosis: COVID bronchitis Discharge Plan Departure Patient Disposition: Home Clinical Impression: COVID-19, Bronchitis Instructions: DI for Acute Bronchitis, DI for COVID-19 (Suspected or Confirmed ) Activity Restrictions/Additional Instructions: See family doctor in a week for re-evaluation. At this time your exam and chest x-ray are reassuring. No blood work indicated. No prescription medications are needed. Symptoms will improve. However return if worse or if any questions or concerns or for any trouble breathing. Prescriptions: No Action benzonatate 100 mg capsule 100 mg PO TID PRN (Reason: cough) Qty: 21 0RF fluconazole [Diflucan] 150 mg tablet 150 mg PO Q3D Qty: 2 0RF acetaminophen 325 mg tablet 325 mg PO Q4HR aspirin 81 mg tablet,chewable 81 mg PO DAILY atorvastatin 40 mg tablet 40 mg PO DAILY ketoconazole 2 % shampoo See Rx Instructions .ROUTE .COMPLEX Rx Instructions: daily loperamide 2 mg capsule 2 mg PO BID PRN (Reason: Diarrhea) Rx Instructions: not to exceed 3 capsules a day clonazepam 0.5 mg tablet 0.5 mg PO 12XD PRN (Reason: Anxiety) Rx Instructions: breakthrough anxiety cyanocobalamin (vitamin B-12) 1,000 mcg tablet 1,000 mcg PO DAILY risperidone 2 mg tablet 2 mg PO DAILY metformin 1,000 mg tablet 1,000 mg PO BID loratadine 10 mg tablet 10 mg PO DAILY insulin glargine [Lantus Solostar U-100 Insulin] 100 unit/mL (3 mL) insulin pen 30 unit SUBCUT QAM Rx Instructions: see rx albuterol sulfate 90 mcg/actuation HFA aerosol inhaler 2 puff inhalation Q6H PRN (Reason: shortness of breath or wheezing) Qty: 6.7 0RF Referrals: Ivanna Samuel ARNP [Primary Care Provider] - Stand Alone Forms: Patient Portal/API
[2023-01-25 17:08] VITALS: BP 119/59; PULSE 83; O2SAT 94
== END 2023-01-25 17:15 | disposition home or self-care (01) ==
PROVIDERS: Emergency Provider Emergency Medicine; PCP Nurse Practitioner Family
DX: U07.1 COVID-19 (principal); J20.9 Acute bronchitis, unspecified
CPT/HCPCS: 71046; 87635; 99283; C9803

== ENCOUNTER 2023-03-15 16:34 | Emergency (ER) | payer MEDICARE, MEDICAID, SELFPAY ==
[2022-03-14 03:49] VITALS: BMI 24.0
[2023-03-15 16:39] VITALS: BP 142/63; PULSE 62; RESP 16; TEMP 36.7; O2SAT 96; BMI 22.3
--- NOTE | 2023-03-15 16:45 | ED_ITS ---
HPI - SOB/Dyspnea <Zev Cisneros PA-C - Last Filed: 03/15/23 17:00> General Chief Complaint: Dizziness Stated Complaint: thinks carbon monoxide poisoning, lightheadded Time Seen by Provider: 03/15/23 16:37 Source: patient Mode of arrival: Ambulatory Limitations: no limitations History of Present Illness HPI Narrative: This is a 77-year-old female presents emergency department due to concerns for possible carbon monoxide exposure. She states that the carbon monoxide alarm in her living facility went off and was told to evacuate the building and she would like to be checked for carbon monoxide poisoning. She is also reporting a small amount of lightheadedness. Denies any other nausea, vomiting, dizziness, or any other concerning signs or symptoms. Related Data Home Medications Medication Instructions Recorded Confirmed acetaminophen 325 mg tablet 325 mg PO Q4HR 02/18/22 03/14/22 aspirin 81 mg chewable tablet 81 mg PO DAILY 02/18/22 03/14/22 atorvastatin 40 mg tablet 40 mg PO DAILY 02/18/22 03/14/22 clonazepam 0.5 mg tablet 0.5 mg PO 12XD PRN Anxiety 02/18/22 03/14/22 cyanocobalamin (vitamin B-12) 1,000 mcg PO DAILY 02/18/22 03/14/22 1,000 mcg tablet insulin glargine 100 unit/mL (3 30 unit SUBCUT QAM 02/18/22 03/14/22 mL) subcutaneous pen (Lantus Solostar U-100 Insulin) ketoconazole 2 % shampoo See Rx Instructions .Route .COMPLEX 02/18/22 03/14/22 loperamide 2 mg capsule 2 mg PO BID PRN Diarrhea 02/18/22 03/14/22 loratadine 10 mg tablet 10 mg PO DAILY 02/18/22 03/14/22 metformin 1,000 mg tablet 1,000 mg PO BID 02/18/22 03/14/22 risperidone 2 mg tablet 2 mg PO DAILY 02/18/22 03/14/22 Previous Rx's Medication Instructions Recorded albuterol sulfate 90 mcg/actuation 2 puff inhalation Q6H PRN 08/13/22 aerosol inhaler shortness of breath or wheezing #6.7 grams benzonatate 100 mg capsule 100 mg PO TID PRN cough #21 caps 08/27/22 fluconazole 150 mg tablet 150 mg PO Q3D 2 doses #2 tabs 09/19/22 (Diflucan) Allergies Allergy/AdvReac Type Severity Reaction Status Date / Time Penicillins Allergy Intermediate unknown Verified 03/15/23 16:43 but states not anaphylaxis, never stopped breathing influenza virus vaccine qs Allergy Verified 03/15/23 16:43 [id number] (65 years up) [From [employer] (65y up)(PF)] pollen extracts Allergy Verified 03/15/23 16:43 procaine [From Novocain] Allergy Verified 03/15/23 16:43 vaccine adjuvant emulsion Allergy Verified 03/15/23 16:43 [id number] [From [employer]ad [employer] (65y up)(PF)] Review of Systems <Zev Cisneros PA-C - Last Filed: 03/15/23 17:00> Review of Systems Narrative: GENERAL: Reports lightheadedness, Denies chills, fatigue, malaise, fever, sweats. HEENT: Denies sinus pain, ear pain, sore throat, difficulty swallowing, dizziness. RESPIRATORY: Denies dyspnea, cough, wheezing, hemoptysis, sputum. CARDIOVASCULAR: Denies chest pain, palpitations, orthopnea, edema, GASTROINTESTINAL: Denies nausea, vomiting, abdominal pain, diarrhea, constipation, melena. : Denies dysuria, frequency, incontinence, hematuria, urinary retention. MUSCULOSKELETAL: denies weakness, joint pain, or bony pain SKIN: Denies rash, skin lesions, or other NEUROLOGIC: Denies weakness, headache, numbness, change in speech, confusion, seizures, incoordination. PSYCHIATRIC: No concerning psychosocial issues. 12 point review of systems is negative except for those stated above Patient History <Zev Cisneros PA-C - Last Filed: 03/15/23 17:00> Medical History Anxiety Diabetes Diabetes type 2, controlled Dyslipidemia Essential hypertension Hyperlipidemia Surgical History Hx of section Social History household members: children Smoking Status: Former smoker alcohol intake: never Smoking Status: Former smoker tobacco type: cigarettes alcohol intake frequency: holidays/special occasions only Substance Use Type: does not use Exam <RANDELL Dunbar Last Filed: 03/15/23 17:00> Narrative Exam Narrative: GENERAL: Well-developed patient, in mild distress. HEAD: Atraumatic. Normocephalic. EYES: Pupils equal round and reactive. Extraocular motions intact. No scleral icterus. No injection or drainage. ENT: Nose without bleeding, purulent drainage. Throat without erythema, tonsillar hypertrophy or exudate. Airway patent. NECK: Trachea midline. Non tender CARDIOVASCULAR: Regular rate and rhythm without murmurs, gallops, or rubs. RESPIRATORY: Clear to auscultation. Breath sounds equal bilaterally. No wheezes, rales, or rhonchi. GASTROINTESTINAL: Abdomen soft, non-tender, nondistended. EXTREMITIES: No edema or joint tenderness. BACK: Nontender without deformity or crepitance. No flank tenderness. NEURO: AOx3. SKIN: No rash or erythema of visible areas Initial Vital Signs Initial Vital Signs: Vital Signs Temperature 98.1 F 03/15/23 16:39 Pulse Rate 62 03/15/23 16:39 Respiratory Rate 16 03/15/23 16:39 Blood Pressure 142/63 H 03/15/23 16:39 Pulse Oximetry 96 03/15/23 16:39 Oxygen Delivery Method Room Air 03/15/23 16:39 <Aric Gentile DO - Last Filed: 03/15/23 17:04> Initial Vital Signs Initial Vital Signs: Vital Signs Temperature 98.1 F 03/15/23 16:39 Pulse Rate 62 03/15/23 16:39 Respiratory Rate 16 03/15/23 16:39 Blood Pressure 142/63 H 03/15/23 16:39 Pulse Oximetry 96 03/15/23 16:39 Oxygen Delivery Method Room Air 03/15/23 16:39 Course <Zev Cisneros PA-C - Last Filed: 03/15/23 17:00> Vital Signs Vital signs: Vital Signs - 8 hr 03/15/23 16:39 Temperature 98.1 F Pulse Rate 62 Respiratory Rate 16 Blood Pressure 142/63 H Pulse Oximetry 96 Oxygen Delivery Method Room Air <Aric Gentile DO - Last Filed: 03/15/23 17:04> Vital Signs Vital signs: Vital Signs - 8 hr 03/15/23 16:39 Temperature 98.1 F Pulse Rate 62 Respiratory Rate 16 Blood Pressure 142/63 H Pulse Oximetry 96 Oxygen Delivery Method Room Air MDM - SOB/Dyspnea <Zev Cisneros PA-C - Last Filed: 03/15/23 17:00> MDM Narrative Medical decision making narrative: MDM * differential diagnosis includes but not limited to carbon monoxide poisoning, acute CVA * Prior records reviewed: Patient has not been here for similar symptoms in the past. * My lab interpretation: None obtained * My imgaing interpretation: None obtained * Clinical Decision Rules/Scores evaluated: None * Independent discussions with: None ED Course: This is a 77-year-old female presents to the emergency department with concerns for carbon monoxide poisoning after her living facility alarm went off. Carbon dioxide monitor was utilized and determined that is carbon monoxide levels were within normal limits. Patient does describe a mild lightheadedness although a somewhat poor historian. Patient had no other concerning signs or symptoms necessitate further workup or evaluation. Shared Decision Making: Discussed plan with patient who is comfortable with the plan. Social Considerations: None Disposition: Discharged to home Discharge Plan Departure Patient Disposition: Home Clinical Impression: Carbon monoxide exposure Activity Restrictions/Additional Instructions: Thank you for coming to the [facility] Emergency Department today. We have test your carbon monoxide levels in the were determined to be within normal limits. Please follow up with the primary care provider your symptoms continue. I hope you feel better soon. Please follow up with your primary care provider within a week if your symptoms continue. If you do not have a primary care provider please contact the [facility] Reso urce line at [phone]. They will ask some questions about your medical history and help you get set up with a provider in the community. Prescriptions: No Action benzonatate 100 mg capsule 100 mg PO TID PRN (Reason: cough) Qty: 21 0RF fluconazole [Diflucan] 150 mg tablet 150 mg PO Q3D Qty: 2 0RF acetaminophen 325 mg tablet 325 mg PO Q4HR aspirin 81 mg tablet,chewable 81 mg PO DAILY atorvastatin 40 mg tablet 40 mg PO DAILY ketoconazole 2 % shampoo See Rx Instructions .ROUTE .COMPLEX Rx Instructions: daily loperamide 2 mg capsule 2 mg PO BID PRN (Reason: Diarrhea) Rx Instructions: not to exceed 3 capsules a day clonazepam 0.5 mg tablet 0.5 mg PO 12XD PRN (Reason: Anxiety) Rx Instructions: breakthrough anxiety cyanocobalamin (vitamin B-12) 1,000 mcg tablet 1,000 mcg PO DAILY risperidone 2 mg tablet 2 mg PO DAILY metformin 1,000 mg tablet 1,000 mg PO BID loratadine 10 mg tablet 10 mg PO DAILY insulin glargine [Lantus Solostar U-100 Insulin] 100 unit/mL (3 mL) insulin pen 30 unit SUBCUT QAM Rx Instructions: see rx albuterol sulfate 90 mcg/actuation HFA aerosol inhaler 2 puff inhalation Q6H PRN (Reason: shortness of breath or wheezing) Qty: 6.7 0RF Referrals: Ivanna Samuel ARNP [Primary Care Provider] - Stand Alone Forms: Patient Portal/API ED Sign-out <Aric Gentile DO - Last Filed: 03/15/23 17:04> Cosign ED Attending Naeemature Attestation: I was immediately available in the department for consultation. Documentation has been reviewed. I agree with assessment and plan.
== END 2023-03-15 17:07 | disposition home or self-care (01) ==
PROVIDERS: Emergency Provider Physician Assistant Medical; PCP Nurse Practitioner Family
DX: Z77.29 Contact with and (suspected) exposure to other hazardous substances (principal)
CPT/HCPCS: 99281

== ENCOUNTER 2023-04-30 16:00 | Emergency (ER) | payer MEDICARE, MEDICAID, SELFPAY ==
[2022-03-14 03:49] VITALS: BMI 24.0
[2023-04-30 16:03] VITALS: BP 136/63; PULSE 97; RESP 16; TEMP 36.4; O2SAT 96; BMI 24.0
--- NOTE | 2023-04-30 17:16 | ED.FEMALEGU ---
HPI - Female Genitourinary <Eusebio Powell PA-C - Last Filed: 04/30/23 17:20> General Chief complaint: Urogenital-Female Stated complaint: states bladder infection Time Seen by Provider: 04/30/23 16:08 Source: patient Mode of arrival: Ambulatory History of Present Illness HPI Narrative: 77-year-old female presents to the ED to check for a urinary tract infection. Patient states that a medical office clerk at her assisted living care was concern about the color of her urine, that it was yellow and that she might have a urinary tract infection. Patient is not experiencing any symptoms. Patient denies fever, chills, chest pain, shortness of breath, nausea, vomiting, dysuria, urinary urgency, urinary frequency, abdominal pain, back pain, lightheadedness, dizziness, syncope. Patient lives at [facility]. Related Data Home Medications Medication Instructions Recorded Confirmed acetaminophen 325 mg tablet 325 mg PO Q4HR 02/18/22 03/14/22 aspirin 81 mg chewable tablet 81 mg PO DAILY 02/18/22 03/14/22 atorvastatin 40 mg tablet 40 mg PO DAILY 02/18/22 03/14/22 clonazepam 0.5 mg tablet 0.5 mg PO 12XD PRN Anxiety 02/18/22 03/14/22 cyanocobalamin (vitamin B-12) 1,000 mcg PO DAILY 02/18/22 03/14/22 1,000 mcg tablet insulin glargine 100 unit/mL (3 30 unit SUBCUT QAM 02/18/22 03/14/22 mL) subcutaneous pen (Lantus Solostar U-100 Insulin) ketoconazole 2 % shampoo See Rx Instructions .Route .COMPLEX 02/18/22 03/14/22 loperamide 2 mg capsule 2 mg PO BID PRN Diarrhea 02/18/22 03/14/22 loratadine 10 mg tablet 10 mg PO DAILY 02/18/22 03/14/22 metformin 1,000 mg tablet 1,000 mg PO BID 02/18/22 03/14/22 risperidone 2 mg tablet 2 mg PO DAILY 02/18/22 03/14/22 Previous Rx's Medication Instructions Recorded albuterol sulfate 90 mcg/actuation 2 puff inhalation Q6H PRN 08/13/22 aerosol inhaler shortness of breath or wheezing #6.7 grams benzonatate 100 mg capsule 100 mg PO TID PRN cough #21 caps 08/27/22 fluconazole 150 mg tablet 150 mg PO Q3D 2 doses #2 tabs 09/19/22 (Diflucan) Allergies Allergy/AdvReac Type Severity Reaction Status Date / Time Penicillins Allergy Intermediate unknown Verified 04/30/23 16:06 but states not anaphylaxis, never stopped breathing influenza virus vaccine qs Allergy Verified 04/30/23 16:06 [id number] (65 years up) [From [employer] (65y up)(PF)] pollen extracts Allergy Verified 04/30/23 16:06 procaine [From Novocain] Allergy Verified 04/30/23 16:06 vaccine adjuvant emulsion Allergy Verified 04/30/23 16:06 MF59C.1 [From [employer] (65y up)(PF)] Review of Systems <Eusebio Powell PA-C - Last Filed: 04/30/23 17:20> Constitutional Constitutional: Denies chills, Denies fatigue, Denies fever(s), Denies frequent falls, Denies lethargy and Denies weakness Eyes Eyes: Denies change in vision, Denies eye discharge, Denies irritation and Denies loss of vision ENT Ears, Nose, Mouth, and Throat: Denies change in voice, Denies dizziness, Denies neck pain, Denies sore throat and Denies throat swelling Cardiovascular Cardiovascular: Denies chest pain, Denies irregular heart rhythm, Denies lightheadedness, Denies palpitations, Denies dyspnea, Denies dyspnea on exertion and Denies orthopnea Respiratory Respiratory: Denies cough, Denies dyspnea, Denies dyspnea on exertion and Denies wheezing Gastrointestinal Gastrointestinal: Denies abdominal pain, Denies change in bowel habits, Denies diarrhea, Denies nausea and Denies vomiting Genitourinary Genitourinary: Denies dysuria, Denies urinary incontinence, Denies urinary hesitancy and Denies urinary urgency Comments: Yellow color urine Musculoskeletal Musculoskeletal: Denies neck pain and Denies numbness Integumentary/Breasts Skin/Breast: Denies pruritus, Denies erythema, Denies rash and Denies wounds Neurologic Neurologic: Denies behavioral changes, Denies confusion, Denies dizziness, Denies frequent falls, Denies loss of vision, Denies numbness and Denies weakness Psychiatric Psychiatric: Denies anxiety, Denies behavioral changes, Denies confusion, Denies depression, Denies homicidal ideation and Denies suicidal ideation Endocrine Endocrine: Denies fatigue, Denies flushing and Denies palpitations Hematologic/Lymphatic Hematologic/Lymphatic: Denies easy bruising Allergic/Immunologic Allergic/Immunologic: Denies urticaria, Denies throat swelling and Denies wheezing Patient History <Eusebio Powell PA-C - Last Filed: 04/30/23 17:20> Medical History Dyslipidemia Essential hypertension Diabetes type 2, controlled Hyperlipidemia Anxiety Diabetes Surgical History Hx of section tobacco type: cigarettes alcohol intake frequency: holidays/special occasions only Substance Use Type: does not use Exam <Eusebio Powell PA-C - Last Filed: 04/30/23 17:20> Narrative Exam Narrative: Const General:?cooperative, healthy appearing and comfortable [facility] Head:?normal to inspection Ears:?hearing grossly normal bilaterally Nose:?external nose normal Face and sinus:?normal facial exam and sinuses nontender Mouth:?oral mucosae normal Throat:?posterior oropharynx normal Eyes General:?appearance normal, both eyes and all related structures Neck Neck:?normal visual inspection and no lymphadenopathy noted Resp Effort & Inspection:?normal respiratory effort Auscultation:?clear to auscultation bilaterally Cardio Rate:?regular rate Rhythm:?regular rhythm GI Abdomen is soft, nondistended, nontender to palpation. There is no CVA tenderness. Neuro General:?patient alert, patient awake and patient oriented x3 Initial Vital Signs Initial Vital Signs: Vital Signs Temperature 97.6 F 04/30/23 16:03 Pulse Rate 97 H 04/30/23 16:03 Respiratory Rate 16 04/30/23 16:03 Blood Pressure 136/63 04/30/23 16:03 Pulse Oximetry 96 04/30/23 16:03 Oxygen Delivery Method Room Air 04/30/23 16:03 <Jayne Lynn DO - Last Filed: 05/10/23 07:34> Initial Vital Signs Initial Vital Signs: Vital Signs Temperature 97.6 F 04/30/23 16:03 Pulse Rate 97 H 04/30/23 16:03 Respiratory Rate 16 04/30/23 16:03 Blood Pressure 136/63 04/30/23 16:03 Pulse Oximetry 96 04/30/23 16:03 Oxygen Delivery Method Room Air 04/30/23 16:03 Course <Eusebio Powell PA-C - Last Filed: 04/30/23 17:20> Vital Signs Vital signs: Vital Signs - 8 hr 04/30/23 16:03 Temperature 97.6 F Pulse Rate 97 H Respiratory Rate 16 Blood Pressure 136/63 Pulse Oximetry 96 Oxygen Delivery Method Room Air <Jayne Lynn DO - Last Filed: 05/10/23 07:34> Vital Signs Vital signs: Vital Signs - 8 hr 04/30/23 16:03 Temperature 97.6 F Pulse Rate 97 H Respiratory Rate 16 Blood Pressure 136/63 Pulse Oximetry 96 Oxygen Delivery Method Room Air MDM - Female Genitourinary <Eusebio Powell PA-C - Last Filed: 04/30/23 17:20> Lab Data Labs: Urine Dip Bedside Urine Glucose 1000 mg/dl Bedside Urine Bilirubin - Negative Bedside Urine Ketone - Negative Urine Specific [place] 1.015 Bedside Urine Occult Blood - Negative Bedside Urine pH 6.0 Bedside Urine Protein - Negative Bedside Urine Urobilinogen - Negative Bedside Urine Nitrite - Negative Bedside Urine Leukocytes - Negative Esterase MDM Narrative Medical decision making narrative: 77-year-old female presents to the ED to check for a urinary tract infection. POC urine dip revealed no urinary tract infection. There was some glucose in the urine, due to patient being diabetic. Counseled patient on continuing medicines for glycemic control as prescribed. ED return precautions discussed with patient. Patient verbalized understanding. Medical records reviewed: Yes <Jayne Lynn DO - Last Filed: 05/10/23 07:34> Lab Data Labs: Urine Dip Bedside Urine Glucose 1000 mg/dl Bedside Urine Bilirubin - Negative Bedside Urine Ketone - Negative Urine Specific [place] 1.015 Bedside Urine Occult Blood - Negative Bedside Urine pH 6.0 Bedside Urine Protein - Negative Bedside Urine Urobilinogen - Negative Bedside Urine Nitrite - Negative Bedside Urine Leukocytes - Negative Esterase Discharge Plan Departure Patient Disposition: Home Clinical Impression: Glucose found in urine on examination Instructions: Urine Glucose Activity Restrictions/Additional Instructions: You were evaluated in the ED today to check for a urinary tract infection. Your urine did not show a urinary tract infection. There was some glucose in the urine which is due to your diabetes. Please continue to take your diabetic medications as prescribed. Return to the ED if you have worsening symptoms, fever, chills, chest pain, shortness of breath, vomiting, urinary difficulties. Prescriptions: No Action benzonatate 100 mg capsule 100 mg PO TID PRN (Reason: cough) Qty: 21 0RF fluconazole [Diflucan] 150 mg tablet 150 mg PO Q3D Qty: 2 0RF acetaminophen 325 mg tablet 325 mg PO Q4HR aspirin 81 mg tablet,chewable 81 mg PO DAILY atorvastatin 40 mg tablet 40 mg PO DAILY ketoconazole 2 % shampoo See Rx Instructions .ROUTE .COMPLEX Rx Instructions: daily loperamide 2 mg capsule 2 mg PO BID PRN (Reason: Diarrhea) Rx Instructions: not to exceed 3 capsules a day clonazepam 0.5 mg tablet 0.5 mg PO 12XD PRN (Reason: Anxiety) Rx Instructions: breakthrough anxiety cyanocobalamin (vitamin B-12) 1,000 mcg tablet 1,000 mcg PO DAILY risperidone 2 mg tablet 2 mg PO DAILY metformin 1,000 mg tablet 1,000 mg PO BID loratadine 10 mg tablet 10 mg PO DAILY insulin glargine [Lantus Solostar U-100 Insulin] 100 unit/mL (3 mL) insulin pen 30 unit SUBCUT QAM Rx Instructions: see rx albuterol sulfate 90 mcg/actuation HFA aerosol inhaler 2 puff inhalation Q6H PRN (Reason: shortness of breath or wheezing) Qty: 6.7 0RF Referrals: Ivanna Samuel ARNP [Primary Care Provider] - Stand Alone Forms: Patient Portal/API ED Sign-out <Jayne Lynn DO - Last Filed: 05/10/23 07:34> Cosign ED Attending [place] Attestation: I was immediately available in the department for consultation.
== END 2023-04-30 16:51 | disposition home or self-care (01) ==
PROVIDERS: Emergency Provider Student in an Organized Health Care Education/Training Program; PCP Nurse Practitioner Family
DX: R81 Glycosuria (principal); E11.9 Type 2 diabetes mellitus without complications; Z79.4 Long term (current) use of insulin
CPT/HCPCS: 81003; 99281

== ENCOUNTER → 2023-05-02 12:16 | Outpatient (CLI) | payer MEDICARE, MEDICAID, SELFPAY ==
[2022-03-14 03:49] VITALS: BMI 24.0
--- NOTE | 2023-05-02 12:20 | DI.CT.S_ITS ---
PROCEDURE: CT ABDOMEN PELVIS W CON INDICATIONS: ABDOMINAL PAIN TECHNIQUE: After the administration of oral and IV contrast, axial sections were acquired from the lung bases to the pubic symphysis. Coronal and sagittal reformats were performed. For radiation dose reduction, the following was used: automated exposure control, adjustment of mA and/or kV according to patient size. COMPARISON: [facility], CT, CT ABDOMEN PELVIS WO CON, 11/23/2022, 14:44. [facility], CT, CT ABDOMEN PELVIS W CON, 12/29/2022, 16:15. FINDINGS: Image quality: Excellent. Lung bases: Right basilar atelectasis. Heart: No significant findings. ABDOMEN: Liver: Normal size. Mild hepatic steatosis. No solid mass. Gallbladder: There is a calcified gallstone. No gallbladder wall thickening. Biliary ducts: No biliary dilation. Pancreas: No ductal dilation. Spleen: Size is within normal limits. Adrenal Glands: No adrenal nodules. Kidneys and Ureters: No hydronephrosis. No solid mass. No complex renal cystic lesion which requires follow up. Stomach and Bowel: Stomach is unremarkable. Normal small bowel and colonic caliber, without significant wall thickening. A few diverticula are noted. No diverticulitis. There is a moderate amount of stool in colon. Peritoneum: No abnormal intraperitoneal fluid. No free air. Ventral Wall: No hernia. Abdominal Nodes: No retroperitoneal or mesenteric adenopathy by size criteria. Vessels: Aorta and inferior vena cava are normal in size. PELVIS: Pelvic Organs: Unremarkable. Bladder: Bladder wall is thickened suggesting cystitis. Pelvic Nodes: No enlarged lymph nodes. Miscellaneous: No inguinal hernias are seen. Bones: Degenerative changes noted in the lower thoracic spine and lumbar spine. IMPRESSION: 1. Bladder wall thickening suggesting cystitis. 2. Cholelithiasis. 3. Hepatic steatosis. Dictated by: Stephanie Sandoval M.D. on 05/02/2023 at 15:29 Approved by: Stephanie Sandoval M.D. on 05/02/2023 at 15:39
[2023-05-02 12:47] LABS: Estimated Glomerular Filt Rate > 60 mL/min (>60)
[2023-05-02 13:05] LABS: Add Manual Diff / Slide Review NO; Basophils Absolute Auto 0 /uL (0-100); Basophils Percent Auto 0.3 % (0-2); Eosinophils Absolute Auto 100 /uL (0-450); Eosinophils Percent Auto 1.3 % (2-4); Hematocrit 40.6 % (36-46); Hemoglobin 13.8 g/dL (12.0-16.0); Lymphocytes Absolute Auto 2800 /uL (1100-4500); Lymphocytes Percent Auto 24.6 % (25-40); Mean Corpuscular HGB Conc 34.1 % (30-36); Mean Corpuscular Hemoglobin 31.5 PG (26-34); Mean Corpuscular Volume 92.4 fL (80-100); Monocytes Absolute Auto 800 /uL (0-900); Monocytes Percent Auto 6.9 % (3-14); Neutrophils Absolute Auto 7500 /uL (1500-7000); Neutrophils Percent Auto 66.9 % (50-75); Platelet Count 241 X10^3/uL (150-400); Red Blood Cell Count 4.39 X10^6/uL (4.0-5.2); Red Cell Distribution Width 12.2 % (11.6-14.8); White Blood Cell Count 11.3 X10^3/uL (4.5-11.0)
[2023-05-02 15:36] LABS: BUN Creatinine Ratio 21.7 (6-22); Blood Urea Nitrogen 13 mg/dL (7-17); Calcium 9.7 mg/dL (8.4-10.2); Carbon Dioxide 28 mmol/L (22-32); Chloride 99 mmol/L (98-107); Estimated Glomerular Filt Rate > 60 mL/min (>60); Glucose 204 mg/dL (80-110); HEMOLYSIS < 15 (0-50); Lipase 565 U/L (23-300); Potassium 4.4 mmol/L (3.4-5.1); Sodium 134 mmol/L (137-145)
[2023-05-03 15:10] LABS: Hemoglobin A1C% w Est Avg Glu 9.4 % (4.0-6.0)
== END ==
PROVIDERS: Specialist; PCP Nurse Practitioner Family; Referring Provider Nurse Practitioner Family; Visit Provider Nurse Practitioner Family
DX: K80.20 Calculus of gallbladder without cholecystitis without obstruction; K76.0 Fatty (change of) liver, not elsewhere classified; E11.9 Type 2 diabetes mellitus without complications; R74.8 Abnormal levels of other serum enzymes; I10 Essential (primary) hypertension; R10.9 Unspecified abdominal pain
CPT/HCPCS: 36415; 74177; 80048; 82565; 83036; 83690; 85025; Q9967

== ENCOUNTER → 2023-05-24 08:17 | Outpatient (CLI) | payer MEDICARE, MEDICAID, SELFPAY ==
[2022-03-14 03:49] VITALS: BMI 24.0
--- NOTE | 2023-05-24 08:18 | DI.MRI.S_ITS ---
PROCEDURE: MR AB PANCREATIC/MRCP PROTOCOL INDICATIONS: gall bladder TECHNIQUE: Coronal HASTE through the abdomen, axial 2-D FLASH in- and [id number], and breath-hold T2 FSE with fat saturation through the biliary system and pancreas. Oblique coronal and axial thin-slice HASTE, radial thick-slab HASTE centered on the extrahepatic bile ducts. Intravenous secretin: Not requested. COMPARISON: [facility], CT, CT ABDOMEN PELVIS W CON, 05/02/2023, 13:43. [facility], CT, CT ABDOMEN PELVIS W CON, 11/12/2021, 14:58. FINDINGS: Image quality: Diagnostic. Gallbladder: There is a large chronic collection of calcified stones in the gallbladder fundus causing hypointensity. A small amount of fluid is seen in the fundus distally. No gallbladder wall thickening or other dependently layering calculi near the neck. The cystic duct is normal. No pericholecystic fluid. Biliary ducts: No biliary dilation. Pancreas: Normal pancreatic duct caliber. Classic ductal anatomy. Uniform enhancement without visible mass. OTHER: Lung bases: Unremarkable. Liver: No solid mass. Spleen: Size is within normal limits. Adrenal Glands: No adrenal nodules. Kidneys and Ureters: No hydronephrosis. No solid mass. No complex renal cystic lesion which requires follow up. Stomach and Bowel: Stomach and visible bowel loops are within normal limits. Peritoneum: No abnormal intraperitoneal fluid. No free air. Ventral Wall: No hernia. Abdominal Nodes: No retroperitoneal or mesenteric adenopathy by size criteria. Vessels: Aorta and inferior vena cava are normal in size. Bones: No aggressive osseous abnormality. IMPRESSION: 1. Chronic cholelithiasis without MR evidence of acute cholecystitis. Dictated by: Manda Cheek M.D. on 05/24/2023 at 10:52 Approved by: Manda Cheek M.D. on 05/24/2023 at 11:03
== END ==
LOC: MRI 08:18
PROVIDERS: PCP Nurse Practitioner Family; Referring Provider Nurse Practitioner Family; Visit Provider Nurse Practitioner Family
DX: K80.20 Calculus of gallbladder without cholecystitis without obstruction (principal); R10.9 Unspecified abdominal pain; R74.8 Abnormal levels of other serum enzymes
CPT/HCPCS: 74183

== ENCOUNTER 2023-06-14 15:13 | Emergency (ER) | payer MEDICARE, MEDICAID, SELFPAY ==
[2022-03-14 03:49] VITALS: BMI 24.0
[2023-06-14 15:16] VITALS: BP 168/73; PULSE 100; RESP 18; TEMP 36.7; O2SAT 95; BMI 24.9
--- NOTE | 2023-06-14 16:09 | ED.LOWEXIN ---
HPI - Extremity Injury (Lower) <Kayla Casey PA-C - Last Filed: 06/14/23 17:47> General Chief Complaint: Extremity Injury, Lower Stated Complaint: rt hip pain Time Seen by Provider: 06/14/23 16:06 Source: patient Mode of arrival: Ambulatory History of Present Illness HPI Narrative: 77yo F hx type 2 diabetes, HTN, dyslpidemia presents with concern for right foot pain for about a week. Patient lives in assisted living and states ?the only thing they ever give me for pain is Tylenol.? Patient states she came in today because she has been having foot pain which he feels mostly in the middle and top of her right foot with walking she says sometimes it feels like it is up to a 5/10. She describes it as an achy type pain. She denies any injuries or history of similar pain. She also feels like there may be some swelling of the right foot and ankle as compared to the left. She denies any recent immobility, calf pain or swelling, numbness/tingling, heat or redness of the area shortness of breath chest pain or any other symptoms. She has otherwise been in her usual state of health. She requests Tylenol for her pain. Related Data Home Medications Medication Instructions Recorded Confirmed acetaminophen 325 mg tablet 325 mg PO Q4HR 02/18/22 03/14/22 aspirin 81 mg chewable tablet 81 mg PO DAILY 02/18/22 03/14/22 atorvastatin 40 mg tablet 40 mg PO DAILY 02/18/22 03/14/22 clonazepam 0.5 mg tablet 0.5 mg PO 12XD PRN Anxiety 02/18/22 03/14/22 cyanocobalamin (vitamin B-12) 1,000 mcg PO DAILY 02/18/22 03/14/22 1,000 mcg tablet insulin glargine 100 unit/mL (3 30 unit SUBCUT QAM 02/18/22 03/14/22 mL) subcutaneous pen (Lantus Solostar U-100 Insulin) ketoconazole 2 % shampoo See Rx Instructions .Route .COMPLEX 02/18/22 03/14/22 loperamide 2 mg capsule 2 mg PO BID PRN Diarrhea 02/18/22 03/14/22 loratadine 10 mg tablet 10 mg PO DAILY 10/02/22 10/26/22 metformin 1,000 mg tablet 1,000 mg PO BID 02/18/22 03/14/22 risperidone 2 mg tablet 2 mg PO DAILY 02/18/22 03/14/22 Previous Rx's Medication Instructions Recorded albuterol sulfate 90 mcg/actuation 2 puff inhalation Q6H PRN 08/13/22 aerosol inhaler shortness of breath or wheezing #6.7 grams benzonatate 100 mg capsule 100 mg PO TID PRN cough #21 caps 08/27/22 fluconazole 150 mg tablet 150 mg PO Q3D 2 doses #2 tabs 09/19/22 (Diflucan) Allergies Allergy/AdvReac Type Severity Reaction Status Date / Time Penicillins Allergy Intermediate unknown Verified 06/14/23 15:19 but states not anaphylaxis, never stopped breathing influenza virus vaccine qs Allergy Verified 06/14/23 15:19 [id number] (65 years up) [From Fluad Quad (65y up)(PF)] pollen extracts Allergy Verified 06/14/23 15:19 procaine [From Novocain] Allergy Verified 06/14/23 15:19 vaccine adjuvant emulsion Allergy Verified 06/14/23 15:19 [id number] [From Fluad Quad (65y up)(PF)] Review of Systems <Kayla Casey PA-C - Last Filed: 06/14/23 17:47> Review of Systems Narrative: See HPI Patient History <Kayla Casey PA-C - Last Filed: 06/14/23 17:47> Medical History Dyslipidemia Essential hypertension Diabetes type 2, controlled Hyperlipidemia Anxiety Diabetes Surgical History Hx of section Social History household members: children Smoking Status: Former smoker alcohol intake: never Smoking Status: Former smoker tobacco type: cigarettes alcohol intake frequency: holidays/special occasions only Substance Use Type: does not use Exam <Kayla Casey PA-C - Last Filed: 06/14/23 17:47> Narrative Exam Narrative: GENERAL: [77] year old patient appears stated age. Well-developed patient, in mild distress. HEAD: Atraumatic. Normocephalic. EYES: Pupils equal round and reactive. Extraocular motions intact. No scleral icterus. No injection or drainage. ENT: Nose without bleeding, purulent drainage. Airway patent. NECK: Trachea midline. Non tender CARDIOVASCULAR: Regular rate and rhythm without murmurs, gallops, or rubs. RESPIRATORY: Clear to auscultation. Breath sounds equal bilaterally. No wheezes, rales, or rhonchi. GASTROINTESTINAL: Abdomen soft, non-tender, nondistended. EXTREMITIES: There is mild generalized tenderness with palpation of the dorsum of the right foot and the right great toe. As compared to the left the right foot and ankle are mildly swollen without bruising or erythema noted. The skin is not sensitive to light touch. There is no pitting edema. Dorsalis pedis and posterior tibialis are intact and strong. The right great toe has a hyperdense toenail laterally at the mid toenail in the growth pattern consistent with previous injury. No other edema or joint tenderness. BACK: Nontender without deformity or crepitance. No flank tenderness. NEURO: AOx3. SKIN: No rash or erythema of visible areas Initial Vital Signs Initial Vital Signs: Vital Signs Temperature 98.1 F 06/14/23 15:16 Pulse Rate 100 H 06/14/23 15:16 Respiratory Rate 18 06/14/23 15:16 Blood Pressure 168/73 H 06/14/23 15:16 Pulse Oximetry 95 06/14/23 15:16 Oxygen Delivery Method Room Air 06/14/23 15:16 <Benjamin Colindres DO - Last Filed: 06/14/23 17:50> Initial Vital Signs Initial Vital Signs: Vital Signs Temperature 98.1 F 06/14/23 15:16 Pulse Rate 100 H 06/14/23 15:16 Respiratory Rate 18 06/14/23 15:16 Blood Pressure 168/73 H 06/14/23 15:16 Pulse Oximetry 95 06/14/23 15:16 Oxygen Delivery Method Room Air 06/14/23 15:16 Course <Kayla Casey PA-C - Last Filed: 06/14/23 17:47> Orders Ordered: ED Orders 06/14/23 16:14 XR foot RT min 3V Stat Discontinued Medications Acetaminophen (Acetaminophen 325 Mg Tablet) 650 mg PO NOW ONE Stop: 06/14/23 16:34 Last Admin: 06/14/23 17:07 Dose: 650 mg Documented By: THUY Vital Signs Vital signs: Vital Signs - 8 hr 06/14/23 15:16 Temperature 98.1 F Pulse Rate 100 H Respiratory Rate 18 Blood Pressure 168/73 H Pulse Oximetry 95 Oxygen Delivery Method Room Air <Benjamin Colindres DO - Last Filed: 06/14/23 17:50> Orders Ordered: ED Orders 06/14/23 16:14 XR foot RT min 3V Stat Discontinued Medications Acetaminophen (Acetaminophen 325 Mg Tablet) 650 mg PO NOW ONE Stop: 06/14/23 16:34 Last Admin: 06/14/23 17:07 Dose: 650 mg Documented By: THUY Vital Signs Vital signs: Vital Signs - 8 hr 06/14/23 15:16 Temperature 98.1 F Pulse Rate 100 H Respiratory Rate 18 Blood Pressure 168/73 H Pulse Oximetry 95 Oxygen Delivery Method Room Air MDM - Extremity Injury (Lower) <Kayla Casey PA-C - Last Filed: 06/14/23 17:47> Differential Diagnosis Differential diagnosis: Likely ankle sprain and strain and other (unilateral edema, cellulitis) Medical Records Attestation: I reviewed the patient's medical records. Imaging Data Extremity x-ray #1: My Impression: Agree with radiology interpretation Radiologist's Impression: [address] [address] XRay Report Signed Patient: Marcie Diggs MR#: [id number] : 1945 Acct:[id number] Age/Sex: 77 / F Date of Service: 06/14/23 Loc: ED Accession Number: [id number] Procedure: XR foot RT min 3V Ordering Provider: Kayla Casey P.A-C PROCEDURE: XR FOOT RT MIN 3V INDICATIONS: R foot pain at dorsum, worse w/weight bearing no inj diabetic TECHNIQUE: 3 views of the foot were acquired. COMPARISON: [facility], , XR FOOT RT MIN 3V, 01/16/2023, 14:12. FINDINGS: Bones: No fractures or dislocations. No suspicious bony lesions. Soft tissues: No tibiotalar joint effusion. Achilles tendon appears normal. Curvilinear density at the 1st digit distal phalanx soft tissues. IMPRESSION: No fracture identified. Curvilinear density at the 1st digit distal phalanx soft tissues. Dictated by: Chapincito Warren M.D. on 06/14/2023 at 17:12 Approved by: Chapincito Warren M.D. on 06/14/2023 at 17:15 Treatment and disposition Shared decision making:: Shared decision-making was used to determine the patient's plan for evaluation today in the emergency department and plan for outpatient follow-up. MDM Narrative Medical decision making narrative: This is a well-appearing 77-year-old woman with history of type 2 diabetes, hypertension, dyslipidemia ambulates with a walker and who lives adjacent to the emergency department at [facility] and came in today with concern for approximately 1 week of right foot pain worse with walking. On exam there is no specific point tenderness bony tenderness noted however she does have some tenderness of the dorsum of the foot there is no tenderness to light touch or other evidence that would suggest cellulitis. There is mild swelling of the right foot and ankle as compared to the left. X-rays are obtained for further evaluation given she is diabetic and her pain is worse with walking. These returned negative. Her exam and history are not suggestive of DVT. Given the unilateral nature of the mild swelling I also have low suspicion for cardiac-related edema. She is counseled to try elevating her foot when she is at rest and consider trying compression stockings particularly on this right side. Return precautions provided, follow-up plan discussed, all questions answered. Discharge Plan Departure Patient Disposition: Home Clinical Impression: Foot pain, right, Swelling of right foot Activity Restrictions/Additional Instructions: *You have been diagnosed with [foot pain and localized swelling of your foot and ankle] *What to do: *Please continue to take your regular medications as directed. [ ] New medication prescriptions sent to your pharmacy: [ ] [ ] New medication written as a paper prescription [ X] No new medications given *Please follow up with your primary care provider in 2-3 days, call for an appointment. Let them know you were seen in the Emergency Department and that we ask that you be seen in follow up. We will electronically transmit a record of today's note if your PCP is in our system. I do not think that you have an infection of your skin, because you are diabetic and he been having pain that is worse with walking we did do an x-ray today to evaluate the bones of your foot. And we do not see any bony abnormalities there. I am not sure why you are having some mild swelling in your foot and ankle on the right and why you have been having foot pain recently with a weight-bearing. I do recommend you continue with Tylenol as needed and that you try elevating your right foot and ankle whenever you are at rest or sitting, you can also try using compression stockings to help to relieve some of this mild swelling. I also recommend of course that you follow up with your primary care provider and discuss this with them. We did not do labs or advanced imaging today. If your symptoms do worsen please make sure you get re-evaluated. *If you do not have a primary care provider please contact the [facility] Resource line at [phone]. They will ask some questions about your medical history and help get you set up with a doctor in the community. *Return to Emergency Department if you should have any new, worsening or concerning symptoms, such as [fever greater than 101 F, shaking chills, worsening pain, persistent vomiting or other bothersome symptoms] Prescriptions: No Action benzonatate 100 mg capsule 100 mg PO TID PRN (Reason: cough) Qty: 21 0RF fluconazole [Diflucan] 150 mg tablet 150 mg PO Q3D Qty: 2 0RF acetaminophen 325 mg tablet 325 mg PO Q4HR aspirin 81 mg tablet,chewable 81 mg PO DAILY atorvastatin 40 mg tablet 40 mg PO DAILY ketoconazole 2 % shampoo See Rx Instructions .ROUTE .COMPLEX Rx Instructions: daily loperamide 2 mg capsule 2 mg PO BID PRN (Reason: Diarrhea) Rx Instructions: not to exceed 3 capsules a day clonazepam 0.5 mg tablet 0.5 mg PO 12XD PRN (Reason: Anxiety) Rx Instructions: breakthrough anxiety cyanocobalamin (vitamin B-12) 1,000 mcg tablet 1,000 mcg PO DAILY risperidone 2 mg tablet 2 mg PO DAILY metformin 1,000 mg tablet 1,000 mg PO BID loratadine 10 mg tablet 10 mg PO DAILY insulin glargine [Lantus Solostar U-100 Insulin] 100 unit/mL (3 mL) insulin pen 30 unit SUBCUT QAM Rx Instructions: see rx albuterol sulfate 90 mcg/actuation HFA aerosol inhaler 2 puff inhalation Q6H PRN (Reason: shortness of breath or wheezing) Qty: 6.7 0RF Referrals: Ivanna Samuel ARNP [Primary Care Provider] - Stand Alone Forms: Patient Portal/API ED Sign-out <Benjamin Colindres DO - Last Filed: 06/14/23 17:50> Cosign ED Attending Cosignature Attestation: Dr Colindres Co-Sign Statement: I was available for consultation during this patient's emergency department visit. This chart is signed by myself for administrative purposes only. I did not have direct contact with this patient during this visit. They were seen independently by the APC.
--- NOTE | 2023-06-14 16:14 | DI.RAD.S_ITS ---
PROCEDURE: XR FOOT RT MIN 3V INDICATIONS: R foot pain at dorsum, worse w/weight bearing no inj diabetic TECHNIQUE: 3 views of the foot were acquired. COMPARISON: [facility], CR, XR FOOT RT MIN 3V, 01/16/2023, 14:12. FINDINGS: Bones: No fractures or dislocations. No suspicious bony lesions. Soft tissues: No tibiotalar joint effusion. Achilles tendon appears normal. Curvilinear density at the 1st digit distal phalanx soft tissues. IMPRESSION: No fracture identified. Curvilinear density at the 1st digit distal phalanx soft tissues. Dictated by: Chapincito Warren M.D. on 06/14/2023 at 17:12 Approved by: Chapincito Warren M.D. on 06/14/2023 at 17:15
--- NOTE | 2023-06-14 16:29 | PC.NURSE ---
patient states her right foot is in pain and is swollen. She denies fever. Her foot is swollen but CMS is in tact. She states the issue is due type 2 diabetes mellitus.
[2023-06-14] MEDS: ACETAMINOPHEN 325 MG TABLET 650 MG PO (17:07)
== END 2023-06-14 17:41 | disposition home or self-care (01) ==
PROVIDERS: Emergency Provider Student in an Organized Health Care Education/Training Program; PCP Nurse Practitioner Family
DX: M79.671 Pain in right foot (principal); M79.89 Other specified soft tissue disorders; Z79.899 Other long term (current) drug therapy
CPT/HCPCS: 73630; 99283

== ENCOUNTER 2023-09-19 13:19 | Emergency (ER) | payer MEDICARE, MEDICAID, SELFPAY ==
[2022-03-14 03:49] VITALS: BMI 24.0
[2023-09-19 13:20] VITALS: BP 139/63; PULSE 85; RESP 18; TEMP 36.3; O2SAT 96
[2023-09-19 14:08] VITALS: PULSE 64
--- NOTE | 2023-09-19 14:27 | ED_ITS ---
HPI - Extremity Problem <Zev Cisneros PA-C - Last Filed: 09/19/23 17:26> General Chief complaint: Extremity Problem,Nontraumatic Stated complaint: swelling in RT leg Time Seen by Provider: 09/19/23 14:04 Source: patient Mode of arrival: Ambulatory History of Present Illness HPI Narrative: This is a 77-year-old female presents to the emergency department due to acute on chronic right foot pain. She states that she has a chronic right foot pain for years but states it is gotten slightly worse. Denies any injuries to the right foot. Denies any swelling, numbness, or any other concerning signs or symptoms. Related Data Home Medications Medication Instructions Recorded Confirmed acetaminophen 325 mg tablet 325 mg PO Q4HR 02/18/22 03/14/22 aspirin 81 mg chewable tablet 81 mg PO DAILY 02/18/22 03/14/22 atorvastatin 40 mg tablet 40 mg PO DAILY 02/18/22 03/14/22 clonazepam 0.5 mg tablet 0.5 mg PO 12XD PRN Anxiety 02/18/22 03/14/22 cyanocobalamin (vitamin B-12) 1,000 mcg PO DAILY 02/18/22 03/14/22 1,000 mcg tablet insulin glargine 100 unit/mL (3 30 unit SUBCUT QAM 02/18/22 03/14/22 mL) subcutaneous pen (Lantus Solostar U-100 Insulin) ketoconazole 2 % shampoo See Rx Instructions .Route .COMPLEX 02/18/22 03/14/22 loperamide 2 mg capsule 2 mg PO BID PRN Diarrhea 02/18/22 03/14/22 loratadine 10 mg tablet 10 mg PO DAILY 02/18/22 03/14/22 metformin 1,000 mg tablet 1,000 mg PO BID 02/18/22 03/14/22 risperidone 2 mg tablet 2 mg PO DAILY 02/18/22 03/14/22 Previous Rx's Medication Instructions Recorded albuterol sulfate 90 mcg/actuation 2 puff inhalation Q6H PRN 08/13/22 aerosol inhaler shortness of breath or wheezing #6.7 grams benzonatate 100 mg capsule 100 mg PO TID PRN cough #21 caps 08/27/22 fluconazole 150 mg tablet 150 mg PO Q3D 2 doses #2 tabs 09/19/22 (Diflucan) Allergies Allergy/AdvReac Type Severity Reaction Status Date / Time Penicillins Allergy Intermediate unknown Verified 06/14/23 15:19 but states not anaphylaxis, never stopped breathing influenza virus vaccine qs Allergy Verified 06/14/23 15:19 [id number] (65 years up) [From Fluad Quad (65y up)(PF)] pollen extracts Allergy Verified 06/14/23 15:19 procaine [From Novocain] Allergy Verified 06/14/23 15:19 vaccine adjuvant emulsion Allergy Verified 06/14/23 15:19 [id number] [From Fluad Quad (65y up)(PF)] Review of Systems <Zev Cisneros PA-C - Last Filed: 09/19/23 17:26> Review of Systems Narrative: GENERAL: Denies chills, fatigue, malaise, fever, sweats. HEENT: Denies sinus pain, ear pain, sore throat, difficulty swallowing, dizziness. RESPIRATORY: Denies dyspnea, cough, wheezing, hemoptysis, sputum. CARDIOVASCULAR: Denies chest pain, palpitations, orthopnea, edema, GASTROINTESTINAL: Denies nausea, vomiting, abdominal pain, diarrhea, constipation, melena. : Denies dysuria, frequency, incontinence, hematuria, urinary retention. MUSCULOSKELETAL: Reports right foot and ankle pain SKIN: Denies rash, skin lesions, or other NEUROLOGIC: Denies weakness, headache, numbness, change in speech, confusion, seizures, incoordination. PSYCHIATRIC: No concerning psychosocial issues. 12 point review of systems is negative except for those stated above Patient History <Zev Cisneros PA-C - Last Filed: 09/19/23 17:26> Medical History Dyslipidemia Essential hypertension Diabetes type 2, controlled Hyperlipidemia Anxiety Diabetes Surgical History Hx of section Social History household members: children Smoking Status: Former smoker alcohol intake: never Smoking Status: Former smoker tobacco type: cigarettes alcohol intake frequency: holidays/special occasions only Substance Use Type: does not use Exam <RANDELL Dunbar Last Filed: 09/19/23 17:26> Narrative Exam Narrative: GENERAL: Well-developed patient, in mild distress. HEAD: Atraumatic. Normocephalic. EYES: Pupils equal round and reactive. Extraocular motions intact. No scleral icterus. No injection or drainage. ENT: Nose without bleeding, purulent drainage. Throat without erythema, tonsill ar hypertrophy or exudate. Airway patent. NECK: Trachea midline. Non tender EXTREMITIES: Mild tenderness to palpation to the anterior right ankle, neurovascularly intact throughout NEURO: AOx3. SKIN: No rash or erythema of visible areas Initial Vital Signs Initial Vital Signs: Vital Signs Temperature 97.4 F L 09/19/23 13:20 Pulse Rate 85 09/19/23 13:20 Respiratory Rate 18 09/19/23 13:20 Blood Pressure 139/63 09/19/23 13:20 Pulse Oximetry 96 09/19/23 13:20 Oxygen Delivery Method Room Air 09/19/23 13:20 <DO Malik Gorman Last Filed: 09/20/23 14:35> Initial Vital Signs Initial Vital Signs: Vital Signs Temperature 97.4 F L 09/19/23 13:20 Pulse Rate 85 09/19/23 13:20 Respiratory Rate 18 09/19/23 13:20 Blood Pressure 139/63 09/19/23 13:20 Pulse Oximetry 96 09/19/23 13:20 Oxygen Delivery Method Room Air 09/19/23 13:20 Course <Zve Cisneros PA-C - Last Filed: 09/19/23 17:26> Orders Ordered: ED Orders 09/19/23 14:39 XR ankle RT min 3V Stat XR foot RT min 3V Stat Vital Signs Vital signs: Vital Signs - 8 hr 09/19/23 13:20 09/19/23 14:08 Temperature 97.4 F L Pulse Rate 85 Pulse Rate [Right Dorsalis Pedis] 64 Respiratory Rate 18 Blood Pressure 139/63 Pulse Oximetry 96 Oxygen Delivery Method Room Air <DO Malik Gorman Last Filed: 09/20/23 14:35> Orders Ordered: ED Orders 09/19/23 14:39 XR ankle RT min 3V Stat XR foot RT min 3V Stat Vital Signs Vital signs: Vital Signs - 8 hr 09/19/23 13:20 09/19/23 14:08 Temperature 97.4 F L Pulse Rate 85 Pulse Rate [Right Dorsalis Pedis] 64 Respiratory Rate 18 Blood Pressure 139/63 Pulse Oximetry 96 Oxygen Delivery Method Room Air MDM - Extremity (Nontraumatic) <Zev Cisneros PA-C - Last Filed: 09/19/23 17:26> Imaging Data Ankle XR : Radiologist's Impression: [address] [address] XRay Report Signed Patient: Marcie Diggs MR#: [id number] : 1945 Acct:[id number] Age/Sex: 77 / F Date of Service: 09/19/23 Loc: ED Accession Number: [id number] Procedure: XR ankle RT min 3V Ordering Provider: Zev Cisneros P.A-C PROCEDURE: XR ANKLE RT MIN 3V INDICATIONS: R ankle pain TECHNIQUE: 3 views of the ankle were acquired. COMPARISON: None. FINDINGS: Bones: No fractures or dislocations. Ankle mortise is normally aligned. No suspicious bony lesions. Soft tissue swelling over the medial malleolus. Calcaneal spurring. Soft tissues: No tibiotalar joint effusion. Achilles tendon appears normal. IMPRESSION: No acute bony abnormality or significant effusion. If clinical symptoms persist or clinical suspicion for pathology is high, a repeat examination in 7-10 days, or advanced imaging such as CT or MRI is suggested for further evaluation. Dictated by: Stephanie Sandoval M.D. on 09/19/2023 at 17:10 Approved by: Stephanie Sandoval M.D. on 09/19/2023 at 17:11 Foot XR : Radiologist's Impression: [address] [address] XRay Report Signed Patient: Marcie Diggs MR#: [id number] : 1945 Acct:[id number] Age/Sex: 77 / F Date of Service: 09/19/23 Loc: ED Accession Number: [id number] Procedure: XR foot RT min 3V Ordering Provider: Zev Cisneros P.A-C PROCEDURE: XR FOOT RT MIN 3V INDICATIONS: R foot pain TECHNIQUE: 3 views of the foot were acquired. COMPARISON: [facility], XR ANKLE RT MIN 3V, 09/19/2023, 14:47. [facility], CR, XR FOOT RT MIN 3V, 06/14/2023, 16:28. FINDINGS: Bones: No fractures or dislocations. No suspicious bony lesions. Question old healed for 2nd metatarsal shaft fracture. Osteopenia. Mild degenerative joint disease in ankle and foot. Soft tissues: No tibiotalar joint effusion. Achilles tendon appears normal. Curvilinear density in the dorsal aspect of the distal 1st toe appears unchanged. Dorsal soft tissue swelling. IMPRESSION: 1. No acute bony abnormality. 2. Osteopenia. 3. Stable curvilinear density in the distal dorsal aspect of the 1st toe. Dictated by: Stephanie Sandoval M.D. on 09/19/2023 at 17:11 Approved by: Stephanie Sandoval M.D. on 09/19/2023 at 17:14 MDM Narrative Medical decision making narrative: ED course: This is a 77-year-old female presenting to the emergency department complaining of acute on chronic right foot pain. She has a very chronic history of right foot pain and does not recall any injuries but is requesting x-rays. X-rays taken of the foot which were unremarkable for any acute changes. Recommended supportive care. CC: Right foot pain Complicating co-morbidities: None Data collected from: Previous notes Medical records reviewed: Patient was last seen here about 3 months ago due to right foot injury. History of type 2 diabetes, hypertension, dyslipidemia. Also was complaining of foot pain. History of anxiety. X-ray ordered which was unremarkable. X-rays negative. Recommended to elevate and patient was discharged. Patient was been here multiple times due to this right foot injury. Well known to this ED. Differential considered, but not limited to: Fracture, neurovascular injury Exam documented above, pertinent findings include: Mild tenderness to pal pation, neurovascularly intact to the right foot Lab Test results independently reviewed as above. Pertinent findings: None obtained Imaging studies independently reviewed: X-rays negative for acute findings Scores Used: None MIPS Elements: None Consultations: None Treatments: None Re-evaluations: None Discussion: Discussed plan with the patient was comfortable with the plan Diagnosis: Acute on chronic right foot pain Disposition: see below, along with detailed discharge instructions that have been reviewed with patient as well as indications for ED re-evaluation and additional outpatient follow up Discharge Plan Departure Patient Disposition: Home Clinical Impression: Right foot strain Activity Restrictions/Additional Instructions: Thank you for coming to the [facility] Emergency Department today. As we discussed the x-rays your right foot and ankle showed no fractures. It did show osteopenia which you are aware of. I recommend rest, ice, better fitting shoes, and time and in the pain should improve. Please return to the emergency department if you develop any significant new or worsening pain, numbness, or any other concerning signs or symptoms. I hope you feel better soon. Please follow up with your primary care provider within a week if your symptoms continue. If you do not have a primary care provider please contact the [facility] Resource line at [phone]. They will ask some questions about your medical history and help you get set up with a provider in the community. Prescriptions: No Action benzonatate 100 mg capsule 100 mg PO TID PRN (Reason: cough) Qty: 21 0RF fluconazole [Diflucan] 150 mg tablet 150 mg PO Q3D Qty: 2 0RF acetaminophen 325 mg tablet 325 mg PO Q4HR aspirin 81 mg tablet,chewable 81 mg PO DAILY atorvastatin 40 mg tablet 40 mg PO DAILY ketoconazole 2 % shampoo See Rx Instructions .ROUTE .COMPLEX Rx Instructions: daily loperamide 2 mg capsule 2 mg PO BID PRN (Reason: Diarrhea) Rx Instructions: not to exceed 3 capsules a day clonazepam 0.5 mg tablet 0.5 mg PO 12XD PRN (Reason: Anxiety) Rx Instructions: breakthrough anxiety cyanocobalamin (vitamin B-12) 1,000 mcg tablet 1,000 mcg PO DAILY risperidone 2 mg tablet 2 mg PO DAILY metformin 1,000 mg tablet 1,000 mg PO BID loratadine 10 mg tablet 10 mg PO DAILY insulin glargine [Lantus Solostar U-100 Insulin] 100 unit/mL (3 mL) insulin pen 30 unit SUBCUT QAM Rx Instructions: see rx albuterol sulfate 90 mcg/actuation HFA aerosol inhaler 2 puff inhalation Q6H PRN (Reason: shortness of breath or wheezing) Qty: 6.7 0RF Referrals: Ivanna Samuel ARNP [Primary Care Provider] - Stand Alone Forms: Patient Portal/API ED Sign-out <Jayne Lynn DO - Last Filed: 09/20/23 14:35> Cosign ED Attending Naeemature Attestation: I was immediately available in the department for consultation.
--- NOTE | 2023-09-19 14:39 | DI.RAD.S_ITS ---
PROCEDURE: XR FOOT RT MIN 3V INDICATIONS: R foot pain TECHNIQUE: 3 views of the foot were acquired. COMPARISON: [facility], CR, XR ANKLE RT MIN 3V, 09/19/2023, 14:47. [facility], CR, XR FOOT RT MIN 3V, 06/14/2023, 16:28. FINDINGS: Bones: No fractures or dislocations. No suspicious bony lesions. Question old healed for 2nd metatarsal shaft fracture. Osteopenia. Mild degenerative joint disease in ankle and foot. Soft tissues: No tibiotalar joint effusion. Achilles tendon appears normal. Curvilinear density in the dorsal aspect of the distal 1st toe appears unchanged. Dorsal soft tissue swelling. IMPRESSION: 1. No acute bony abnormality. 2. Osteopenia. 3. Stable curvilinear density in the distal dorsal aspect of the 1st toe. Dictated by: Stephanie Sandoval M.D. on 09/19/2023 at 17:11 Approved by: Stephanie Sandoval M.D. on 09/19/2023 at 17:14
--- NOTE | 2023-09-19 14:39 | DI.RAD.S_ITS ---
PROCEDURE: XR ANKLE RT MIN 3V INDICATIONS: R ankle pain TECHNIQUE: 3 views of the ankle were acquired. COMPARISON: None. FINDINGS: Bones: No fractures or dislocations. Ankle mortise is normally aligned. No suspicious bony lesions. Soft tissue swelling over the medial malleolus. Calcaneal spurring. Soft tissues: No tibiotalar joint effusion. Achilles tendon appears normal. IMPRESSION: No acute bony abnormality or significant effusion. If clinical symptoms persist or clinical suspicion for pathology is high, a repeat examination in 7-10 days, or advanced imaging such as CT or MRI is suggested for further evaluation. Dictated by: Stephanie Sandoval M.D. on 09/19/2023 at 17:10 Approved by: Stephanie Sandoval M.D. on 09/19/2023 at 17:11
[2023-09-19 17:49] VITALS: BP 114/58; PULSE 89; RESP 18; TEMP 36.9; O2SAT 95
== END 2023-09-19 17:50 | disposition home or self-care (01) ==
PROVIDERS: Emergency Provider Physician Assistant Medical; PCP Nurse Practitioner Family
DX: S96.911A Strain of unspecified muscle and tendon at ankle and foot level, right foot, initial encounter (principal); X58.XXXA Exposure to other specified factors, initial encounter
CPT/HCPCS: 73610; 73630; 99281; 99283

== ENCOUNTER → 2023-10-31 10:54 | Outpatient (ROUT) | payer MEDICARE, MEDICAID, SELFPAY ==
[2022-03-14 03:49] VITALS: BMI 24.0
[2023-10-31 13:20] LABS: Alanine Aminotransferase 23 IU/L (<35); Albumin Globulin Ratio 1.4 (1.0-2.8); Alkaline Phosphatase 106 U/L (38-126); Aspartate Aminotransferase 25 IU/L (14-36); BUN Creatinine Ratio 19.7 (6-22); Bilirubin Total 0.8 mg/dL (0.2-1.3); Blood Urea Nitrogen 13 mg/dL (7-17); Calcium 8.7 mg/dL (8.4-10.2); Carbon Dioxide 34 mmol/L (22-32); Chloride 98 mmol/L (98-107); Estimated Glomerular Filt Rate > 60 mL/min (>60); Globulin 2.8 g/dL (1.7-4.1); Glucose 312 mg/dL (80-110); HEMOLYSIS < 15 (0-50); Potassium 3.4 mmol/L (3.4-5.1); Sodium 137 mmol/L (137-145); Total Protein 6.8 g/dL (6.3-8.2)
== END ==
PROVIDERS: PCP Nurse Practitioner Family; Visit Provider Nurse Practitioner Family
DX: R60.9 Edema, unspecified (principal); R06.9 Unspecified abnormalities of breathing
CPT/HCPCS: 36415; 80053

== ENCOUNTER → 2023-11-20 06:13 | Outpatient (ROUT) | payer MEDICARE, MEDICAID, SELFPAY ==
[2022-03-14 03:49] VITALS: BMI 24.0
[2023-11-20 07:30] LABS: Hemoglobin A1C% w Est Avg Glu 10.7 % (4.0-6.0)
[2023-11-20 07:50] LABS: BUN Creatinine Ratio 23.2 (6-22); Blood Urea Nitrogen 16 mg/dL (7-17); Calcium 8.9 mg/dL (8.4-10.2); Carbon Dioxide 31 mmol/L (22-32); Chloride 98 mmol/L (98-107); Estimated Glomerular Filt Rate > 60 mL/min (>60); Glucose 249 mg/dL (80-110); HEMOLYSIS < 15 (0-50); Potassium 3.8 mmol/L (3.4-5.1); Sodium 137 mmol/L (137-145)
== END ==
PROVIDERS: PCP Nurse Practitioner Family; Visit Provider Nurse Practitioner Family
DX: E11.9 Type 2 diabetes mellitus without complications (principal); R60.9 Edema, unspecified
CPT/HCPCS: 36415; 80048; 83036

== ENCOUNTER → 2024-02-19 06:19 | Outpatient (ROUT) | payer MEDICARE, MEDICAID, SELFPAY ==
[2022-03-14 03:49] VITALS: BMI 24.0
[2024-02-19 07:59] LABS: Hematocrit 37.2 % (36-46); Hemoglobin 13.2 g/dL (12.0-16.0); Mean Corpuscular HGB Conc 35.4 % (30-36); Mean Corpuscular Hemoglobin 31.5 PG (26-34); Mean Corpuscular Volume 88.8 fL (80-100); Platelet Count 233 X10^3/uL (150-400); Red Blood Cell Count 4.18 X10^6/uL (4.0-5.2); Red Cell Distribution Width 12.6 % (11.6-14.8); White Blood Cell Count 8.4 X10^3/uL (4.5-11.0)
[2024-02-19 08:28] LABS: Alanine Aminotransferase 18 IU/L (<35); Albumin 3.5 g/dL (3.5-5.0); Albumin Globulin Ratio 1.1 (1.0-2.8); Alkaline Phosphatase 103 U/L (38-126); Aspartate Aminotransferase 23 IU/L (14-36); BUN Creatinine Ratio 18.1 (6-22); Bilirubin Total 0.7 mg/dL (0.2-1.3); Blood Urea Nitrogen 13 mg/dL (7-17); Calcium 9.1 mg/dL (8.4-10.2); Carbon Dioxide 37 mmol/L (22-32); Chloride 92 mmol/L (98-107); Cholesterol 123 mg/dL (140-199); Estimated Glomerular Filt Rate > 60 mL/min (>60); Globulin 3.1 g/dL (1.7-4.1); Glucose 213 mg/dL (80-110); HDL Cholesterol 43 mg/dL (40-60); HEMOLYSIS < 15 (0-50); LDL Cholesterol Calculated 54 mg/dL (<100); Potassium 2.9 mmol/L (3.4-5.1); Sodium 135 mmol/L (137-145); Total Protein 6.6 g/dL (6.3-8.2); Triglycerides 130 mg/dL (35-150)
== END ==
PROVIDERS: PCP Nurse Practitioner Family; Visit Provider Nurse Practitioner Family
DX: R07.9 Chest pain, unspecified (principal); R74.8 Abnormal levels of other serum enzymes
CPT/HCPCS: 36415; 80053; 80061; 85027

== ENCOUNTER → 2024-02-26 06:33 | Outpatient (ROUT) | payer MEDICARE, MEDICAID, SELFPAY ==
[2022-03-14 03:49] VITALS: BMI 24.0
[2024-02-26 09:06] LABS: BUN Creatinine Ratio 11.7 (6-22); Blood Urea Nitrogen 9 mg/dL (7-17); Calcium 9.2 mg/dL (8.4-10.2); Carbon Dioxide 34 mmol/L (22-32); Chloride 98 mmol/L (98-107); Estimated Glomerular Filt Rate > 60 mL/min (>60); Glucose 144 mg/dL (80-110); HEMOLYSIS < 15 (0-50); Lipase 141 U/L (23-300); Potassium 3.5 mmol/L (3.4-5.1); Sodium 137 mmol/L (137-145)
== END ==
PROVIDERS: PCP Nurse Practitioner Family; Visit Provider Nurse Practitioner Family
DX: R74.8 Abnormal levels of other serum enzymes (principal); E87.6 Hypokalemia
CPT/HCPCS: 36415; 80048; 83690

== ENCOUNTER → 2024-05-27 06:21 | Outpatient (ROUT) | payer MEDICARE, MEDICAID, SELFPAY ==
[2022-03-14 03:49] VITALS: BMI 24.0
[2024-05-27 08:35] LABS: Hemoglobin A1C% w Est Avg Glu 6.6 % (4.0-6.0)
[2024-05-27 08:47] LABS: BUN Creatinine Ratio 13.5 (6-22); Blood Urea Nitrogen 12 mg/dL (7-17); Calcium 9.4 mg/dL (8.4-10.2); Carbon Dioxide 32 mmol/L (22-32); Chloride 98 mmol/L (98-107); Estimated Glomerular Filt Rate > 60 mL/min (>60); Glucose 192 mg/dL (80-110); HEMOLYSIS < 15 (0-50); Potassium 4.1 mmol/L (3.4-5.1); Sodium 137 mmol/L (137-145)
== END ==
PROVIDERS: PCP Nurse Practitioner Family; Visit Provider Nurse Practitioner Family
DX: E11.8 Type 2 diabetes mellitus with unspecified complications (principal)
CPT/HCPCS: 36415; 80048; 83036

== ENCOUNTER 2024-08-19 17:52 | Emergency (ER) | payer MEDICARE, MEDICAID, SELFPAY ==
[2022-03-14 03:49] VITALS: BMI 24.0
[2024-08-19] VITALS (12 sets, daily range): BP systolic 117–140; BP diastolic 58–64; PULSE 62–77; RESP 18–24; TEMP 37.1; O2SAT 96–98; BMI 21.4
--- NOTE | 2024-08-19 18:01 | DI.RAD.S_ITS ---
PROCEDURE: XR CHEST 1V INDICATIONS: chest pain TECHNIQUE: One view of the chest was acquired. COMPARISON: [facility], CR, XR CHEST 2V, 01/25/2023, 14:05. FINDINGS: Surgical changes and devices: None. Lungs and pleura: Lungs are clear. No pleural effusions or pneumothorax. Mediastinum: Mediastinal contours appear normal. Heart size is normal. Bones and chest wall: No suspicious bony lesions. Overlying soft tissues appear unremarkable. Stable sclerotic focus involving the right humeral head. IMPRESSION: Stable radiographic evaluation of the chest without acute cardiopulmonary abnormalities or focal consolidation. Dictated by: Vipin Quintero M.D. on 08/19/2024 at 18:44 Approved by: Vipin Quintero M.D. on 08/19/2024 at 18:44
--- NOTE | 2024-08-19 18:07 | EKG_ITS ---
[address] [address] Test Date: 2024-08-19 Pat Name: Marcie Diggs Department: Room: Gender: Female Control Specialist: LORENA : 1945 Requested By: Order Number: [id number] Reading MD: Randy Grimes Measurements Intervals [place] Rate: 61 P: 54 MS: 164 QRS: 41 QRSD: 76 T: 47 QT: 392 QTc: 394 Interpretive Statements Normal sinus rhythm with sinus arrhythmia Electronically Signed On 08-19-2024 18:43:11 PDT by Randy Grimes
[2024-08-19 18:27] LABS: Add Manual Diff / Slide Review NO; Basophils Absolute Auto 100 /uL (0-100); Basophils Percent Auto 0.8 % (0-2); Eosinophils Absolute Auto 200 /uL (0-450); Eosinophils Percent Auto 2.5 % (2-4); Hematocrit 39.4 % (36-46); Hemoglobin 13.4 g/dL (12.0-16.0); Lymphocytes Absolute Auto 3000 /uL (1100-4500); Lymphocytes Percent Auto 31.6 % (25-40); Mean Corpuscular HGB Conc 33.9 % (30-36); Mean Corpuscular Volume 91.4 fL (80-100); Monocytes Absolute Auto 600 /uL (0-900); Monocytes Percent Auto 6.8 % (3-14); Neutrophils Absolute Auto 5600 /uL (1500-7000); Neutrophils Percent Auto 58.3 % (50-75); Platelet Count 216 X10^3/uL (150-400); Red Blood Cell Count 4.31 X10^6/uL (4.0-5.2); Red Cell Distribution Width 13.2 % (11.6-14.8); White Blood Cell Count 9.6 X10^3/uL (4.5-11.0)
[2024-08-19 18:32] LABS: INR 1.1 (0.9-1.3); Prothrombin Time 11.9 SECONDS (9.4-12.5)
[2024-08-19 18:34] LABS: Alanine Aminotransferase 22 IU/L (<35); Albumin 4.2 g/dL (3.5-5.0); Albumin Globulin Ratio 1.3 (1.0-2.8); Alkaline Phosphatase 96 U/L (38-126); Aspartate Aminotransferase 31 IU/L (14-36); BUN Creatinine Ratio 10.8 (6-22); Blood Urea Nitrogen 11 mg/dL (7-17); Calcium 9.4 mg/dL (8.4-10.2); Carbon Dioxide 27 mmol/L (22-32); Chloride 105 mmol/L (98-107); Creatine Kinase 36 U/L (30-135); Estimated Glomerular Filt Rate 57 mL/min (>60); Globulin 3.3 g/dL (1.7-4.1); Glucose 124 mg/dL (80-110); HEMOLYSIS < 15 (0-50); Lipase 217 U/L (23-300); Magnesium 1.6 mg/dL (1.6-2.3); PTT Partial Thromboplastin Tim 37 SECONDS (25.1-36.5); Potassium 4.1 mmol/L (3.4-5.1); Sodium 141 mmol/L (137-145); Total Protein 7.5 g/dL (6.3-8.2)
[2024-08-19 18:45] LABS: NT-proBNP (BNP-Adult 18+) 160 pg/mL (<450); Troponin I < 0.012 ng/mL (0.01-0.034)
[2024-08-19 20:52] LABS: Troponin I < 0.012 ng/mL (0.01-0.034)
--- NOTE | 2024-08-19 20:52 | ED_ITS ---
HPI - Chest Pain General Chief Complaint: Chest Pain Stated Complaint: Chest pain, SOB Time Seen by Provider: 08/19/24 20:52 Source: patient Mode of arrival: Wheelchair Limitations: no limitations History of Present Illness HPI narrative: 78-year-old female with a past medical history of diabetes, hypertension, hyperlipidemia presenting from home for evaluation of multiple complaints. She states that she has been feeling slightly light headed nauseous with associated chest pain, she feels like this is causing her difficulty breathing. She states this has been ongoing for the past few days. She states nothing is making it better or worse. She denies any recent travel no known sick contacts. She denies any other symptoms such as headache visual disturbances fever chills vomiting abdominal pain or any other GI/ symptoms time. Related Data Home Medications Medication Instructions Recorded Confirmed acetaminophen 325 mg tablet 325 mg PO Q4HR 02/18/22 03/14/22 aspirin 81 mg chewable tablet 81 mg PO DAILY 02/18/22 03/14/22 atorvastatin 40 mg tablet 40 mg PO DAILY 02/18/22 03/14/22 clonazepam 0.5 mg tablet 0.5 mg PO 12XD PRN Anxiety 02/18/22 03/14/22 cyanocobalamin (vitamin B-12) 1,000 mcg PO DAILY 02/18/22 03/14/22 1,000 mcg tablet insulin glargine 100 unit/mL (3 30 unit SUBCUT QAM 02/18/22 03/14/22 mL) subcutaneous pen (Lantus Solostar U-100 Insulin) ketoconazole 2 % shampoo See Rx Instructions .Route .COMPLEX 02/18/22 03/14/22 loperamide 2 mg capsule 2 mg PO BID PRN Diarrhea 02/18/22 03/14/22 loratadine 10 mg tablet 10 mg PO DAILY 02/18/22 03/14/22 metformin 1,000 mg tablet 1,000 mg PO BID 02/18/22 03/14/22 risperidone 2 mg tablet 2 mg PO DAILY 02/18/22 03/14/22 Previous Rx's Medication Instructions Recorded albuterol sulfate 90 mcg/actuation 2 puff inhalation Q6H PRN 08/13/22 aerosol inhaler shortness of breath or wheezing #6.7 grams benzonatate 100 mg capsule 100 mg PO TID PRN cough #21 caps 08/27/22 fluconazole 150 mg tablet 150 mg PO Q3D 2 doses #2 tabs 09/19/22 (Diflucan) Allergies Allergy/AdvReac Type Severity Reaction Status Date / Time Penicillins Allergy Intermediate unknown Verified 06/14/23 15:19 but states not anaphylaxis, never stopped breathing influenza virus vaccine qs Allergy Verified 06/14/23 15:19 [id number] (65 years up) [From Fluad Quad (65y up)(PF)] pollen extracts Allergy Verified 06/14/23 15:19 procaine [From Novocain] Allergy Verified 06/14/23 15:19 vaccine adjuvant emulsion Allergy Verified 06/14/23 15:19 [id number] [From Fluad Quad (65y up)(PF)] Review of Systems Review of Systems Narrative: General: Denies fever, chills, weight loss HEENT: Denies headache, eye drainage, eye irritation, head trauma, sore throat, voice change Cardiovascular: Positive chest pain, Respiratory: positive shortness of breath, denies cough wheeze stridor GI/: Positive nausea, Denies any abdominal pain, vomiting, diarrhea, bright red blood per rectum, melanotic stools, urinary frequency, urinary retention, dysuria, hematuria MSK: Denies any joint pain, muscle pains, swelling Skin: Denies any rashes, lesions, discoloration Neuro: Denies any headache, lightheadedness, dizziness, fainting, weakness Psych: Denies SI/HI Patient History Medical History Dyslipidemia Essential hypertension Diabetes type 2, controlled Hyperlipidemia Anxiety Diabetes Surgical History Hx of section Social History household members: children Smoking Status: Never smoker alcohol intake: never Smoking Status: Never smoker tobacco type: cigarettes alcohol intake frequency: holidays/special occasions only Exam Narrative Exam Narrative: General: Cooperative, well-developed, not in acute distress HEENT: Normocephalic, atraumatic, normal sclera, eyelids normal Neck: Active full range of motion, atraumatic Chest: Normal to inspection, negative crepitus, no overlying erythema ecchymosis Respiratory: Normal respiratory effort, not in acute respiratory distress, clear to auscultation bilaterally negative cough, wheeze, tachypnea, rhonchi, rales Cardiology: Regular rate rhythm negative gallop, murmur, rubs GI/: No tenderness to palpation, soft, non rigid, normal to inspection, exam deferred MSK: Full active range of motion in all 4 extremities, atraumatic, no tenderness to palpation of any bony prominences Skin: No rashes or lesions noted Neuro: Alert awake oriented x3, moves all 4 extremities spontaneously, cranial nerves intact, able to answer all questions appropriately follows commands appropriately Psych: Cooperative, negative suicidal or homicidal ideations Initial Vital Signs Initial Vital Signs: Vital Signs Temperature 98.7 F 08/19/24 17:55 Pulse Rate 77 08/19/24 17:55 Respiratory Rate 18 08/19/24 17:55 Blood Pressure 133/60 08/19/24 17:55 Pulse Oximetry 98 08/19/24 17:55 Oxygen Delivery Method Room Air 08/19/24 17:55 Course Orders Ordered: ED Orders 08/19/24 18:01 XR chest 1V Stat EKG-12 Lead Stat 08/19/24 18:14 Complete Blood Count AUTO DIFF Stat Comprehensive Metabolic Panel Stat Lipase Stat Magnesium Stat NT-proBNP (BNP-Adult 18+) Stat PTT Partial Thromboplastin Saturnino Stat Prothrombin Time INR Stat Troponin & CK Cardiac Panel Stat 08/19/24 20:15 Trop I [Troponin I] Stat 08/19/24 20:57 Covid-19 + FLU A/B + RSV - PCR Stat Discontinued Medications Aspirin (Aspirin 81 Mg Chew Tab) 324 mg PO NOW ONE Stop: 08/19/24 18:02 Vital Signs Vital signs: Vital Signs - 8 hr 08/19/24 17:55 Temperature 98.7 F Pulse Rate 77 Respiratory Rate 18 Blood Pressure 133/60 Pulse Oximetry 98 Oxygen Delivery Method Room Air MDM - Chest Pain Differential Diagnosis Differential diagnosis: Likely other (ACS, pneumonia, electrolyte abnormality, COVID, flu, CHF) Lab Data 08/19/24 18:14 08/19/24 18:14 Labs: Lab Results 08/19/24 08/19/24 08/19/24 Range/Units 18:14 20:15 20:57 WBC 9.6 (4.5-11.0) X10^3/uL RBC 4.31 (4.0-5.2) X10^6/uL Hgb 13.4 (12.0-16.0) g/dL Hct 39.4 (36-46) % MCV 91.4 (80-100) fL MCH 31.0 (26-34) PG MCHC 33.9 (30-36) % RDW 13.2 (11.6-14.8) % Plt Count 216 (150-400) X10^3/uL Neut % (Auto) 58.3 (50-75) % Lymph % (Auto) 31.6 (25-40) % Wake % (Auto) 6.8 (3-14) % Eos % (Auto) 2.5 (2-4) % Baso % (Auto) 0.8 (0-2) % Neut # (Auto) 5600 (8487-7149) /uL Lymph # (Auto) 3000 (0189-5874) /uL Wake # (Auto) 600 (0-900) /uL Eos # (Auto) 200 (0-450) /uL Baso # (Auto) 100 (0-100) /uL PT 11.9 (9.4-12.5) SECONDS INR 1.1 (0.9-1.3) APTT 37 H (25.1-36.5) SECONDS Sodium 141 (137-145) mmol/L Potassium 4.1 (3.4-5.1) mmol/L Chloride 105 (98-107) mmol/L Carbon Dioxide 27 (22-32) mmol/L BUN 11 (7-17) mg/dL Creatinine 1.02 (0.52-1.04) mg/dL Estimated GFR 57 L (>60) mL/min BUN/Creatinine Ratio 10.8 (6-22) Glucose 124 H (80-110) mg/dL Calcium 9.4 (8.4-10.2) mg/dL Magnesium 1.6 (1.6-2.3) mg/dL Total Bilirubin 1.0 (0.2-1.3) mg/dL AST 31 (14-36) IU/L ALT 22 (<35) IU/L Alkaline Phosphatase 96 (38-126) U/L Total Creatine Kinase 36 (30-135) U/L Troponin I < 0.012 < 0.012 (0.01-0.034) ng/mL NT-Pro-B Natriuret Pep 160 (<450) pg/mL Total Protein 7.5 (6.3-8.2) g/dL Albumin 4.2 (3.5-5.0) g/dL Globulin 3.3 (1.7-4.1) g/dL Albumin/Globulin Ratio 1.3 (1.0-2.8) Lipase 217 (23-300) U/L SARS-CoV-2 (PCR) Negative (Negative) Influenza A (RT-PCR) Flu a negative (NEGATIVE) Influenza B (RT-PCR) Flu b negative (NEGATIVE) RSV (PCR) Negative (Negative) Imaging Data Chest x-ray: Radiologist's Impression: [address] [address] XRay Report Signed Patient: Marcie Diggs MR#: [id number] : 1945 Acct:[id number] Age/Sex: 78 / F Date of Service: 08/19/24 Loc: ED Accession Number: [id number] Procedure: XR chest 1V Ordering Provider: Randy Gandhi D.O. PROCEDURE: XR CHEST 1V INDICATIONS: chest pain TECHNIQUE: One view of the chest was acquired. COMPARISON: [facility], , XR CHEST 2V, 01/25/2023, 14:05. FINDINGS: Surgical changes and devices: None. Lungs and pleura: Lungs are clear. No pleural effusions or pneumothorax. Mediastinum: Mediastinal contours appear normal. Heart size is normal. Bones and chest wall: No suspicious bony lesions. Overlying soft tissues appear unremarkable. Stable sclerotic focus involving the right humeral head. IMPRESSION: Stable radiographic evaluation of the chest without acute cardiopulmonary abnormalities or focal consolidation. ECG Data Interpretation: EKG interpreted ED physician sinus 61 beats per minute QTC [address] changes no STEMI MDM Narrative Medical decision making narrative: 78-year-old female with a history of hyperlipidemia hypertension diabetes presents to the emergency department from home for evaluation of multiple complaints. Has been feeling slightly nauseous with chest pain shortness of breath for the past few days, she states it is affecting her sleeping. She denies any other symptoms no recent travel no known sick contacts. Not on any blood thinners. Patient with EKG nonischemic in nature, troponin negative x2. Lab work unremarkable for leukocytosis BNP within normal range. Chest x-ray without any acute cardiopulmonary abnormalities. Respiratory panel negative. Patient was sent home with strict return precautions instructed follow up with primary care and cardiology outpatient setting she verbalized understanding of this and agrees to being discharged home with outpatient follow up Heart score 3 Discharge Plan Departure Patient Disposition: Home Clinical Impression: Chest pain Instructions: DI for Chest Pain Activity Restrictions/Additional Instructions: Please follow up with Cardiology and primary care in outpatient setting Please read the discharge instructions sheet carefully and bring all papers to all doctor follow-up visits, as it may contain information that your doctor may want to see. Disease processes change and evolve, if your symptoms worsen or if you develop any new symptoms that are concerning to you please return for evaluation. Your evaluation today does not show any evidence of any life- threatening/serious illnesses requiring admission to the hospital or surgery. Please follow-up with your doctor for re-evaluation in approximately 1 day. Seek immediate medical attention for any worrisome symptoms. *If you do not have a primary care provider please contact the [facility] Resource line at [phone]. They will ask some questions about your medical history and help get you set up with a doctor in the community. Prescriptions: No Action benzonatate 100 mg capsule 100 mg PO TID PRN (Reason: cough) Qty: 21 0RF fluconazole [Diflucan] 150 mg tablet 150 mg PO Q3D Qty: 2 0RF acetaminophen 325 mg tablet 325 mg PO Q4HR aspirin 81 mg tablet,chewable 81 mg PO DAILY atorvastatin 40 mg tablet 40 mg PO DAILY ketoconazole 2 % shampoo See Rx Instructions .ROUTE .COMPLEX Rx Instructions: daily loperamide 2 mg capsule 2 mg PO BID PRN (Reason: Diarrhea) Rx Instructions: not to exceed 3 capsules a day clonazepam 0.5 mg tablet 0.5 mg PO 12XD PRN (Reason: Anxiety) Rx Instructions: breakthrough anxiety cyanocobalamin (vitamin B-12) 1,000 mcg tablet 1,000 mcg PO DAILY risperidone 2 mg tablet 2 mg PO DAILY metformin 1,000 mg tablet 1,000 mg PO BID loratadine 10 mg tablet 10 mg PO DAILY insulin glargine [Lantus Solostar U-100 Insulin] 100 unit/mL (3 mL) insulin pen 30 unit SUBCUT QAM Rx Instructions: see rx albuterol sulfate 90 mcg/actuation HFA aerosol inhaler 2 puff inhalation Q6H PRN (Reason: shortness of breath or wheezing) Qty: 6.7 0RF Referrals: Raheem Cates MD [Physician] - Ivanna Samuel ARNP [Primary Care Provider] - Stand Alone Forms: Patient Portal/API/Survey
[2024-08-19 21:38] LABS: Influenza A - CEPHEID Flu A NEGATIVE (NEGATIVE); Influenza B - CEPHEID Flu B NEGATIVE (NEGATIVE); Respiratory Syncytial Virus Negative (Negative)
[2024-08-19 21:40] LABS: COVID-19 CEPHEID 4-PLEX PCR Negative (Negative)
== END 2024-08-19 22:16 | disposition home or self-care (01) ==
PROVIDERS: Emergency Provider Student in an Organized Health Care Education/Training Program; PCP Nurse Practitioner Family
DX: R07.9 Chest pain, unspecified (principal); R11.0 Nausea; R06.00 Dyspnea, unspecified
CPT/HCPCS: 0241U; 36415; 71045; 80053; 82550; 83690; 83735; 83880; 84484; 85025; 85610; 85730; 93005; 99284

== ENCOUNTER → 2025-02-17 06:42 | Outpatient (ROUT) | payer MEDICARE, MEDICAID, SELFPAY ==
[2022-03-14 03:49] VITALS: BMI 24.0
[2025-02-17 07:41] LABS: Hematocrit 32.1 % (36-46); Hemoglobin 10.9 g/dL (12.0-16.0)
[2025-02-17 08:01] LABS: Alanine Aminotransferase 18 IU/L (<35); Albumin 3.2 g/dL (3.5-5.0); Albumin Globulin Ratio 1.1 (1.0-2.8); Alkaline Phosphatase 86 U/L (38-126); Blood Urea Nitrogen 11 mg/dL (7-17); Calcium 8.8 mg/dL (8.4-10.2); Carbon Dioxide 29 mmol/L (22-32); Chloride 105 mmol/L (98-107); Estimated Glomerular Filt Rate > 60 mL/min (>60); Globulin 3.0 g/dL (1.7-4.1); Glucose 102 mg/dL (70-99); HEMOLYSIS < 15 (0-50); Potassium 4.3 mmol/L (3.4-5.1); Sodium 141 mmol/L (137-145); Total Protein 6.2 g/dL (6.3-8.2)
[2025-02-17 08:30] LABS: Thyroid Stimulating Hormone 0.886 uIU/mL (0.47-4.68)
[2025-02-17 08:49] LABS: Vitamin B12 > 1000 pg/mL (239-931)
== END ==
PROVIDERS: PCP Nurse Practitioner Family; Visit Provider Nurse Practitioner Family
DX: R63.4 Abnormal weight loss (principal); D64.9 Anemia, unspecified
CPT/HCPCS: 36415; 80053; 82607; 84443; 85014; 85018